=== PATIENT | female | born 1985 | race Caucasian/White ===

== ENCOUNTER 2022-05-15 17:05 | Emergency (ER) | payer OTHER ==
--- OUTSIDE RECORDS SUMMARY | 2022-05-15 17:08 | XMS REPORT | Continuity of Care Document ---
:1985 Author Organization [facility] t Address [address] [place] [address] Care Team Providers Name Role Phone ASHA MCKEE Attending Clinician Unavailable PHYSICIAN, ER Attending Clinician Unavailable Problems Condition Condition Condition Status Onset Resolution Last Treating Co mments Source Name Details Category Date Date Treatment Clinician Date Problem Condition [facility] Allergies, Adverse Reactions, Alerts This patient has no known allergies or adverse reactions. Social History Social Habit Start Date Stop Date Quantity Comments Source Sex Assigned At [birth year] Female [facility] 00:00:00 00:00:00 Smoking Status Start Date Stop Date Source Unknown if ever smoked [employer] Never smoked tobacco (finding) C [employer] Medications Ordered Filled Start Stop Current Ordering Indication Dosage Frequency Signature Comments Components Source Medication Medication Date Date Medication? Clinician (SIG) Name Name Methocarbam 2020-0 No 500mg Three [facility] LEVON ol 7-07 Times A S (Robaxin) 09:18: [facility] 500 Mg TAB 00 Acetaminoph 2020-0 No 1 Every 4 [facility] ISTU en/Butalbit 7-07 Hours S al/Caffeine 08:39: Health (Fioricet) 00 1 Tab TAB Promethazin 2020-0 No 12.5mg Every 4 - [facility] e Hcl 7-07 6 Hours S (Phenergan) 08:39: Health 12.5 Mg 00 TABLET Vital Signs Vital Name Observation Time Observation Value Comments Source Body Temperature 2020-01-07 10:16:00 97.7 [degF] [employer] Heart Rate 2020-01-07 10:16:00 79 /min [employer] Respiratory rate 2020-01-07 10:16:00 18 /min [employer] [facility] BP Systolic 2020-01-07 10:16:00 134 mm[Hg] [employer] BP Diastolic 2020-01-07 10:16:00 90 mm[Hg] [employer] Heart Rate 2020-01-07 07:42:00 79 /min [facility] BP Systolic 2020-01-07 07:42:00 134 mm[Hg] [facility] BP Diastolic 2020-01-07 07:42:00 90 mm[Hg] [facility] Respiratory rate 2020-01-07 03:43:00 18 /min [facility] Weight 2020-01-07 03:43:00 230 [lb_av] [facility] BMI (Body Mass Index) 2020-01-07 03:43:00 34.0 kg/m2 [facility] Body Temperature 2019-09-09 00:22:00 98.4 [degF] [facility] Heart Rate 2019-09-09 00:22:00 96 /min [facility] Respiratory rate 2019-09-09 00:22:00 18 /min [facility] BP Systolic 2019-09-09 00:22:00 146 mm[Hg] [facility] BP Diastolic 2019-09-09 00:22:00 93 mm[Hg] [facility] Heart Rate 2019-09-08 21:00:00 96 /min [facility] Respiratory rate 2019-09-08 21:00:00 18 /min [facility] BP Systolic 2019-09-08 21:00:00 146 mm[Hg] [facility] BP Diastolic 2019-09-08 21:00:00 93 mm[Hg] [facility] Weight 2019-09-08 21:00:00 235 [lb_av] [facility] BMI (Body Mass Index) 2019-09-08 21:00:00 34.7 kg/m2 [facility] Procedures Procedure Date / Time Performed Performing Clinician [facility] ECG (electrocardiogram) 2020-01-07 00:00:00 [facility] X-ray of chest, single 2020-01-07 00:00:00 [employer] view Computed tomography of 2020-01-07 00:00:00 [employer] head or brain without contrast Computed tomography of 2020-01-07 00:00:00 [employer] [facility] cervical spine without contrast ECG (electrocardiogram) 2019-09-08 00:00:00 [facility] [employer] [facility] X-ray of chest, two views 2019-09-08 00:00:00 [facility] Encounters Start End Encounter Admission Attending Care Care Encounter Source Date/Time Date/Time Type Type Clinicians Facility Department ID 2020-01-09 2020-01-09 Outpatient MARIANO MCKEE, GLORIA CASTRO [id number] [facility] 13:44:00 13:44:00 ASHA 03 S Health 2020-01-07 2020-01-07 Departed ER PHYSICIAN, GLORIA CASTRO [id number] [facility] 03:35:00 03:35:00 Emergency ER [facility] [address] [facility] 2019-09-08 2019-09-09 Departed GLORIA CASTRO [id number] [facility] 20:50:00 00:23:00 Emergency [facility] [address] [facility] Results Test Description Test Time Test Comments Results Result Comments Source Serum or plasma natriuretic peptide B measurement (mas s/volume) 2020-01-07 08:11:00 Test Item Value Reference Range Interpretation Comme nts B-Type Natriuretic Peptide (test code = 88566-4) 4 pg/mL 0-101 [facility] or plasma free thyroxine (FT4) measurement (mass/volume) 2020-01-07 07:47:00 Test Item Value Reference Range Interpretation Comments Free Thyroxine (test code = 1.48 ng/dL 1.09-1.53 3024-7) [facility] plasma thyrotropin measurement with detection limit of 0.005 mIU/L or less (units/volume)2020-01-07 07:47:00 Test Item Value Reference Range Interpretation Comments Thyroid Stimulating Hormone 1.435 u[iU]/mL 0.550-4.780 (TSH) (test code = 45252-9) [facility] or plasma free triiodothyronine (T3) measurement (mass/volume)2020-01-07 07:47:00 Test Item Value Reference Range Interpretation Comments Free Triiodothyronine (test code = 2.89 pg/mL 2.30-4.20 3051-0) [facility] or plasma amylase measurement (enzymatic activity/volume) 2020-01-07 07:27:00 Test Item Value Reference Range Interpretation Comments Amylase Level (test code = 1798-8) 31 U/L 23-130 [facility] or plasma lipase measurement (enzymatic activity/volume) 2020-01-07 07:27:00 Test Item Value Reference Range Interpretation Comments Lipase (test code = 3040-3) 29 U/L 31-96 [facility]/igjp0391-58-10 07:27:00 Test Item Value Reference Range Interpretation Comments Total Creatine Kinase (test code = 61 U/L 30-160 2157-6) [facility] or plasma creatine kinase MB measurement (mass/volume) 2020-01-07 07:27:00 Test Item Value Reference Range Interpretation Comments Creatine Kinase MB (test code = < 0.18 ng/mL 0-5 57949-9) [facility] or plasma cardiac troponin I measurement (mass/volume) 2020-01-07 07:27:00 Test Item Value Reference Range Interpretation Comments Troponin I (test code = < 0.006 ng/mL 0.000-0.040 40050-2) [facility] or plasma myoglobin measurement (mass/volume)2020-01-07 07:27:00 Test Item Value Reference Range Interpretation Comments Myoglobin (test code = 2639-3) 20.4 ng/mL <110.0 [facility] HealthUrinalysis specimen collection [id number] 04:03:00 Test Item Value Reference Range Interpretation Comments Urine Source (test code = Urine Clean Catch 51908-1) [facility] HealthUrine color [id number] 04:03:00 Test Item Value Reference Range Interpretation Comments Urine Color (test code = 5778-6) Colorless Yel-Lora [facility] HealthUrine appearance wwrjuucmhejob3230-92-53 04:03:00 Test Item Value Reference Range Interpretation Comments Urine Appearance (test code = 5767-9) Clear Clear [facility] pH measurement by test [id number] 04:03:00 Test Item Value Reference Range Interpretation Comments Urine pH (test code = 5803-2) 5.0 5.0-7.5 [facility] gravity ur aclvzazg4567-62-54 04:03:00 Test Item Value Reference Range Interpretation Comments Urine Specific [place] (test code = 1.003 1.003-1.029 5811-5) [facility] protein measurement by automated test strip (mass/volume) 2020-01-07 04:03:00 Test Item Value Reference Range Interpretation Comments Urine Protein (test code = Negative mg/dL Neg - Trace 95737-7) [facility] glucose measurement by automated test strip (mass/volume) 2020-01-07 04:03:00 Test Item Value Reference Range Interpretation Comments Urine Glucose (UA) (test code = Negative Negative 16162-2) [facility]Urine ketones detection by automated test [id number] 04:03:00 Test Item Value Reference Range Interpretation Comments Urine Ketones (test code = 13653-2) Negative Negative [facility] erythrocytes count by automated test strip (number/volume) 2020-01-07 04:03:00 Test Item Value Reference Range Interpretation Comments Urine Occult Blood (test code = Negative Negative 51727-9) [facility]rine nitrite detection by automated test [id number] 04:03:00 Test Item Value Reference Range Interpretation Comments Urine Nitrite (test code = 60075-8) Negative Negative [facility] total bilirubin detection by automated test [id number] 04:03:00 Test Item Value Reference Range Interpretation Comments Urine Bilirubin (test code = Negative Negative 07039-7) [facility] urobilinogen measurement by automated test strip (mass/volume)2020-01-07 04:03:00 Test Item Value Reference Range Interpretation Comments Urine Urobilinogen (test code = Normal mg/dL Norm-1.0 25782-1) [facility] HealthUrine leukocyte esterase detection by automated test strip 2020-01-07 04:03:00 Test Item Value Reference Range Interpretation Comments Urine Leukocyte Esterase (test code = Trace Negative 11239-8) [facility] sediment erythrocyte count by microscopy (number/high power field)2020-01-07 04:03:00 Test Item Value Reference Range Interpretation Comments Urine RBC (test 0-2 /[HPF] See_Comment [Automated message] The code = 87592-3) system which generated this result tra nsmitted reference range : 0 to 5. The reference r kandice was not used to int erpret this result as normal/abnormal . [facility] HealthUrine sediment leukocyte count by microscopy (number/high power field)2020-01-07 04:03:00 Test Item Value Reference Range Interpretation Comments Urine WBC (test 5 to 10 /[HPF] See_Comment [Automate d message] code = 5821-4) The system ich generated this result transmitted ref erence range: 0 to 5. The reference range was not used to int erpret this result as normal/abnormal . [facility] HealthUrine sediment epithelial cell count by microscopy (number/low power field)2020-01-07 04:03:00 Test Item Value Reference Range Interpretation Comments Urine Epithelial Cells (test code Many /[LPF] None/Occ = 72949-6) [facility] sediment bacteria count by microscopy (number/high power field)2020-01-07 04:03:00 Test Item Value Reference Range Interpretation Comments Urine Bacteria (test code = Occasional /[HPF] None 5769-5) [facility]Urine sediment hyaline cast count by microscopy (number/low power field)2020-01-07 04:03:00 Test Item Value Reference Range Interpretation Comments Urine Hyaline Casts (test code = 2-5 /[LPF] 5796-8) [facility] HealthYeast detection in urine sediment by light cgntrovqcs1553-11-02 04:03:00 Test Item Value Reference Range Interpretation Comments Urine Yeast (test code = None Seen /[HPF] 11874-2) [facility] comment 04:03:00 Test Item Value Reference Range Interpretation Comments Urine Culture Indicated (test code = No 8264-4) [facility] HealthAutomated blood leukocyte count (number/volume)2020-01-07 04:00:00 Test Item Value Reference Range Interpretation Comments White Blood Count (test code = 4.5 10*3/uL 4.8-10.8 6690-2) [facility] HealthBlood erythrocytes automated count (number/volume)2020-01-07 04:00:00 Test Item Value Reference Range Interpretation Comments Red Blood Count (test code = 4.30 10*6/uL 4.00-5.20 789-8) [facility] HealthBlood hemoglobin measurement (mass/volume)2020-01-07 04:00:00 Test Item Value Reference Range Interpretation Comments Hemoglobin (test code = 718-7) 11.8 g/dL 11.9-15.3 [facility] HealthAutomated blood hematocrit (volume fraction)2020-01-07 04:00:00 Test Item Value Reference Range Interpretation Comments Hematocrit (test code = 4544-3) 36.2 % 35.0-45.2 [facility] HealthAutomated erythrocyte mean corpuscular volume (MCV) measurement 2020-01-07 04:00:00 Test Item Value Reference Range Interpretation Comments Mean Corpuscular Volume (test code = 84.2 fL 81.0-97.0 787-2) [facility] HealthAutomated erythrocyte mean corpuscular hemoglobin (mass per erythrocyte)2020-01-07 04:00:00 Test Item Value Reference Range Interpretation Comments Mean Corpuscular Hemoglobin (test 27.4 pg 27.0-33.0 code = 785-6) [facility]Automated erythrocyte mean corpuscular hemoglobin concentration measurement (mass/bij0502-58-66 04:00:00 Test Item Value Reference Range Interpretation Comments Mean Corpuscular Hemoglobin Concent 32.6 g/dL 32.5-35.0 (test code = 786-4) [facility] HealthAutomated erythrocyte distribution width [id number] 04:00:00 Test Item Value Reference Range Interpretation Comments Red Cell Distribution Width (test code 13.5 % 11.5-14.5 = 788-0) [facility] HealthAutomated blood platelet count (count/volume)2020-01-07 04:00:00 Test Item Value Reference Range Interpretation Comments Platelet Count (test code = 191 10*3/uL 160-400 777-3) [facility] HealthAutomated blood platelet mean volume hqzsxgfkorb1962-16-74 04:00:00 Test Item Value Reference Range Interpretation Comments Mean Platelet Volume (test code = 12.0 fL 7.5-11.2 86358-6) [facility] HealthAutomated blood neutrophil count as percentage of total ftqxpewkkd2197-38-16 04:00:00 Test Item Value Reference Range Interpretation Comments Neutrophils (%) (Auto) (test code = 64 % 45-75 770-8) [facility] HealthAutomated blood immature granulocyte count as percentage of total rxkdhbllws1967-45-36 04:00:00 Test Item Value Reference Range Interpretation Comments Immature Granulocyte % (Auto) (test 0.2 % 0.0-1.5 code = 84677-6) [facility] HealthAutomated blood lymphocyte count as percentage of total oevvuzskhm3460-06-57 04:00:00 Test Item Value Reference Range Interpretation Comments Lymphocytes (%) (Auto) (test code = 26 % 20-48 736-9) [facility] HealthAutomated blood monocyte count as percentage of total leukocytes 2020-01-07 04:00:00 Test Item Value Reference Range Interpretation Comments Monocytes (%) (Auto) (test code = 6 % 1-9 5905-5) [facility] HealthAutomated blood eosinophil count as percentage of total xclxitudgo4929-73-63 04:00:00 Test Item Value Reference Range Interpretation Comments Eosinophils (%) (Auto) (test code = 3 % 0-4 713-8) [facility]Automated blood basophil count as percentage of total leukocytes 2020-01-07 04:00:00 Test Item Value Reference Range Interpretation Comments Basophils (%) (Auto) (test code = 1 % 0-2 706-2) [facility]Automated blood nucleated erythrocyte count as percentage of total htygpugtjk8275-54-30 04:00:00 Test Item Value Reference Range Interpretation Comments Nucleated Red Blood Cells % (test code 0 % 0-1 = 94100-7) [facility]Automated blood neutrophil count (number/volume)2020-01-07 04:00:00 Test Item Value Reference Range Interpretation Comments Neutrophils # (Auto) (test code 2.87 10*3/uL = 751-8) [facility] HealthProthrombin time (PT) in platelet poor nrowka3359-34-40 04:00:00 Test Item Value Reference Range Interpretation Comments Prothrombin Time (test code = 5902-2) 11.8 s 9.4-12.5 [facility] HealthINR in Platelet poor plasma by Coagulation tylmp9565-74-00 04:00:00 Test Item Value Reference Range Interpretation Comments Prothromb Time International 1.1 {ratio} Ratio (test code = 6301-6) [facility] HealthPartial thromboplastin time (PTT) in platelet poor plasma 2020-01-07 04:00:00 Test Item Value Reference Range Interpretation Comments Activated Partial Thromboplast Time 30 s 25-37 (test code = 14108-9) [facility] HealthFibrin D-dimer FEU [id number] 04:00:00 Test Item Value Reference Range Interpretation Comments D-Dimer (test code = 96025-3) 423 ng/mL{FEU} 215-500 [facility] HealthSerum or plasma sodium measurement (moles/volume)2020-01-07 04:00:00 Test Item Value Reference Range Interpretation Comments Sodium Level (test code = 2951-2) 136 mmol/L 135-142 [facility] HealthSerum or plasma potassium measurement (moles/volume)2020-01-07 04:00:00 Test Item Value Reference Range Interpretation Comments Potassium Level (test code = 4.0 mmol/L 3.6-5.1 2823-3) [facility] HealthSerum or plasma chloride measurement (moles/volume)2020-01-07 04:00:00 Test Item Value Reference Range Interpretation Comments Chloride Level (test code = 107 mmol/L 97-108 2075-0) [facility] HealthSerum or plasma total carbon dioxide measurement (moles/volume) 2020-01-07 04:00:00 Test Item Value Reference Range Interpretation Comments Carbon Dioxide Level (test code = 20 mmol/L 26-34 8-9) [facility] HealthSerum or plasma anion gap determination (moles/volume)2020-01-07 04:00:00 Test Item Value Reference Range Interpretation Comments Anion Gap (test code = 50479-5) 9.0 mmol/L 3.0-11.0 [facility] HealthSerum or plasma urea nitrogen measurement (mass/volume)2020-01-07 04:00:00 Test Item Value Reference Range Interpretation Comments Blood Urea Nitrogen (test code = 16.0 mg/dL 12-22 3094-0) [facility] HealthSerum or plasma creatinine measurement (mass/volume)2020-01-07 04:00:00 Test Item Value Reference Range Interpretation Comments Creatinine (test code = 2160-0) 0.90 mg/dL 0.60-1.02 [facility] clearance calculated from serum or plasma creatinine by [id number] 04:00:00 Test Item Value Reference Range Interpretation Comments Estimated Creatinine Clearance (test 93.8 code = 78303-2) [facility]omerular filtration rate (GFR) estimation using MDRD equation 2020-01-07 04:00:00 Test Item Value Reference Range Interpretation Comments Estimat Glomerular Filtration Rate 77.12 >60 (test code = 801487617) [facility] HealthSerum or plasma urea nitrogen/creatinine mass mfsaw7295-84-33 04:00:00 Test Item Value Reference Range Interpretation Comments BUN/Creatinine Ratio (test code = 18 3097-3) [facility] HealthSerum or plasma glucose measurement (mass/volume)2020-01-07 04:00:00 Test Item Value Reference Range Interpretation Comments Glucose Level (test code = 2345-7) 88 mg/dL 74-112 [facility] HealthSerum or plasma calcium measurement (mass/volume)2020-01-07 04:00:00 Test Item Value Reference Range Interpretation Comments Calcium Level (test code = 42111-9) 9.8 mg/dL 9.0-10.2 [facility] HealthSerum or plasma total bilirubin measurement (mass/volume) 2020-01-07 04:00:00 Test Item Value Reference Range Interpretation Comments Total Bilirubin (test code = 0.3 mg/dL 0.3-2.0 1975-2) [facility] HealthSerum or plasma aspartate aminotransferase measurement (enzymatic activity/volume)2020-01-07 04:00:00 Test Item Value Reference Range Interpretation Comments Aspartate Amino Transf (AST/SGOT) 22 U/L 15-37 (test code = 1920-8) [facility] HealthSerum or plasma alanine aminotransferase measurement (enzymatic activity/volume)2020-01-07 04:00:00 Test Item Value Reference Range Interpretation Comments Alanine Aminotransferase (ALT/SGPT) 18 U/L 10-49 (test code = 1742-6) [facility] HealthSerum or plasma protein measurement (mass/volume)2020-01-07 04:00:00 Test Item Value Reference Range Interpretation Comments Total Protein (test code = 2885-2) 7.9 g/dL 6.2-8.0 [facility] HealthSerum or plasma albumin measurement (mass/volume)2020-01-07 04:00:00 Test Item Value Reference Range Interpretation Comments Albumin (test code = 1751-7) 4.9 g/dL 4.2-5.4 [facility] HealthSerum globulin measurement by calculation (mass/volume)2020-01-07 04:00:00 Test Item Value Reference Range Interpretation Comments Globulin (test code = 45626-4) 3.0 g/dL [facility] HealthSerum or plasma albumin/globulin mass [id number] 04:00:00 Test Item Value Reference Range Interpretation Comments Albumin/Globulin Ratio (test code 1.6 {ratio} = 1759-0) [facility] HealthSerum or plasma alkaline phosphatase measurement (enzymatic activity/volume)2020-01-07 04:00:00 Test Item Value Reference Range Interpretation Comments Alkaline Phosphatase (test code = 78 U/L 45-100 6768-6) [facility] specimen collection [id number] 22:40:00 Test Item Value Reference Range Interpretation Comments Urine Source (test code = Urine Clean Catch 76823-9) [facility] HealthUrine color zyizzzfddtagu9554-45-51 22:40:00 Test Item Value Reference Range Interpretation Comments Urine Color (test code = 5778-6) Yellow Yel-Lora [facility] HealthUrine appearance nsnrcvxptboaq7652-39-59 22:40:00 Test Item Value Reference Range Interpretation Comments Urine Appearance (test code = 5767-9) Clear Clear [facility] pH measurement by test [id number] 22:40:00 Test Item Value Reference Range Interpretation Comments Urine pH (test code = 5803-2) 6.0 5.0-7.5 [facility] HealthSpecific gravity ur [id number] 22:40:00 Test Item Value Reference Range Interpretation Comments Urine Specific [place] (test code = 1.024 1.003-1.029 5811-5) [facility]Urine protein measurement by automated test strip (mass/volume) 2019-09-08 22:40:00 Test Item Value Reference Range Interpretation Comments Urine Protein (test code = Trace mg/dL Neg - Trace 31566-7) [facility]rine glucose measurement by automated test strip (mass/volume) 2019-09-08 22:40:00 Test Item Value Reference Range Interpretation Comments Urine Glucose (UA) (test code = Negative Negative 81435-6) [facility] HealthUrine ketones detection by automated test [id number] 22:40:00 Test Item Value Reference Range Interpretation Comments Urine Ketones (test code = 50348-2) Trace Negative [facility] erythrocytes count by automated test strip (number/volume) 2019-09-08 22:40:00 Test Item Value Reference Range Interpretation Comments Urine Occult Blood (test code = Negative Negative 31820-3) [facility]Urine nitrite detection by automated test [id number] 22:40:00 Test Item Value Reference Range Interpretation Comments Urine Nitrite (test code = 91511-1) Negative Negative [facility] total bilirubin detection by automated test [id number] 22:40:00 Test Item Value Reference Range Interpretation Comments Urine Bilirubin (test code = Negative Negative 91757-2) [facility]Urine urobilinogen measurement by automated test strip (mass/volume)2019-09-08 22:40:00 Test Item Value Reference Range Interpretation Comments Urine Urobilinogen (test code = Normal mg/dL Norm-1.0 90378-3) [facility] leukocyte esterase detection by automated test strip 2019-09-08 22:40:00 Test Item Value Reference Range Interpretation Comments Urine Leukocyte Esterase (test code = Trace Negative 25473-3) [facility]rine sediment erythrocyte count by microscopy (number/high power field)2019-09-08 22:40:00 Test Item Value Reference Range Interpretation Comments Urine RBC (test 0-2 /[HPF] See_Comment [Automated message] The code = 21725-1) system which generated this result tra nsmitted reference range : 0 to 5. The reference r kandice was not used to int erpret this result as normal/abnormal . [facility]rine sediment leukocyte count by microscopy (number/high power field)2019-09-08 22:40:00 Test Item Value Reference Range Interpretation Comments Urine WBC (test 10 to 20 /[HPF] See_Comment [Automat ed message] code = 5821-4) The system wh ich generated this result transmitted ref erence range: 0 to 5. The reference range was not used to int erpret this result as normal/abnormal . [facility]rine sediment epithelial cell count by microscopy (number/low power field)2019-09-08 22:40:00 Test Item Value Reference Range Interpretation Comments Urine Epithelial Cells (test None seen /[LPF] None/Occ code = 82092-5) [facility]Urine sediment bacteria count by microscopy (number/high power field)2019-09-08 22:40:00 Test Item Value Reference Range Interpretation Comments Urine Bacteria (test code = Occasional /[HPF] None 5769-5) [facility] HealthUrine sediment hyaline cast count by microscopy (number/low power field)2019-09-08 22:40:00 Test Item Value Reference Range Interpretation Comments Urine Hyaline Casts (test code = 2-5 /[LPF] 5796-8) [facility] HealthYeast detection in urine sediment by light lxxdskqjtx7531-62-28 22:40:00 Test Item Value Reference Range Interpretation Comments Urine Yeast (test code = None Seen /[HPF] 93772-2) [facility] comment [id number] 22:40:00 Test Item Value Reference Range Interpretation Comments Urine Culture Indicated (test code = Yes 8264-4) [facility] HealthAutomated blood nucleated erythrocyte count as percentage of total cgzqkrnzrg7652-86-02 22:15:00 Test Item Value Reference Range Interpretation Comments Nucleated Red Blood Cells % (test code 0 % 0-1 = 44361-5) [facility] neutrophil count (number/volume)2019-09-08 22:15:00 Test Item Value Reference Range Interpretation Comments Neutrophils # (Auto) (test code 5.70 10*3/uL = 751-8) [facility] HealthSerum or plasma sodium measurement (moles/volume)2019-09-08 22:15:00 Test Item Value Reference Range Interpretation Comments Sodium Level (test code = 2951-2) 135 mmol/L 136-145 [facility] or plasma potassium measurement (moles/volume)2019-09-08 22:15:00 Test Item Value Reference Range Interpretation Comments Potassium Level (test code = 4.0 mmol/L 3.5-5.1 2823-3) [facility] or plasma chloride measurement (moles/volume)2019-09-08 22:15:00 Test Item Value Reference Range Interpretation Comments Chloride Level (test code = 2075-0) 99 mmol/L 98-107 [facility]um or plasma total carbon dioxide measurement (moles/volume) 2019-09-08 22:15:00 Test Item Value Reference Range Interpretation Comments Carbon Dioxide Level (test code = 21 mmol/L 23-29 2027-9) [facility] or plasma anion gap determination (moles/volume)2019-09-08 22:15:00 Test Item Value Reference Range Interpretation Comments Anion Gap (test code = 19967-4) 15.0 mmol/L 3.0-11.0 [facility] or plasma urea nitrogen measurement (mass/volume)2019-09-08 22:15:00 Test Item Value Reference Range Interpretation Comments Blood Urea Nitrogen (test code = 13.7 mg/dL 6.0-19.0 3094-0) [facility] or plasma creatinine measurement (mass/volume)2019-09-08 22:15:00 Test Item Value Reference Range Interpretation Comments Creatinine (test code = 2160-0) 0.63 mg/dL 0.7-1.6 [facility] HealthEstimated renal creatinine clearance calculated from serum or plasma creatinine by [id number] 22:15:00 Test Item Value Reference Range Interpretation Comments Estimated Creatinine Clearance (test 134.0 code = 50973-4) [facility] HealthGlomerular filtration rate (GFR) estimation using MDRD equation 2019-09-08 22:15:00 Test Item Value Reference Range Interpretation Comments Estimat Glomerular Filtration Rate 116.39 >60 (test code = 69270-2) [facility]um or plasma urea nitrogen/creatinine mass [id number] 22:15:00 Test Item Value Reference Range Interpretation Comments BUN/Creatinine Ratio (test code = 22 3097-3) [facility]um or plasma glucose measurement (mass/volume)2019-09-08 22:15:00 Test Item Value Reference Range Interpretation Comments Glucose Level (test code = 2345-7) 82 mg/dL 70-110 [facility] or plasma calcium measurement (mass/volume)2019-09-08 22:15:00 Test Item Value Reference Range Interpretation Comments Calcium Level (test code = 17258-4) 8.9 mg/dL 8.4-10.2 [facility] or plasma total bilirubin measurement (mass/volume) 2019-09-08 22:15:00 Test Item Value Reference Range Interpretation Comments Total Bilirubin (test code = 0.4 mg/dL 0-1.0 1975-2) [facility] or plasma aspartate aminotransferase measurement (enzymatic activity/volume)2019-09-08 22:15:00 Test Item Value Reference Range Interpretation Comments Aspartate Amino Transf (AST/SGOT) 24 U/L 0-31 (test code = 1920-8) [facility] or plasma alanine aminotransferase measurement (enzymatic activity/volume)2019-09-08 22:15:00 Test Item Value Reference Range Interpretation Comments Alanine Aminotransferase (ALT/SGPT) 24 U/L 0-31 (test code = 1742-6) [facility] or plasma protein measurement (mass/volume)2019-09-08 22:15:00 Test Item Value Reference Range Interpretation Comments Total Protein (test code = 2885-2) 8.0 g/dL 6.5-8.0 [facility] or plasma albumin measurement (mass/volume)2019-09-08 22:15:00 Test Item Value Reference Range Interpretation Comments Albumin (test code = 1751-7) 4.8 g/dL 3.4-4.8 [facility]um globulin measurement by calculation (mass/volume)2019-09-08 22:15:00 Test Item Value Reference Range Interpretation Comments Globulin (test code = 29998-3) 3.2 g/dL [facility] or plasma albumin/globulin mass [id number] 22:15:00 Test Item Value Reference Range Interpretation Comments Albumin/Globulin Ratio (test code 1.5 {ratio} = 1759-0) [facility] or plasma alkaline phosphatase measurement (enzymatic activity/volume)2019-09-08 22:15:00 Test Item Value Reference Range Interpretation Comments Alkaline Phosphatase (test code = 80 U/L 35-104 6768-6) [facility] or plasma amylase measurement (enzymatic activity/volume) 2019-09-08 22:15:00 Test Item Value Reference Range Interpretation Comments Amylase Level (test code = 1798-8) 32 U/L 28-100 [facility] or plasma lipase measurement (enzymatic activity/volume) 2019-09-08 22:15:00 Test Item Value Reference Range Interpretation Comments Lipase (test code = 3040-3) 18 U/L 16-63 [facility]/[id number] 22:15:00 Test Item Value Reference Range Interpretation Comments Total Creatine Kinase (test code = 84 U/L 24-170 2157-6) [facility] or plasma creatine kinase MB measurement (mass/volume) 2019-09-08 22:15:00 Test Item Value Reference Range Interpretation Comments Creatine Kinase MB (test code = 1.3 ng/mL 0-5 87638-8) [facility] or plasma cardiac troponin T measurement (mass/volume) 2019-09-08 22:15:00 Test Item Value Reference Range Interpretation Comments Troponin T (test code = 6598-7) < 0.01 ng/mL 0-0.03 [facility] or plasma myoglobin measurement (mass/volume)2019-09-08 22:15:00 Test Item Value Reference Range Interpretation Comments Myoglobin (test code = 2639-3) < 21 ng/mL 25-58 [facility] HealthAutomated blood leukocyte count (number/volume)2019-09-08 22:15:00 Test Item Value Reference Range Interpretation Comments White Blood Count (test code = 8.1 10*3/uL 4.8-10.8 6690-2) [facility] HealthBlood erythrocytes automated count (number/volume)2019-09-08 22:15:00 Test Item Value Reference Range Interpretation Comments Red Blood Count (test code = 4.31 10*6/uL 4.00-5.20 789-8) [facility] HealthBlood hemoglobin measurement (mass/volume)2019-09-08 22:15:00 Test Item Value Reference Range Interpretation Comments Hemoglobin (test code = 718-7) 12.3 g/dL 11.9-15.3 [facility] HealthAutomated blood hematocrit (volume fraction)2019-09-08 22:15:00 Test Item Value Reference Range Interpretation Comments Hematocrit (test code = 4544-3) 36.7 % 35.0-45.2 [facility] HealthAutomated erythrocyte mean corpuscular volume (MCV) measurement 2019-09-08 22:15:00 Test Item Value Reference Range Interpretation Comments Mean Corpuscular Volume (test code = 85.2 fL 81.0-97.0 787-2) [facility]Automated erythrocyte mean corpuscular hemoglobin (mass per erythrocyte)2019-09-08 22:15:00 Test Item Value Reference Range Interpretation Comments Mean Corpuscular Hemoglobin (test 28.5 pg 27.0-33.0 code = 785-6) [facility]Automated erythrocyte mean corpuscular hemoglobin concentration measurement (mass/[id number] 22:15:00 Test Item Value Reference Range Interpretation Comments Mean Corpuscular Hemoglobin Concent 33.5 g/dL 32.5-35.0 (test code = 786-4) [facility]Automated erythrocyte distribution width [id number] 22:15:00 Test Item Value Reference Range Interpretation Comments Red Cell Distribution Width (test code 14.0 % 11.5-14.5 = 788-0) [facility] HealthAutomated blood platelet count (count/volume)2019-09-08 22:15:00 Test Item Value Reference Range Interpretation Comments Platelet Count (test code = 238 10*3/uL 160-400 777-3) [facility] HealthAutomated blood platelet mean volume [id number] 22:15:00 Test Item Value Reference Range Interpretation Comments Mean Platelet Volume (test code = 11.0 fL 7.5-11.2 42670-4) [facility] count as percentage of total [id number] 22:15:00 Test Item Value Reference Range Interpretation Comments Neutrophils (%) (Auto) (test code = 70 % 45-75 770-8) [facility] immature granulocyte count as percentage of total [id number] 22:15:00 Test Item Value Reference Range Interpretation Comments Immature Granulocyte % (Auto) (test 0.2 % 0.0-1.5 code = 09926-7) [facility] lymphocyte count as percentage of total fwjytcvhbk6994-39-19 22:15:00 Test Item Value Reference Range Interpretation Comments Lymphocytes (%) (Auto) (test code = 21 % 20-48 736-9) [facility] monocyte count as percentage of total leukocytes 2019-09-08 22:15:00 Test Item Value Reference Range Interpretation Comments Monocytes (%) (Auto) (test code = 7 % 1-9 5905-5) [facility] eosinophil count as percentage of total [id number] 22:15:00 Test Item Value Reference Range Interpretation Comments Eosinophils (%) (Auto) (test code = 1 % 0-4 713-8) [facility] basophil count as percentage of total leukocytes 2019-09-08 22:15:00 Test Item Value Reference Range Interpretation Comments Basophils (%) (Auto) (test code = 1 % 0-2 706-2) [facility]
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
[2022-05-15] MEDS ORDERED: metroNIDAZOLE 500 MG TABLET ONE (22:04)
[2022-05-15] MEDS ORDERED: CEFAZOLIN SODIUM 1 GM/VIAL ONE (22:04)
[2022-05-15] MEDS ORDERED: AZITHROMYCIN 250 MG TAB ONE (22:05)
[2022-05-15] MEDS ORDERED: WATER FOR INJ,STERILE 10 ML ONE (22:05)
[2022-05-15] MEDS ORDERED: ONDANSETRON 4 MG (ODT) TAB ONE (22:05)
[2022-05-15 22:28] VITALS: BP 154/80; TEMP 98.9; O2SAT 100
== END 2022-05-15 22:21 | disposition home or self-care (01) ==
LOC: ER 17:05
DX: T76.21XA Adult sexual abuse, suspected, initial encounter (principal); I10 Essential (primary) hypertension; F41.9 Anxiety disorder, unspecified; F17.210 Nicotine dependence, cigarettes, uncomplicated
CPT/HCPCS: 96372; 99283; Q0162; J0690

== ENCOUNTER 2022-05-29 16:12 | Emergency (ER) | payer OTHER ==
--- OUTSIDE RECORDS SUMMARY | 2022-05-29 16:22 | XMS REPORT | Continuity of Care Document ---
:1985 Author Organization [facility] t Address [address] [place] [address] [address]. [address] [place] [address] Care Team Providers Name Role Phone ASHA MCKEE Attending Clinician Unavailable PHYSICIAN, ER Attending Clinician Unavailable Problems Condition Condition Condition Status Onset Resolution Last Treating Co mments Source Name Details Category Date Date Treatment Clinician Date Problem Condition [facility] Allergies, Adverse Reactions, Alerts This patient has no known allergies or adverse reactions. Social History Social Habit Start Date Stop Date Quantity Comments Source Sex Assigned At [birth year] Female [facility] 00:00:00 00:00:00 Smoking Status Start Date Stop Date Source Unknown if ever smoked [place] Never smoked tobacco (finding) C Exepron Medications Ordered Filled Start Stop Current Ordering [...] Source Body Temperature 2020-01-07 10:16:00 97.7 [degF] [place] Heart Rate 2020-01-07 10:16:00 79 /min [facility] Respiratory rate 2020-01-07 10:16:00 18 /min [place] BP Systolic 2020-01-07 10:16:00 134 mm[Hg] [place] BP Diastolic 2020-01-07 10:16:00 90 mm[Hg] [facility] Heart Rate 2020-01-07 07:42:00 79 /min [facility] BP Systolic 2020-01-07 07:42:00 134 mm[Hg] [facility] BP Diastolic 2020-01-07 07:42:00 90 mm[Hg] [facility] Respiratory rate 2020-01-07 03:43:00 18 /min [facility] Weight 2020-01-07 03:43:00 230 [lb_av] [facility] BMI (Body Mass Index) 2020-01-07 03:43:00 34.0 kg/m2 [email or web address] Body Temperature 2019-09-09 00:22:00 98.4 [degF] [facility] Heart Rate 2019-09-09 00:22:00 96 /min [facility] Respiratory rate 2019-09-09 00:22:00 18 /min [facility] BP Systolic 2019-09-09 00:22:00 146 mm[Hg] [facility] BP Diastolic 2019-09-09 00:22:00 93 mm[Hg] [facility] Heart Rate 2019-09-08 21:00:00 96 /min [facility] Respiratory rate 2019-09-08 21:00:00 18 /min [facility] BP Systolic 2019-09-08 21:00:00 146 mm[Hg] [facility] BP Diastolic 2019-09-08 21:00:00 93 mm[Hg] [facility] Weight 2019-09-08 21:00:00 235 [lb_av] [facility] BMI (Body Mass Index) 2019-09-08 21:00:00 34.7 kg/m2 [facility] Procedure Date / Time Performed Performing Clinician [facility] e ECG (electrocardiogram) 2020-01-07 [facility] 2020-01-07 00:00:00 [facility] view Computed tomography of 2020-01-07 00:00:00 [facility] head or brain without contrast Computed tomography of 2020-01-07 00:00:00 [email or web address] cervical spine without contrast ECG (electrocardiogram) 2019-09-08 00:00:00 [facility] Pristones X-ray of chest, two views 2019-09-08 00:00:00 [facility] Encounters Start End Encounter Admission Attending Care Care Encounter Source Date/Time Date/Time Type Type Clinicians Facility Department ID 2020-01-09 2020-01-09 Outpatient GLORIA ZAMORA [id number] [facility] 13:44:00 13:44:00 A[facility] 2020-01-07 2020-01-07 Departed ER PHYSICIAN, GOLRIA CASTRO [id number] [facility] 03:35:00 03:35:00 Emergency ER [address] [facility] 2019-09-08 2019-09-09 Departed GLORIA CASTRO [id number] [facility] 20:50:00 00:23:00 Emergency [address] [facility] Results Test Description Test Time Test Comments Results Result Comments Source Serum or plasma natriuretic peptide B measurement (mas s/volume) 2020-01-07 08:11:00 Test Item Value Reference Range Interpretation Comme nts B-Type Natriuretic Peptide (test code = 08912-0) 4 pg/mL 0-101 [facility] plasma free thyroxine (FT4) measurement (mass/volume) 2020-01-07 07:47:00 Test Item Value Reference Range Interpretation Comments Free Thyroxine (test code = 1.48 ng/dL 1.09-1.53 3024-7) [facility] or plasma thyrotropin measurement with detection limit of 0.005 mIU/L or less (units/volume)2020-01-07 07:47:00 Test Item Value Reference Range Interpretation Comments Thyroid Stimulating Hormone 1.435 u[iU]/mL 0.550-4.780 (TSH) (test code = 09114-4) [facility] plasma free triiodothyronine (T3) measurement (mass/volume)2020-01-07 07:47:00 Test Item Value Reference Range Interpretation Comments Free Triiodothyronine (test code = 2.89 pg/mL 2.30-4.20 3051-0) [facility] or plasma amylase measurement (enzymatic activity/volume) 2020-01-07 07:27:00 Test Item Value Reference Range Interpretation Comments Amylase Level (test code = 1798-8) 31 U/L 23-130 [facility] plasma lipase measurement (enzymatic activity/volume) 2020-01-07 07:27:00 Test Item Value Reference Range Interpretation Comments Lipase (test code = 3040-3) 29 U/L 31-96 [facility]Creatine kinase ser/hozy0309-79-99 07:27:00 Test Item Value Reference Range Interpretation Comments Total Creatine Kinase (test code = 61 U/L 30-160 2157-6) [facility] or plasma creatine kinase MB measurement (mass/volume) 2020-01-07 07:27:00 Test Item Value Reference Range Interpretation Comments Creatine Kinase MB (test code = < 0.18 ng/mL 0-5 99215-3) [facility] or plasma cardiac troponin I measurement (mass/volume) 2020-01-07 07:27:00 Test Item Value Reference Range Interpretation Comments Troponin I (test code = < 0.006 ng/mL 0.000-0.040 26937-6) [facility] or plasma myoglobin measurement (mass/volume)2020-01-07 07:27:00 Test Item Value Reference Range Interpretation Comments Myoglobin (test code = 2639-3) 20.4 ng/mL <110.0 [facility] HealthUrinalysis specimen collection [id number] 04:03:00 Test Item Value Reference Range Interpretation Comments Urine Source (test code = Urine Clean Catch 92771-3) [facility]rine color vquvnjczrozhn7030-07-50 04:03:00 Test Item Value Reference Range Interpretation Comments Urine Color (test code = 5778-6) Colorless Yel-Lora [facility] HealthUrine appearance fpxnprwuugnok0802-78-01 04:03:00 Test Item Value Reference Range Interpretation Comments Urine Appearance (test code = 5767-9) Clear Clear [facility] pH measurement by test hmipq4886-52-33 04:03:00 Test Item Value Reference Range Interpretation Comments Urine pH (test code = 5803-2) 5.0 5.0-7.5 [facility] HealthSpecific gravity ur fiekdwri3148-73-04 04:03:00 Test Item Value Reference Range Interpretation Comments Urine Specific [place] (test code = 1.003 1.003-1.029 5811-5) [facility] protein measurement by automated test strip (mass/volume) 2020-01-07 04:03:00 Test Item Value Reference Range Interpretation Comments Urine Protein (test code = Negative mg/dL Neg - Trace 07452-3) [facility] glucose measurement by automated test strip (mass/volume) 2020-01-07 04:03:00 Test Item Value Reference Range Interpretation Comments Urine Glucose (UA) (test code = Negative Negative 52569-4) [facility]rine ketones detection by automated test yeeep1049-65-47 04:03:00 Test Item Value Reference Range Interpretation Comments Urine Ketones (test code = 57538-4) Negative Negative [facility] erythrocytes count by automated test strip (number/volume) 2020-01-07 04:03:00 Test Item Value Reference Range Interpretation Comments Urine Occult Blood (test code = Negative Negative 40227-3) [facility] nitrite detection by automated test klgxr8494-43-95 04:03:00 Test Item Value Reference Range Interpretation Comments Urine Nitrite (test code = 88057-4) Negative Negative [facility] total bilirubin detection by automated test ratwn2194-67-28 04:03:00 Test Item Value Reference Range Interpretation Comments Urine Bilirubin (test code = Negative Negative 67508-4) [facility]rine urobilinogen measurement by automated test strip (mass/volume)2020-01-07 04:03:00 Test Item Value Reference Range Interpretation Comments Urine Urobilinogen (test code = Normal mg/dL Norm-1.0 98732-9) [facility] leukocyte esterase detection by automated test strip 2020-01-07 04:03:00 Test Item Value Reference Range Interpretation Comments Urine Leukocyte Esterase (test code = Trace Negative 37953-2) [facility] sediment erythrocyte count by microscopy (number/high power field)2020-01-07 04:03:00 Test Item Value Reference Range Interpretation Comments Urine RBC (test 0-2 /[HPF] See_Comment [Automated message] The code = 67452-4) system which generated this result tra nsmitted reference range : 0 to 5. The reference r kandice was not used to int erpret this result as normal/abnormal . [facility]rine sediment leukocyte count by microscopy (number/high power field)2020-01-07 04:03:00 Test Item Value Reference Range Interpretation Comments Urine WBC (test 5 to 10 /[HPF] See_Comment [Automate d message] code = 5821-4) The system wh ich generated this result transmitted ref erence range: 0 to 5. The reference range was not used to int erpret this result as normal/abnormal . [facility]Urine sediment epithelial cell count by microscopy (number/low power field)2020-01-07 04:03:00 Test Item Value Reference Range Interpretation Comments Urine Epithelial Cells (test code Many /[LPF] None/Occ = 84436-7) [facility] sediment bacteria count by microscopy (number/high power field)2020-01-07 04:03:00 Test Item Value Reference Range Interpretation Comments Urine Bacteria (test code = Occasional /[HPF] None 5769-5) [facility] sediment hyaline cast count by microscopy (number/low power field)2020-01-07 04:03:00 Test Item Value Reference Range Interpretation Comments Urine Hyaline Casts (test code = 2-5 /[LPF] 5796-8) [facility] HealthYeast detection in urine sediment by light wuajagufyt0770-33-17 04:03:00 Test Item Value Reference Range Interpretation Comments Urine Yeast (test code = None Seen /[HPF] 93447-2) [facility] comment 04:03:00 Test Item Value [...] HealthAutomated erythrocyte mean corpuscular hemoglobin concentration measurement (mass/dmo1892-73-14 04:00:00 Test Item Value Reference Range Interpretation Comments Mean Corpuscular Hemoglobin Concent 32.6 g/dL 32.5-35.0 (test code = 786-4) [facility] HealthAutomated erythrocyte distribution width lpwxp1552-21-71 04:00:00 Test Item Value Reference Range Interpretation Comments Red Cell Distribution Width (test code 13.5 % 11.5-14.5 = 788-0) [facility]Automated blood platelet count (count/volume)2020-01-07 04:00:00 Test Item Value Reference Range Interpretation Comments Platelet Count (test code = 191 10*3/uL 160-400 777-3) [facility] HealthAutomated blood platelet mean volume lpfcnmbinlv6044-92-10 04:00:00 Test Item Value Reference Range Interpretation Comments Mean Platelet Volume (test code = 12.0 fL 7.5-11.2 26824-8) [facility] HealthAutomated blood neutrophil count as percentage of total apxxepctad3396-61-67 04:00:00 Test Item Value Reference Range Interpretation Comments Neutrophils (%) (Auto) (test code = 64 % 45-75 770-8) [facility] HealthAutomated blood immature granulocyte count as percentage of total tesvvggblr6298-49-19 04:00:00 Test Item Value Reference Range Interpretation Comments Immature Granulocyte % (Auto) (test 0.2 % 0.0-1.5 code = 84551-1) [facility]Automated blood lymphocyte count as percentage of total kdufkzhqlk6588-31-57 04:00:00 Test Item Value Reference Range Interpretation Comments Lymphocytes (%) (Auto) (test code = 26 % 20-48 736-9) [facility]Automated blood monocyte count as percentage of total leukocytes 2020-01-07 04:00:00 Test Item Value Reference Range Interpretation Comments Monocytes (%) (Auto) (test code = 6 % 1-9 5905-5) [facility]Automated blood eosinophil count as percentage of total yzgqjxknxd9044-35-59 04:00:00 Test Item Value Reference Range Interpretation Comments Eosinophils (%) (Auto) (test code = 3 % 0-4 713-8) [facility]Automated blood basophil count as percentage of total leukocytes 2020-01-07 04:00:00 Test Item Value Reference Range Interpretation Comments Basophils (%) (Auto) (test code = 1 % 0-2 706-2) [facility] HealthAutomated blood nucleated erythrocyte count as percentage of total atfkoxwyzt3266-25-46 04:00:00 Test Item Value Reference Range Interpretation Comments Nucleated Red Blood Cells % (test code 0 % 0-1 = 21647-1) [facility]Automated blood neutrophil count (number/volume)2020-01-07 04:00:00 Test Item Value Reference Range Interpretation Comments Neutrophils # (Auto) (test code 2.87 10*3/uL = 751-8) [facility] HealthProthrombin time (PT) in platelet poor kcbplv3803-00-01 04:00:00 Test Item Value Reference Range Interpretation Comments Prothrombin Time (test code = 5902-2) 11.8 s 9.4-12.5 [facility] HealthINR in Platelet poor plasma by Coagulation uvafu8205-85-16 04:00:00 Test Item Value Reference Range Interpretation Comments Prothromb Time International 1.1 {ratio} Ratio (test code = 6301-6) [facility] HealthPartial thromboplastin time (PTT) in platelet poor plasma 2020-01-07 04:00:00 Test Item Value Reference Range Interpretation Comments Activated Partial Thromboplast Time 30 s 25-37 (test code = 87628-5) [facility] HealthFibrin D-dimer FEU ehqd3738-04-85 04:00:00 Test Item Value Reference Range Interpretation Comments D-Dimer (test code = 54099-3) 423 ng/mL{FEU} 215-500 [facility] HealthSerum or plasma [...] Interpretation Comments Anion Gap (test code = 29678-3) 9.0 mmol/L 3.0-11.0 [facility] HealthSerum or plasma urea nitrogen measurement (mass/volume)2020-01-07 04:00:00 Test Item Value Reference Range Interpretation Comments Blood Urea Nitrogen (test code = 16.0 mg/dL 12-22 3094-0) [facility] HealthSerum or plasma creatinine measurement (mass/volume)2020-01-07 04:00:00 Test Item Value Reference Range Interpretation Comments Creatinine (test code = 2160-0) 0.90 mg/dL 0.60-1.02 [facility] CenterEstimated [facility] creatinine clearance calculated from serum or plasma creatinine by Ot3670-15-42 04:00:00 Test Item Value Reference Range Interpretation Comments Estimated Creatinine Clearance (test 93.8 code = 08737-8) [facility] CenterGlomerular filtration rate (GFR) estimation using MDRD equation 2020-01-07 04:00:00 Test Item Value Reference Range Interpretation Comments Estimat Glomerular Filtration Rate 77.12 >60 (test code = 807931758) [facility] HealthSerum or plasma urea nitrogen/creatinine mass obfsb0927-34-18 04:00:00 Test Item Value Reference Range Interpretation Comments BUN/Creatinine Ratio (test code = 18 3097-3) [facility] HealthSerum or plasma glucose measurement (mass/volume)2020-01-07 04:00:00 Test Item Value Reference Range Interpretation Comments Glucose Level (test code = 2345-7) 88 mg/dL 74-112 [facility]Serum or plasma calcium measurement (mass/volume)2020-01-07 04:00:00 Test Item Value Reference Range Interpretation Comments Calcium Level (test code = 45151-5) 9.8 mg/dL 9.0-10.2 [facility]Serum or plasma [...] (test code = 1751-7) 4.9 g/dL 4.2-5.4 [facility] CenterSerum globulin measurement by calculation (mass/volume)2020-01-07 04:00:00 Test Item Value Reference Range Interpretation Comments Globulin (test code = 67848-3) 3.0 g/dL [facility] HealthSerum or plasma albumin/globulin mass lhaxc6454-80-62 04:00:00 Test Item Value Reference Range Interpretation Comments Albumin/Globulin Ratio (test code 1.6 {ratio} = 1759-0) [facility] HealthSerum or plasma alkaline phosphatase measurement (enzymatic activity/volume)2020-01-07 04:00:00 Test Item Value Reference Range Interpretation Comments Alkaline Phosphatase (test code = 78 U/L 45-100 6768-6) [facility] CenterUrinalysis specimen collection bqwucr4134-88-18 22:40:00 Test Item Value Reference Range Interpretation Comments Urine Source (test code = Urine Clean Catch 40454-8) [facility] HealthUrine color yqhfftvobccmi2649-71-53 22:40:00 Test Item Value Reference Range Interpretation Comments Urine Color (test code = 5778-6) Yellow Yel-Lora [facility] HealthUrine appearance nailvcwwbdnbk5900-35-52 22:40:00 Test Item Value Reference Range Interpretation Comments Urine Appearance (test code = 5767-9) Clear Clear [facility]Urine pH measurement by test nyjdh0476-33-76 22:40:00 Test Item Value Reference Range Interpretation Comments Urine pH (test code = 5803-2) 6.0 5.0-7.5 [facility] HealthSpecific gravity ur qpigoptl7077-52-73 22:40:00 Test Item Value Reference Range Interpretation Comments Urine Specific [place] (test code = 1.024 1.003-1.029 5811-5) [facility]Urine protein measurement by automated test strip (mass/volume) 2019-09-08 22:40:00 Test Item Value Reference Range Interpretation Comments Urine Protein (test code = Trace mg/dL Neg - Trace 11099-7) [facility]Urine glucose measurement by automated test strip (mass/volume) 2019-09-08 22:40:00 Test Item Value Reference Range Interpretation Comments Urine Glucose (UA) (test code = Negative Negative 77713-6) [facility] HealthUrine ketones detection by automated test hquws6547-22-41 22:40:00 Test Item Value Reference Range Interpretation Comments Urine Ketones (test code = 49300-6) Trace Negative [facility]Urine erythrocytes count by automated test strip (number/volume) 2019-09-08 22:40:00 Test Item Value Reference Range Interpretation Comments Urine Occult Blood (test code = Negative Negative 29909-9) [facility] HealthUrine nitrite detection by automated test jlexz3226-80-18 22:40:00 Test Item Value Reference Range Interpretation Comments Urine Nitrite (test code = 36277-2) Negative Negative [facility]Urine total bilirubin detection by automated test jmnai4762-09-17 22:40:00 Test Item Value Reference Range Interpretation Comments Urine Bilirubin (test code = Negative Negative 24315-6) [facility] HealthUrine urobilinogen measurement by automated test strip (mass/volume)2019-09-08 22:40:00 Test Item Value Reference Range Interpretation Comments Urine Urobilinogen (test code = Normal mg/dL Norm-1.0 87490-5) [facility]Urine leukocyte esterase detection by automated test strip 2019-09-08 22:40:00 Test Item Value Reference Range Interpretation Comments Urine Leukocyte Esterase (test code = Trace Negative 24364-3) [facility] HealthUrine sediment erythrocyte count by microscopy (number/high power field)2019-09-08 22:40:00 Test Item Value Reference Range Interpretation Comments Urine RBC (test 0-2 /[HPF] See_Comment [Automated message] The code = 62091-5) system which generated this result tra nsmitted [...] result as normal/abnormal . [facility] HealthUrine sediment epithelial cell count by microscopy (number/low power field)2019-09-08 22:40:00 Test Item Value Reference Range Interpretation Comments Urine Epithelial Cells (test None seen /[LPF] None/Occ code = 62747-8) [facility]Urine sediment bacteria count by microscopy (number/high power field)2019-09-08 22:40:00 Test Item Value Reference Range Interpretation Comments Urine Bacteria (test code = Occasional /[HPF] None 5769-5) [facility] HealthUrine sediment hyaline cast count by microscopy (number/low power field)2019-09-08 22:40:00 Test Item Value Reference Range Interpretation Comments Urine Hyaline Casts (test code = 2-5 /[LPF] 5796-8) [facility] HealthYeast detection in urine sediment by light hwlyhptvtk3996-48-02 22:40:00 Test Item Value Reference Range Interpretation Comments Urine Yeast (test code = None Seen /[HPF] 77454-9) [facility] comment [id number] 22:40:00 Test Item Value Reference Range Interpretation Comments Urine Culture Indicated (test code = Yes 8264-4) [facility] HealthAutomated blood nucleated erythrocyte count as percentage of total ahbozydbay1041-26-52 22:15:00 Test Item Value Reference Range Interpretation Comments Nucleated Red Blood Cells % (test code 0 % 0-1 = 00165-3) [facility] HealthAutomated blood neutrophil count (number/volume)2019-09-08 22:15:00 Test Item [...] Interpretation Comments Anion Gap (test code = 59621-2) 15.0 mmol/L 3.0-11.0 [facility] HealthSerum or plasma urea nitrogen measurement (mass/volume)2019-09-08 22:15:00 Test Item Value Reference Range Interpretation Comments Blood Urea Nitrogen (test code = 13.7 mg/dL 6.0-19.0 3094-0) [facility] HealthSerum or plasma creatinine measurement (mass/volume)2019-09-08 22:15:00 Test Item Value Reference Range Interpretation Comments Creatinine (test code = 2160-0) 0.63 mg/dL 0.7-1.6 [facility] HealthEstimated renal creatinine clearance calculated from serum or plasma creatinine by [id number] 22:15:00 Test Item Value Reference Range Interpretation Comments Estimated Creatinine Clearance (test 134.0 code = 97683-1) [facility] HealthGlomerular filtration rate (GFR) estimation using MDRD equation 2019-09-08 22:15:00 Test Item Value Reference Range Interpretation Comments Estimat Glomerular Filtration Rate 116.39 >60 (test code = 38596-6) [facility] HealthSerum or plasma urea nitrogen/creatinine mass rzixb2427-82-73 22:15:00 Test Item Value Reference Range Interpretation Comments BUN/Creatinine Ratio (test code = 22 3097-3) [facility] HealthSerum or plasma glucose measurement (mass/volume)2019-09-08 22:15:00 Test Item Value Reference Range Interpretation Comments Glucose Level (test code = 2345-7) 82 mg/dL 70-110 [facility]Serum or plasma calcium measurement (mass/volume)2019-09-08 22:15:00 Test Item Value Reference Range Interpretation Comments Calcium Level (test code = 52370-7) 8.9 mg/dL 8.4-10.2 [facility]Serum or plasma [...] Range Interpretation Comments Globulin (test code = 44993-9) 3.2 g/dL [facility] HealthSerum or plasma albumin/globulin mass jjvns6823-99-33 22:15:00 Test Item Value Reference Range Interpretation [...] (test code = 3040-3) 18 U/L 16-63 [facility] HealthCreatine kinase ser/mtgp6229-88-23 22:15:00 Test Item Value Reference Range Interpretation Comments Total Creatine Kinase (test code = 84 U/L 24-170 2157-6) [facility] HealthSerum or plasma creatine kinase MB measurement (mass/volume) 2019-09-08 22:15:00 Test Item Value Reference Range Interpretation Comments Creatine Kinase MB (test code = 1.3 ng/mL 0-5 28111-9) [facility] HealthSerum or plasma cardiac troponin T measurement (mass/volume) 2019-09-08 22:15:00 Test Item Value Reference Range Interpretation Comments Troponin T (test code = 6598-7) < 0.01 ng/mL 0-0.03 [facility] HealthSerum or plasma myoglobin measurement (mass/volume)2019-09-08 22:15:00 Test Item Value Reference Range Interpretation Comments Myoglobin (test code = 2639-3) < 21 ng/mL 25-58 [facility] HealthAutomated blood leukocyte count (number/volume)2019-09-08 22:15:00 Test [...] HealthAutomated erythrocyte mean corpuscular hemoglobin concentration measurement (mass/udo7061-32-70 22:15:00 Test Item Value Reference Range Interpretation Comments Mean Corpuscular Hemoglobin Concent 33.5 g/dL 32.5-35.0 (test code = 786-4) [facility] HealthAutomated erythrocyte distribution width tgquu5650-89-54 22:15:00 Test Item Value Reference Range Interpretation Comments Red Cell Distribution Width (test code 14.0 % 11.5-14.5 = 788-0) [facility]Automated blood platelet count (count/volume)2019-09-08 22:15:00 Test Item Value Reference Range Interpretation Comments Platelet Count (test code = 238 10*3/uL 160-400 777-3) [facility] HealthAutomated blood platelet mean volume olwaevdezex1686-85-05 22:15:00 Test Item Value Reference Range Interpretation Comments Mean Platelet Volume (test code = 11.0 fL 7.5-11.2 39272-9) [facility] CenterAutomated blood neutrophil count as percentage of total lnnkgektwa0391-07-09 22:15:00 Test Item Value Reference Range Interpretation Comments Neutrophils (%) (Auto) (test code = 70 % 45-75 770-8) [facility] CenterAutomated blood immature granulocyte count as percentage of total bfubqainhf3086-04-05 22:15:00 Test Item Value Reference Range Interpretation Comments Immature Granulocyte % (Auto) (test 0.2 % 0.0-1.5 code = 98363-3) [facility] CenterAutomated blood lymphocyte count as percentage of total lmiezrablq5737-14-54 22:15:00 Test Item Value Reference Range Interpretation Comments Lymphocytes (%) (Auto) (test code = 21 % 20-48 736-9) [facility] CenterAutomated blood monocyte count as percentage of total leukocytes 2019-09-08 22:15:00 Test Item Value Reference Range Interpretation Comments Monocytes (%) (Auto) (test code = 7 % 1-9 5905-5) [facility] count as percentage of total [id number] 22:15:00 Test Item Value Reference Range Interpretation Comments Eosinophils (%) (Auto) (test code = 1 % 0-4 713-8) [facility] basophil count as percentage of total leukocytes 2019-09-08 22:15:00 Test Item Value Reference Range Interpretation Comments Basophils (%) (Auto) (test code = 1 % 0-2 706-2) [facility]
[2022-05-29] MEDS ORDERED: NA CHLORIDE 0.9% 1,000 ML ONE (17:19)
[2022-05-29 17:36] LABS: Absolute Lymphocytes (CBC) 1.6 K/uL (0.7-4.9); Lymphocytes % 29.1 % (15.3-44.8); MCV 70.3 fL (80-100); MPV 8.1 fL (7.6-11.3)
[2022-05-29 17:58] LABS: Troponin High Sensitivity 4.4 pg/mL (<58.9)
[2022-05-29] MEDS ORDERED: METOCLOPRAMIDE 10 MG/2mL INJ ONE (19:00)
[2022-05-29] MEDS ORDERED: DIPHENHYDRAMINE 50 MG/ML VIAL ONE (19:01)
[2022-05-29] MEDS ORDERED: NA CHLORIDE 0.9% 100 ML IV ONE (19:01)
--- NOTE | 2022-05-29 19:24 | EDPHYS ---
Physician Documentation [facility] Name: Salud Almanzar Age: 36 yrs Sex: Female : 1985 Arrival Date: 05/29/2022 Time: 16:20 Bed 15 Private MD: ED Physician Edson Lopez HPI: 05/29 16:55 This 36 yrs old Female presents to ER via Ambulatory with complaints of Headache, jmm Dehydration, High Blood Pressure. 16:55 The patient complains of pain to the left side of forehead, left temporal area, left jmm occipital area, left religion and left base of the skull. Onset: The symptoms/episode began/occurred gradually, today. Is a 36-year-old female with history of anemia, hypertension, migraines presents emerged part with a headache which was gradual onset today. Patient is concerned she may be dehydrated. Patient states that she drank alcohol last night.. 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 - Social history:: Smoking status: Patient denies any tobacco usage or history of. ROS: 16:55 Constitutional: Positive for body aches, fatigue. jmm 16:55 Neuro: Positive for headache. 16:55 All other systems are negative. Exam: 16:55 Constitutional: This is a well developed, well nourished patient who is awake, alert, jmm and in no acute distress. Head/Face: atraumatic. Eyes: EOMI, no conjunctival erythema appreciated ENT: Moist Mucus Membranes Neck: Trachea midline, Supple Chest/axilla: Normal chest wall appearance and motion. Cardiovascular: Regular rate and rhythm. No edema appreciated Respiratory: Normal respirations, no respiratory distress appreciated Abdomen/GI: Non distended Back: Normal ROM Skin: General appearance color normal MS/ Extremity: Moves all extremities, no obvious deformities appreciated, no edema noted to the lower extremities Neuro: Awake and alert Psych: Behavior is normal, Mood is normal, Patient is cooperative and pleasant Vital Signs: 16:58 BP 118 / 83; Pulse 92; Resp 20; Temp 98.5; Pulse Ox 99% ; Weight 99.79 kg; Height 5 ft. kb3 10 in. (177.80 cm); Pain 8/10; 19:12 BP 128 / 74; Pulse 74; Resp 16; Pulse Ox 100% on R/A; tp1 16:58 Body Mass Index 31.57 (99.79 kg, 177.80 cm) kb3 MDM: 16:55 Patient medically screened. [facility] 19:23 Data reviewed: vital signs, nurses notes. Counseling: I had a detailed discussion with matthew the patient and/or guardian regarding: the historical points, exam findings, and any diagnostic results supporting the discharge/admit diagnosis, the need for outpatient follow up, to return to the emergency department if symptoms worsen or persist or if there are any questions or concerns that arise at home. 19:23 ED course: Headache is relieved in the ED. Labs did reveal some anemia. Patient states jm she has not been taking her ferrous sulfate. Patient given a prescription for this. Otherwise given strict return precautions. Patient understood and agrees plan of care.. 05/29 16:56 Order name: CBC with Diff; Complete Time: 17:45 [facility] 05/29 16:56 Order name: BMP; Complete Time: 18:21 [facility] 05/29 16:56 Order name: Troponin High Sensitivity; Complete Time: 18:21 [facility] 05/29 16:56 Order name: Saline Lock; Complete Time: 17:27 [facility] 05/29 16:56 Order name: EKG - Nurse/Tech; Complete Time: 17:40 [facility] Administered Medications: 17:27 Drug: NS 0.9% 1000 ml Route: IV; Rate: 1 bolus; Site: right antecubital; tp1 19:30 Follow up: IV Status: Completed infusion; IV Intake: 1000ml tp1 19:03 Drug: diphenhydrAMINE 12.5 mg Route: IVP; Site: right antecubital; tp1 19:30 Follow up: Response: Pain is decreased tp1 19:07 Drug: Reglan (metoCLOPramide) 20 mg Route: IVP; Site: right antecubital; tp1 19:30 Follow up: Response: Pain is decreased tp1 Disposition: 05/30 19:10 Co-signature as Attending Physician, Edson Lopez DO I was immediately available on-site ms3 in the Emergency Department for consultation in the care of the patient.. Disposition Summary: 05/29/22 19:23 Discharge Ordered Location: Home jm Condition: Stable jmm Diagnosis - Anemia, unspecified jmm - Headache jmm Followup: jmm - With: Private Physician - When: 2 - 3 days - Reason: Recheck today's complaints, Continuance of care, Re-evaluation by your physician Discharge Instructions: - Discharge Summary Sheet jmm - Anemia jmm - General Headache Without Cause jm Forms: - Medication Reconciliation Form jm - Thank You Letter jmm - Antibiotic Education jmm - Prescription Opioid Use jm Prescriptions: - Ferrous Sulfate 325 mg (65 mg Iron) Oral Tablet - take 1 tablet by ORAL route every 8 hours; 90 tablet; Refills: 0, Product jm Selection Permitted Signatures: Dispatcher [employer] EDMS Lenny De Leon PA PA jmm Sims, Marcus, DO DO ms3 Teresita Pozo, RN RN tp1 Delmi Kathleen RN RN kb3
--- NOTE | 2022-05-29 19:24 | ER ---
Nurse's Notes [facility] Name: Salud Almanzar Age: 36 yrs Sex: Female : 1985 Arrival Date: 05/29/2022 Time: 16:20 Bed 15 Private MD: Diagnosis: Anemia, unspecified;Headache Presentation: 05/29 16:58 Chief complaint: Patient states: left-sided AQUINO x2 days with associated nausea. 3 Coronavirus screen: Vaccine status: Patient reports receiving the 2nd dose of the covid vaccine. Client denies travel out of the [place] in the last 14 days. Ebola Screen: Patient negative for fever greater than or equal to 101.5 degrees Fahrenheit, and additional compatible Ebola Virus Disease symptoms Patient denies exposure to infectious person. Patient denies travel to an Ebola-affected area in the 21 days before illness onset. Initial Sepsis Screen: Does the patient meet any 2 criteria? No. Patient's initial sepsis screen is negative. Does the patient have a suspected source of infection? No. Patient's initial sepsis screen is negative. Risk Assessment: Do you want to hurt yourself or someone else? Patient reports no desire to harm self or others. Onset of symptoms was May 27, 2022. 16:58 Method Of Arrival: Ambulatory [facility] 16:58 Acuity: JOSE 3 kb3 Triage Assessment: 17:00 Headache History: The patient has had previous headaches and this one is similar to kb3 previous episodes. General: Appears in no apparent distress. Behavior is calm, cooperative. Pain: Complains of pain in left side of forehead, left temporal area and left occipital area Pain does not radiate. Pain currently is 8 out of 10 on a pain scale. Quality of pain is described as aching, Pain began 2-3 days ago. Also complains of nausea. Neuro: No deficits noted. Reports headache. 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 - Social history:: Smoking status: Patient denies any tobacco usage or history of. Screenin:52 Abuse screen: Denies threats or abuse. Denies injuries from another. Nutritional tp1 screening: No deficits noted. Tuberculosis screening: No symptoms or risk factors identified. Fall Risk None identified. Assessment: 17:10 General: Appears in no apparent distress. uncomfortable, Behavior is calm, cooperative. tp1 Pain: Complains of pain in head Pain radiates to neck Pain currently is 8 out of 10 on a pain scale. Quality of pain is described as sharp. Neuro: Level of Consciousness is awake, alert, obeys commands, Oriented to person, place, time, situation, Speech is normal, Pupils are PERRLA. Neuro: Denies blurred vision dizziness. Cardiovascular: Patient's skin is warm and dry. Respiratory: Airway is patent Respiratory effort is even, unlabored. GI: Abdomen is obese, Reports diarrhea, nausea. : No signs and/or symptoms were reported regarding the genitourinary system. EENT: No signs and/or symptoms were reported regarding the EENT system. Derm: Skin is pink, warm \T\ dry. Musculoskeletal: Circulation, motion, and sensation intact. 18:45 Reassessment: Patient appears in no apparent distress at this time. No changes from tp1 previously documented assessment. Patient and/or family updated on plan of care and expected duration. Pain level reassessed. Patient is alert, oriented x 3, equal unlabored respirations, skin warm/dry/pink. continues to CO headache. 19:22 Reassessment: pt states pain has decreased and is ready to be discharged. provider tp1 notified. Vital Signs: 16:58 BP 118 / 83; Pulse 92; Resp 20; Temp 98.5; Pulse Ox 99% ; Weight 99.79 kg; Height 5 ft. kb3 10 in. (177.80 cm); Pain 8/10; 19:12 BP 128 / 74; Pulse 74; Resp 16; Pulse Ox 100% on R/A; tp1 16:58 Body Mass Index 31.57 (99.79 kg, 177.80 cm) kb3 ED Course: 16:20 Patient arrived in ED. am2 16:31 Lenny De Leon PA is PHCP. matthew 16:31 Edson Lopez DO is Attending Physician. [facility] 17:00 Triage completed. kb3 17:00 Arm band placed on right wrist. kb3 17:10 Patient has correct armband on for positive identification. Bed in low position. Call tp1 light in reach. Pulse ox on. NIBP on. 17:16 Teresita Pozo, JIGNESH is Primary Nurse. tp1 17:28 Inserted saline lock: 20 gauge in right antecubital area, using aseptic technique. tp1 Blood collected. 17:52 EKG done. tp1 19:31 No provider procedures requiring assistance completed. IV discontinued, intact, tp1 bleeding controlled, No redness/swelling at site. Pressure dressing applied. Administered Medications: 17:27 Drug: NS 0.9% 1000 ml Route: IV; Rate: 1 bolus; Site: right antecubital; tp1 19:30 Follow up: IV Status: Completed infusion; IV Intake: 1000ml tp1 19:03 Drug: diphenhydrAMINE 12.5 mg Route: IVP; Site: right antecubital; tp1 19:30 Follow up: Response: Pain is decreased tp1 19:07 Drug: Reglan (metoCLOPramide) 20 mg Route: IVP; Site: right antecubital; tp1 19:30 Follow up: Response: Pain is decreased tp1 Medication: 17:52 VIS not applicable for this client. tp1 Intake: 19:30 IV: 1000ml; Total: 1000ml. tp1 Outcome: 19:23 Discharge ordered by . [facility] 19:30 Discharged to home ambulatory. tp1 19:30 Condition: good 19:30 Discharge instructions given to patient, Instructed on discharge instructions, follow up and referral plans. Demonstrated understanding of instructions, follow-up care. 19:31 Patient left the ED. tp1 Signatures: Lenny De Leon PA PA [facility] Patricia Ho am2 Teresita Pozo, JIGNESH RN tp1 Delmi Kathleen RN RN kb3 Corrections: (The following items were deleted from the chart) 17:52 15:10 General: Appears in no apparent distress. uncomfortable, Behavior is calm, tp1 cooperative, tp1 17:52 15:10 Pain: Complains of pain in head Pain radiates to neck Pain currently is 8 out of tp1 10 on a pain scale. Quality of pain is described as sharp, tp1 15:10 Neuro: Level of Consciousness is awake, alert, obeys commands, Oriented to tp1 person, place, time, situation, Speech is normal, Pupils are PERRLA, tp1 15:10 Cardiovascular: Patient's skin is warm and dry. tp1 tp 15:10 Respiratory: Airway is patent Respiratory effort is even, unlabored, tp1 tp1 15:10 Neuro: Denies blurred vision dizziness, tp1 tp1 15:10 GI: Abdomen is obese, Reports diarrhea, nausea, tp1 tp 15:10 : No signs and/or symptoms were reported regarding the genitourinary system. tp1tp 15:10 EENT: No signs and/or symptoms were reported regarding the EENT system. tp1 tp 15:10 Derm: Skin is pink, warm \T\ dry. tp1 tp 15:10 Musculoskeletal: Circulation, motion, and sensation intact. tp1 tp1
[2022-05-29 19:55] VITALS: TEMP 98.5
[2022-05-29 19:56] VITALS: BP 128/74; O2SAT 100
--- NOTE | 2022-05-30 12:49 | EKG ---
Test Date: 2022-05-29 Test Time: 17:38:16 Hydrographer: TP MEASUREMENT RESULTS: Intervals: Rate: 80 AR: 130 QRSD: 84 QT: 384 QTc: 442 [place]: P: 53 AR: 130 QRS: 69 T: 51 INTERPRETIVE STATEMENTS: Normal sinus rhythm Normal ECG No previous ECG available for comparison Electronically Signed On 05-30-22 12:48:51 INSURANCE CODER by Maurice Huitron
== END 2022-05-29 19:31 | disposition home or self-care (01) ==
LOC: ER 16:12
DX: R51.9 Headache, unspecified (principal); D64.9 Anemia, unspecified; I10 Essential (primary) hypertension; F41.9 Anxiety disorder, unspecified
CPT/HCPCS: 96361; 93005; 85025; 80048; 36415; 84484; 96375; 96374; 99284; J2765; J1200; J7030

== ENCOUNTER 2022-07-23 16:50 | Emergency (ER) | payer OTHER ==
--- OUTSIDE RECORDS SUMMARY | 2022-07-23 16:55 | XMS REPORT | Continuity of Care Document ---
:1985 Author Organization [facility] t Address [address] [place] [address] [address] [place] [address] Care Team Providers Name Role Phone ASHA MCKEE Attending Clinician Unavailable PHYSICIAN, ER Attending Clinician Unavailable Problems Condition Condition Condition Status Onset Resolution Last Treating Co mments Source Name Details Category Date Date Treatment Clinician Date Problem Condition [facility] Allergies, Adverse Reactions, Alerts This patient has no known allergies or adverse reactions. Social History Social Habit Start Date Stop Date Quantity Comments Source Sex Assigned At [birth year] Female [facility] 00:00:00 00:00:00 Smoking Status Start Date Stop Date Source Unknown if ever smoked [facility] Never smoked tobacco (finding) [facility] Medications Ordered Filled Start Stop Current Ordering [...] Source Body Temperature 2020-01-07 10:16:00 97.7 [degF] [facility] Heart Rate 2020-01-07 10:16:00 79 /min [facility] Respiratory rate 2020-01-07 10:16:00 18 /min [facility] BP Systolic 2020-01-07 10:16:00 134 mm[Hg] [facility] BP Diastolic 2020-01-07 10:16:00 90 mm[Hg] [facility] Heart Rate 2020-01-07 07:42:00 79 /min [facility] BP Systolic 2020-01-07 07:42:00 134 mm[Hg] [facility] BP Diastolic 2020-01-07 07:42:00 90 mm[Hg] [facility] Respiratory rate 2020-01-07 03:43:00 18 /min [facility] Weight 2020-01-07 03:43:00 230 [lb_av] [facility] BMI (Body Mass Index) 2020-01-07 03:43:00 34.0 kg/m2 [facility] Body Temperature 2019-09-09 00:22:00 98.4 [degF] [facility] Heart Rate 2019-09-09 00:22:00 96 /min [facility] Respiratory rate 2019-09-09 00:22:00 18 /min [facility] BP Systolic 2019-09-09 00:22:00 146 mm[Hg] [facility] BP Diastolic 2019-09-09 00:22:00 93 mm[Hg] [facility] Heart Rate 2019-09-08 21:00:00 96 /min [facility] Respiratory rate 2019-09-08 21:00:00 18 /min [facility] BP Systolic 2019-09-08 21:00:00 146 mm[Hg] [facility] BP Diastolic 2019-09-08 21:00:00 93 mm[Hg] [facility] Weight 2019-09-08 21:00:00 235 [lb_av] [facility] BMI (Body Mass Index) 2019-09-08 21:00:00 34.7 kg/m2 [facility] Procedures Procedure Date / Time Performed Performing Clinician [facility] e ECG (electrocardiogram) 2020-01-07 00:00:00 [facility] X-ray of chest, single 2020-01-07 00:00:00 [facility] [employer] [facility] view Computed tomography of 2020-01-07 00:00:00 [facility] head or brain without contrast Computed tomography of 2020-01-07 00:00:00 [facility] cervical spine without contrast ECG (electrocardiogram) 2019-09-08 00:00:00 [facility] [employer] [facility] X-ray of chest, two views 2019-09-08 00:00:00 [facility] Encounters Start End Encounter Admission Attending Care Care Encounter Source Date/Time Date/Time Type Type Clinicians Facility Department ID 2020-01-09 2020-01-09 Outpatient GLORIA ZAMORA [id number] [facility] 13:44:00 13:44:00 A[facility] 2020-01-07 2020-01-07 Departed ER PHYSICIAN, GLORIA CASTRO [id number] [facility] 03:35:00 03:35:00 Emergency ER [facility] [address] [facility] 2019-09-08 2019-09-09 Departed GLORIA CASTRO [id number] [facility] 20:50:00 00:23:00 Emergency [facility] [address] [facility] Results Test Description Test Time Test Comments Results Result Comments Source Serum or plasma natriuretic peptide B measurement (mas s/volume) 2020-01-07 08:11:00 Test Item Value Reference Range Interpretation Comme nts B-Type Natriuretic Peptide (test code = 73367-6) 4 pg/mL 0-101 [facility] or plasma free thyroxine (FT4) measurement (mass/volume) 2020-01-07 07:47:00 Test Item Value Reference Range Interpretation Comments Free Thyroxine (test code = 1.48 ng/dL 1.09-1.53 3024-7) [facility]um or plasma thyrotropin measurement with detection limit of 0.005 mIU/L or less (units/volume)2020-01-07 07:47:00 Test Item Value Reference Range Interpretation Comments Thyroid Stimulating Hormone 1.435 u[iU]/mL 0.550-4.780 (TSH) (test code = 41090-2) [facility] or plasma free triiodothyronine (T3) measurement (mass/volume)2020-01-07 07:47:00 Test Item Value Reference Range Interpretation Comments Free Triiodothyronine (test code = 2.89 pg/mL 2.30-4.20 3051-0) [facility] or plasma amylase measurement (enzymatic activity/volume) 2020-01-07 07:27:00 Test Item Value Reference Range Interpretation Comments Amylase Level (test code = 1798-8) 31 U/L 23-130 [facility] or plasma lipase measurement (enzymatic activity/volume) 2020-01-07 07:27:00 Test Item Value Reference Range Interpretation Comments Lipase (test code = 3040-3) 29 U/L 31-96 [facility]Creatine kinase ser/[id number] 07:27:00 Test Item Value Reference Range Interpretation Comments Total Creatine Kinase (test code = 61 U/L 30-160 2157-6) [facility]um or plasma creatine kinase MB measurement (mass/volume) 2020-01-07 07:27:00 Test Item Value Reference Range Interpretation Comments Creatine Kinase MB (test code = < 0.18 ng/mL 0-5 68686-7) [facility] or plasma cardiac troponin I measurement (mass/volume) 2020-01-07 07:27:00 Test Item Value Reference Range Interpretation Comments Troponin I (test code = < 0.006 ng/mL 0.000-0.040 07201-1) [facility]um or plasma myoglobin measurement (mass/volume)2020-01-07 07:27:00 Test Item Value Reference Range Interpretation Comments Myoglobin (test code = 2639-3) 20.4 ng/mL <110.0 [facility] HealthUrinalysis specimen collection [id number] 04:03:00 Test Item Value Reference Range Interpretation Comments Urine Source (test code = Urine Clean Catch 93610-9) [facility] HealthUrine color agdrztoxdkdvt5317-89-28 04:03:00 Test Item Value Reference Range Interpretation Comments Urine Color (test code = 5778-6) Colorless Yel-Lora [facility] HealthUrine appearance asflhvcthqzsa4732-26-03 04:03:00 Test Item Value Reference Range Interpretation Comments Urine Appearance (test code = 5767-9) Clear Clear [facility]rine pH measurement by test [id number] 04:03:00 Test Item Value Reference Range Interpretation Comments Urine pH (test code = 5803-2) 5.0 5.0-7.5 [facility]Specific gravity ur xxpejqmf8186-51-92 04:03:00 Test Item Value Reference Range Interpretation Comments Urine Specific Bradford (test code = 1.003 1.003-1.029 5811-5) [facility]rine protein measurement by automated test strip (mass/volume) 2020-01-07 04:03:00 Test Item Value Reference Range Interpretation Comments Urine Protein (test code = Negative mg/dL Neg - Trace 83147-7) [facility] glucose measurement by automated test strip (mass/volume) 2020-01-07 04:03:00 Test Item Value Reference Range Interpretation Comments Urine Glucose (UA) (test code = Negative Negative 30535-8) [facility]rine ketones detection by automated test uugjb1001-14-01 04:03:00 Test Item Value Reference Range Interpretation Comments Urine Ketones (test code = 86704-6) Negative Negative [facility] erythrocytes count by automated test strip (number/volume) 2020-01-07 04:03:00 Test Item Value Reference Range Interpretation Comments Urine Occult Blood (test code = Negative Negative 57262-7) [facility]rine nitrite detection by automated test jegjh8347-15-02 04:03:00 Test Item Value Reference Range Interpretation Comments Urine Nitrite (test code = 86565-4) Negative Negative [facility] total bilirubin detection by automated test hphvb6374-90-12 04:03:00 Test Item Value Reference Range Interpretation Comments Urine Bilirubin (test code = Negative Negative 17106-4) [facility]rine urobilinogen measurement by automated test strip (mass/volume)2020-01-07 04:03:00 Test Item Value Reference Range Interpretation Comments Urine Urobilinogen (test code = Normal mg/dL Norm-1.0 37219-2) [facility] leukocyte esterase detection by automated test strip 2020-01-07 04:03:00 Test Item Value Reference Range Interpretation Comments Urine Leukocyte Esterase (test code = Trace Negative 58547-6) [facility]Urine sediment erythrocyte count by microscopy (number/high power field)2020-01-07 04:03:00 Test Item Value Reference Range Interpretation Comments Urine RBC (test 0-2 /[HPF] See_Comment [Automated message] The code = 79717-7) system which generated this result tra nsmitted [...] Cells (test code Many /[LPF] None/Occ = 58256-9) [facility]rine sediment bacteria count by microscopy (number/high power field)2020-01-07 04:03:00 Test Item Value Reference Range Interpretation Comments Urine Bacteria (test code = Occasional /[HPF] None 5769-5) [facility]rine sediment hyaline cast count by microscopy (number/low power field)2020-01-07 04:03:00 Test Item Value Reference Range Interpretation Comments Urine Hyaline Casts (test code = 2-5 /[LPF] 5796-8) [facility] HealthYeast detection in urine sediment by light jtagrwifvt1137-03-39 04:03:00 Test Item Value Reference Range Interpretation Comments Urine Yeast (test code = None Seen /[HPF] 87070-2) [facility] comment 04:03:00 Test Item Value [...] HealthAutomated erythrocyte mean corpuscular hemoglobin concentration measurement (mass/gne5978-91-51 04:00:00 Test Item Value Reference Range Interpretation Comments Mean Corpuscular Hemoglobin Concent 32.6 g/dL 32.5-35.0 (test code = 786-4) [facility]Automated erythrocyte distribution width wevbg8016-03-60 04:00:00 Test Item Value Reference Range Interpretation Comments Red Cell Distribution Width (test code 13.5 % 11.5-14.5 = 788-0) [facility]Automated blood platelet count (count/volume)2020-01-07 04:00:00 Test Item Value Reference Range Interpretation Comments Platelet Count (test code = 191 10*3/uL 160-400 777-3) [facility]Automated blood platelet mean volume phtqyfqioiq7460-18-21 04:00:00 Test Item Value Reference Range Interpretation Comments Mean Platelet Volume (test code = 12.0 fL 7.5-11.2 82744-9) [facility]Automated blood neutrophil count as percentage of total uiuccxfazj3030-86-97 04:00:00 Test Item Value Reference Range Interpretation Comments Neutrophils (%) (Auto) (test code = 64 % 45-75 770-8) [facility]Automated blood immature granulocyte count as percentage of total xlzmjovglp1831-32-76 04:00:00 Test Item Value Reference Range Interpretation Comments Immature Granulocyte % (Auto) (test 0.2 % 0.0-1.5 code = 13625-5) [facility]Automated blood lymphocyte count as percentage of total ezcqvbgzuk8227-19-49 04:00:00 Test Item Value Reference Range Interpretation Comments Lymphocytes (%) (Auto) (test code = 26 % 20-48 736-9) [facility]Automated blood monocyte count as percentage of total leukocytes 2020-01-07 04:00:00 Test Item Value Reference Range Interpretation Comments Monocytes (%) (Auto) (test code = 6 % 1-9 5905-5) [facility]Automated blood eosinophil count as percentage of total kuqbnfjykj6911-04-91 04:00:00 Test Item Value Reference Range Interpretation Comments Eosinophils (%) (Auto) (test code = 3 % 0-4 713-8) [facility]Automated blood basophil count as percentage of total leukocytes 2020-01-07 04:00:00 Test Item Value Reference Range Interpretation Comments Basophils (%) (Auto) (test code = 1 % 0-2 706-2) [facility]Automated blood nucleated erythrocyte count as percentage of total faanbkxamf9702-95-68 04:00:00 Test Item Value Reference Range Interpretation Comments Nucleated Red Blood Cells % (test code 0 % 0-1 = 74928-7) [facility]Automated blood neutrophil count (number/volume)2020-01-07 04:00:00 Test Item Value Reference Range Interpretation Comments Neutrophils # (Auto) (test code 2.87 10*3/uL = 751-8) [facility] HealthProthrombin time (PT) in platelet poor dqccix0491-64-75 04:00:00 Test Item Value Reference Range Interpretation Comments Prothrombin Time (test code = 5902-2) 11.8 s 9.4-12.5 [facility] HealthINR in Platelet poor plasma by Coagulation nelpw8800-45-00 04:00:00 Test Item Value Reference Range Interpretation Comments Prothromb Time International 1.1 {ratio} Ratio (test code = 6301-6) [facility] HealthPartial thromboplastin time (PTT) in platelet poor plasma 2020-01-07 04:00:00 Test Item Value Reference Range Interpretation Comments Activated Partial Thromboplast Time 30 s 25-37 (test code = 13368-7) [facility] HealthFibrin D-dimer FEU [id number] 04:00:00 Test Item Value Reference Range Interpretation Comments D-Dimer (test code = 94421-3) 423 ng/mL{FEU} 215-500 [facility] HealthSerum or plasma [...] Interpretation Comments Anion Gap (test code = 59411-3) 9.0 mmol/L 3.0-11.0 [facility] HealthSerum or plasma [...] calculated from serum or plasma creatinine by Di7851-92-45 04:00:00 Test Item Value Reference Range Interpretation Comments Estimated Creatinine Clearance (test 93.8 code = 82156-7) [facility] rate (GFR) estimation using MDRD equation 2020-01-07 04:00:00 Test Item Value Reference Range Interpretation Comments Estimat Glomerular Filtration Rate 77.12 >60 (test code = 499412911) [facility] HealthSerum or plasma urea nitrogen/creatinine mass wizzs9812-24-78 04:00:00 Test Item Value Reference Range Interpretation Comments BUN/Creatinine Ratio (test code = 18 3097-3) [facility] HealthSerum or plasma glucose measurement (mass/volume)2020-01-07 04:00:00 Test Item Value Reference Range Interpretation Comments Glucose Level (test code = 2345-7) 88 mg/dL 74-112 [facility] HealthSerum or plasma calcium measurement (mass/volume)2020-01-07 04:00:00 Test Item Value Reference Range Interpretation Comments Calcium Level (test code = 67502-1) 9.8 mg/dL 9.0-10.2 [facility] HealthSerum or plasma [...] (test code = 1751-7) 4.9 g/dL 4.2-5.4 [facility] globulin measurement by calculation (mass/volume)2020-01-07 04:00:00 Test Item Value Reference Range Interpretation Comments Globulin (test code = 77277-6) 3.0 g/dL [facility] HealthSerum or plasma albumin/globulin mass lpshz4936-95-65 04:00:00 Test Item Value Reference Range Interpretation Comments Albumin/Globulin Ratio (test code 1.6 {ratio} = 1759-0) [facility] HealthSerum or plasma alkaline phosphatase measurement (enzymatic activity/volume)2020-01-07 04:00:00 Test Item Value Reference Range Interpretation Comments Alkaline Phosphatase (test code = 78 U/L 45-100 6768-6) [facility] CenterUrinalysis specimen collection [id number] 22:40:00 Test Item Value Reference Range Interpretation Comments Urine Source (test code = Urine Clean Catch 01659-9) [facility] HealthUrine color wjppmektidwac8337-41-69 22:40:00 Test Item Value Reference Range Interpretation Comments Urine Color (test code = 5778-6) Yellow Yel-Lora [facility]Urine appearance zgjcbgjlfuxum8510-71-10 22:40:00 Test Item Value Reference Range Interpretation Comments Urine Appearance (test code = 5767-9) Clear Clear [facility] pH measurement by test cxfyp1766-96-02 22:40:00 Test Item Value Reference Range Interpretation Comments Urine pH (test code = 5803-2) 6.0 5.0-7.5 [facility]Specific gravity ur wvhvqail2726-03-51 22:40:00 Test Item Value Reference Range Interpretation Comments Urine Specific Bradford (test code = 1.024 1.003-1.029 5811-5) [facility]Urine protein measurement by automated test strip (mass/volume) 2019-09-08 22:40:00 Test Item Value Reference Range Interpretation Comments Urine Protein (test code = Trace mg/dL Neg - Trace 72081-2) [facility]Urine glucose measurement by automated test strip (mass/volume) 2019-09-08 22:40:00 Test Item Value Reference Range Interpretation Comments Urine Glucose (UA) (test code = Negative Negative 83783-0) [facility] HealthUrine ketones detection by automated test jtswo3633-41-19 22:40:00 Test Item Value Reference Range Interpretation Comments Urine Ketones (test code = 88040-6) Trace Negative [facility]Urine erythrocytes count by automated test strip (number/volume) 2019-09-08 22:40:00 Test Item Value Reference Range Interpretation Comments Urine Occult Blood (test code = Negative Negative 09621-8) [facility] HealthUrine nitrite detection by automated test kxpos3203-75-82 22:40:00 Test Item Value Reference Range Interpretation Comments Urine Nitrite (test code = 54416-7) Negative Negative [facility]Urine total bilirubin detection by automated test rslit0225-03-18 22:40:00 Test Item Value Reference Range Interpretation Comments Urine Bilirubin (test code = Negative Negative 41590-1) [facility]Urine urobilinogen measurement by automated test strip (mass/volume)2019-09-08 22:40:00 Test Item Value Reference Range Interpretation Comments Urine Urobilinogen (test code = Normal mg/dL Norm-1.0 31679-3) [facility]Urine leukocyte esterase detection by automated test strip 2019-09-08 22:40:00 Test Item Value Reference Range Interpretation Comments Urine Leukocyte Esterase (test code = Trace Negative 14316-7) [facility]Urine sediment erythrocyte count by microscopy (number/high power field)2019-09-08 22:40:00 Test Item Value Reference Range Interpretation Comments Urine RBC (test 0-2 /[HPF] See_Comment [Automated message] The code = 89276-2) system which generated this result tra nsmitted [...] (test None seen /[LPF] None/Occ code = 24753-4) [facility]Urine sediment bacteria count by microscopy (number/high power field)2019-09-08 22:40:00 Test Item Value Reference Range Interpretation Comments Urine Bacteria (test code = Occasional /[HPF] None 5769-5) [facility] HealthUrine sediment hyaline cast count by microscopy (number/low power field)2019-09-08 22:40:00 Test Item Value Reference Range Interpretation Comments Urine Hyaline Casts (test code = 2-5 /[LPF] 5796-8) [facility] HealthYeast detection in urine sediment by light lakzgjqgql2519-05-49 22:40:00 Test Item Value Reference Range Interpretation Comments Urine Yeast (test code = None Seen /[HPF] 91418-5) [facility] comment [id number] 22:40:00 Test Item Value Reference Range Interpretation Comments Urine Culture Indicated (test code = Yes 8264-4) [facility] HealthAutomated blood nucleated erythrocyte count as percentage of total mdaxktkuer1702-12-56 22:15:00 Test Item Value Reference Range Interpretation Comments Nucleated Red Blood Cells % (test code 0 % 0-1 = 28006-6) [facility] HealthAutomated blood neutrophil count (number/volume)2019-09-08 22:15:00 [...] Level (test code = 21 mmol/L 23-29 8-9) [facility] HealthSerum or plasma anion gap determination (moles/volume)2019-09-08 22:15:00 Test Item Value Reference Range Interpretation Comments Anion Gap (test code = 71433-4) 15.0 mmol/L 3.0-11.0 [facility] HealthSerum or plasma [...] calculated from serum or plasma creatinine by Ng4998-05-60 22:15:00 Test Item Value Reference Range Interpretation Comments Estimated Creatinine Clearance (test 134.0 code = 02567-2) [facility] Center[facility] rate (GFR) estimation using MDRD equation 2019-09-08 22:15:00 Test Item Value Reference Range Interpretation Comments Estimat Glomerular Filtration Rate 116.39 >60 (test code = 91252-8) [facility] HealthSerum or plasma urea nitrogen/creatinine mass ggcps0819-70-37 22:15:00 Test Item Value Reference Range Interpretation Comments BUN/Creatinine Ratio (test code = 22 3097-3) [facility] HealthSerum or plasma glucose measurement (mass/volume)2019-09-08 22:15:00 Test Item Value Reference Range Interpretation Comments Glucose Level (test code = 2345-7) 82 mg/dL 70-110 [facility] HealthSerum or plasma calcium measurement (mass/volume)2019-09-08 22:15:00 Test Item Value Reference Range Interpretation Comments Calcium Level (test code = 59097-5) 8.9 mg/dL 8.4-10.2 [facility]Serum or plasma [...] Range Interpretation Comments Globulin (test code = 41408-4) 3.2 g/dL [facility] HealthSerum or plasma albumin/globulin mass lijvy0030-85-50 22:15:00 Test Item Value Reference Range Interpretation [...] (test code = 3040-3) 18 U/L 16-63 [facility] HealthCreatine kinase ser/brmk6461-54-72 22:15:00 Test Item Value Reference Range Interpretation Comments Total Creatine Kinase (test code = 84 U/L 24-170 2157-6) [facility] HealthSerum or plasma creatine kinase MB measurement (mass/volume) 2019-09-08 22:15:00 Test Item Value Reference Range Interpretation Comments Creatine Kinase MB (test code = 1.3 ng/mL 0-5 66529-8) [facility] HealthSerum or plasma cardiac troponin T measurement (mass/volume) 2019-09-08 22:15:00 Test Item Value Reference Range Interpretation Comments Troponin T (test code = 6598-7) < 0.01 ng/mL 0-0.03 [facility] HealthSerum or plasma myoglobin measurement (mass/volume)2019-09-08 22:15:00 Test Item Value Reference Range Interpretation Comments Myoglobin (test code = 2639-3) < 21 ng/mL 25-58 [facility] CenterAutom[facility] blood leukocyte count (number/volume)2019-09-08 22:15:00 Test Item [...] HealthAutomated erythrocyte mean corpuscular hemoglobin concentration measurement (mass/cpq1901-11-60 22:15:00 Test Item Value Reference Range Interpretation Comments Mean Corpuscular Hemoglobin Concent 33.5 g/dL 32.5-35.0 (test code = 786-4) [facility]Automated erythrocyte distribution width geiuy3992-90-92 22:15:00 Test Item Value Reference Range Interpretation Comments Red Cell Distribution Width (test code 14.0 % 11.5-14.5 = 788-0) [facility]Automated blood platelet count (count/volume)2019-09-08 22:15:00 Test Item Value Reference Range Interpretation Comments Platelet Count (test code = 238 10*3/uL 160-400 777-3) [facility] HealthAutomated blood platelet mean volume qwtdimipvsa3209-28-10 22:15:00 Test Item Value Reference Range Interpretation Comments Mean Platelet Volume (test code = 11.0 fL 7.5-11.2 58786-3) [facility] CenterAutomated blood neutrophil count as percentage of total bfalhivije4722-20-59 22:15:00 Test Item Value Reference Range Interpretation Comments Neutrophils (%) (Auto) (test code = 70 % 45-75 770-8) [facility] CenterAutomated blood immature granulocyte count as percentage of total gvlgjzpbkk1081-00-68 22:15:00 Test Item Value Reference Range Interpretation Comments Immature Granulocyte % (Auto) (test 0.2 % 0.0-1.5 code = 82864-6) [facility] CenterAutomated blood lymphocyte count as percentage of total bgcyyitxrw6900-60-94 22:15:00 Test Item Value Reference Range Interpretation Comments Lymphocytes (%) (Auto) (test code = 21 % 20-48 736-9) [facility] CenterAutomated blood monocyte count as percentage of total leukocytes 2019-09-08 22:15:00 Test Item Value Reference Range Interpretation Comments Monocytes (%) (Auto) (test code = 7 % 1-9 5905-5) [facility] CenterAutomated blood eosinophil count as percentage of total zuywhlkjwz3938-11-15 22:15:00 Test Item Value Reference Range Interpretation Comments Eosinophils (%) (Auto) (test code = 1 % 0-4 713-8) [facility] CenterAutomated blood basophil count as percentage of total leukocytes 2019-09-08 22:15:00 Test Item Value Reference Range Interpretation Comments Basophils (%) (Auto) (test code = 1 % 0-2 706-2) [facility]
[2022-07-23] MEDS ORDERED: LORazepam 2 MG/ML VIAL ONE (17:19)
[2022-07-23 17:32] LABS: Absolute Lymphocytes (CBC) 1.3 K/uL (0.7-4.9); Hematocrit 36.1 % (36.0-45.0); Lymphocytes % 21.1 % (15.3-44.8); RBC Red Blood Cell Count 4.35 M/uL (3.86-4.86)
[2022-07-23 17:52] LABS: Protime INR 1.03
[2022-07-23 17:53] LABS: Albumin 3.6 g/dL (3.4-5.0); Bilirubin Direct 0.1 mg/dL (0-0.2); Bilirubin Total 0.3 mg/dL (0.2-1.0); Potassium 3.3 mmol/L (3.5-5.1); Protein, Total 7.3 g/dL (6.4-8.2); Troponin High Sensitivity 3.8 pg/mL (<58.9)
--- NOTE | 2022-07-23 18:28 | RAD REPORT ---
EXAM DESCRIPTION: RAD - Chest Single View - 07/23/2022 6:20 pm CLINICAL HISTORY: CHEST PAIN COMPARISON: <Comparisons> FINDINGS: Lines: None. Lungs: No evidence of edema or pneumonia. Pleural: No significant pleural effusions or pneumothorax. Cardiac: The heart size is within normal limits. Mediastinum: Within normal limits. Bones: No acute fractures. Other: None IMPRESSION: No acute cardiopulmonary disease.
[2022-07-23] MEDS ORDERED: KETOROLAC 30 MG/ML INJ ONE (18:45)
[2022-07-23] MEDS ORDERED: POTASSIUM 25 MEQ EFFERV TAB ONE (18:45)
--- NOTE | 2022-07-23 18:56 | EDPHYS ---
Physician Documentation [facility] Name: Salud Almanzar Age: 37 yrs Sex: Female : 1985 Arrival Date: 07/23/2022 Time: 16:54 Bed 8 Private MD: ED Physician Rafal Nicholas HPI: 07/23 17:00 This 37 yrs old Female presents to ER via EMS with complaints of Chest Pain. cp 17:00 The patient or guardian reports chest pain that is located primarily in the anterior cp chest wall, left. The pain does not radiate. The chest pain is described as a pressure. Duration: The patient or guardian reports a single episode, that is still ongoing, and worsening. Patient reports waking up this morning at about 0500 and left side chest pain started shortly after. Pain has worsened throughout day. 17:00 Associated signs and symptoms: Pertinent negatives: abdominal pain, cough, diaphoresis, cp lower extremity pain, lower extremity swelling, palpitations, recent travel, shortness of breath. Severity of pain: in the emergency department the pain is unchanged despite EMS interventions. Historical: - Allergies: 16:57 No Known Allergies; bp - Home Meds: 16:57 Xanax Oral [Active]; Bystolic oral [Active]; Protonix Oral [Active]; bp - PMHx: 16:57 Anxiety; Hypertensive disorder; Migraine; Gastroesophageal reflux disease; bp - Immunization history:: Adult Immunizations up to date. - Social history:: Smoking status: unknown. ROS: 17:05 Constitutional: Negative for body aches, chills, fever, poor PO intake. cp 17:05 Cardiovascular: Positive for chest pain, Negative for edema, palpitations. cp 17:05 Eyes: Negative for injury, pain, redness, and discharge. cp 17:05 ENT: Negative for drainage from ear(s), ear pain, sore throat, difficulty swallowing, difficulty handling secretions. 17:05 Respiratory: Negative for cough, shortness of breath, wheezing. 17:05 Abdomen/GI: Negative for abdominal pain, vomiting, diarrhea, constipation. 17:05 Back: Negative for pain at rest, pain with movement. 17:05 Neuro: Negative for altered mental status, dizziness, headache, numbness, syncope, weakness. 17:05 All other systems are negative. Exam: 17:10 Constitutional: The patient appears in no acute distress, alert, awake, cp non-diaphoretic, non-toxic, well developed, well nourished, uncomfortable, overweight 17:10 Head/Face: Normocephalic, atraumatic. cp 17:10 Eyes: Periorbital structures: appear normal, Conjunctiva: normal, no exudate, no injection, Sclera: no appreciated abnormality, Lids and lashes: appear normal, bilaterally. 17:10 ENT: External ear(s): are unremarkable, Nose: is normal, Mouth: Lips: moist, Oral mucosa: pink and intact, moist, Posterior pharynx: Airway: no evidence of obstruction, patent. 17:10 Chest/axilla: Inspection: normal, Palpation: crepitus, is not appreciated, tenderness, is not appreciated. 17:10 Cardiovascular: Rate: normal, Rhythm: regular, Edema: is not appreciated, JVD: is not appreciated. 17:10 Respiratory: the patient does not display signs of respiratory distress, Respirations: normal, no use of accessory muscles, no retractions, labored breathing, is not present, Breath sounds: are clear throughout, no decreased breath sounds, no stridor, no wheezing. 17:10 Abdomen/GI: Inspection: abdomen appears normal, Palpation: abdomen is soft and non-tender, in all quadrants. 17:10 Back: CVA tenderness, is absent. 17:10 Neuro: Orientation: to person, place \T\ time. Mentation: is normal, Cerebellar function: is grossly normal, Motor: moves all fours, strength is normal, Sensation: is normal. 17:40 ECG was reviewed by the Attending Physician. cp Vital Signs: 16:55 BP 139 / 90; Pulse 89; Resp 16; Temp 98; Pulse Ox 99% ; Weight 97.52 kg; Height 5 ft. bp 10 in. (177.80 cm); 17:30 BP 135 / 89; Pulse 78; Resp 16; Pulse Ox 100% ; bp 18:30 BP 149 / 95; Pulse 82; Resp 16; Pulse Ox 100% ; bp 16:55 Body Mass Index 30.85 (97.52 kg, 177.80 cm) bp MDM: 16:56 Patient medically screened. cp 17:00 Differential diagnosis: abnormal EKG, acute myocardial infarction, chest wall pain, cp pericarditis, pleurisy, pneumonia, pneumothorax, pulmonary embolus. 18:55 Data reviewed: vital signs, nurses notes, lab test result(s), EKG, radiologic studies, cp plain films. 18:55 Consideration of Admission/Observation Escalation of care including cp admission/observation considered. I considered the following discharge prescriptions or medication management in the emergency department Medications were administered in the Emergency Department. See MAR. Test considered but Not performed: Other Details CT chest for PE. Care significantly affected by the following chronic conditions: Hypertension. Counseling: I had a detailed discussion with the patient and/or guardian regarding: the historical points, exam findings, and any diagnostic results supporting the discharge/admit diagnosis, lab results, radiology results, the need for outpatient follow up, a family practitioner, to return to the emergency department if symptoms worsen or persist or if there are any questions or concerns that arise at home. Response to treatment: the patient's symptoms have markedly improved after treatment, and as a result, I will discharge patient. Special discussion: Based on the patient's history, exam, and Dx evaluation, there is no indication for emergent intervention or inpatient Tx. It is understood by the patient/guardian that if the Sx's persist or worsen they need to return immediately for re-evaluation. 07/23 16:55 Order name: Basic Metabolic Panel; Complete Time: 17:55 cp 07/23 17:55 Interpretation: Normal except: K 3.3. cp 07/23 16:55 Order name: CBC with Diff; Complete Time: 17:55 cp 07/23 17:55 Interpretation: Normal except: HGB 11.9; RDW 25.3. cp 07/23 16:55 Order name: D-Dimer; Complete Time: 17:55 cp 07/23 16:55 Order name: LFT's; Complete Time: 17:55 cp 07/23 16:55 Order name: Magnesium; Complete Time: 17:55 cp 07/23 16:55 Order name: PT-INR; Complete Time: 17:55 cp 07/23 16:55 Order name: Troponin HS; Complete Time: 17:55 cp 07/23 16:55 Order name: XRAY Chest (1 view); Complete Time: 18:52 cp 07/23 18:52 Interpretation: Report review. cp 07/23 16:55 Order name: EKG; Complete Time: 16:56 cp 07/23 16:55 Order name: Cardiac monitoring; Complete Time: 17:25 cp 07/23 16:55 Order name: EKG - Nurse/Tech; Complete Time: 18:33 cp 07/23 16:55 Order name: IV Saline Lock; Complete Time: 17:25 cp 07/23 16:55 Order name: Labs collected and sent; Complete Time: 17:25 cp 07/23 16:55 Order name: O2 Per Protocol; Complete Time: 17:00 cp 07/23 16:55 Order name: O2 Sat Monitoring; Complete Time: 17:00 EC:40 Rate is 75 beats/min. Rhythm is regular. TX interval is normal. QRS interval is normal. cp QT interval is normal. T waves are Inverted in lead aVR. Interpreted by me. Reviewed by me. Administered Medications: 17:10 Drug: Ativan (LORazepam) 0.5 mg Route: IVP; Site: right hand; bp 18:45 Drug: Potassium Effervescent Tablet 50 mEq Route: PO; bp 18:45 Drug: Ketorolac 30 mg Route: IVP; Site: right hand; bp Disposition: 07/24 13:33 Co-signature as Attending Physician, Rafal Nicholas MD I reviewed the patient's care rn provided by the Advanced Practice Provider and agree with the diagnosis and treatment plan. Disposition Summary: 07/23/22 18:55 Discharge Ordered Location: Home cp Problem: new cp Symptoms: have improved cp Condition: Stable cp Diagnosis - Chest pain, unspecified cp Followup: cp - With: Private Physician - When: 2 - 3 days - Reason: Recheck today's complaints Discharge Instructions: - Discharge Summary Sheet cp - Nonspecific Chest Pain, Adult cp - Managing Stress, Adult cp Forms: - Medication Reconciliation Form cp - Thank You Letter cp - Antibiotic Education cp - Prescription Opioid Use cp Signatures: Dispatcher [employer] Rafal Browne MD MD rn Page, Corey, PA PA cp Peltier, Brian RN RN bp Corrections: (The following items were deleted from the chart) 07/23 16:58 16:57 PSHx: [place] teeth extraction; bp bp 16:58 16:57 PSHx: Cholecystectomy; bp bp 16:58 16:57 PSHx: Myringotomy and insertion of tympanic ventilation tube; bp bp 16:58 16:57 PSHx: section; bp bp 16:58 16:57 PSHx: BTL; bp bp 1658 16:57 PSHx: right hand sx; bp bp
--- NOTE | 2022-07-23 18:56 | ER ---
Nurse's Notes [facility] Name: Salud Almnazar Age: 37 yrs Sex: Female : 1985 Arrival Date: 07/23/2022 Time: 16:54 Bed 8 Private MD: Diagnosis: Chest pain, unspecified Presentation: 07/23 16:55 Chief complaint: EMS states: CP/SOB RADIATING TO LUE SINCE 529. Coronavirus screen: At bp this time, the client does not indicate any symptoms associated with coronavirus-19. Ebola Screen: No symptoms or risks identified at this time. Initial Sepsis Screen: Does the patient meet any 2 criteria? No. Patient's initial sepsis screen is negative. Does the patient have a suspected source of infection? No. Patient's initial sepsis screen is negative. Risk Assessment: Do you want to hurt yourself or someone else? Patient reports no desire to harm self or others. Onset of symptoms was July 23, 2022 at 05:30. Care prior to arrival: Medication(s) given: ASA, 81 mg, x 4, Nitroglycerin, 0.4 mg SL x 1, IV initiated. 20 GA, in the right hand. 16:55 Method Of Arrival: EMS: [facility] bp 16:55 Acuity: JOSE 3 bp Triage Assessment: 16:57 General: Appears distressed, uncomfortable, Behavior is cooperative, appropriate for bp age, anxious. Pain: Complains of pain in chest. EENT: No deficits noted. Neuro: No deficits noted. Cardiovascular: Rhythm is sinus rhythm. Respiratory: Reports shortness of breath. GI: No signs and/or symptoms were reported involving the gastrointestinal system. : No signs and/or symptoms were reported regarding the genitourinary system. Derm: No deficits noted. Musculoskeletal: No deficits noted. Historical: - Allergies: 16:57 No Known Allergies; bp - Home Meds: 16:57 Xanax Oral [Active]; Bystolic oral [Active]; Protonix Oral [Active]; bp - PMHx: 16:57 Anxiety; Hypertensive disorder; Migraine; Gastroesophageal reflux disease; bp - Immunization history:: Adult Immunizations up to date. - Social history:: Smoking status: unknown. Screenin:59 [facility] ED Fall Risk Assessment (Adult) History of falling in the last 3 months, bp including since admission No falls in past 3 months (0 pts). Abuse screen: Denies threats or abuse. Denies injuries from another. Nutritional screening: No deficits noted. Tuberculosis screening: No symptoms or risk factors identified. Assessment: 16:59 General: SEE TRIAGE NOTE. bp 18:34 Reassessment: No changes from previously documented assessment. Patient and/or family bp updated on plan of care and expected duration. Pain level reassessed. 19:03 Reassessment: PT DC HOME AMBULATORY. bp Vital Signs: 16:55 BP 139 / 90; Pulse 89; Resp 16; Temp 98; Pulse Ox 99% ; Weight 97.52 kg; Height 5 ft. bp 10 in. (177.80 cm); 17:30 BP 135 / 89; Pulse 78; Resp 16; Pulse Ox 100% ; bp 18:30 BP 149 / 95; Pulse 82; Resp 16; Pulse Ox 100% ; bp 16:55 Body Mass Index 30.85 (97.52 kg, 177.80 cm) bp ED Course: 16:54 Patient arrived in ED. am2 16:54 Contreras Levy PA is PHCP. cp 16:54 Rafal Nicholas MD is Attending Physician. cp 16:55 Leland Valladares, JIGNESH is Primary Nurse. bp 16:56 Triage completed. bp 16:57 Arm band placed on. bp 16:59 Patient has correct armband on for positive identification. Bed in low position. Call bp light in reach. Side rails up X2. Client placed on continuous cardiac and pulse oximetry monitoring. NIBP monitoring applied. 16:59 Maintain EMS IV. Dressing intact. Good blood return noted. Site clean \T\ dry. Gauge \T\ bp site: 20 G R HAND. Patient maintains SpO2 saturation greater than 95% on room air. 18:22 XRAY Chest (1 view) In Process Unspecified. EDMS 19:03 No provider procedures requiring assistance completed. IV discontinued, intact, bp bleeding controlled, No redness/swelling at site. Pressure dressing applied. Administered Medications: 17:10 Drug: Ativan (LORazepam) 0.5 mg Route: IVP; Site: right hand; bp 18:45 Drug: Potassium Effervescent Tablet 50 mEq Route: PO; bp 18:45 Drug: Ketorolac 30 mg Route: IVP; Site: right hand; bp Medication: 16:59 VIS not applicable for this client. bp Outcome: 18:55 Discharge ordered by . cp 19:03 Discharged to home ambulatory. bp 19:03 Condition: stable 19:03 Discharge instructions given to patient, Instructed on discharge instructions, follow up and referral plans. Demonstrated understanding of instructions, follow-up care. 19:05 Patient left the ED. bp Signatures: Dispatcher [employer] EDMS Contreras Levy PA PA cp Moreno, Amanda am2 Leland Valladares RN RN bp Corrections: (The following items were deleted from the chart) 16:58 16:57 PSHx: [place] teeth extraction; bp bp 16:58 16:57 PSHx: Cholecystectomy; bp bp 16:58 16:57 PSHx: Myringotomy and insertion of tympanic ventilation tube; bp bp 16:58 16:57 PSHx: section; bp bp 16:58 16:57 PSHx: BTL; bp bp 16:58 16:57 PSHx: right hand sx; bp bp 18:48 18:34 BP 135 / 89; Pulse 78bpm; Resp 16bpm; Pulse Ox 100%; bp bp
[2022-07-23 22:17] VITALS: TEMP 98
[2022-07-23 22:32] VITALS: BP 149/95; O2SAT 100
--- NOTE | 2022-07-25 16:54 | EKG ---
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
== END 2022-07-23 19:05 | disposition home or self-care (01) ==
LOC: ER 16:50
DX: R07.89 Other chest pain (principal); I10 Essential (primary) hypertension; F41.9 Anxiety disorder, unspecified; K21.9 Gastro-esophageal reflux disease without esophagitis
CPT/HCPCS: 36415; 71045; 80048; 80076; 83735; 84484; 85025; 85379; 85610; 93005; 96374; 96375; 99284

== ENCOUNTER 2022-07-25 11:51 | Emergency (ER) | payer OTHER ==
--- OUTSIDE RECORDS SUMMARY | 2022-07-25 11:56 | XMS REPORT | Continuity of Care Document ---
:1985 Author Organization [facility] t Address [address] [place] [address] [address]. [address] [place] [address] Care Team Providers Name Role Phone ASHA MCKEE Attending Clinician Unavailable PHYSICIAN, ER Attending Clinician Unavailable Problems Condition Condition Condition Status Onset Resolution Last Treating Co mments Source Name Details Category Date Date Treatment Clinician Date Problem Condition [facility] Allergies, Adverse Reactions, Alerts This patient has no known allergies or adverse reactions. Social History Social Habit Start Date Stop Date Quantity Comments Source Sex Assigned At [birth year] Female [facility] 00:00:00 00:00:00 Smoking Status Start Date Stop Date Source Unknown if ever smoked [employer] Never smoked tobacco (finding) [facility] [employer] Medications Ordered Filled Start Stop Current Ordering [...] Source Body Temperature 2020-01-07 10:16:00 97.7 [degF] [facility] Heart Rate 2020-01-07 10:16:00 79 /min [employer] Respiratory rate 2020-01-07 10:16:00 18 /min [facility] BP Systolic 2020-01-07 10:16:00 134 mm[Hg] [employer] BP Diastolic 2020-01-07 10:16:00 90 mm[Hg] [facility] Heart Rate 2020-01-07 07:42:00 79 /min [facility] BP Systolic 2020-01-07 07:42:00 134 mm[Hg] [facility] BP Diastolic 2020-01-07 07:42:00 90 mm[Hg] [facility] Respiratory rate 2020-01-07 03:43:00 18 /min [facility] Weight 2020-01-07 03:43:00 230 [lb_av] [facility] BMI (Body Mass Index) 2020-01-07 03:43:00 34.0 kg/m2 [facility] Body Temperature 2019-09-09 00:22:00 98.4 [degF] [facility] Heart Rate 2019-09-09 00:22:00 96 /min [facility] Respiratory rate 2019-09-09 00:22:00 18 /min [facility] BP Systolic 2019-09-09 00:22:00 146 mm[Hg] [facility] BP Diastolic 2019-09-09 00:22:00 93 mm[Hg] [facility] Heart Rate 2019-09-08 21:00:00 96 /min [facility] Respiratory rate 2019-09-08 21:00:00 18 /min [facility] BP Systolic 2019-09-08 21:00:00 146 mm[Hg] [facility] BP Diastolic 2019-09-08 21:00:00 93 mm[Hg] [facility] Weight 2019-09-08 21:00:00 235 [lb_av] [facility] BMI (Body Mass Index) 2019-09-08 21:00:00 34.7 kg/m2 [facility] Procedures Procedure Date / Time Performed Performing Clinician [facility] e ECG (electrocardiogram) 2020-01-07 00:00:00 [facility] [employer] [facility] X-ray of chest, single 2020-01-07 00:00:00 [employer] [facility] view Computed tomography of 2020-01-07 00:00:00 [facility] head or brain without contrast Computed tomography of 2020-01-07 00:00:00 [facility] cervical spine without contrast ECG (electrocardiogram) 2019-09-08 00:00:00 [facility] [employer] [facility] X-ray of chest, two views 2019-09-08 00:00:00 [facility] Encounters Start End Encounter Admission Attending Care Care Encounter Source Date/Time Date/Time Type Type Clinicians Facility Department ID 2020-01-09 2020-01-09 Outpatient GLORIA ZAMORA [id number] [facility] 13:44:00 13:44:00 A[facility] 2020-01-07 2020-01-07 Departed ER PHYSICIAN, GLORIA CASTRO [id number] [facility] 03:35:00 03:35:00 Emergency ER [facility] [address] [facility] 2019-09-08 2019-09-09 Departed GLORIA CASTRO [id number] [facility] 20:50:00 00:23:00 Emergency [facility] [address] [facility] Results Test Description Test Time Test Comments Results Result Comments Source Serum or plasma natriuretic peptide B measurement (mas s/volume) 2020-01-07 08:11:00 Test Item Value Reference Range Interpretation Comme nts B-Type Natriuretic Peptide (test code = 19667-8) 4 pg/mL 0-101 [facility] or plasma free thyroxine (FT4) measurement (mass/volume) 2020-01-07 07:47:00 Test Item Value Reference Range Interpretation Comments Free Thyroxine (test code = 1.48 ng/dL 1.09-1.53 3024-7) [facility] or plasma thyrotropin measurement with detection limit of 0.005 mIU/L or less (units/volume)2020-01-07 07:47:00 Test Item Value Reference Range Interpretation Comments Thyroid Stimulating Hormone 1.435 u[iU]/mL 0.550-4.780 (TSH) (test code = 51872-7) [facility] or plasma free triiodothyronine (T3) measurement (mass/volume)2020-01-07 07:47:00 Test Item Value Reference Range Interpretation Comments Free Triiodothyronine (test code = 2.89 pg/mL 2.30-4.20 3051-0) [facility] Health[facility]um or plasma amylase measurement (enzymatic activity/volume) 2020-01-07 07:27:00 Test Item Value Reference Range Interpretation Comments Amylase Level (test code = 1798-8) 31 U/L 23-130 [facility] or plasma lipase measurement (enzymatic activity/volume) 2020-01-07 07:27:00 Test Item Value Reference Range Interpretation Comments Lipase (test code = 3040-3) 29 U/L 31-96 [facility] HealthCreatine kinase ser/[id number] 07:27:00 Test Item Value Reference Range Interpretation Comments Total Creatine Kinase (test code = 61 U/L 30-160 2157-6) [facility] Health[facility]um or plasma creatine kinase MB measurement (mass/volume) 2020-01-07 07:27:00 Test Item Value Reference Range Interpretation Comments Creatine Kinase MB (test code = < 0.18 ng/mL 0-5 37693-8) [facility]um or plasma cardiac troponin I measurement (mass/volume) 2020-01-07 07:27:00 Test Item Value Reference Range Interpretation Comments Troponin I (test code = < 0.006 ng/mL 0.000-0.040 87423-9) [facility]um or plasma myoglobin measurement (mass/volume)2020-01-07 07:27:00 Test Item Value Reference Range Interpretation Comments Myoglobin (test code = 2639-3) 20.4 ng/mL <110.0 [facility] HealthUrinalysis specimen collection [id number] 04:03:00 Test Item Value Reference Range Interpretation Comments Urine Source (test code = Urine Clean Catch 22016-3) [facility] HealthUrine color ofjusbqlhkmgn9885-55-90 04:03:00 Test Item Value Reference Range Interpretation Comments Urine Color (test code = 5778-6) Colorless Yel-Lora [facility] HealthUrine appearance gyvekliaavvrk5884-54-67 04:03:00 Test Item Value Reference Range Interpretation Comments Urine Appearance (test code = 5767-9) Clear Clear [facility]Urine pH measurement by test [id number] 04:03:00 Test Item Value Reference Range Interpretation Comments Urine pH (test code = 5803-2) 5.0 5.0-7.5 [facility] HealthSpecific gravity ur cpqwibrv0068-41-22 04:03:00 Test Item Value Reference Range Interpretation Comments Urine Specific [place] (test code = 1.003 1.003-1.029 5811-5) [facility] protein measurement by automated test strip (mass/volume) 2020-01-07 04:03:00 Test Item Value Reference Range Interpretation Comments Urine Protein (test code = Negative mg/dL Neg - Trace 79873-5) [facility] glucose measurement by automated test strip (mass/volume) 2020-01-07 04:03:00 Test Item Value Reference Range Interpretation Comments Urine Glucose (UA) (test code = Negative Negative 13160-8) [facility]Urine ketones detection by automated test [id number] 04:03:00 Test Item Value Reference Range Interpretation Comments Urine Ketones (test code = 71256-2) Negative Negative [facility] erythrocytes count by automated test strip (number/volume) 2020-01-07 04:03:00 Test Item Value Reference Range Interpretation Comments Urine Occult Blood (test code = Negative Negative 28881-8) [facility]rine nitrite detection by automated test [id number] 04:03:00 Test Item Value Reference Range Interpretation Comments Urine Nitrite (test code = 95067-0) Negative Negative [facility]rine total bilirubin detection by automated test gohvb6357-25-86 04:03:00 Test Item Value Reference Range Interpretation Comments Urine Bilirubin (test code = Negative Negative 89442-5) [facility]rine urobilinogen measurement by automated test strip (mass/volume)2020-01-07 04:03:00 Test Item Value Reference Range Interpretation Comments Urine Urobilinogen (test code = Normal mg/dL Norm-1.0 93671-4) [facility] leukocyte esterase detection by automated test strip 2020-01-07 04:03:00 Test Item Value Reference Range Interpretation Comments Urine Leukocyte Esterase (test code = Trace Negative 22402-2) [facility]Urine sediment erythrocyte count by microscopy (number/high power field)2020-01-07 04:03:00 Test Item Value Reference Range Interpretation Comments Urine RBC (test 0-2 /[HPF] See_Comment [Automated message] The code = 01179-9) system which generated this result tra nsmitted [...] Cells (test code Many /[LPF] None/Occ = 89724-2) [facility]rine sediment bacteria count by microscopy (number/high power field)2020-01-07 04:03:00 Test Item Value Reference Range Interpretation Comments Urine Bacteria (test code = Occasional /[HPF] None 5769-5) [facility] HealthUrine sediment hyaline cast count by microscopy (number/low power field)2020-01-07 04:03:00 Test Item Value Reference Range Interpretation Comments Urine Hyaline Casts (test code = 2-5 /[LPF] 5796-8) [facility] HealthYeast detection in urine sediment by light aosxscwwfb9191-56-88 04:03:00 Test Item Value Reference Range Interpretation Comments Urine Yeast (test code = None Seen /[HPF] 67278-3) [facility] comment 04:03:00 Test Item Value [...] HealthAutomated erythrocyte mean corpuscular hemoglobin concentration measurement (mass/nen8989-48-60 04:00:00 Test Item Value Reference Range Interpretation Comments Mean Corpuscular Hemoglobin Concent 32.6 g/dL 32.5-35.0 (test code = 786-4) [facility] HealthAutomated erythrocyte distribution width xwzud7069-33-34 04:00:00 Test Item Value Reference Range Interpretation Comments Red Cell Distribution Width (test code 13.5 % 11.5-14.5 = 788-0) [facility]Automated blood platelet count (count/volume)2020-01-07 04:00:00 Test Item Value Reference Range Interpretation Comments Platelet Count (test code = 191 10*3/uL 160-400 777-3) [facility] HealthAutomated blood platelet mean volume gixzgrwtkpx8328-76-75 04:00:00 Test Item Value Reference Range Interpretation Comments Mean Platelet Volume (test code = 12.0 fL 7.5-11.2 57324-6) [facility] HealthAutomated blood neutrophil count as percentage of total elhheuvnfu2003-16-56 04:00:00 Test Item Value Reference Range Interpretation Comments Neutrophils (%) (Auto) (test code = 64 % 45-75 770-8) [facility] HealthAutomated blood immature granulocyte count as percentage of total iiodvrkbic6139-48-56 04:00:00 Test Item Value Reference Range Interpretation Comments Immature Granulocyte % (Auto) (test 0.2 % 0.0-1.5 code = 23031-5) [facility]Automated blood lymphocyte count as percentage of total empgioomrp9125-37-35 04:00:00 Test Item Value Reference Range Interpretation Comments Lymphocytes (%) (Auto) (test code = 26 % 20-48 736-9) [facility]Automated blood monocyte count as percentage of total leukocytes 2020-01-07 04:00:00 Test Item Value Reference Range Interpretation Comments Monocytes (%) (Auto) (test code = 6 % 1-9 5905-5) [facility]Automated blood eosinophil count as percentage of total egfcyqirjo4712-20-11 04:00:00 Test Item Value Reference Range Interpretation Comments Eosinophils (%) (Auto) (test code = 3 % 0-4 713-8) [facility]Automated blood basophil count as percentage of total leukocytes 2020-01-07 04:00:00 Test Item Value Reference Range Interpretation Comments Basophils (%) (Auto) (test code = 1 % 0-2 706-2) [facility]Automated blood nucleated erythrocyte count as percentage of total ohfiefuapj4747-40-81 04:00:00 Test Item Value Reference Range Interpretation Comments Nucleated Red Blood Cells % (test code 0 % 0-1 = 77505-6) [facility] HealthAutomated blood neutrophil count (number/volume)2020-01-07 04:00:00 Test Item Value Reference Range Interpretation Comments Neutrophils # (Auto) (test code 2.87 10*3/uL = 751-8) [facility] HealthProthrombin time (PT) in platelet poor hrclgu6322-68-85 04:00:00 Test Item Value Reference Range Interpretation Comments Prothrombin Time (test code = 5902-2) 11.8 s 9.4-12.5 [facility] HealthINR in Platelet poor plasma by Coagulation lcxau5151-48-26 04:00:00 Test Item Value Reference Range Interpretation Comments Prothromb Time International 1.1 {ratio} Ratio (test code = 6301-6) [facility] HealthPartial thromboplastin time (PTT) in platelet poor plasma 2020-01-07 04:00:00 Test Item Value Reference Range Interpretation Comments Activated Partial Thromboplast Time 30 s 25-37 (test code = 10053-9) [facility] HealthFibrin D-dimer FEU bipg2599-50-32 04:00:00 Test Item Value Reference Range Interpretation Comments D-Dimer (test code = 59732-3) 423 ng/mL{FEU} 215-500 [facility] HealthSerum or plasma [...] Interpretation Comments Anion Gap (test code = 26308-7) 9.0 mmol/L 3.0-11.0 [facility] HealthSerum or plasma urea nitrogen measurement (mass/volume)2020-01-07 04:00:00 Test Item Value Reference Range Interpretation Comments Blood Urea Nitrogen (test code = 16.0 mg/dL 12-22 3094-0) [facility] HealthSerum or plasma creatinine measurement (mass/volume)2020-01-07 04:00:00 Test Item Value Reference Range Interpretation Comments Creatinine (test code = 2160-0) 0.90 mg/dL 0.60-1.02 [facility] creatinine clearance calculated from serum or plasma creatinine by [id number] 04:00:00 Test Item Value Reference Range Interpretation Comments Estimated Creatinine Clearance (test 93.8 code = 07035-6) [facility] HospitalGlomerular filtration rate (GFR) estimation using MDRD equation 2020-01-07 04:00:00 Test Item Value Reference Range Interpretation Comments Estimat Glomerular Filtration Rate 77.12 >60 (test code = 540648825) [facility] HealthSerum or plasma urea nitrogen/creatinine mass qphqa3779-53-09 04:00:00 Test Item Value Reference Range Interpretation Comments BUN/Creatinine Ratio (test code = 18 3097-3) [facility] HealthSerum or plasma glucose measurement (mass/volume)2020-01-07 04:00:00 Test Item Value Reference Range Interpretation Comments Glucose Level (test code = 2345-7) 88 mg/dL 74-112 [facility] HealthSerum or plasma calcium measurement (mass/volume)2020-01-07 04:00:00 Test Item Value Reference Range Interpretation Comments Calcium Level (test code = 34551-0) 9.8 mg/dL 9.0-10.2 [facility] HealthSerum or plasma [...] (test code = 1751-7) 4.9 g/dL 4.2-5.4 [facility] globulin measurement by calculation (mass/volume)2020-01-07 04:00:00 Test Item Value Reference Range Interpretation Comments Globulin (test code = 55578-0) 3.0 g/dL [facility] HealthSerum or plasma albumin/globulin mass [id number] 04:00:00 Test Item Value Reference Range Interpretation Comments Albumin/Globulin Ratio (test code 1.6 {ratio} = 1759-0) [facility] HealthSerum or plasma alkaline phosphatase measurement (enzymatic activity/volume)2020-01-07 04:00:00 Test Item Value Reference Range Interpretation Comments Alkaline Phosphatase (test code = 78 U/L 45-100 6768-6) [facility] HospitalUrinalysis specimen collection uyvmtv7609-08-03 22:40:00 Test Item Value Reference Range Interpretation Comments Urine Source (test code = Urine Clean Catch 76176-9) [facility] HealthUrine color jldirnxettobg4325-18-04 22:40:00 Test Item Value Reference Range Interpretation Comments Urine Color (test code = 5778-6) Yellow Yel-Lora [facility] HealthUrine appearance mhydvaftpbbjz1018-27-80 22:40:00 Test Item Value Reference Range Interpretation Comments Urine Appearance (test code = 5767-9) Clear Clear [facility]Urine pH measurement by test ujlhb7142-58-12 22:40:00 Test Item Value Reference Range Interpretation Comments Urine pH (test code = 5803-2) 6.0 5.0-7.5 [facility] HealthSpecific gravity ur myzqhnuc8730-51-98 22:40:00 Test Item Value Reference Range Interpretation Comments Urine Specific [place] (test code = 1.024 1.003-1.029 5811-5) [facility]Urine protein measurement by automated test strip (mass/volume) 2019-09-08 22:40:00 Test Item Value Reference Range Interpretation Comments Urine Protein (test code = Trace mg/dL Neg - Trace 42187-9) [facility]Urine glucose measurement by automated test strip (mass/volume) 2019-09-08 22:40:00 Test Item Value Reference Range Interpretation Comments Urine Glucose (UA) (test code = Negative Negative 43296-3) [facility] HealthUrine ketones detection by automated test [id number] 22:40:00 Test Item Value Reference Range Interpretation Comments Urine Ketones (test code = 96881-1) Trace Negative [facility] HealthUrine erythrocytes count by automated test strip (number/volume) 2019-09-08 22:40:00 Test Item Value Reference Range Interpretation Comments Urine Occult Blood (test code = Negative Negative 52233-6) [facility] HealthUrine nitrite detection by automated test uzgtq3729-86-37 22:40:00 Test Item Value Reference Range Interpretation Comments Urine Nitrite (test code = 53916-4) Negative Negative [facility] HealthUrine total bilirubin detection by automated test ftnvp9957-61-92 22:40:00 Test Item Value Reference Range Interpretation Comments Urine Bilirubin (test code = Negative Negative 14958-6) [facility] HealthUrine urobilinogen measurement by automated test strip (mass/volume)2019-09-08 22:40:00 Test Item Value Reference Range Interpretation Comments Urine Urobilinogen (test code = Normal mg/dL Norm-1.0 69240-0) [facility]Urine leukocyte esterase detection by automated test strip 2019-09-08 22:40:00 Test Item Value Reference Range Interpretation Comments Urine Leukocyte Esterase (test code = Trace Negative 79512-9) [facility] HealthUrine sediment erythrocyte count by microscopy (number/high power field)2019-09-08 22:40:00 Test Item Value Reference Range Interpretation Comments Urine RBC (test 0-2 /[HPF] See_Comment [Automated message] The code = 24752-6) system which generated this result tra nsmitted [...] (test None seen /[LPF] None/Occ code = 58036-7) [facility] HealthUrine sediment bacteria count by microscopy (number/high power field)2019-09-08 22:40:00 Test Item Value Reference Range Interpretation Comments Urine Bacteria (test code = Occasional /[HPF] None 5769-5) [facility] HealthUrine sediment hyaline cast count by microscopy (number/low power field)2019-09-08 22:40:00 Test Item Value Reference Range Interpretation Comments Urine Hyaline Casts (test code = 2-5 /[LPF] 5796-8) [facility] HealthYeast detection in urine sediment by light stddpwxfhr2502-67-46 22:40:00 Test Item Value Reference Range Interpretation Comments Urine Yeast (test code = None Seen /[HPF] 74695-1) [facility] comment [id number] 22:40:00 Test Item Value Reference Range Interpretation Comments Urine Culture Indicated (test code = Yes 8264-4) [facility] HealthAutomated blood nucleated erythrocyte count as percentage of total wwgmjvmwlh5743-16-04 22:15:00 Test Item Value Reference Range Interpretation Comments Nucleated Red Blood Cells % (test code 0 % 0-1 = 76362-1) [facility] HealthAutomated blood neutrophil count (number/volume)2019-09-08 22:15:00 [...] Interpretation Comments Anion Gap (test code = 82172-3) 15.0 mmol/L 3.0-11.0 [facility] HealthSerum or plasma [...] calculated from serum or plasma creatinine by [id number] 22:15:00 Test Item Value Reference Range Interpretation Comments Estimated Creatinine Clearance (test 134.0 code = 09307-1) [facility] HospitalGlomerular filtration rate (GFR) estimation using MDRD equation 2019-09-08 22:15:00 Test Item Value Reference Range Interpretation Comments Estimat Glomerular Filtration Rate 116.39 >60 (test code = 25063-7) [facility] HealthSerum or plasma urea nitrogen/creatinine mass [id number] 22:15:00 Test Item Value Reference Range Interpretation Comments BUN/Creatinine Ratio (test code = 22 3097-3) [facility] HealthSerum or plasma glucose measurement (mass/volume)2019-09-08 22:15:00 Test Item Value Reference Range Interpretation Comments Glucose Level (test code = 2345-7) 82 mg/dL 70-110 [facility] HealthSerum or plasma calcium measurement (mass/volume)2019-09-08 22:15:00 Test Item Value Reference Range Interpretation Comments Calcium Level (test code = 58694-2) 8.9 mg/dL 8.4-10.2 [facility] HealthSerum or plasma [...] Range Interpretation Comments Globulin (test code = 64990-7) 3.2 g/dL [facility] HealthSerum or plasma albumin/globulin mass pvgxo2203-30-47 22:15:00 Test Item Value Reference Range Interpretation [...] (test code = 3040-3) 18 U/L 16-63 [facility] HealthCreatine kinase ser/eczj7724-48-74 22:15:00 Test Item Value Reference Range Interpretation Comments Total Creatine Kinase (test code = 84 U/L 24-170 2157-6) [facility] HealthSerum or plasma creatine kinase MB measurement (mass/volume) 2019-09-08 22:15:00 Test Item Value Reference Range Interpretation Comments Creatine Kinase MB (test code = 1.3 ng/mL 0-5 55695-1) [facility] HealthSerum or plasma cardiac troponin T measurement (mass/volume) 2019-09-08 22:15:00 Test Item Value Reference Range Interpretation Comments Troponin T (test code = 6598-7) < 0.01 ng/mL 0-0.03 [facility] HealthSerum or plasma myoglobin measurement (mass/volume)2019-09-08 22:15:00 Test Item Value Reference Range Interpretation Comments Myoglobin (test code = 2639-3) < 21 ng/mL 25-58 [facility] HospitalAutomated blood leukocyte count (number/volume)2019-09-08 22:15:00 Test Item [...] HealthAutomated erythrocyte mean corpuscular hemoglobin concentration measurement (mass/gdk8766-80-12 22:15:00 Test Item Value Reference Range Interpretation Comments Mean Corpuscular Hemoglobin Concent 33.5 g/dL 32.5-35.0 (test code = 786-4) [facility] HealthAutomated erythrocyte distribution width bewii2598-92-27 22:15:00 Test Item Value Reference Range Interpretation Comments Red Cell Distribution Width (test code 14.0 % 11.5-14.5 = 788-0) [facility]Automated blood platelet count (count/volume)2019-09-08 22:15:00 Test Item Value Reference Range Interpretation Comments Platelet Count (test code = 238 10*3/uL 160-400 777-3) [facility] HealthAutomated blood platelet mean volume gopaqtxpcqx2211-63-36 22:15:00 Test Item Value Reference Range Interpretation Comments Mean Platelet Volume (test code = 11.0 fL 7.5-11.2 70223-5) [facility] HospitalAutomated blood neutrophil count as percentage of total nthrkpujmu3306-86-76 22:15:00 Test Item Value Reference Range Interpretation Comments Neutrophils (%) (Auto) (test code = 70 % 45-75 770-8) [facility] HospitalAutomated blood immature granulocyte count as percentage of total nuozoqnxam9653-16-44 22:15:00 Test Item Value Reference Range Interpretation Comments Immature Granulocyte % (Auto) (test 0.2 % 0.0-1.5 code = 24841-5) [facility] HospitalAutomated blood lymphocyte count as percentage of total yggpvycmrg3621-48-60 22:15:00 Test Item Value Reference Range Interpretation Comments Lymphocytes (%) (Auto) (test code = 21 % 20-48 736-9) [facility] HospitalAutomated blood monocyte count as percentage of total leukocytes 2019-09-08 22:15:00 Test Item Value Reference Range Interpretation Comments Monocytes (%) (Auto) (test code = 7 % 1-9 5905-5) [facility] HospitalAutomated blood eosinophil count as percentage of total zhimjjxmki8716-12-51 22:15:00 Test Item Value Reference Range Interpretation Comments Eosinophils (%) (Auto) (test code = 1 % 0-4 713-8) [facility] HospitalAutomated blood basophil count as percentage of total leukocytes 2019-09-08 22:15:00 Test Item Value Reference Range Interpretation Comments Basophils (%) (Auto) (test code = 1 % 0-2 706-2) [facility]
[2022-07-25] MEDS ORDERED: predniSONE 20 MG TAB ONE (12:35)
[2022-07-25] MEDS ORDERED: KETOROLAC 30 MG/ML INJ ONE (12:35)
[2022-07-25] MEDS ORDERED: DIAZEPAM 5 MG TABLET ONE (12:35)
[2022-07-25] MEDS ORDERED: FAMOTIDINE 20 MG TAB ONE (12:36)
--- NOTE | 2022-07-25 12:59 | ER ---
Nurse's Notes [facility] Name: Salud Almanzar Age: 37 yrs Sex: Female : 1985 Arrival Date: 07/25/2022 Time: 11:54 Bed 11 Private MD: Diagnosis: Strain of muscle(s) and tendon(s) of the rotator cuff of left shoulder;allergic rhinitis Presentation: 07/25 12:12 Chief complaint: Patient states: sinus congestion after the weather changed and L ss shoulder pain that began 1 week ago. No known injury. Coronavirus screen: Client denies travel out of the [place] in the last 14 days. Ebola Screen: Patient denies exposure to infectious person. Patient denies travel to an Ebola-affected area in the 21 days before illness onset. Initial Sepsis Screen: Does the patient meet any 2 criteria? No. Patient's initial sepsis screen is negative. Does the patient have a suspected source of infection? No. Patient's initial sepsis screen is negative. Risk Assessment: Do you want to hurt yourself or someone else? Patient reports no desire to harm self or others. Onset of symptoms is unknown. 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 - Social history:: Smoking status: Patient/guardian denies using tobacco, the patient reports quitting approximately 5 years ago. Vital Signs: 12:12 BP 148 / 104; Pulse 84; Resp 15; Temp 98.6(TE); Pulse Ox 100% ; Weight 97.52 kg (R); ss Height 5 ft. 10 in. (177.80 cm); Pain 8/10; 12:12 Body Mass Index 30.85 (97.52 kg, 177.80 cm) ED Course: 11:54 Patient arrived in ED. mr 12:14 Triage completed. ss 12:14 Arm band placed on right wrist. ss 12:16 Briana Brooks FNP-C is PHCP. snw 12:16 Edson Lopez DO is Attending Physician. snw 12:27 Jyoti Benites, RN is Primary Nurse. iw Administered Medications: 12:40 Drug: Valium (diazepam) 5 mg Route: PO; iw 12:40 Drug: predniSONE 40 mg Route: PO; iw 12:40 Drug: Pepcid (famotidine) 20 mg Route: PO; iw 12:40 Drug: Ketorolac 30 mg Route: IM; Site: left deltoid; iw Outcome: 12:59 Discharge ordered by MD. snw 13:13 Patient left the ED. iw Signatures: Briana Brooks, MANAGER ENGLISH-C MANAGER ENGLISH-Csnw Rowena Neil mr Jyoti Benites, RN RN iw Shari Heredia RN RN ss
--- NOTE | 2022-07-25 12:59 | EDPHYS ---
Physician Documentation [facility] Name: Salud Almanzar Age: 37 yrs Sex: Female : 1985 Arrival Date: 07/25/2022 Time: 11:54 Bed 11 Private MD: ED Physician Edson Lopez HPI: 07/25 12:56 This 37 yrs old Female presents to ER via Ambulatory with complaints of Shoulder Pain, snw Sinus Congestion. 12:56 The patient or guardian complains of decreased range of motion, pain, that is acute. snw left shoulder and left trapezius. Context: The problem was sustained at home, resulted from chronic injury . Onset: The symptoms/episode began/occurred acutely, and became persistent. Associated signs and symptoms: Pertinent positives: severe pain, decreased ROM. Treatment prior to arrival includes: Flexeril. The patient has experienced a previous episode. 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 - Social history:: Smoking status: Patient/guardian denies using tobacco, the patient reports quitting approximately 5 years ago. ROS: 12:50 Constitutional: Negative for fever, chills, and weight loss. snw 12:50 ENT: Positive for sinus congestion. 12:50 MS/extremity: Positive for decreased range of motion, pain, tenderness, of the anterior aspect of left shoulder. Exam: 12:48 Constitutional: This is a well developed, well nourished patient who is awake, alert, snw and in no acute distress. Head/Face: Normocephalic, atraumatic. Eyes: Pupils equal round and reactive to light, extra-ocular motions intact. Lids and lashes normal. Conjunctiva and sclera are non-icteric and not injected. Cornea within normal limits. Periorbital areas with no swelling, redness, or edema. 12:48 Neck: Trachea midline, no thyromegaly or masses palpated, and no cervical lymphadenopathy. Supple, full range of motion without nuchal rigidity, or vertebral point tenderness. No Meningismus. Chest/axilla: Normal chest wall appearance and motion. Nontender with no deformity. No lesions are appreciated. Cardiovascular: Regular rate and rhythm with a normal S1 and S2. No gallops, murmurs, or rubs. Normal PMI, no JVD. No pulse deficits. Respiratory: Lungs have equal breath sounds bilaterally, clear to auscultation and percussion. No rales, rhonchi or wheezes noted. No increased work of breathing, no retractions or nasal flaring. Abdomen/GI: Soft, non-tender, with normal bowel sounds. No distension or tympany. No guarding or rebound. No evidence of tenderness throughout. Back: No spinal tenderness. No costovertebral tenderness. Full range of motion. Skin: Warm, dry with normal turgor. Normal color with no rashes, no lesions, and no evidence of cellulitis. Neuro: Awake and alert, GCS 15, oriented to person, place, time, and situation. Cranial nerves II-XII grossly intact. Motor strength 5/5 in all extremities. Sensory grossly intact. Cerebellar exam normal. Normal gait. 12:48 ENT: TM's: erythema, that is mild, bilaterally, Nose: Nasal mucosa: edematous, Mouth: is normal. 12:48 Musculoskeletal/extremity: Extremities: grossly normal except: noted in the anterior aspect of left shoulder: decreased ROM, swelling, ROM: limited active range of motion due to pain, limited passive range of motion due to pain, in the anterior aspect of left shoulder, Circulation is intact in all extremities. Severe pain noted. Vital Signs: 12:12 BP 148 / 104; Pulse 84; Resp 15; Temp 98.6(TE); Pulse Ox 100% ; Weight 97.52 kg (R); ss Height 5 ft. 10 in. (177.80 cm); Pain 8/10; 12:12 Body Mass Index 30.85 (97.52 kg, 177.80 cm) ss MDM: 12:16 Patient medically screened. snw 12:50 Differential diagnosis: DJD, tendonitis. Data reviewed: vital signs, nurses notes. Test snw considered but Not performed: X-ray: previous shoulder injury with 2mo period of physical therapy, no new trauma, + weather change. Counseling: I had a detailed discussion with the patient and/or guardian regarding: the historical points, exam findings, and any diagnostic results supporting the discharge/admit diagnosis, the presence of at least one elevated blood pressure reading (>120/80) during this emergency department visit, the need for outpatient follow up, for definitive care, to return to the emergency department if symptoms worsen or persist or if there are any questions or concerns that arise at home. Special discussion: I have referred the patient to see his PCP for further evaluation of high blood pressure. Based on the history and exam findings, there is no indication for further emergent testing or inpatient evaluation. I discussed with the patient/guardian the need to see the orthopedic surgeon for further evaluation of the symptoms. I discussed with the patient/guardian the need to see the primary care provider for further evaluation of the symptoms. Administered Medications: 12:40 Drug: Valium (diazepam) 5 mg Route: PO; iw 12:40 Drug: predniSONE 40 mg Route: PO; iw 12:40 Drug: Pepcid (famotidine) 20 mg Route: PO; iw 12:40 Drug: Ketorolac 30 mg Route: IM; Site: left deltoid; iw Disposition: 19:17 Co-signature as Attending Physician, Edson Lopez DO I reviewed the patient's care ms3 provided by the Advanced Practice Provider and agree with the diagnosis and treatment plan. Disposition Summary: 07/25/22 12:59 Discharge Ordered Location: Home snw Condition: Stable snw Diagnosis - Strain of muscle(s) and tendon(s) of the rotator cuff of left shoulder snw - allergic rhinitis snw Followup: snw - With: Emergency Department - When: As needed - Reason: Worsening of condition Followup: snw - With: Private Physician - When: 2 - 3 days - Reason: Recheck today's complaints, Continuance of care, Re-evaluation by your physician Discharge Instructions: - Musculoskeletal Pain snw - Rotator Cuff Tendinitis snw - Discharge Summary Sheet iw Forms: - Medication Reconciliation Form snw - Thank You Letter snw - Antibiotic Education snw - Prescription Opioid Use snw - Work release form iw Prescriptions: - Prednisone 20 mg Oral Tablet - take 2 tablets by ORAL route once daily for 5 days; 10 tablet; Refills: 0, snw Product Selection Permitted - orphenadrine citrate 100 mg Oral Tablet Sustained Release - take 1 tablet by ORAL route 2 times per day As needed; 20 tablet; Refills: 0, snw Product Selection Permitted - Pepcid 20 mg Oral Tablet - take 1 tablet by ORAL route once daily; 20 tablet; Refills: 0, Product snw Selection Permitted Signatures: Briana Brooks, DENTAL OFFICE COORDINATOR-C DENTAL OFFICE COORDINATOR-Csnw Jyoti Benites, RN RN iw Shari Heredia RN RN ss Edson Lopez, DO BELTRAN ms3
[2022-07-25 13:47] VITALS: BP 148/104; TEMP 98.6; O2SAT 100
== END 2022-07-25 13:13 | disposition home or self-care (01) ==
LOC: ER 11:51
DX: S46.012A Strain of muscle(s) and tendon(s) of the rotator cuff of left shoulder, initial encounter (principal); J30.9 Allergic rhinitis, unspecified
CPT/HCPCS: 96372; 99282; J7512

== ENCOUNTER 2022-09-04 08:42 | Emergency (ER) | payer OTHER ==
--- OUTSIDE RECORDS SUMMARY | 2022-09-04 08:47 | XMS REPORT | Continuity of Care Document ---
:1985 Author Organization [facility] t Address [address] [place] [id number] Care Team Providers Name Role Phone ASHA MCKEE Attending Clinician Unavailable PHYSICIAN, ER Attending Clinician Unavailable Problems Condition Condition Condition Status Onset Resolution Last Treating Co mments Source Name Details Category Date Date Treatment Clinician Date Problem Condition [facility] Allergies, Adverse Reactions, Alerts This patient has no known allergies or adverse reactions. Social History Social Habit Start Date Stop Date Quantity Comments Source Sex Assigned At [birth year] Female [facility] 00:00:00 00:00:00 Smoking Status Start Date Stop Date Source Unknown if ever smoked Qzzr [place] Never smoked tobacco (finding) [facility] [employer] Medications Ordered Filled Start Stop Current Ordering [...] Source Body Temperature 2020-01-07 10:16:00 97.7 [degF] [employer] Heart Rate 2020-01-07 10:16:00 79 /min [employer] Respiratory rate 2020-01-07 10:16:00 18 /min [employer] BP Systolic 2020-01-07 10:16:00 134 mm[Hg] [facility] Diastolic 2020-01-07 10:16:00 90 mm[Hg] [facility] Heart Rate 2020-01-07 07:42:00 79 /min [facility] BP Systolic 2020-01-07 07:42:00 134 mm[Hg] [facility] BP Diastolic 2020-01-07 07:42:00 90 mm[Hg] [facility] Respiratory rate 2020-01-07 03:43:00 18 /min [facility] Weight 2020-01-07 03:43:00 230 [lb_av] [facility] BMI (Body Mass Index) 2020-01-07 03:43:00 34.0 kg/m2 [facility] Body Temperature 2019-09-09 00:22:00 98.4 [degF] [facility] Heart Rate 2019-09-09 00:22:00 96 /min [facility] Respiratory rate 2019-09-09 00:22:00 18 /min [facility] BP Systolic 2019-09-09 00:22:00 146 mm[Hg] [facility] BP Diastolic 2019-09-09 00:22:00 93 mm[Hg] [facility] Heart Rate 2019-09-08 21:00:00 96 /min [facility] Respiratory rate 2019-09-08 21:00:00 18 /min [facility] BP Systolic 2019-09-08 21:00:00 146 mm[Hg] [facility] BP Diastolic 2019-09-08 21:00:00 93 mm[Hg] [facility] Weight 2019-09-08 21:00:00 235 [lb_av] [facility] BMI (Body Mass Index) 2019-09-08 21:00:00 34.7 kg/m2 [facility] Procedures Procedure Date / Time Performed Performing Clinician [facility] e ECG (electrocardiogram) 2020-01-07 00:00:00 [facility] Fix8 [facility] X-ray of chest, single 2020-01-07 00:00:00 [employer] [facility] view Computed tomography of 2020-01-07 00:00:00 [facility] head or brain without contrast Computed tomography of 2020-01-07 00:00:00 [facility] [place] cervical spine without contrast ECG (electrocardiogram) 2019-09-08 00:00:00 [facility] Fix8 [place] X-ray of chest, two views 2019-09-08 00:00:00 [facility] Encounters Start End Encounter Admission Attending Care Care Encounter Source Date/Time Date/Time Type Type Clinicians Facility Department ID 2020-01-09 2020-01-09 Outpatient GLORIA ZAMORA [id number] [facility] 13:44:00 13:44:00 [facility] 2020-01-07 2020-01-07 Departed ER PHYSICIAN, GLORIA CASTRO [id number] [facility] 03:35:00 03:35:00 Emergency ER [facility] [address] [facility] 2019-09-08 2019-09-09 Departed GLORIA CASTRO [id number] [facility] 20:50:00 00:23:00 Emergency [facility] Results Test Description Test Time Test Comments Results Result Comments Source Serum or plasma natriuretic peptide B measurement (mas s/volume) 2020-01-07 08:11:00 Test Item Value Reference Range Interpretation Comme nts B-Type Natriuretic Peptide (test code = 55270-3) 4 pg/mL 0-101 [facility] or plasma free thyroxine (FT4) measurement (mass/volume) 2020-01-07 07:47:00 Test Item Value Reference Range Interpretation Comments Free Thyroxine (test code = 1.48 ng/dL 1.09-1.53 3024-7) [facility] or plasma thyrotropin measurement with detection limit of 0.005 mIU/L or less (units/volume)2020-01-07 07:47:00 Test Item Value Reference Range Interpretation Comments Thyroid Stimulating Hormone 1.435 u[iU]/mL 0.550-4.780 (TSH) (test code = 02234-4) [facility] or plasma free triiodothyronine (T3) [...] 3040-3) 29 U/L 31-96 [facility] HealthCreatine kinase ser/[id number] 07:27:00 Test Item Value Reference Range Interpretation Comments Total Creatine Kinase (test code = 61 U/L 30-160 2157-6) [facility]um or plasma creatine kinase MB measurement (mass/volume) 2020-01-07 07:27:00 Test Item Value Reference Range Interpretation Comments Creatine Kinase MB (test code = < 0.18 ng/mL 0-5 69252-4) [facility] or plasma cardiac troponin I measurement (mass/volume) 2020-01-07 07:27:00 Test Item Value Reference Range Interpretation Comments Troponin I (test code = < 0.006 ng/mL 0.000-0.040 16501-0) [facility] or plasma myoglobin measurement (mass/volume)2020-01-07 07:27:00 Test Item Value Reference Range Interpretation Comments Myoglobin (test code = 2639-3) 20.4 ng/mL <110.0 [facility] HealthUrinalysis specimen collection [id number] 04:03:00 Test Item Value Reference Range Interpretation Comments Urine Source (test code = Urine Clean Catch 71702-3) [facility] Health[facility]rine color tebhdzduliyoe2173-30-31 04:03:00 Test Item Value Reference Range Interpretation Comments Urine Color (test code = 5778-6) Colorless Yel-Lora [facility] HealthUrine appearance bkcbjdaozoenu9285-98-80 04:03:00 Test Item Value Reference Range Interpretation Comments Urine Appearance (test code = 5767-9) Clear Clear [facility] pH measurement by test fiudp4834-89-54 04:03:00 Test Item Value Reference Range Interpretation Comments Urine pH (test code = 5803-2) 5.0 5.0-7.5 [facility] HealthSpecific gravity ur gmcawtvs2954-29-61 04:03:00 Test Item Value Reference Range Interpretation Comments Urine Specific [place] (test code = 1.003 1.003-1.029 5811-5) [facility] protein measurement by automated test strip (mass/volume) 2020-01-07 04:03:00 Test Item Value Reference Range Interpretation Comments Urine Protein (test code = Negative mg/dL Neg - Trace 78369-3) [facility] glucose measurement by automated test strip (mass/volume) 2020-01-07 04:03:00 Test Item Value Reference Range Interpretation Comments Urine Glucose (UA) (test code = Negative Negative 29988-2) [facility]Urine ketones detection by automated test gezoh1518-56-39 04:03:00 Test Item Value Reference Range Interpretation Comments Urine Ketones (test code = 63215-0) Negative Negative [facility] erythrocytes count by automated test strip (number/volume) 2020-01-07 04:03:00 Test Item Value Reference Range Interpretation Comments Urine Occult Blood (test code = Negative Negative 22805-9) [facility] nitrite detection by automated test gubna0538-57-58 04:03:00 Test Item Value Reference Range Interpretation Comments Urine Nitrite (test code = 77347-3) Negative Negative [facility] total bilirubin detection by automated test czfoa5732-86-66 04:03:00 Test Item Value Reference Range Interpretation Comments Urine Bilirubin (test code = Negative Negative 14682-4) [facility] urobilinogen measurement by automated test strip (mass/volume)2020-01-07 04:03:00 Test Item Value Reference Range Interpretation Comments Urine Urobilinogen (test code = Normal mg/dL Norm-1.0 83174-4) [facility] leukocyte esterase detection by automated test strip 2020-01-07 04:03:00 Test Item Value Reference Range Interpretation Comments Urine Leukocyte Esterase (test code = Trace Negative 50484-8) [facility] sediment erythrocyte count by microscopy (number/high power field)2020-01-07 04:03:00 Test Item Value Reference Range Interpretation Comments Urine RBC (test 0-2 /[HPF] See_Comment [Automated message] The code = 11358-5) system which generated this result tra nsmitted [...] Cells (test code Many /[LPF] None/Occ = 08644-5) [facility] sediment bacteria count by microscopy (number/high power field)2020-01-07 04:03:00 Test Item Value Reference Range Interpretation Comments Urine Bacteria (test code = Occasional /[HPF] None 5769-5) [facility] HealthUrine sediment hyaline cast count by microscopy (number/low power field)2020-01-07 04:03:00 Test Item Value Reference Range Interpretation Comments Urine Hyaline Casts (test code = 2-5 /[LPF] 5796-8) [facility] HealthYeast detection in urine sediment by light vnpfbnzesk4834-66-66 04:03:00 Test Item Value Reference Range Interpretation Comments Urine Yeast (test code = None Seen /[HPF] 49806-7) [facility] comment 04:03:00 Test Item Value [...] HealthAutomated erythrocyte mean corpuscular hemoglobin concentration measurement (mass/vqa3311-60-07 04:00:00 Test Item Value Reference Range Interpretation Comments Mean Corpuscular Hemoglobin Concent 32.6 g/dL 32.5-35.0 (test code = 786-4) [facility]Automated erythrocyte distribution width gynqk6546-08-58 04:00:00 Test Item Value Reference Range Interpretation Comments Red Cell Distribution Width (test code 13.5 % 11.5-14.5 = 788-0) [facility]Automated blood platelet count (count/volume)2020-01-07 04:00:00 Test Item Value Reference Range Interpretation Comments Platelet Count (test code = 191 10*3/uL 160-400 777-3) [facility] HealthAutomated blood platelet mean volume eflwulkzqjx7146-37-68 04:00:00 Test Item Value Reference Range Interpretation Comments Mean Platelet Volume (test code = 12.0 fL 7.5-11.2 60258-6) [facility] HealthAutomated blood neutrophil count as percentage of total caqiwnymrn9219-17-62 04:00:00 Test Item Value Reference Range Interpretation Comments Neutrophils (%) (Auto) (test code = 64 % 45-75 770-8) [facility]Automated blood immature granulocyte count as percentage of total chetizntve6613-98-66 04:00:00 Test Item Value Reference Range Interpretation Comments Immature Granulocyte % (Auto) (test 0.2 % 0.0-1.5 code = 65840-9) [facility] HealthAutomated blood lymphocyte count as percentage of total aveprztxon3981-01-72 04:00:00 Test Item Value Reference Range Interpretation Comments Lymphocytes (%) (Auto) (test code = 26 % 20-48 736-9) [facility]Automated blood monocyte count as percentage of total leukocytes 2020-01-07 04:00:00 Test Item Value Reference Range Interpretation Comments Monocytes (%) (Auto) (test code = 6 % 1-9 5905-5) [facility]Automated blood eosinophil count as percentage of total ljfzkerxrz8991-39-69 04:00:00 Test Item Value Reference Range Interpretation Comments Eosinophils (%) (Auto) (test code = 3 % 0-4 713-8) [facility]Automated blood basophil count as percentage of total leukocytes 2020-01-07 04:00:00 Test Item Value Reference Range Interpretation Comments Basophils (%) (Auto) (test code = 1 % 0-2 706-2) [facility]Automated blood nucleated erythrocyte count as percentage of total hddternsld5285-55-00 04:00:00 Test Item Value Reference Range Interpretation Comments Nucleated Red Blood Cells % (test code 0 % 0-1 = 70653-8) [facility]Automated blood neutrophil count (number/volume)2020-01-07 04:00:00 Test Item Value Reference Range Interpretation Comments Neutrophils # (Auto) (test code 2.87 10*3/uL = 751-8) [facility] HealthProthrombin time (PT) in platelet poor vzfsci8501-80-55 04:00:00 Test Item Value Reference Range Interpretation Comments Prothrombin Time (test code = 5902-2) 11.8 s 9.4-12.5 [facility] HealthINR in Platelet poor plasma by Coagulation avnvu5932-70-11 04:00:00 Test Item Value Reference Range Interpretation Comments Prothromb Time International 1.1 {ratio} Ratio (test code = 6301-6) [facility] HealthPartial thromboplastin time (PTT) in platelet poor plasma 2020-01-07 04:00:00 Test Item Value Reference Range Interpretation Comments Activated Partial Thromboplast Time 30 s 25-37 (test code = 03572-6) [facility] HealthFibrin D-dimer FEU lyks7555-24-81 04:00:00 Test Item Value Reference Range Interpretation Comments D-Dimer (test code = 90631-3) 423 ng/mL{FEU} 215-500 [facility] HealthSerum or plasma [...] Interpretation Comments Anion Gap (test code = 48819-3) 9.0 mmol/L 3.0-11.0 [facility] HealthSerum or plasma urea nitrogen measurement (mass/volume)2020-01-07 04:00:00 Test Item Value Reference Range Interpretation Comments Blood Urea Nitrogen (test code = 16.0 mg/dL 12-22 3094-0) [facility] HealthSerum or plasma creatinine measurement (mass/volume)2020-01-07 04:00:00 Test Item Value Reference Range Interpretation Comments Creatinine (test code = 2160-0) 0.90 mg/dL 0.60-1.02 [facility] creatinine clearance calculated from serum or plasma creatinine by [id number] 04:00:00 Test Item Value Reference Range Interpretation Comments Estimated Creatinine Clearance (test 93.8 code = 00461-8) [facility]Glomerular filtration rate (GFR) estimation using MDRD equation 2020-01-07 04:00:00 Test Item Value Reference Range Interpretation Comments Estimat Glomerular Filtration Rate 77.12 >60 (test code = 523309346) [facility] HealthSerum or plasma urea nitrogen/creatinine mass eqsao7796-61-74 04:00:00 Test Item Value Reference Range Interpretation Comments BUN/Creatinine Ratio (test code = 18 3097-3) [facility] or plasma glucose measurement (mass/volume)2020-01-07 04:00:00 Test Item Value Reference Range Interpretation Comments Glucose Level (test code = 2345-7) 88 mg/dL 74-112 [facility]Serum or plasma calcium measurement (mass/volume)2020-01-07 04:00:00 Test Item Value Reference Range Interpretation Comments Calcium Level (test code = 47668-5) 9.8 mg/dL 9.0-10.2 [facility]Serum or plasma [...] (test code = 1751-7) 4.9 g/dL 4.2-5.4 [facility] by calculation (mass/volume)2020-01-07 04:00:00 Test Item Value Reference Range Interpretation Comments Globulin (test code = 96054-9) 3.0 g/dL [facility] HealthSerum or plasma albumin/globulin mass rbjik8904-30-63 04:00:00 Test Item Value Reference Range Interpretation Comments Albumin/Globulin Ratio (test code 1.6 {ratio} = 1759-0) [facility] HealthSerum or plasma alkaline phosphatase measurement (enzymatic activity/volume)2020-01-07 04:00:00 Test Item Value Reference Range Interpretation Comments Alkaline Phosphatase (test code = 78 U/L 45-100 6768-6) [facility] specimen [facility] zshuke3263-60-21 22:40:00 Test Item Value Reference Range Interpretation Comments Urine Source (test code = Urine Clean Catch 03782-2) [facility] HealthUrine color rppcrrxdxpuok4773-68-15 22:40:00 Test Item Value Reference Range Interpretation Comments Urine Color (test code = 5778-6) Yellow Yel-Lora [facility] HealthUrine appearance stcejosxxnucr9965-17-32 22:40:00 Test Item Value Reference Range Interpretation Comments Urine Appearance (test code = 5767-9) Clear Clear [facility] pH measurement by test wormh4967-49-41 22:40:00 Test Item Value Reference Range Interpretation Comments Urine pH (test code = 5803-2) 6.0 5.0-7.5 [facility]Specific gravity ur lzrzfaik4863-03-68 22:40:00 Test Item Value Reference Range Interpretation Comments Urine Specific [place] (test code = 1.024 1.003-1.029 5811-5) [facility]rine protein measurement by automated test strip (mass/volume) 2019-09-08 22:40:00 Test Item Value Reference Range Interpretation Comments Urine Protein (test code = Trace mg/dL Neg - Trace 02749-4) [facility]Urine glucose measurement by automated test strip (mass/volume) 2019-09-08 22:40:00 Test Item Value Reference Range Interpretation Comments Urine Glucose (UA) (test code = Negative Negative 62918-3) [facility] HealthUrine ketones detection by automated test [id number] 22:40:00 Test Item Value Reference Range Interpretation Comments Urine Ketones (test code = 27991-8) Trace Negative [facility] HealthUrine erythrocytes count by automated test strip (number/volume) 2019-09-08 22:40:00 Test Item Value Reference Range Interpretation Comments Urine Occult Blood (test code = Negative Negative 35620-6) [facility] HealthUrine nitrite detection by automated test iofno7747-11-91 22:40:00 Test Item Value Reference Range Interpretation Comments Urine Nitrite (test code = 84793-0) Negative Negative [facility] HealthUrine total bilirubin detection by automated test myeaa5055-76-98 22:40:00 Test Item Value Reference Range Interpretation Comments Urine Bilirubin (test code = Negative Negative 25662-0) [facility] HealthUrine urobilinogen measurement by automated test strip (mass/volume)2019-09-08 22:40:00 Test Item Value Reference Range Interpretation Comments Urine Urobilinogen (test code = Normal mg/dL Norm-1.0 08035-0) [facility]Urine leukocyte esterase detection by automated test strip 2019-09-08 22:40:00 Test Item Value Reference Range Interpretation Comments Urine Leukocyte Esterase (test code = Trace Negative 15848-9) [facility]Urine sediment erythrocyte count by microscopy (number/high power field)2019-09-08 22:40:00 Test Item Value Reference Range Interpretation Comments Urine RBC (test 0-2 /[HPF] See_Comment [Automated message] The code = 51436-6) system which generated this result tra nsmitted [...] (test None seen /[LPF] None/Occ code = 02152-6) [facility] HealthUrine sediment bacteria count by microscopy (number/high power field)2019-09-08 22:40:00 Test Item Value Reference Range Interpretation Comments Urine Bacteria (test code = Occasional /[HPF] None 5769-5) [facility] HealthUrine sediment hyaline cast count by microscopy (number/low power field)2019-09-08 22:40:00 Test Item Value Reference Range Interpretation Comments Urine Hyaline Casts (test code = 2-5 /[LPF] 5796-8) [facility] HealthYeast detection in urine sediment by light wobdwrdssb1169-37-03 22:40:00 Test Item Value Reference Range Interpretation Comments Urine Yeast (test code = None Seen /[HPF] 23639-6) [facility] comment [id number] 22:40:00 Test Item Value Reference Range Interpretation Comments Urine Culture Indicated (test code = Yes 8264-4) [facility] HealthAutomated blood nucleated erythrocyte count as percentage of total spfkujckir4214-63-02 22:15:00 Test Item Value Reference Range Interpretation Comments Nucleated Red Blood Cells % (test code 0 % 0-1 = 50283-7) [facility] HealthAutomated blood neutrophil count (number/volume)2019-09-08 22:15:00 [...] Interpretation Comments Anion Gap (test code = 90547-3) 15.0 mmol/L 3.0-11.0 [facility] HealthSerum or plasma [...] calculated from serum or plasma creatinine by [id number] 22:15:00 Test Item Value Reference Range Interpretation Comments Estimated Creatinine Clearance (test 134.0 code = 19247-5) [facility]Glomerular filtration rate (GFR) estimation using MDRD equation 2019-09-08 22:15:00 Test Item Value Reference Range Interpretation Comments Estimat Glomerular Filtration Rate 116.39 >60 (test code = 36110-6) [facility] HealthSerum or plasma urea nitrogen/creatinine mass twmwb9368-00-98 22:15:00 Test Item Value Reference Range Interpretation Comments BUN/Creatinine Ratio (test code = 22 3097-3) [facility]um or plasma glucose measurement (mass/volume)2019-09-08 22:15:00 Test Item Value Reference Range Interpretation Comments Glucose Level (test code = 2345-7) 82 mg/dL 70-110 [facility]um or plasma calcium measurement (mass/volume)2019-09-08 22:15:00 Test Item Value Reference Range Interpretation Comments Calcium Level (test code = 57104-0) 8.9 mg/dL 8.4-10.2 [facility]um or plasma [...] Range Interpretation Comments Globulin (test code = 45703-3) 3.2 g/dL [facility] Health[facility]um or plasma albumin/globulin mass euisx1069-78-74 22:15:00 Test Item Value Reference Range Interpretation [...] 3040-3) 18 U/L 16-63 [facility] HealthCreatine kinase ser/beel5725-84-95 22:15:00 Test Item Value Reference Range Interpretation Comments Total Creatine Kinase (test code = 84 U/L 24-170 2157-6) [facility] HealthSerum or plasma creatine kinase MB measurement (mass/volume) 2019-09-08 22:15:00 Test Item Value Reference Range Interpretation Comments Creatine Kinase MB (test code = 1.3 ng/mL 0-5 02816-4) [facility] HealthSerum or plasma cardiac troponin T [...] HealthAutomated erythrocyte mean corpuscular hemoglobin concentration measurement (mass/ova8666-09-91 22:15:00 Test Item Value Reference Range Interpretation Comments Mean Corpuscular Hemoglobin Concent 33.5 g/dL 32.5-35.0 (test code = 786-4) [facility] HealthAutomated erythrocyte distribution width grmns1904-33-41 22:15:00 Test Item Value Reference Range Interpretation Comments Red Cell Distribution Width (test code 14.0 % 11.5-14.5 = 788-0) [facility] HealthAutomated blood platelet count (count/volume)2019-09-08 22:15:00 Test Item Value Reference Range Interpretation Comments Platelet Count (test code = 238 10*3/uL 160-400 777-3) [facility] HealthAutomated blood platelet mean volume eusgadozypb6858-75-93 22:15:00 Test Item Value Reference Range Interpretation Comments Mean Platelet Volume (test code = 11.0 fL 7.5-11.2 82670-9) [facility] blood neutrophil count as percentage of total qqgwimcojb2097-65-99 22:15:00 Test Item Value Reference Range Interpretation Comments Neutrophils (%) (Auto) (test code = 70 % 45-75 770-8) [facility] blood immature granulocyte count as percentage of total ozippdzyvx8388-99-49 22:15:00 Test Item Value Reference Range Interpretation Comments Immature Granulocyte % (Auto) (test 0.2 % 0.0-1.5 code = 30737-1) [facility] blood lymphocyte count as percentage of total drulogbpue1898-89-74 22:15:00 Test Item Value Reference Range Interpretation Comments Lymphocytes (%) (Auto) (test code = 21 % 20-48 736-9) [facility] blood monocyte count as percentage of total leukocytes 2019-09-08 22:15:00 Test Item Value Reference Range Interpretation Comments Monocytes (%) (Auto) (test code = 7 % 1-9 5905-5) [facility] blood eosinophil count as percentage of total mqtgrmrzbg0279-10-21 22:15:00 Test Item Value Reference Range Interpretation Comments Eosinophils (%) (Auto) (test code = 1 % 0-4 713-8) [facility] blood basophil count as percentage of total leukocytes 2019-09-08 22:15:00 Test Item Value Reference Range Interpretation Comments Basophils (%) (Auto) (test code = 1 % 0-2 706-2) [facility]
[2022-09-04] MEDS ORDERED: DIPHENHYDRAMINE 50 MG/ML VIAL ONE (09:14)
[2022-09-04] MEDS ORDERED: ONDANSETRON 4 MG/2 ML VIAL ONE (09:15)
[2022-09-04] MEDS ORDERED: dexAMETHasone 10 MG/ML VIAL ONE (09:15)
[2022-09-04] MEDS ORDERED: NA CHLORIDE 0.9% 500 ML ONE (09:15)
[2022-09-04] MEDS ORDERED: KETOROLAC 30 MG/ML INJ ONE (09:15)
[2022-09-04] MEDS ORDERED: DIPHENHYDRAMINE 25 MG TAB/CAP ONE (09:17)
[2022-09-04 09:42] LABS: Absolute Lymphocytes (CBC) 1.3 K/uL (0.7-4.9); Hematocrit 37.1 % (36.0-45.0); MCV 87.2 fL (80-100); MPV 8.6 fL (7.6-11.3); RBC Red Blood Cell Count 4.25 M/uL (3.86-4.86)
[2022-09-04 09:57] LABS: Potassium 3.9 mmol/L (3.5-5.1); Troponin High Sensitivity 3.6 pg/mL (<58.9)
[2022-09-04 10:01] LABS: SARS-COV-2 RT PCR NEGATIVE (NEGATIVE)
[2022-09-04 10:18] LABS: Protime INR 0.98
--- NOTE | 2022-09-04 10:33 | EDPHYS ---
Physician Documentation [facility] Name: Salud Almanzar Age: 37 yrs Sex: Female : 1985 Arrival Date: 09/04/2022 Time: 08:43 Bed 12 Private MD: ED Physician Fabiano Ramirez HPI: 09/04 09:07 This 37 yrs old Female presents to ER via Ambulatory with complaints of Nasal en Congestion, Headache, bodyaches. 09:07 37-year-old female with history of of hypertension presents to ED with pleuritic chest en pain, chest tightness with generalized malaise, body aches and congestion. She also reports 10 out of 10 bitemporal headache with nausea. She denies neck pain, sore throat, vision changes but she does have significant photophobia.. 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 - Social history:: Smoking status: Patient reports the use of cigarette tobacco products, denies chronic smoking, but will smoke occasionally. ROS: 09:09 Constitutional: Positive for body aches, chills, malaise. en 09:09 Eyes: Positive for photophobia. 09:09 ENT: Positive for sinus congestion. 09:09 Neck: Negative for pain with movement. 09:09 Cardiovascular: Positive for chest pain, with cough, Negative for edema, orthopnea, palpitations, paroxysmal nocturnal dyspnea. 09:09 Respiratory: Positive for cough, mild, Negative for dyspnea on exertion, hemoptysis, shortness of breath, wheezing. 09:09 Abdomen/GI: Positive for nausea, Negative for vomiting, diarrhea. 09:09 Skin: Negative for rash. 09:09 Neuro: Positive for headache, Negative for numbness, weakness. 09:09 All other systems are negative. Exam: 09:09 Constitutional: This is a well developed, well nourished patient who is awake, alert, en and in no acute distress. Eyes: Pupils equal round and reactive to light, extra-ocular motions intact. Lids and lashes normal. Conjunctiva and sclera are non-icteric and not injected. Cornea within normal limits. Periorbital areas with no swelling, redness, or edema. Mild photophobia ENT: Nares patent. No nasal discharge, no septal abnormalities noted. Tympanic membranes are normal and external auditory canals are clear. Oropharynx with no redness, swelling, or masses, exudates, or evidence of obstruction, uvula midline. Mucous membranes moist. Neck: Trachea midline, no thyromegaly or masses palpated, and no cervical lymphadenopathy. Supple, full range of motion without nuchal rigidity, or vertebral point tenderness. No Meningismus. Cardiovascular: Regular rate and rhythm with a normal S1 and S2. No gallops, murmurs, or rubs. Normal PMI, no JVD. No pulse deficits. Respiratory: Lungs have equal breath sounds bilaterally, clear to auscultation and percussion. No rales, rhonchi or wheezes noted. No increased work of breathing, no retractions or nasal flaring. Abdomen/GI: Soft, non-tender, with normal bowel sounds. No distension or tympany. No guarding or rebound. No evidence of tenderness throughout. Neuro: Awake and alert, GCS 15, oriented to person, place, time, and situation. Cranial nerves II-XII grossly intact. Motor strength 5/5 in all extremities. Sensory grossly intact. Cerebellar exam normal. Normal gait. Vital Signs: 08:46 Pulse 88; Resp 16; Temp 98.2(O); Pulse Ox 100% on R/A; Weight 99.79 kg; Height 5 ft. 8 vg1 in. (172.72 cm); Pain 10/10; 08:49 BP 156 / 110; vg1 09:51 BP 151 / 84; Pulse 86; Resp 15; Pulse Ox 100% ; jl7 10:34 BP 137 / 89; Pulse 71; Resp 15; Pulse Ox 100% ; Pain 8/10; jl7 08:46 Body Mass Index 33.45 (99.79 kg, 172.72 cm) vg1 MDM: 08:56 Patient medically screened. en 09:09 Differential Diagnosis: Bronchitis Influenza Upper Respiratory Infection Sinusitis en Allergic Rhinitis Viral Syndrome Other will check D-dimer and trop for CP but more likely URI related pleuritic CP that cardiopulmonary sourse. Data reviewed: vital signs, nurses notes, lab test result(s), cardiac enzymes, CBC, electrolytes, hepatic panel, d-dimer, trop. Data reviewed: EKG, EKG with NSR \T\79 bpm. normal intervals, RAD, isolated inverted t-waves in III . 10:29 ED course: Headache improving but not resolved. He still has nausea but not as bad. en Reviewed imaging and labs with patient. No evidence of pneumonia, no meningismus on exam. Heart and lung sounds normal. Spoke with patient regarding URI and migraine. Will DC home with Fioricet and promethazine for nausea and have patient follow-up with primary care doctor. Supportive care for URI symptoms. 10:34 ED course: Patient also with history of hypertension and elevated blood pressure in the en ED. He does not warrant emergent intervention at this time. Encouraged compliance with home prescription and PCP follow-up. 09/04 09:05 Order name: Flu en 09/04 09:05 Order name: Droplet/Contact Precautions; Complete Time: 09:07 en 09/04 09:05 Order name: Labs collected and sent; Complete Time: 09:36 en 09/04 09:05 Order name: O2 Per Protocol; Complete Time: 09:07 en 09/04 09:05 Order name: IV Start; Complete Time: 09:36 en 09/04 09:06 Order name: Basic Metabolic Panel en 09/04 09:06 Order name: CBC with Diff en 09/04 09:06 Order name: D-Dimer en 09/04 09:06 Order name: PT-INR en 09/04 09:06 Order name: Troponin HS en 09/04 09:06 Order name: XRAY Chest (1 view) en 09/04 09:06 Order name: EKG; Complete Time: 09:07 en 09/04 09:06 Order name: Cardiac monitoring; Complete Time: 09:17 en 09/04 09:06 Order name: EKG - Nurse/Tech; Complete Time: 09:17 en 09/04 09:06 Order name: O2 Sat Monitoring; Complete Time: 09:17 en 09/04 09:08 Order name: COVID-19/FLU A+B en 09/04 09:48 Order name: CBC with Automated Diff EDMS 09/04 09:58 Order name: Basic Metabolic Panel; Complete Time: 10:24 EDMS 09/04 09:58 Order name: Troponin High Sensitivity; Complete Time: 10:24 EDMS 09/04 10:02 Order name: COVID-19/FLU A+B; Complete Time: 10:24 EDMS 09/04 10:18 Order name: Protime (+INR); Complete Time: 10:24 EDMS 09/04 10:19 Order name: D-Dimer; Complete Time: 10:24 EDMS Administered Medications: 09:23 Drug: Zofran (Ondansetron) 4 mg Route: IVP; Site: right hand; jl7 10:26 Follow up: Response: No adverse reaction; Nausea unchanged jl7 09:25 Drug: Sodium Chloride 0.9% 500 ml Route: IVPB; Site: right hand; jl7 10:00 Follow up: Response: No adverse reaction; IV Status: Completed infusion; IV Intake: jl7 500ml 09:30 Drug: Ketorolac 30 mg Route: IVP; Site: right hand; jl7 10:26 Follow up: Response: No adverse reaction; No change in condition; Pain is unchanged, jl7 physician notified 09:36 Not Given (wrong order): Zofran (ondansetron) 4 mg IM once jl7 09:36 Drug: Benadryl (diphenhydrAMINE) 25 mg Route: PO; jl7 10:27 Follow up: Response: No adverse reaction jl7 09:36 Drug: Decadron - Dexamethasone 10 mg Route: IVP; Site: right hand; jl7 10:27 Follow up: Response: No adverse reaction jl7 10:34 Drug: Fioricet - Esgic 325 mg-40 mg-50 mg 1 tab-caps Route: PO; jl7 10:35 Follow up: Response: Medication administered at discharge. jl7 10:34 Drug: Promethazine 12.5 mg Route: IM; Site: right deltoid; jl7 10:35 Follow up: Response: Medication administered at discharge. jl7 Disposition: 13:58 Co-signature as Attending Physician, Fabiano Ramirez MD I agree with the assessment and kdr plan of care. Disposition Summary: 09/04/22 10:32 Discharge Ordered Location: Home en Problem: an acute exacerbation en Symptoms: have improved en Condition: Stable en Diagnosis - Migraine with aura en - Acute upper respiratory infection, unspecified en - atypical chest pain en Followup: en - With: Chris Vanegas, DO - When: As needed - Reason: Discharge Instructions: - Discharge Summary Sheet en - Upper Respiratory Infection, Adult, [id number] en - Migraine Headache, [id number] en Forms: - Medication Reconciliation Form en - Thank You Letter en - Antibiotic Education en - Prescription Opioid Use en Prescriptions: - Fioricet 50-300-40 mg Oral capsule - take 1 capsule by ORAL route every 4 hours as needed; 12 capsule; Refills: 0, en Product Selection Permitted - promethazine 25 mg Oral Tablet - take 1 tablet by ORAL route every 6 hours As needed; 12 tablet; Refills: 0, en Product Selection Permitted 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 She also reports 10 out of 10 bitemporal. en
--- NOTE | 2022-09-04 10:33 | ER ---
Nurse's Notes [facility] Name: Salud Almanzar Age: 37 yrs Sex: Female : 1985 Arrival Date: 09/04/2022 Time: 08:43 Bed 12 Private MD: Diagnosis: Migraine with aura;Acute upper respiratory infection, unspecified;atypical chest pain Presentation: 09/04 08:46 Chief complaint: Patient states: woke up this morning around 0500 with nausea, CP and vg1 diaphoretic. Stated feels like BP is high "I can just feel it in my chest". Also stated h/a. Coronavirus screen: Vaccine status: Patient reports receiving the 2nd dose of the covid vaccine. Client denies travel out of the [place] in the last 14 days. Ebola Screen: Patient negative for fever greater than or equal to 101.5 degrees Fahrenheit, and additional compatible Ebola Virus Disease symptoms Patient denies exposure to infectious person. Initial Sepsis Screen: Does the patient meet any 2 criteria? No. Patient's initial sepsis screen is negative. Does the patient have a suspected source of infection? No. Patient's initial sepsis screen is negative. Risk Assessment: Do you want to hurt yourself or someone else? Patient reports no desire to harm self or others. Onset of symptoms was September 04, 2022. 08:46 Method Of Arrival: Ambulatory vg1 08:46 Acuity: JOSE 2 vg1 Triage Assessment: 08:49 Headache History: The patient has had previous headaches and this one is less severe vg1 than previous episodes. General: Appears in no apparent distress. uncomfortable, Behavior is calm, cooperative. Pain: Complains of pain in head and chest Pain radiates to left shoulder Pain currently is 10 out of 10 on a pain scale. Pain began 4 hours ago. Also complains of nausea. Neuro: Level of Consciousness is awake, alert, Oriented to person, place, time, situation, Reports headache. Cardiovascular: Patient's skin is warm and dry. Respiratory: Airway is patent Respiratory effort is even, unlabored. GI: Reports nausea. Derm: Skin is clammy. 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 - Social history:: Smoking status: Patient reports the use of cigarette tobacco products, denies chronic smoking, but will smoke occasionally. Screenin:42 [facility] ED Fall Risk Assessment (Adult) History of falling in the last 3 months, jl7 including since admission No falls in past 3 months (0 pts). Abuse screen: Denies threats or abuse. Denies injuries from another. Nutritional screening: No deficits noted. Tuberculosis screening: No symptoms or risk factors identified. Assessment: 09:38 General: Appears in no apparent distress. uncomfortable, Behavior is cooperative, jl7 agitated, restless. Pain: Complains of pain in headache Pain currently is 10 out of 10 on a pain scale. Neuro: Level of Consciousness is awake, alert, obeys commands, Oriented to person, place, time, situation. Cardiovascular: Patient's skin is warm and dry. Rhythm is regular. Respiratory: Airway is patent Respiratory effort is even, unlabored, Respiratory pattern is regular, symmetrical. GI: Reports nausea. Derm: Skin is pink, warm \\T\\ dry. 10:24 Reassessment: Patient appears in no apparent distress at this time. No changes from jl7 previously documented assessment. Patient and/or family updated on plan of care and expected duration. Pain level reassessed. Patient is alert, oriented x 3, equal unlabored respirations, skin warm/dry/pink. ERP notified of continued pain, see MAR for orders. Vital Signs: 08:46 Pulse 88; Resp 16; Temp 98.2(O); Pulse Ox 100% on R/A; Weight 99.79 kg; Height 5 ft. 8 vg1 in. (172.72 cm); Pain 10/10; 08:49 BP 156 / 110; vg1 09:51 BP 151 / 84; Pulse 86; Resp 15; Pulse Ox 100% ; jl7 10:34 BP 137 / 89; Pulse 71; Resp 15; Pulse Ox 100% ; Pain 8/10; jl7 08:46 Body Mass Index 33.45 (99.79 kg, 172.72 cm) vg1 ED Course: 08:43 Patient arrived in ED. am2 08:49 Triage completed. vg1 08:49 Arm band placed on. vg1 08:56 Padmaja Camp PA is PHCP. en 08:56 Fabiano Ramirez MD is Attending Physician. en 09:00 Patient has correct armband on for positive identification. jl7 09:00 Client placed on continuous cardiac and pulse oximetry monitoring. NIBP monitoring jl7 applied. Warm blanket given. 09:06 Evelyn Ayoub, JIGNESH is Primary Nurse. jl7 09:20 Initial lab(s) drawn, by me, sent to lab. Inserted saline lock: 20 gauge in right jl7 antecubital area, using aseptic technique. Blood collected. once blood was drawn pt requested IV to be removed due to pain, IV removed, no redness or swelling noted. 09:25 Inserted saline lock: 22 gauge in right hand, using aseptic technique. jl7 09:35 COVID-19/FLU A+B Sent. jl7 09:35 Basic Metabolic Panel Sent. jl7 09:35 CBC with Diff Sent. jl7 09:35 D-Dimer Sent. jl7 09:35 PT-INR Sent. jl7 09:35 Troponin HS Sent. jl7 10:31 Chris Vanegas DO is Referral Physician. en 10:42 No provider procedures requiring assistance completed. IV discontinued, intact, jl7 bleeding controlled, No redness/swelling at site. Pressure dressing applied. Administered Medications: 09:23 Drug: Zofran (Ondansetron) 4 mg Route: IVP; Site: right hand; jl7 10:26 Follow up: Response: No adverse reaction; Nausea unchanged jl7 09:25 Drug: Sodium Chloride 0.9% 500 ml Route: IVPB; Site: right hand; jl7 10:00 Follow up: Response: No adverse reaction; IV Status: Completed infusion; IV Intake: jl7 500ml 09:30 Drug: Ketorolac 30 mg Route: IVP; Site: right hand; jl7 10:26 Follow up: Response: No adverse reaction; No change in condition; Pain is unchanged, jl7 physician notified 09:36 Not Given (wrong order): Zofran (ondansetron) 4 mg IM once jl7 09:36 Drug: Benadryl (diphenhydrAMINE) 25 mg Route: PO; jl7 10:27 Follow up: Response: No adverse reaction jl7 09:36 Drug: Decadron - Dexamethasone 10 mg Route: IVP; Site: right hand; jl7 10:27 Follow up: Response: No adverse reaction jl7 10:34 Drug: Fioricet - Esgic 325 mg-40 mg-50 mg 1 tab-caps Route: PO; jl7 10:35 Follow up: Response: Medication administered at discharge. jl7 10:34 Drug: Promethazine 12.5 mg Route: IM; Site: right deltoid; jl7 10:35 Follow up: Response: Medication administered at discharge. jl7 Medication: 09:38 VIS not applicable for this client. jl7 Intake: 10:00 IV: 500ml; Total: 500ml. jl7 Outcome: 10:32 Discharge ordered by . en 10:42 Discharged to home ambulatory. jl7 10:42 Condition: stable 10:42 Discharge instructions given to patient, Instructed on discharge instructions, follow up and referral plans. medication usage, Demonstrated understanding of instructions, follow-up care, medications, Prescriptions given X 2. 10:42 Patient left the ED. jl7 Signatures: Evelyn Ayoub RN RN jl7 Patricia Ho Victoria RN RN vg1 Padmaja Camp PA PA en Corrections: (The following items were deleted from the chart) 08:51 08:46 Chief complaint: Patient states: woke up this morning around 0500 with nausea, CP vg1 and diaphoretic. Stated feels like BP is high "I can just feel it in my chest". Also stated h/a vg1 08:52 08:49 Pain: Complains of pain in head Pain currently is 10 out of 10 on a pain scale. vg1 Pain began 4 hours ago. Also complains of nausea, vg1
[2022-09-04] MEDS ORDERED: PROMETHAZINE INJ 25 MG/ML AMP ONE (10:34)
[2022-09-04] MEDS ORDERED: ACETAMIN/CAFFEINE/BUTALB TAB PO ONE (10:35)
[2022-09-04 11:03] LABS: Anisocytosis 1+; Blood Morphology Comment NOTED (NOT SEEN); Hypochromasia 1+; Platelet Estimate ADEQ; Stomatocytes 1+; White Blood Cell Scan OK (OK)
[2022-09-04 11:12] VITALS: TEMP 98.2; O2SAT 100
[2022-09-04 11:15] VITALS: BP 137/89
--- NOTE | 2022-09-04 11:56 | RAD REPORT ---
EXAM DESCRIPTION: Finn Single View09/04/2022 10:03 am CLINICAL HISTORY: Chest pain COMPARISON: July 2022 FINDINGS: The lungs appear clear of acute infiltrate. The heart is normal size IMPRESSION: No acute abnormalities displayed
--- NOTE | 2022-09-05 16:41 | EKG ---
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
== END 2022-09-04 10:42 | disposition home or self-care (01) ==
LOC: ER 08:42
DX: G43.109 Migraine with aura, not intractable, without status migrainosus (principal); J06.9 Acute upper respiratory infection, unspecified; R07.89 Other chest pain; I10 Essential (primary) hypertension; F41.9 Anxiety disorder, unspecified; F17.210 Nicotine dependence, cigarettes, uncomplicated; Z20.822 Contact with and (suspected) exposure to COVID-19
CPT/HCPCS: 96365; 93005; 85025; 80048; 36415; 85610; 85379; 84484; 0240U; 71045; 96375; 96372; 99284; J2550; J1100; J7040; J2405; J1200

== ENCOUNTER 2022-09-23 13:00 | Emergency (ER) | payer OTHER ==
--- OUTSIDE RECORDS SUMMARY | 2022-09-23 13:06 | XMS REPORT | Continuity of Care Document ---
:1985 Author Organization [facility] t Address [address] [place] [id number] Care Team Providers Name Role Phone ASHA MCKEE Attending Clinician Unavailable PHYSICIAN, ER Attending Clinician Unavailable Problems Condition Condition Condition Status Onset Resolution Last Treating Co mments Source Name Details Category Date Date Treatment Clinician Date Problem Condition [facility] Allergies, Adverse Reactions, Alerts This patient has no known allergies or adverse reactions. Social History Social Habit Start Date Stop Date Quantity Comments Source Sex Assigned At [birth year] Female [facility] 00:00:00 00:00:00 Smoking Status Start Date Stop Date Source Unknown if ever smoked [facility] [employer] Never smoked tobacco (finding) C [facility] Medications Ordered Filled Start Stop Current Ordering [...] Source Body Temperature 2020-01-07 10:16:00 97.7 [degF] [facility] Heart Rate 2020-01-07 10:16:00 79 /min [facility] Respiratory rate 2020-01-07 10:16:00 18 /min [facility] BP Systolic 2020-01-07 10:16:00 134 mm[Hg] [facility] 2020-01-07 10:16:00 90 mm[Hg] [facility] Respiratory rate 2019-09-08 21:00:00 18 /min [facility] BP Systolic 2019-09-08 21:00:00 146 mm[Hg] [facility] BP Diastolic 2019-09-08 21:00:00 93 mm[Hg] [facility] Weight 2019-09-08 21:00:00 235 [lb_av] [facility] BMI (Body Mass Index) 2019-09-08 21:00:00 34.7 kg/m2 [facility] [employer] Procedures Procedure Date / Time Performed Performing Clinician [facility] e ECG (electrocardiogram) 2020-01-07 00:00:00 [facility] [employer] X-ray of chest, single 2020-01-07 00:00:00 [facility] [employer] view Computed tomography of 2020-01-07 00:00:00 [facility] [employer] head or brain without contrast Computed tomography of 2020-01-07 00:00:00 [facility] [employer] cervical spine without contrast ECG (electrocardiogram) 2019-09-08 00:00:00 [facility] [employer] X-ray of chest, two views 2019-09-08 00:00:00 [facility] Encounters Start End Encounter Admission Attending Care Care Encounter Source Date/Time Date/Time Type Type Clinicians Facility Department ID 2020-01-09 2020-01-09 Outpatient GLORIA ZAMORA [id number] [facility] 13:44:00 13:44:00 A[facility] 2020-01-07 2020-01-07 Departed ER PHYSICIAN, GLORIA CASTRO [id number] [facility] 03:35:00 03:35:00 Emergency ER [facility] [address] [facility] 2019-09-08 2019-09-09 Departed GLORIA CASTRO [id number] [facility] 20:50:00 00:23:00 Emergency [facility] [address] [facility] Results Test Description Test Time Test Comments Results Result Comments Source Serum or plasma natriuretic peptide B measurement (mas s/volume) 2020-01-07 08:11:00 Test Item Value Reference Range Interpretation Comme nts B-Type Natriuretic Peptide (test code = 11119-2) 4 pg/mL 0-101 [facility] or plasma free thyroxine (FT4) measurement (mass/volume) 2020-01-07 07:47:00 Test Item Value Reference Range Interpretation Comments Free Thyroxine (test code = 1.48 ng/dL 1.09-1.53 3024-7) [facility] plasma thyrotropin measurement with detection limit of 0.005 mIU/L or less (units/volume)2020-01-07 07:47:00 Test Item Value Reference Range Interpretation Comments Thyroid Stimulating Hormone 1.435 u[iU]/mL 0.550-4.780 (TSH) (test code = 76109-4) [facility] or plasma free triiodothyronine (T3) [...] 3040-3) 29 U/L 31-96 [facility] HealthCreatine kinase ser/gxmy4738-44-51 07:27:00 Test Item Value Reference Range Interpretation Comments Total Creatine Kinase (test code = 61 U/L 30-160 2157-6) [facility]um or plasma creatine kinase MB measurement (mass/volume) 2020-01-07 07:27:00 Test Item Value Reference Range Interpretation Comments Creatine Kinase MB (test code = < 0.18 ng/mL 0-5 68713-6) [facility] or plasma cardiac troponin I measurement (mass/volume) 2020-01-07 07:27:00 Test Item Value Reference Range Interpretation Comments Troponin I (test code = < 0.006 ng/mL 0.000-0.040 61028-6) [facility] or plasma myoglobin measurement (mass/volume)2020-01-07 07:27:00 Test Item Value Reference Range Interpretation Comments Myoglobin (test code = 2639-3) 20.4 ng/mL <110.0 [facility] HealthUrinalysis specimen collection [id number] 04:03:00 Test Item Value Reference Range Interpretation Comments Urine Source (test code = Urine Clean Catch 94721-1) [facility] HealthUrine color lbyegzxwgfblt0081-36-23 04:03:00 Test Item Value Reference Range Interpretation Comments Urine Color (test code = 5778-6) Colorless Yel-Lora [facility] HealthUrine appearance ryoebyveiwrmi6603-24-27 04:03:00 Test Item Value Reference Range Interpretation Comments Urine Appearance (test code = 5767-9) Clear Clear [facility] pH measurement by test [id number] 04:03:00 Test Item Value Reference Range Interpretation Comments Urine pH (test code = 5803-2) 5.0 5.0-7.5 [facility]Specific gravity ur rpkljfqb8997-24-23 04:03:00 Test Item Value Reference Range Interpretation Comments Urine Specific [address] (test code = 1.003 1.003-1.029 5811-5) [facility]rine protein measurement by automated test strip (mass/volume) 2020-01-07 04:03:00 Test Item Value Reference Range Interpretation Comments Urine Protein (test code = Negative mg/dL Neg - Trace 26482-0) [facility] glucose measurement by automated test strip (mass/volume) 2020-01-07 04:03:00 Test Item Value Reference Range Interpretation Comments Urine Glucose (UA) (test code = Negative Negative 72178-7) [facility] HealthUrine ketones detection by automated test [id number] 04:03:00 Test Item Value Reference Range Interpretation Comments Urine Ketones (test code = 94289-0) Negative Negative [facility]rine erythrocytes count by automated test strip (number/volume) 2020-01-07 04:03:00 Test Item Value Reference Range Interpretation Comments Urine Occult Blood (test code = Negative Negative 21772-3) [facility] HealthUrine nitrite detection by automated test [id number] 04:03:00 Test Item Value Reference Range Interpretation Comments Urine Nitrite (test code = 09315-3) Negative Negative [facility]rine total bilirubin detection by automated test pgusa1227-80-08 04:03:00 Test Item Value Reference Range Interpretation Comments Urine Bilirubin (test code = Negative Negative 62870-6) [facility]rine urobilinogen measurement by automated test strip (mass/volume)2020-01-07 04:03:00 Test Item Value Reference Range Interpretation Comments Urine Urobilinogen (test code = Normal mg/dL Norm-1.0 68410-8) [facility] leukocyte esterase detection by automated test strip 2020-01-07 04:03:00 Test Item Value Reference Range Interpretation Comments Urine Leukocyte Esterase (test code = Trace Negative 28868-1) [facility]rine sediment erythrocyte count by microscopy (number/high power field)2020-01-07 04:03:00 Test Item Value Reference Range Interpretation Comments Urine RBC (test 0-2 /[HPF] See_Comment [Automated message] The code = 09223-2) system which generated this result tra nsmitted [...] Cells (test code Many /[LPF] None/Occ = 17971-0) [facility]rine sediment bacteria count by microscopy (number/high power field)2020-01-07 04:03:00 Test Item Value Reference Range Interpretation Comments Urine Bacteria (test code = Occasional /[HPF] None 5769-5) [facility] Health[facility]rine sediment hyaline cast count by microscopy (number/low power field)2020-01-07 04:03:00 Test Item Value Reference Range Interpretation Comments Urine Hyaline Casts (test code = 2-5 /[LPF] 5796-8) [facility] HealthYeast detection in urine sediment by light sqnypbezhu4850-02-52 04:03:00 Test Item Value Reference Range Interpretation Comments Urine Yeast (test code = None Seen /[HPF] 84759-5) [facility] comment 04:03:00 Test Item Value [...] HealthAutomated erythrocyte mean corpuscular hemoglobin concentration measurement (mass/fkm0722-66-77 04:00:00 Test Item Value Reference Range Interpretation Comments Mean Corpuscular Hemoglobin Concent 32.6 g/dL 32.5-35.0 (test code = 786-4) [facility] HealthAutomated erythrocyte distribution width yeepu4913-74-53 04:00:00 Test Item Value Reference Range Interpretation Comments Red Cell Distribution Width (test code 13.5 % 11.5-14.5 = 788-0) [facility] HealthAutomated blood platelet count (count/volume)2020-01-07 04:00:00 Test Item Value Reference Range Interpretation Comments Platelet Count (test code = 191 10*3/uL 160-400 777-3) [facility] HealthAutomated blood platelet mean volume jsevdklwffp7842-97-73 04:00:00 Test Item Value Reference Range Interpretation Comments Mean Platelet Volume (test code = 12.0 fL 7.5-11.2 93179-6) [facility] HealthAutomated blood neutrophil count as percentage of total jrvlompvcd4367-16-68 04:00:00 Test Item Value Reference Range Interpretation Comments Neutrophils (%) (Auto) (test code = 64 % 45-75 770-8) [facility]Automated blood immature granulocyte count as percentage of total zpxdajyynj6619-84-91 04:00:00 Test Item Value Reference Range Interpretation Comments Immature Granulocyte % (Auto) (test 0.2 % 0.0-1.5 code = 88157-7) [facility] HealthAutomated blood lymphocyte count as percentage of total xnkpstrqsr1861-93-31 04:00:00 Test Item Value Reference Range Interpretation Comments Lymphocytes (%) (Auto) (test code = 26 % 20-48 736-9) [facility]Automated blood monocyte count as percentage of total leukocytes 2020-01-07 04:00:00 Test Item Value Reference Range Interpretation Comments Monocytes (%) (Auto) (test code = 6 % 1-9 5905-5) [facility]Automated blood eosinophil count as percentage of total bekojxhvnz5655-12-92 04:00:00 Test Item Value Reference Range Interpretation Comments Eosinophils (%) (Auto) (test code = 3 % 0-4 713-8) [facility]Automated blood basophil count as percentage of total leukocytes 2020-01-07 04:00:00 Test Item Value Reference Range Interpretation Comments Basophils (%) (Auto) (test code = 1 % 0-2 706-2) [facility] HealthAutomated blood nucleated erythrocyte count as percentage of total paewjgzenl9649-66-07 04:00:00 Test Item Value Reference Range Interpretation Comments Nucleated Red Blood Cells % (test code 0 % 0-1 = 78479-8) [facility]Automated blood neutrophil count (number/volume)2020-01-07 04:00:00 Test Item Value Reference Range Interpretation Comments Neutrophils # (Auto) (test code 2.87 10*3/uL = 751-8) [facility] HealthProthrombin time (PT) in platelet poor mcpyxk2416-65-84 04:00:00 Test Item Value Reference Range Interpretation Comments Prothrombin Time (test code = 5902-2) 11.8 s 9.4-12.5 [facility] HealthINR in Platelet poor plasma by Coagulation btrsu2378-02-79 04:00:00 Test Item Value Reference Range Interpretation Comments Prothromb Time International 1.1 {ratio} Ratio (test code = 6301-6) [facility] HealthPartial thromboplastin time (PTT) in platelet poor plasma 2020-01-07 04:00:00 Test Item Value Reference Range Interpretation Comments Activated Partial Thromboplast Time 30 s 25-37 (test code = 85390-2) [facility] HealthFibrin D-dimer FEU raik6788-49-06 04:00:00 Test Item Value Reference Range Interpretation Comments D-Dimer (test code = 46825-0) 423 ng/mL{FEU} 215-500 [facility] HealthSerum or plasma [...] Interpretation Comments Anion Gap (test code = 29042-4) 9.0 mmol/L 3.0-11.0 [facility] HealthSerum or plasma urea nitrogen measurement (mass/volume)2020-01-07 04:00:00 Test Item Value Reference Range Interpretation Comments Blood Urea Nitrogen (test code = 16.0 mg/dL 12-22 3094-0) [facility] HealthSerum or plasma creatinine measurement (mass/volume)2020-01-07 04:00:00 Test Item Value Reference Range Interpretation Comments Creatinine (test code = 2160-0) 0.90 mg/dL 0.60-1.02 [facility] calculated from serum or plasma creatinine by [id number] 04:00:00 Test Item Value Reference Range Interpretation Comments Estimated Creatinine Clearance (test 93.8 code = 52850-5) [facility] HospitalGlomerular filtration rate (GFR) estimation using MDRD equation 2020-01-07 04:00:00 Test Item Value Reference Range Interpretation Comments Estimat Glomerular Filtration Rate 77.12 >60 (test code = 967501852) [facility] HealthSerum or plasma urea nitrogen/creatinine mass vhkoq9582-52-34 04:00:00 Test Item Value Reference Range Interpretation Comments BUN/Creatinine Ratio (test code = 18 3097-3) [facility] HealthSerum or plasma glucose measurement (mass/volume)2020-01-07 04:00:00 Test Item Value Reference Range Interpretation Comments Glucose Level (test code = 2345-7) 88 mg/dL 74-112 [facility] HealthSerum or plasma calcium measurement (mass/volume)2020-01-07 04:00:00 Test Item Value Reference Range Interpretation Comments Calcium Level (test code = 03328-1) 9.8 mg/dL 9.0-10.2 [facility] HealthSerum or plasma [...] (test code = 1751-7) 4.9 g/dL 4.2-5.[address] [facility] globulin measurement by calculation (mass/volume)2020-01-07 04:00:00 Test Item Value Reference Range Interpretation Comments Globulin (test code = 63285-7) 3.0 g/dL [facility] HealthSerum or plasma albumin/globulin mass [id number] 04:00:00 Test Item Value Reference Range Interpretation Comments Albumin/Globulin Ratio (test code 1.6 {ratio} = 1759-0) [facility]um or plasma alkaline phosphatase measurement (enzymatic activity/volume)2020-01-07 04:00:00 Test Item Value Reference Range Interpretation Comments Alkaline Phosphatase (test code = 78 U/L 45-100 6768-6) [facility] Hospital[facility]inalysis specimen collection swynkq4395-11-06 22:40:00 Test Item Value Reference Range Interpretation Comments Urine Source (test code = Urine Clean Catch 05126-9) [facility] HealthUrine color olhsaufbvciqd9429-88-25 22:40:00 Test Item Value Reference Range Interpretation Comments Urine Color (test code = 5778-6) Yellow Yel-Lora [facility] HealthUrine appearance qcgsulfbltfmv1771-84-32 22:40:00 Test Item Value Reference Range Interpretation Comments Urine Appearance (test code = 5767-9) Clear Clear [facility] HealthUrine pH measurement by test uhwef5389-64-95 22:40:00 Test Item Value Reference Range Interpretation Comments Urine pH (test code = 5803-2) 6.0 5.0-7.5 [facility] HealthSpecific gravity ur oirzhazu6086-22-77 22:40:00 Test Item Value Reference Range Interpretation Comments Urine Specific [address] (test code = 1.024 1.003-1.029 5811-5) [facility] HealthUrine protein measurement by automated test strip (mass/volume) 2019-09-08 22:40:00 Test Item Value Reference Range Interpretation Comments Urine Protein (test code = Trace mg/dL Neg - Trace 87325-4) [facility] HealthUrine glucose measurement by automated test strip (mass/volume) 2019-09-08 22:40:00 Test Item Value Reference Range Interpretation Comments Urine Glucose (UA) (test code = Negative Negative 68704-0) [facility] HealthUrine ketones detection by automated test etdon5076-04-10 22:40:00 Test Item Value Reference Range Interpretation Comments Urine Ketones (test code = 31842-2) Trace Negative [facility] HealthUrine erythrocytes count by automated test strip (number/volume) 2019-09-08 22:40:00 Test Item Value Reference Range Interpretation Comments Urine Occult Blood (test code = Negative Negative 07416-5) [facility] HealthUrine nitrite detection by automated test qfvca5157-68-64 22:40:00 Test Item Value Reference Range Interpretation Comments Urine Nitrite (test code = 07661-5) Negative Negative [facility] HealthUrine total bilirubin detection by automated test qmvim9813-65-02 22:40:00 Test Item Value Reference Range Interpretation Comments Urine Bilirubin (test code = Negative Negative 23174-1) [facility] HealthUrine urobilinogen measurement by automated test strip (mass/volume)2019-09-08 22:40:00 Test Item Value Reference Range Interpretation Comments Urine Urobilinogen (test code = Normal mg/dL Norm-1.0 28776-1) [facility] HealthUrine leukocyte esterase detection by automated test strip 2019-09-08 22:40:00 Test Item Value Reference Range Interpretation Comments Urine Leukocyte Esterase (test code = Trace Negative 95222-3) [facility] HealthUrine sediment erythrocyte count by microscopy (number/high power field)2019-09-08 22:40:00 Test Item Value Reference Range Interpretation Comments Urine RBC (test 0-2 /[HPF] See_Comment [Automated message] The code = 44925-9) system which generated this result tra nsmitted [...] (test None seen /[LPF] None/Occ code = 17235-8) [facility] HealthUrine sediment bacteria count by microscopy (number/high power field)2019-09-08 22:40:00 Test Item Value Reference Range Interpretation Comments Urine Bacteria (test code = Occasional /[HPF] None 5769-5) [facility] HealthUrine sediment hyaline cast count by microscopy (number/low power field)2019-09-08 22:40:00 Test Item Value Reference Range Interpretation Comments Urine Hyaline Casts (test code = 2-5 /[LPF] 5796-8) [facility] HealthYeast detection in urine sediment by light jamywjjhhk6668-02-23 22:40:00 Test Item Value Reference Range Interpretation Comments Urine Yeast (test code = None Seen /[HPF] 43036-9) [facility] comment [id number] 22:40:00 Test Item Value Reference Range Interpretation Comments Urine Culture Indicated (test code = Yes 8264-4) [facility] HealthAutomated blood nucleated erythrocyte count as percentage of total dhfpensvbp5803-70-67 22:15:00 Test Item Value Reference Range Interpretation Comments Nucleated Red Blood Cells % (test code 0 % 0-1 = 68239-4) [facility] HealthAutomated blood neutrophil count (number/volume)2019-09-08 22:15:00 [...] Interpretation Comments Anion Gap (test code = 97455-4) 15.0 mmol/L 3.0-11.0 [facility] HealthSerum or plasma [...] calculated from serum or plasma creatinine by [id number] 22:15:00 Test Item Value Reference Range Interpretation Comments Estimated Creatinine Clearance (test 134.0 code = 23064-2) [facility]Gl[facility]ular filtration rate (GFR) estimation using MDRD equation 2019-09-08 22:15:00 Test Item Value Reference Range Interpretation Comments Estimat Glomerular Filtration Rate 116.39 >60 (test code = 11077-4) [facility] HealthSerum or plasma urea nitrogen/creatinine mass idwgf2862-96-65 22:15:00 Test Item Value Reference Range Interpretation Comments BUN/Creatinine Ratio (test code = 22 3097-3) [facility] HealthSerum or plasma glucose measurement (mass/volume)2019-09-08 22:15:00 Test Item Value Reference Range Interpretation Comments Glucose Level (test code = 2345-7) 82 mg/dL 70-110 [facility] HealthSerum or plasma calcium measurement (mass/volume)2019-09-08 22:15:00 Test Item Value Reference Range Interpretation Comments Calcium Level (test code = 70193-1) 8.9 mg/dL 8.4-10.2 [facility] HealthSerum or plasma [...] Range Interpretation Comments Globulin (test code = 55360-8) 3.2 g/dL [facility] HealthSerum or plasma albumin/globulin mass yukpc5669-07-86 22:15:00 Test Item Value Reference Range Interpretation [...] 3040-3) 18 U/L 16-63 [facility] HealthCreatine kinase ser/qsnp3095-26-61 22:15:00 Test Item Value Reference Range Interpretation Comments Total Creatine Kinase (test code = 84 U/L 24-170 2157-6) [facility] HealthSerum or plasma creatine kinase MB measurement (mass/volume) 2019-09-08 22:15:00 Test Item Value Reference Range Interpretation Comments Creatine Kinase MB (test code = 1.3 ng/mL 0-5 81444-8) [facility] HealthSerum or plasma cardiac troponin T [...] HealthAutomated erythrocyte mean corpuscular hemoglobin concentration measurement (mass/erd4733-88-81 22:15:00 Test Item Value Reference Range Interpretation Comments Mean Corpuscular Hemoglobin Concent 33.5 g/dL 32.5-35.0 (test code = 786-4) [facility] HealthAutomated erythrocyte distribution width auqlt2765-87-11 22:15:00 Test Item Value Reference Range Interpretation Comments Red Cell Distribution Width (test code 14.0 % 11.5-14.5 = 788-0) [facility] HealthAutomated blood platelet count (count/volume)2019-09-08 22:15:00 Test Item Value Reference Range Interpretation Comments Platelet Count (test code = 238 10*3/uL 160-400 777-3) [facility] HealthAutomated blood platelet mean volume tpwzaqhwlvr3455-68-48 22:15:00 Test Item Value Reference Range Interpretation Comments Mean Platelet Volume (test code = 11.0 fL 7.5-11.2 36906-5) [facility] neutrophil count as percentage of total dlcbvbkqtq2079-66-24 22:15:00 Test Item Value Reference Range Interpretation Comments Neutrophils (%) (Auto) (test code = 70 % 45-75 770-8) [facility]Automated blood immature granulocyte count as percentage of total mdvwydgmns2068-91-74 22:15:00 Test Item Value Reference Range Interpretation Comments Immature Granulocyte % (Auto) (test 0.2 % 0.0-1.5 code = 62154-2) [facility]ated blood lymphocyte count as percentage of total exbrkqprwb7665-64-49 22:15:00 Test Item Value Reference Range Interpretation Comments Lymphocytes (%) (Auto) (test code = 21 % 20-48 736-9) [facility] blood monocyte count as percentage of total leukocytes 2019-09-08 22:15:00 Test Item Value Reference Range Interpretation Comments Monocytes (%) (Auto) (test code = 7 % 1-9 5905-5) [facility]Automated blood eosinophil count as percentage of total wjxnghavcx4283-68-19 22:15:00 Test Item Value Reference Range Interpretation Comments Eosinophils (%) (Auto) (test code = 1 % 0-4 713-8) [facility] HospitalAutomated blood basophil count as percentage of total leukocytes 2019-09-08 22:15:00 Test Item Value Reference Range Interpretation Comments Basophils (%) (Auto) (test code = 1 % 0-2 706-2) [facility]
--- NOTE | 2022-09-23 13:47 | RAD REPORT ---
EXAM DESCRIPTION: Finn Single View09/23/2022 1:37 pm CLINICAL HISTORY: Palpitations COMPARISON: September 04, 2022 FINDINGS: The lungs appear clear of acute infiltrate. The heart is normal size IMPRESSION: No acute abnormalities displayed
[2022-09-23 14:29] LABS: Absolute Lymphocytes (CBC) 1.2 K/uL (0.7-4.9); Hematocrit 37.7 % (36.0-45.0); Lymphocytes % 18.2 % (15.3-44.8); MPV 8.6 fL (7.6-11.3); RBC Red Blood Cell Count 4.23 M/uL (3.86-4.86)
[2022-09-23 14:53] LABS: BUN Blood Urea Nitrogen 14 mg/dL (7-18); Bicarbonate 26 mEq/L (21-32); Glomerular Filtration Rate 117 ml/min (=/>90); Glucose Level 97 mg/dL (74-106); NT PRO-BNP 40 pg/mL (<125); Potassium 4.1 mEq/L (3.5-5.1); Sodium Level 142 mEq/L (136-145)
[2022-09-23 14:54] LABS: Troponin High Sensitivity < 3.0 pg/mL (<58.9)
[2022-09-23] MEDS ORDERED: ACETAMINOPHEN 500 MG TAB ONE (16:24)
[2022-09-23] MEDS ORDERED: NA CHLORIDE 0.9% 1,000 ML ONE (16:24)
[2022-09-23 17:47] VITALS: TEMP 98.8
[2022-09-23 17:53] VITALS: BP 132/91; O2SAT 100
--- NOTE | 2022-09-23 19:00 | EDPHYS ---
Physician Documentation [facility] Name: Salud Almanzar Age: 37 yrs Sex: Female : 1985 Arrival Date: 09/23/2022 Time: 13:03 Bed 10 Private MD: ED Physician Gigi Gray HPI: 09/23 13:11 This 37 yrs old Female presents to ER via Unassigned with complaints of High Blood kb Pressure. 13:11 The patient has elevated blood pressure and discovered this "feels high". Onset: The kb symptoms/episode began/occurred this morning. Associated signs and symptoms: Pertinent positives: headache, palpitations, Pertinent negatives: chest pain, dizziness, dyspnea, lightheadedness, nausea, visual changes, vomiting, weakness. The patient has experienced similar episodes in the past, a few times. The patient has not recently seen a physician. Pt reports she drank alcohol and smoked last night which she does not normally do. This morning, woke up with palpitations, headache and feels like her BP is high. . 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 - Social history:: Smoking status: Patient reports the use of cigarette tobacco products, denies chronic smoking, but will smoke occasionally. ROS: 13:10 Constitutional: Negative for fever, chills, and weight loss. kb 13:10 Cardiovascular: Positive for palpitations. 13:10 Neuro: Positive for headache. 13:10 All other systems are negative. Exam: 13:10 Constitutional: This is a well developed, well nourished patient who is awake, alert, kb and in no acute distress. Head/Face: Normocephalic, atraumatic. ENT: Moist Mucous membranes Chest/axilla: Normal chest wall appearance and motion. Cardiovascular: Regular rate and rhythm with a normal S1 and S2. No gallops, murmurs, or rubs. No pulse deficits. Respiratory: Respirations even and unlabored. No increased work of breathing. Talking in full sentences Skin: Warm, dry with normal turgor. Normal color. MS/ Extremity: Pulses equal, no cyanosis. Neurovascular intact. Full, normal range of motion. Neuro: Awake and alert, GCS 15, oriented to person, place, time, and situation. Moves all extremities. Normal gait. 16:38 ECG was reviewed by the Attending Physician. kb Vital Signs: 13:12 BP 148 / 99; Pulse 106; Resp 20; Temp 98.8(TE); Pulse Ox 99% on R/A; Weight 102.06 kg; hb Height 5 ft. 10 in. ; Pain 0/10; 16:35 BP 132 / 91; Pulse 78; Resp 17; Pulse Ox 100% ; Pain 3/10; jl7 13:12 Body Mass Index 32.28 (102.06 kg, 177.8 cm) hb 13:12 Pain Scale: Adult hb 16:35 Pain Scale: Adult jl7 MDM: 13:05 Patient medically screened. kb 13:11 Differential diagnosis: hypertensive crisis, headache, palpitations, arrhythmia. Data kb reviewed: vital signs, nurses notes. 16:54 Independent interpretation of the following test(s) in the Emergency Department EKG: kb See my EKG interpretation above. Care significantly affected by the following chronic conditions: Hypertension. Counseling: I had a detailed discussion with the patient and/or guardian regarding: the historical points, exam findings, and any diagnostic results supporting the discharge/admit diagnosis, lab results, radiology results, the need for outpatient follow up, a family practitioner, to return to the emergency department if symptoms worsen or persist or if there are any questions or concerns that arise at home. 09/23 13:10 Order name: Basic Metabolic Panel; Complete Time: 14:59 kb 09/23 13:10 Order name: CBC with Diff; Complete Time: 14:45 kb 09/23 13:10 Order name: Magnesium; Complete Time: 14:59 kb 09/23 13:10 Order name: NT PRO-BNP; Complete Time: 14:59 kb 09/23 13:10 Order name: Troponin HS; Complete Time: 14:59 kb 09/23 13:10 Order name: XRAY Chest (1 view); Complete Time: 13:50 kb 09/23 13:10 Order name: EKG; Complete Time: 13:11 kb 09/23 13:10 Order name: Cardiac monitoring; Complete Time: 16:31 kb 09/23 13:10 Order name: EKG - Nurse/Tech; Complete Time: 16:31 kb 09/23 13:10 Order name: IV Saline Lock; Complete Time: 14:22 kb 09/23 13:10 Order name: Labs collected and sent; Complete Time: 16:14 kb 09/23 13:10 Order name: O2 Per Protocol; Complete Time: 16:14 kb 09/23 13:10 Order name: O2 Sat Monitoring; Complete Time: 16:14 kb 09/23 15:33 Order name: Vital Signs; Complete Time: 16:31 kb EC:38 Rate is 74 beats/min. Rhythm is regular. QRS Raymond is Normal. ID interval is normal at kb 138 msec. QRS interval is normal at 84 msec. QT interval is normal at 437 msec. Administered Medications: 16:31 Drug: Acetaminophen PO 1000 mg Route: PO; jl7 17:22 Follow up: Response: No adverse reaction jl 16:31 Drug: NS 0.9% IV 1000 ml Route: IV; Rate: 1000 ml; Site: left antecubital; jl7 17:22 Follow up: Response: No adverse reaction; IV Status: Completed infusion; IV Intake: jl7 800ml Disposition: 18:05 Co-signature as Attending Physician, Gigi Gray MD I reviewed the patient's care rt provided by the Advanced Practice Provider and agree with the diagnosis and treatment plan. Disposition Summary: 09/23/22 16:56 Discharge Ordered Location: Home kb Condition: Stable kb Diagnosis - Essential (primary) hypertension kb Followup: kb - With: Emergency Department - When: As needed - Reason: Worsening of condition Followup: kb - With: Private Physician - When: 2 - 3 days - Reason: Recheck today's complaints, Continuance of care, Re-evaluation by your physician Discharge Instructions: - Discharge Summary Sheet kb - Hypertension, Adult, [id number] kb - Managing Your Hypertension kb Forms: - Medication Reconciliation Form kb - Thank You Letter kb - Antibiotic Education kb - Prescription Opioid Use kb Signatures: Dispatcher [employer] Emmanuelle Esquivel FNP-C FNP-Hailee Wiley RN JIGNESH Evelyn Ayoub RN RN jl7 [place], Ryan, MD MD rt
--- NOTE | 2022-09-23 19:00 | ER ---
Nurse's Notes [facility] Name: Salud Almanzar Age: 37 yrs Sex: Female : 1985 Arrival Date: 09/23/2022 Time: 13:03 Bed 10 Private MD: Diagnosis: Essential (primary) hypertension Presentation: 09/23 13:12 Chief complaint: High BP and palpitations that started this morning. Coronavirus hb screen: At this time, the client does not indicate any symptoms associated with coronavirus-19. Ebola Screen: No symptoms or risks identified at this time. Initial Sepsis Screen: Does the patient meet any 2 criteria? No. Patient's initial sepsis screen is negative. Does the patient have a suspected source of infection? No. Patient's initial sepsis screen is negative. Risk Assessment: Do you want to hurt yourself or someone else? Patient reports no desire to harm self or others. Onset of symptoms was September 23, 2022. 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 - Social history:: Smoking status: Patient reports the use of cigarette tobacco products, denies chronic smoking, but will smoke occasionally. Screenin:35 [facility] ED Fall Risk Assessment (Adult) History of falling in the last 3 months, jl7 including since admission No falls in past 3 months (0 pts) Score/Fall Risk Level 0 - 2 = Low Risk Oriented to surroundings, Maintained a safe environment. Abuse screen: Denies threats or abuse. Denies injuries from another. Nutritional screening: No deficits noted. Tuberculosis screening: No symptoms or risk factors identified. Assessment: 16:00 General: Appears in no apparent distress. uncomfortable, Behavior is calm, cooperative, jl7 appropriate for age. Pain: Complains of pain in chest Pain currently is 3 out of 10 on a pain scale. Neuro: Level of Consciousness is awake, alert, obeys commands, Oriented to person, place, time, situation. Cardiovascular: Patient's skin is warm and dry. Respiratory: Airway is patent Respiratory effort is even, unlabored, Respiratory pattern is regular, symmetrical. Derm: Skin is pink, warm \T\ dry. Vital Signs: 13:12 BP 148 / 99; Pulse 106; Resp 20; Temp 98.8(TE); Pulse Ox 99% on R/A; Weight 102.06 kg; hb Height 5 ft. 10 in. ; Pain 0/10; 16:35 BP 132 / 91; Pulse 78; Resp 17; Pulse Ox 100% ; Pain 3/10; jl7 13:12 Body Mass Index 32.28 (102.06 kg, 177.8 cm) hb 13:12 Pain Scale: Adult hb 16:35 Pain Scale: Adult jl7 ED Course: 13:03 Patient arrived in ED. rg4 13:05 Emmanuelle Marsh [facility]C [facility] kb 13:05 Gigi Gray MD is Attending Physician. kb 13:13 Triage completed. hb 13:15 Arm band placed on. hb 13:39 XRAY Chest (1 view) In Process Unspecified. EDMS 14:22 Basic Metabolic Panel Sent. bc6 14:22 CBC with Diff Sent. bc6 14:22 Magnesium Sent. bc6 14:22 NT PRO-BNP Sent. bc6 14:22 Troponin HS Sent. bc6 14:22 Inserted saline lock: 20 gauge in left antecubital area, using aseptic technique. bc6 16:09 Evelyn Ayoub, RN is Primary Nurse. jl7 16:35 Patient has correct armband on for positive identification. Bed in low position. Call jl7 light in reach. Side rails up X2. 16:35 EKG done, by ED staff, reviewed by Gigi Gray MD. jl7 17:22 No provider procedures requiring assistance completed. IV discontinued, intact, jl7 bleeding controlled, No redness/swelling at site. Pressure dressing applied. Administered Medications: 16:31 Drug: Acetaminophen PO 1000 mg Route: PO; jl7 17:22 Follow up: Response: No adverse reaction jl7 16:31 Drug: NS 0.9% IV 1000 ml Route: IV; Rate: 1000 ml; Site: left antecubital; jl7 17:22 Follow up: Response: No adverse reaction; IV Status: Completed infusion; IV Intake: jl7 800ml Medication: 16:35 VIS not applicable for this client. jl7 Intake: 17:22 IV: 800ml; Total: 800ml. jl7 Outcome: 16:56 Discharge ordered by MD. montemayor 17:22 Discharged to home ambulatory. jl7 17:22 Condition: stable 17:22 Discharge instructions given to patient, Instructed on discharge instructions, follow up and referral plans. Demonstrated understanding of instructions, follow-up care. 17:23 Patient left the ED. jl7 Signatures: Dispatcher [employer] EDMS Emmanuelle Marsh, ANIMATION DIRECTOR-C ANIMATION DIRECTOR-Ckb Hailee Bustos, RN RN Sneha Burger4 Evelyn Ayoub RN RN jl7 Leatha Haile bc6
--- NOTE | 2022-09-26 12:34 | EKG ---
Test Date: 2022-09-23 Test Time: 16:23:24 [employer] [place] [employer] [place]: TIM MEASUREMENT RESULTS: Intervals: Rate: 74 OK: 138 QRSD: 84 QT: 394 QTc: 437 [place]: P: 46 OK: 138 QRS: 61 T: 47 INTERPRETIVE STATEMENTS: Normal sinus rhythm Normal ECG Compared to ECG 09/04/2022 09:03:02 Myocardial infarct finding no longer present Electronically Signed On 09-26-22 12:27:56 CDT by Maurice Huitron
== END 2022-09-23 17:23 | disposition home or self-care (01) ==
LOC: ER 13:00
DX: I10 Essential (primary) hypertension (principal); F41.9 Anxiety disorder, unspecified; F17.210 Nicotine dependence, cigarettes, uncomplicated
CPT/HCPCS: 85025; 80048; 36415; 83735; 84484; 83880; 71045; 96360; 99284; J7030; 93005

== ENCOUNTER 2022-10-28 13:24 | Emergency (ER) | payer OTHER ==
--- OUTSIDE RECORDS SUMMARY | 2022-10-28 13:28 | XMS REPORT | Continuity of Care Document ---
:1985 Author Organization [facility] t Address [address] [place] [address] Care Team Providers Name Role Phone ASHA MCKEE Attending Clinician Unavailable PHYSICIAN, ER Attending Clinician Unavailable Problems Condition Condition Condition Status Onset Resolution Last Treating Co mments Source Name Details Category Date Date Treatment Clinician Date Problem Condition [facility] Allergies, Adverse Reactions, Alerts This patient has no known allergies or adverse reactions. Social History Social Habit Start Date Stop Date Quantity Comments Source Sex Assigned At [address] [facility] 00:00:00 00:00:00 Smoking Status Start Date Stop Date Source Unknown if ever smoked [employer] Never smoked tobacco (finding) [facility] [employer] Medications Ordered Filled Start Stop Current Ordering [...] Source Body Temperature 2020-01-07 10:16:00 97.7 [degF] [employer] Heart Rate 2020-01-07 10:16:00 79 /min [employer] Respiratory rate 2020-01-07 10:16:00 18 /min [employer] BP Systolic 2020-01-07 10:16:00 134 mm[Hg[facility] Diastolic 2020-01-07 10:16:00 90 mm[Hg] [facility] Respiratory rate 2019-09-08 21:00:00 18 /min [employer] [facility] BP Systolic 2019-09-08 21:00:00 146 mm[Hg] [facility] BP Diastolic 2019-09-08 21:00:00 93 mm[Hg] [facility] Weight 2019-09-08 21:00:00 235 [lb_av] [facility] BMI (Body Mass Index) 2019-09-08 21:00:00 34.7 kg/m2 [facility] [employer] Procedures Procedure Date / Time Performed Performing Clinician [facility] e ECG (electrocardiogram) 2020-01-07 00:00:00 [facility] [employer] X-ray of chest, single 2020-01-07 00:00:00 [employer] view Computed tomography of 2020-01-07 00:00:00 [facility] [employer] head or brain without contrast Computed tomography of 2020-01-07 00:00:00 [facility] [employer] cervical spine without contrast ECG (electrocardiogram) 2019-09-08 00:00:00 [facility] [employer] X-ray of chest, two views 2019-09-08 00:00:00 [facility] Encounters Start End Encounter Admission Attending Care Care Encounter Source Date/Time Date/Time Type Type Clinicians Facility Department ID 2020-01-09 2020-01-09 Outpatient GLORIA ZAMORA [id number] [facility] 13:44:00 13:44:00 [facility] 2020-01-07 2020-01-07 Departed ER PHYSICIAN, GLORIA CASTRO [id number] [facility] 03:35:00 03:35:00 Emergency ER [facility] [address] [facility] 2019-09-08 2019-09-09 Departed GLORIA CASTRO [id number] [facility] 20:50:00 00:23:00 Emergency [facility] Results Test Description Test Time Test Comments Results Result Comments Source Serum or plasma natriuretic peptide B measurement (mas s/volume) 2020-01-07 08:11:00 Test Item Value Reference Range Interpretation Comme nts B-Type Natriuretic Peptide (test code = 29121-8) 4 pg/mL 0-101 [facility] or plasma free thyroxine (FT4) measurement (mass/volume) 2020-01-07 07:47:00 Test Item Value Reference Range Interpretation Comments Free Thyroxine (test code = 1.48 ng/dL 1.09-1.53 3024-7) [facility] or plasma thyrotropin measurement with detection limit of 0.005 mIU/L or less (units/volume)2020-01-07 07:47:00 Test Item Value Reference Range Interpretation Comments Thyroid Stimulating Hormone 1.435 u[iU]/mL 0.550-4.780 (TSH) (test code = 82856-5) [facility] or plasma free triiodothyronine (T3) [...] 3040-3) 29 U/L 31-96 [facility] HealthCreatine kinase ser/bzks1223-37-62 07:27:00 Test Item Value Reference Range Interpretation Comments Total Creatine Kinase (test code = 61 U/L 30-160 2157-6) [facility] HealthSerum or plasma creatine kinase MB measurement (mass/volume) 2020-01-07 07:27:00 Test Item Value Reference Range Interpretation Comments Creatine Kinase MB (test code = < 0.18 ng/mL 0-5 23515-1) [facility]um or plasma cardiac troponin I measurement (mass/volume) 2020-01-07 07:27:00 Test Item Value Reference Range Interpretation Comments Troponin I (test code = < 0.006 ng/mL 0.000-0.040 35724-0) [facility]um or plasma myoglobin measurement (mass/volume)2020-01-07 07:27:00 Test Item Value Reference Range Interpretation Comments Myoglobin (test code = 2639-3) 20.4 ng/mL <110.0 [facility] HealthUrinalysis specimen collection [id number] 04:03:00 Test Item Value Reference Range Interpretation Comments Urine Source (test code = Urine Clean Catch 26792-4) [facility] HealthUrine color meyxvaepzmkny5070-16-69 04:03:00 Test Item Value Reference Range Interpretation Comments Urine Color (test code = 5778-6) Colorless Yel-Lora [facility] HealthUrine appearance bbsjavynsulwx9053-50-37 04:03:00 Test Item Value Reference Range Interpretation Comments Urine Appearance (test code = 5767-9) Clear Clear [facility]Urine pH measurement by test rmojl2201-94-00 04:03:00 Test Item Value Reference Range Interpretation Comments Urine pH (test code = 5803-2) 5.0 5.0-7.5 [facility] HealthSpecific gravity ur oliwxclc9760-08-68 04:03:00 Test Item Value Reference Range Interpretation Comments Urine Specific Effie (test code = 1.003 1.003-1.029 5811-5) [facility] HealthUrine protein measurement by automated test strip (mass/volume) 2020-01-07 04:03:00 Test Item Value Reference Range Interpretation Comments Urine Protein (test code = Negative mg/dL Neg - Trace 51813-1) [facility]Urine glucose measurement by automated test strip (mass/volume) 2020-01-07 04:03:00 Test Item Value Reference Range Interpretation Comments Urine Glucose (UA) (test code = Negative Negative 95027-6) [facility] HealthUrine ketones detection by automated test qgkwv5324-90-92 04:03:00 Test Item Value Reference Range Interpretation Comments Urine Ketones (test code = 67151-5) Negative Negative [facility]Urine erythrocytes count by automated test strip (number/volume) 2020-01-07 04:03:00 Test Item Value Reference Range Interpretation Comments Urine Occult Blood (test code = Negative Negative 71506-0) [facility] HealthUrine nitrite detection by automated test kfwyu3676-37-51 04:03:00 Test Item Value Reference Range Interpretation Comments Urine Nitrite (test code = 72616-6) Negative Negative [facility]Urine total bilirubin detection by automated test cwdxz8295-61-62 04:03:00 Test Item Value Reference Range Interpretation Comments Urine Bilirubin (test code = Negative Negative 25408-4) [facility] HealthUrine urobilinogen measurement by automated test strip (mass/volume)2020-01-07 04:03:00 Test Item Value Reference Range Interpretation Comments Urine Urobilinogen (test code = Normal mg/dL Norm-1.0 53662-0) [facility]Urine leukocyte esterase detection by automated test strip 2020-01-07 04:03:00 Test Item Value Reference Range Interpretation Comments Urine Leukocyte Esterase (test code = Trace Negative 92418-4) [facility]Urine sediment erythrocyte count by microscopy (number/high power field)2020-01-07 04:03:00 Test Item Value Reference Range Interpretation Comments Urine RBC (test 0-2 /[HPF] See_Comment [Automated message] The code = 87849-3) system which generated this result tra nsmitted [...] Cells (test code Many /[LPF] None/Occ = 72515-9) [facility] HealthUrine sediment bacteria count by microscopy (number/high power field)2020-01-07 04:03:00 Test Item Value Reference Range Interpretation Comments Urine Bacteria (test code = Occasional /[HPF] None 5769-5) [facility] HealthUrine sediment hyaline cast count by microscopy (number/low power field)2020-01-07 04:03:00 Test Item Value Reference Range Interpretation Comments Urine Hyaline Casts (test code = 2-5 /[LPF] 5796-8) [facility] HealthYeast detection in urine sediment by light hoxkztatoj7087-32-36 04:03:00 Test Item Value Reference Range Interpretation Comments Urine Yeast (test code = None Seen /[HPF] 88722-0) [facility]Service comment 04:03:00 Test Item Value [...] HealthAutomated erythrocyte mean corpuscular hemoglobin concentration measurement (mass/fzd6696-24-09 04:00:00 Test Item Value Reference Range Interpretation Comments Mean Corpuscular Hemoglobin Concent 32.6 g/dL 32.5-35.0 (test code = 786-4) [facility] HealthAutomated erythrocyte distribution width nypmd5849-75-34 04:00:00 Test Item Value Reference Range Interpretation Comments Red Cell Distribution Width (test code 13.5 % 11.5-14.5 = 788-0) [facility] HealthAutomated blood platelet count (count/volume)2020-01-07 04:00:00 Test Item Value Reference Range Interpretation Comments Platelet Count (test code = 191 10*3/uL 160-400 777-3) [facility] HealthAutomated blood platelet mean volume mlcrhvmlcbk2096-08-72 04:00:00 Test Item Value Reference Range Interpretation Comments Mean Platelet Volume (test code = 12.0 fL 7.5-11.2 76040-8) [facility] HealthAutomated blood neutrophil count as percentage of total yhotnlerlm4749-31-22 04:00:00 Test Item Value Reference Range Interpretation Comments Neutrophils (%) (Auto) (test code = 64 % 45-75 770-8) [facility] HealthAutomated blood immature granulocyte count as percentage of total urpkmnwuso6525-57-39 04:00:00 Test Item Value Reference Range Interpretation Comments Immature Granulocyte % (Auto) (test 0.2 % 0.0-1.5 code = 51225-9) [facility] HealthAutomated blood lymphocyte count as percentage of total kbntbklouj7218-68-61 04:00:00 Test Item Value Reference Range Interpretation Comments Lymphocytes (%) (Auto) (test code = 26 % 20-48 736-9) [facility]Automated blood monocyte count as percentage of total leukocytes 2020-01-07 04:00:00 Test Item Value Reference Range Interpretation Comments Monocytes (%) (Auto) (test code = 6 % 1-9 5905-5) [facility]Automated blood eosinophil count as percentage of total cwoqfuhhkj9425-20-67 04:00:00 Test Item Value Reference Range Interpretation Comments Eosinophils (%) (Auto) (test code = 3 % 0-4 713-8) [facility]Automated blood basophil count as percentage of total leukocytes 2020-01-07 04:00:00 Test Item Value Reference Range Interpretation Comments Basophils (%) (Auto) (test code = 1 % 0-2 706-2) [facility] HealthAutomated blood nucleated erythrocyte count as percentage of total iibcqyvzqf4479-08-83 04:00:00 Test Item Value Reference Range Interpretation Comments Nucleated Red Blood Cells % (test code 0 % 0-1 = 77905-7) [facility] HealthAutomated blood neutrophil count (number/volume)2020-01-07 04:00:00 Test Item Value Reference Range Interpretation Comments Neutrophils # (Auto) (test code 2.87 10*3/uL = 751-8) [facility] HealthProthrombin time (PT) in platelet poor icnbrm4969-51-39 04:00:00 Test Item Value Reference Range Interpretation Comments Prothrombin Time (test code = 5902-2) 11.8 s 9.4-12.5 [facility] HealthINR in Platelet poor plasma by Coagulation xpzad3673-32-18 04:00:00 Test Item Value Reference Range Interpretation Comments Prothromb Time International 1.1 {ratio} Ratio (test code = 6301-6) [facility] HealthPartial thromboplastin time (PTT) in platelet poor plasma 2020-01-07 04:00:00 Test Item Value Reference Range Interpretation Comments Activated Partial Thromboplast Time 30 s 25-37 (test code = 44381-6) [facility] HealthFibrin D-dimer FEU affh3835-95-22 04:00:00 Test Item Value Reference Range Interpretation Comments D-Dimer (test code = 85485-1) 423 ng/mL{FEU} 215-500 [facility] HealthSerum or plasma [...] Interpretation Comments Anion Gap (test code = 67329-9) 9.0 mmol/L 3.0-11.0 [facility] HealthSerum or plasma urea nitrogen measurement (mass/volume)2020-01-07 04:00:00 Test Item Value Reference Range Interpretation Comments Blood Urea Nitrogen (test code = 16.0 mg/dL 12-22 3094-0) [facility] HealthSerum or plasma creatinine measurement (mass/volume)2020-01-07 04:00:00 Test Item Value Reference Range Interpretation Comments Creatinine (test code = 2160-0) 0.90 mg/dL 0.60-1.02 [facility] calculated from serum or plasma creatinine by Ha2075-57-23 04:00:00 Test Item Value Reference Range Interpretation Comments Estimated Creatinine Clearance (test 93.8 code = 05694-4) [facility] Hospital[facility]omerular filtration rate (GFR) estimation using MDRD equation 2020-01-07 04:00:00 Test Item Value Reference Range Interpretation Comments Estimat Glomerular Filtration Rate 77.12 >60 (test code = 797314118) [facility] HealthSerum or plasma urea nitrogen/creatinine mass smgjz3607-93-64 04:00:00 Test Item Value Reference Range Interpretation Comments BUN/Creatinine Ratio (test code = 18 3097-3) [facility] HealthSerum or plasma glucose measurement (mass/volume)2020-01-07 04:00:00 Test Item Value Reference Range Interpretation Comments Glucose Level (test code = 2345-7) 88 mg/dL 74-112 [facility] HealthSerum or plasma calcium measurement (mass/volume)2020-01-07 04:00:00 Test Item Value Reference Range Interpretation Comments Calcium Level (test code = 88380-7) 9.8 mg/dL 9.0-10.2 [facility] HealthSerum or plasma [...] (test code = 1751-7) 4.9 g/dL 4.2-5.4 [facility] globulin measurement by calculation (mass/volume)2020-01-07 04:00:00 Test Item Value Reference Range Interpretation Comments Globulin (test code = 74730-6) 3.0 g/dL [facility] HealthSerum or plasma albumin/globulin mass wukvo3136-30-39 04:00:00 Test Item Value Reference Range Interpretation Comments Albumin/Globulin Ratio (test code 1.6 {ratio} = 1759-0) [facility] HealthSerum or plasma alkaline phosphatase measurement (enzymatic activity/volume)2020-01-07 04:00:00 Test Item Value Reference Range Interpretation Comments Alkaline Phosphatase (test code = 78 U/L 45-100 6768-6) [facility] specimen collection xppajr8869-81-34 22:40:00 Test Item Value Reference Range Interpretation Comments Urine Source (test code = Urine Clean Catch 79098-8) [facility] HealthUrine color itbbonelkbcel5480-56-74 22:40:00 Test Item Value Reference Range Interpretation Comments Urine Color (test code = 5778-6) Yellow Yel-Lora [facility] HealthUrine appearance ojahoutwigavk7597-38-70 22:40:00 Test Item Value Reference Range Interpretation Comments Urine Appearance (test code = 5767-9) Clear Clear [facility] HealthUrine pH measurement by test tunkj6080-18-65 22:40:00 Test Item Value Reference Range Interpretation Comments Urine pH (test code = 5803-2) 6.0 5.0-7.5 [facility] HealthSpecific gravity ur dgcfhilc3122-69-54 22:40:00 Test Item Value Reference Range Interpretation Comments Urine Specific Effie (test code = 1.024 1.003-1.029 5811-5) [facility] HealthUrine protein measurement by automated test strip (mass/volume) 2019-09-08 22:40:00 Test Item Value Reference Range Interpretation Comments Urine Protein (test code = Trace mg/dL Neg - Trace 34578-2) [facility] HealthUrine glucose measurement by automated test strip (mass/volume) 2019-09-08 22:40:00 Test Item Value Reference Range Interpretation Comments Urine Glucose (UA) (test code = Negative Negative 39560-4) [facility] HealthUrine ketones detection by automated test [id number] 22:40:00 Test Item Value Reference Range Interpretation Comments Urine Ketones (test code = 14490-9) Trace Negative [facility] HealthUrine erythrocytes count by automated test strip (number/volume) 2019-09-08 22:40:00 Test Item Value Reference Range Interpretation Comments Urine Occult Blood (test code = Negative Negative 74134-3) [facility] HealthUrine nitrite detection by automated test gkdum9499-55-96 22:40:00 Test Item Value Reference Range Interpretation Comments Urine Nitrite (test code = 59207-3) Negative Negative [facility]Urine total bilirubin detection by automated test lxxmu1785-92-01 22:40:00 Test Item Value Reference Range Interpretation Comments Urine Bilirubin (test code = Negative Negative 78156-0) [facility] HealthUrine urobilinogen measurement by automated test strip (mass/volume)2019-09-08 22:40:00 Test Item Value Reference Range Interpretation Comments Urine Urobilinogen (test code = Normal mg/dL Norm-1.0 43004-0) [facility]Urine leukocyte esterase detection by automated test strip 2019-09-08 22:40:00 Test Item Value Reference Range Interpretation Comments Urine Leukocyte Esterase (test code = Trace Negative 86128-9) [facility] HealthUrine sediment erythrocyte count by microscopy (number/high power field)2019-09-08 22:40:00 Test Item Value Reference Range Interpretation Comments Urine RBC (test 0-2 /[HPF] See_Comment [Automated message] The code = 82653-4) system which generated this result tra nsmitted [...] (test None seen /[LPF] None/Occ code = 34594-2) [facility] HealthUrine sediment bacteria count by microscopy (number/high power field)2019-09-08 22:40:00 Test Item Value Reference Range Interpretation Comments Urine Bacteria (test code = Occasional /[HPF] None 5769-5) [facility] HealthUrine sediment hyaline cast count by microscopy (number/low power field)2019-09-08 22:40:00 Test Item Value Reference Range Interpretation Comments Urine Hyaline Casts (test code = 2-5 /[LPF] 5796-8) [facility] HealthYeast detection in urine sediment by light iktmycattw5366-36-37 22:40:00 Test Item Value Reference Range Interpretation Comments Urine Yeast (test code = None Seen /[HPF] 85587-1) [facility] comment [id number] 22:40:00 Test Item Value Reference Range Interpretation Comments Urine Culture Indicated (test code = Yes 8264-4) [facility] HealthAutomated blood nucleated erythrocyte count as percentage of total xelwiefmzc9542-41-65 22:15:00 Test Item Value Reference Range Interpretation Comments Nucleated Red Blood Cells % (test code 0 % 0-1 = 64373-9) [facility] HealthAutomated blood neutrophil count (number/volume)2019-09-08 22:15:00 [...] Interpretation Comments Anion Gap (test code = 36871-0) 15.0 mmol/L 3.0-11.0 [facility] HealthSerum or plasma [...] calculated from serum or plasma creatinine by Bx9189-37-00 22:15:00 Test Item Value Reference Range Interpretation Comments Estimated Creatinine Clearance (test 134.0 code = 60188-6) [facility] rate (GFR) estimation using MDRD equation 2019-09-08 22:15:00 Test Item Value Reference Range Interpretation Comments Estimat Glomerular Filtration Rate 116.39 >60 (test code = 17661-2) [facility] HealthSerum or plasma urea nitrogen/creatinine mass fllfa5484-68-90 22:15:00 Test Item Value Reference Range Interpretation Comments BUN/Creatinine Ratio (test code = 22 3097-3) [facility] HealthSerum or plasma glucose measurement (mass/volume)2019-09-08 22:15:00 Test Item Value Reference Range Interpretation Comments Glucose Level (test code = 2345-7) 82 mg/dL 70-110 [facility] HealthSerum or plasma calcium measurement (mass/volume)2019-09-08 22:15:00 Test Item Value Reference Range Interpretation Comments Calcium Level (test code = 75534-3) 8.9 mg/dL 8.4-10.2 [facility] HealthSerum or plasma [...] Range Interpretation Comments Globulin (test code = 71432-2) 3.2 g/dL [facility] HealthSerum or plasma albumin/globulin mass zkgdw7070-57-99 22:15:00 Test Item Value Reference Range Interpretation [...] 3040-3) 18 U/L 16-63 [facility] HealthCreatine kinase ser/vhqe6999-83-44 22:15:00 Test Item Value Reference Range Interpretation Comments Total Creatine Kinase (test code = 84 U/L 24-170 2157-6) [facility] HealthSerum or plasma creatine kinase MB measurement (mass/volume) 2019-09-08 22:15:00 Test Item Value Reference Range Interpretation Comments Creatine Kinase MB (test code = 1.3 ng/mL 0-5 03714-1) [facility] HealthSerum or plasma cardiac troponin T [...] HealthAutomated erythrocyte mean corpuscular hemoglobin concentration measurement (mass/xcl0881-48-36 22:15:00 Test Item Value Reference Range Interpretation Comments Mean Corpuscular Hemoglobin Concent 33.5 g/dL 32.5-35.0 (test code = 786-4) [facility] HealthAutomated erythrocyte distribution width kfacq8018-56-77 22:15:00 Test Item Value Reference Range Interpretation Comments Red Cell Distribution Width (test code 14.0 % 11.5-14.5 = 788-0) [facility] HealthAutomated blood platelet count (count/volume)2019-09-08 22:15:00 Test Item Value Reference Range Interpretation Comments Platelet Count (test code = 238 10*3/uL 160-400 777-3) [facility] HealthAutomated blood platelet mean volume jtrhuvltgll9701-15-79 22:15:00 Test Item Value Reference Range Interpretation Comments Mean Platelet Volume (test code = 11.0 fL 7.5-11.2 32845-1) [facility] neutrophil count as percentage of total qxisfubdqt9568-61-38 22:15:00 Test Item Value Reference Range Interpretation Comments Neutrophils (%) (Auto) (test code = 70 % 45-75 770-8) [facility]Autom[facility] blood immature granulocyte count as percentage of total vkvqjkfrfw2397-80-48 22:15:00 Test Item Value Reference Range Interpretation Comments Immature Granulocyte % (Auto) (test 0.2 % 0.0-1.5 code = 05915-8) [facility] lymphocyte count as percentage of total jquukmuicx3209-50-53 22:15:00 Test Item Value Reference Range Interpretation Comments Lymphocytes (%) (Auto) (test code = 21 % 20-48 736-9) [facility] monocyte count as percentage of total leukocytes 2019-09-08 22:15:00 Test Item Value Reference Range Interpretation Comments Monocytes (%) (Auto) (test code = 7 % 1-9 5905-5) [facility]Autom[facility] eosinophil count as percentage of total gmtzuaupnt4684-77-40 22:15:00 Test Item Value Reference Range Interpretation Comments Eosinophils (%) (Auto) (test code = 1 % 0-4 713-8) [facility] basophil count as percentage of total leukocytes 2019-09-08 22:15:00 Test Item Value Reference Range Interpretation Comments Basophils (%) (Auto) (test code = 1 % 0-2 706-2) [facility]
[2022-10-28 14:09] LABS: Absolute Lymphocytes (CBC) 1.2 K/uL (0.7-4.9); Hematocrit 38.1 % (36.0-45.0); Lymphocytes % 15.9 % (15.3-44.8); MCV 89.8 fL (80-100); MPV 8.9 fL (7.6-11.3); RBC Red Blood Cell Count 4.25 M/uL (3.86-4.86)
--- NOTE | 2022-10-28 14:13 | RAD REPORT ---
EXAM DESCRIPTION: Finn Single View10/28/2022 1:55 pm CLINICAL HISTORY: Chest pain COMPARISON: October 2022 FINDINGS: The lungs appear clear of acute infiltrate. The heart is normal size IMPRESSION: No acute abnormalities displayed
[2022-10-28 14:23] LABS: Potassium 4.5 mEq/L (3.5-5.1); Troponin High Sensitivity 3.2 pg/mL (<58.9)
--- NOTE | 2022-10-28 15:16 | EDPHYS ---
Physician Documentation [facility] Name: Salud Almanzar Age: 37 yrs Sex: Female : 1985 Arrival Date: 10/28/2022 Time: 13:24 Bed Treatment Private MD: ED Physician Edson Lopez HPI: 10/28 15:16 This 37 yrs old Female presents to ER via Ambulatory with complaints of Chest Pain, ms3 Shortness Of Breath, Shoulder Pain. 15:16 37-year-old female with past medical history anxiety, GERD, hypertension presents for ms3 bilateral breast pain that has been ongoing for 1 week. Patient states pain is 7/10 and is intermittent with sharp and stabbing. Patient denies nausea, vomiting, sweats. Patient states the pain radiates into her chest.. 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 - Social history:: Smoking status: Patient reports the use of cigarette tobacco products, denies chronic smoking, but will smoke occasionally, Patient uses alcohol, occasionally. ROS: 15:25 Constitutional: Negative for fever, and chills. Neck: Negative for injury, pain, and ms3 swelling. 15:25 Abdomen/GI: Negative for abdominal pain, nausea, vomiting, diarrhea, and constipation, MS/Extremity: Negative for injury and deformity, Skin: Negative for injury, rash, and discoloration, Neuro: Negative for headache, weakness, numbness, tingling. 15:25 Cardiovascular: Positive for chest pain. 15:25 Respiratory: Positive for shortness of breath. 15:25 All other systems are negative. Exam: 15:25 Constitutional: This is a well developed, well nourished patient who is awake, alert, ms3 and in no acute distress. Head/Face: Normocephalic, atraumatic. Neck: Trachea midline, no cervical lymphadenopathy. Supple, full range of motion without nuchal rigidity, or vertebral point tenderness. No Meningismus. Cardiovascular: Regular rate and rhythm with a normal S1 and S2. No gallops, murmurs, or rubs. Normal PMI, no JVD. No pulse deficits. Respiratory: Lungs have equal breath sounds bilaterally, clear to auscultation and percussion. No rales, rhonchi or wheezes noted. No increased work of breathing, no retractions or nasal flaring. Abdomen/GI: Soft, non-tender, with normal bowel sounds. No distension or tympany. No guarding or rebound. No evidence of tenderness throughout. 15:25 Chest/axilla: Inspection: normal, Palpation: is normal, Axilla: Breasts: abscess, not appreciated, cellulitis, is not appreciated, mass(es), fibrocystic changes palpated, nipple discharge, is not appreciated, rash, is not appreciated, swelling, is not appreciated, tenderness, is not appreciated. 19:58 ECG was reviewed by the Attending Physician. ms3 Vital Signs: 13:33 BP 152 / 98; Pulse 75; Resp 18; Temp 98.7(O); Pulse Ox 98% on R/A; Weight 104.33 kg; ld1 Height 5 ft. 10 in. ; Pain 7/10; 15:32 BP 138 / 76; Pulse 84; Resp 18; Pulse Ox 99% ; mb9 13:33 Body Mass Index 33.00 (104.33 kg, 177.8 cm) ld1 13:33 Pain Scale: Adult ld1 MDM: 13:46 Patient medically screened. ms3 15:25 Differential diagnosis: abnormal EKG, acute myocardial infarction, BR CA. Data ms3 reviewed: vital signs, nurses notes, lab test result(s), EKG, radiologic studies, and as a result, I will discharge patient. Independent interpretation of the following test(s) in the Emergency Department EKG: See my EKG interpretation above X-Ray: My interpretation is CXR image reviewed by me does not show PNA. Counseling: I had a detailed discussion with the patient and/or guardian regarding: the historical points, exam findings, and any diagnostic results supporting the discharge/admit diagnosis, lab results, radiology results, the need for outpatient follow up, to return to the emergency department if symptoms worsen or persist or if there are any questions or concerns that arise at home. ED course: Discussed labs and x-ray findings with patient. Discussed with patient need to follow-up with gynecology for further work-up of breast pain. Patient to follow-up with Dr. Vanegas and establish primary care. Patient states she has been suffering from anxiety and patient referred to psychiatry. Patient understands and agrees with plan. All questions were answered. Return precautions discussed include worsening symptoms, or any other concerns. On reevaluation patient is alert and oriented x4, no apparent distress, nontoxic-appearing, ambulatory in emergency department, speaking full sentences. 10/28 13:37 Order name: Basic Metabolic Panel; Complete Time: 14:49 ld10/28 13:37 Order name: CBC with Diff; Complete Time: 14:49 10/28 13:37 Order name: Troponin HS; Complete Time: 14:49 ld10/28 13:37 Order name: XRAY Chest (1 view); Complete Time: 14:49 10/28 13:37 Order name: EKG; Complete Time: 13:38 10/28 13:36 Order name: EKG - Nurse/Tech; Complete Time: 13:36 10/28 13:37 Order name: Cardiac monitoring; Complete Time: 14:45 ld10/28 13:37 Order name: IV Saline Lock; Complete Time: 14:45 10/28 13:37 Order name: Labs collected and sent; Complete Time: 14:45 10/28 13:37 Order name: O2 Per Protocol; Complete Time: 14:06 10/28 13:37 Order name: O2 Sat Monitoring; Complete Time: 14:06 ld EC:58 Rate is 70 beats/min. Rhythm is regular. QRS [place] is Normal. [place] interval is normal. QRS ms3 interval is normal. Clinical impression: Normal ECG. Interpreted by me. Reviewed by me. Administered Medications: No medications were administered Disposition Summary: 10/28/22 15:16 Discharge Ordered Location: Home ms3 Condition: Stable ms3 Diagnosis - Breast pain ms3 - Chest pain, unspecified ms3 Followup: ms3 - With: Chris Vanegas DO - When: 2 - 3 days - Reason: Recheck today's complaints Followup: ms3 - With: Erica Fuentes MD - When: 2 - 3 days - Reason: Recheck today's complaints Followup: ms3 - With: Kyle Perdue MD - When: 2 - 3 days - Reason: Re-evaluation by your physician Discharge Instructions: - Discharge Summary Sheet ms3 - Nonspecific Chest Pain, Adult ms3 Forms: - Medication Reconciliation Form ms3 - Thank You Letter ms3 - Antibiotic Education ms3 - Prescription Opioid Use ms3 Signatures: Dispatcher [employer] EDMS Edson Lopez, DO ms3 Shell Lopez RN RN ld1 Corrections: (The following items were deleted from the chart) 13:35 13:35 PSHx: None; ld1 ld1 15:26 15:16 37-year-old female with past medical history anxiety, GERD, hypertension. ms3 ms3
--- NOTE | 2022-10-28 15:16 | ER ---
Nurse's Notes [facility] Name: Salud Almanzar Age: 37 yrs Sex: Female : 1985 Arrival Date: 10/28/2022 Time: 13:24 Bed Treatment Private MD: Diagnosis: Breast pain;Chest pain, unspecified Presentation: 10/28 13:33 Chief complaint: Patient states: DERRICK breast pain - sharp shooting pains X 1 week. Chest ld1 pain, SOB. Coronavirus screen: At this time, the client does not indicate any symptoms associated with coronavirus-19. Ebola Screen: No symptoms or risks identified at this time. Initial Sepsis Screen: Does the patient meet any 2 criteria? No. Patient's initial sepsis screen is negative. Does the patient have a suspected source of infection? No. Patient's initial sepsis screen is negative. Risk Assessment: Do you want to hurt yourself or someone else? Patient reports no desire to harm self or others. Onset of symptoms was October 28, 2022. 13:33 Method Of Arrival: Ambulatory ld1 13:33 Acuity: JOSE 3 ld1 Triage Assessment: 13:35 General: Appears in no apparent distress. comfortable, Behavior is cooperative, ld1 anxious. Pain: Complains of pain in chest Pain does not radiate. Pain currently is 7 out of 10 on a pain scale. Quality of pain is described as sharp, shooting, Pain began 1 week Is intermittent. EENT: No signs and/or symptoms were reported regarding the EENT system. Neuro: Level of Consciousness is awake, alert, obeys commands, Oriented to person, place, time, situation. Cardiovascular: Capillary refill < 3 seconds Patient's skin is warm and dry. Respiratory: Airway is patent Respiratory effort is even, unlabored. GI: Abdomen is round non-distended. : No signs and/or symptoms were reported regarding the genitourinary system. Derm: No signs and/or symptoms reported regarding the dermatologic system. Musculoskeletal: No signs and/or symptoms reported regarding the musculoskeletal system. 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 - Social history:: Smoking status: Patient reports the use of cigarette tobacco products, denies chronic smoking, but will smoke occasionally, Patient uses alcohol, occasionally. Screenin:07 [facility] ED Fall Risk Assessment (Adult) History of falling in the last 3 months, mb9 including since admission No falls in past 3 months (0 pts) Confusion or Disorientation No (0 pts) Intoxicated or Sedated No (0 pts) Impaired Gait No (0 pts) Mobility Assist Device Used No (0 pt) Altered Elimination No (0 pt) Score/Fall Risk Level 0 - 2 = Low Risk Oriented to surroundings, Maintained a safe environment, Educated pt \T\ family on fall prevention, incl call for assistance when getting out of bed. Abuse screen: Denies threats or abuse. Nutritional screening: No deficits noted. Tuberculosis screening: No symptoms or risk factors identified. Assessment: 15:07 Reassessment: No changes from previously documented assessment. Patient and/or family mb9 updated on plan of care and expected duration. Pain level reassessed. Patient is alert, oriented x 3, equal unlabored respirations, skin warm/dry/pink. Patient states symptoms have improved. 15:32 Reassessment: No changes from previously documented assessment. Patient and/or family mb9 updated on plan of care and expected duration. Pain level reassessed. Patient is alert, oriented x 3, equal unlabored respirations, skin warm/dry/pink. Vital Signs: 13:33 BP 152 / 98; Pulse 75; Resp 18; Temp 98.7(O); Pulse Ox 98% on R/A; Weight 104.33 kg; ld1 Height 5 ft. 10 in. ; Pain 7/10; 15:32 BP 138 / 76; Pulse 84; Resp 18; Pulse Ox 99% ; mb9 13:33 Body Mass Index 33.00 (104.33 kg, 177.8 cm) ld1 13:33 Pain Scale: Adult ld1 ED Course: 13:26 Patient arrived in ED. mr 13:29 Edson Lopez DO is Attending Physician. ms3 13:35 Triage completed. ld1 13:35 Arm band placed on right wrist. EKG completed in triage. Results shown to MD. ld1 13:54 Initial lab(s) drawn, by me, sent to lab. Inserted saline lock: 22 gauge in left tm3 antecubital area, using aseptic technique. 13:57 XRAY Chest (1 view) In Process Unspecified. EDMS 14:56 Rowena Clark, RN is Primary Nurse. mb9 15:07 Placed in gown. Bed in low position. Call light in reach. Side rails up X 1. Client mb9 placed on continuous cardiac and pulse oximetry monitoring. NIBP monitoring applied. property assessment monitor on. 15:08 No provider procedures requiring assistance completed. mb9 15:11 Chris Vanegas DO is Referral Physician. ms3 15:11 Erica Fuentes MD is Referral Physician. ms3 15:12 Kyle Perdue MD is Referral Physician. ms3 15:32 IV discontinued, intact, bleeding controlled, No redness/swelling at site. Pressure mb9 dressing applied. Administered Medications: No medications were administered Medication: 15:08 VIS not applicable for this client. mb9 Outcome: 15:16 Discharge ordered by MD. ms3 15:32 Discharged to home ambulatory. mb9 15:32 Condition: stable 15:32 Discharge instructions given to patient, Instructed on discharge instructions, follow up and referral plans. Demonstrated understanding of instructions, follow-up care. 15:32 Patient left the ED. mb9 Signatures: Dispatcher [employer] EDMN Bam Owens tmRowena Rich mr Edson Lopez DO DO ms3 Shell Lopez RN RN ld1 Rowena Clark, RN RN mb9 Corrections: (The following items were deleted from the chart) 13:35 13:35 PSHx: None; ld1 ld1
[2022-10-28 15:48] VITALS: TEMP 98.7
[2022-10-28 15:54] VITALS: BP 138/76; O2SAT 99
--- NOTE | 2022-10-29 15:21 | EKG ---
Test Date: 2022-10-28 Test Time: 13:40:04 Ophthalmology Technician: LARISA MEASUREMENT RESULTS: Intervals: Rate: 70 MS: 132 QRSD: 78 QT: 382 QTc: 412 [place]: P: 45 MS: 132 QRS: 43 T: 55 INTERPRETIVE STATEMENTS: Normal sinus rhythm Normal ECG Compared to ECG 10/04/2022 23:56:50 No significant changes Electronically Signed On 10-29-22 15:20:25 CDT by Maurice Huitron
== END 2022-10-28 15:32 | disposition home or self-care (01) ==
LOC: ER 13:24
DX: R07.89 Other chest pain (principal); N64.4 Mastodynia; I10 Essential (primary) hypertension; F17.210 Nicotine dependence, cigarettes, uncomplicated; Z88.8 Allergy status to other drugs, medicaments and biological substances
CPT/HCPCS: 36415; 71045; 80048; 84484; 85025; 93005; 99284

== ENCOUNTER 2022-11-01 22:10 | Observation (INO) | payer OTHER ==
--- OUTSIDE RECORDS SUMMARY | 2022-11-01 22:14 | XMS REPORT | Continuity of Care Document ---
:1985 Author Organization [facility] t Address [address] [place] [id number] Care Team Providers Name Role Phone ASHA MCKEE Attending Clinician Unavailable PHYSICIAN, ER Attending Clinician Unavailable Problems Condition Condition Condition Status Onset Resolution Last Treating Co mments Source Name Details Category Date Date Treatment Clinician Date Problem Condition [facility] Allergies, Adverse Reactions, Alerts This patient has no known allergies or adverse reactions. Social History Social Habit Start Date Stop Date Quantity Comments Source Sex Assigned At [birth year] Female [facility] 00:00:00 00:00:00 Smoking Status Start Date Stop Date Source Unknown if ever smoked [facility] Never smoked tobacco (finding) C [facility] Medications Ordered Filled Start Stop Current Ordering [...] Source Body Temperature 2020-01-07 10:16:00 97.7 [degF] [employer] Heart Rate 2020-01-07 10:16:00 79 /min [employer] Respiratory rate 2020-01-07 10:16:00 18 /min [employer] BP Systolic 2020-01-07 10:16:00 134 mm[Hg] [facility] Diastolic 2020-01-07 10:16:00 90 mm[Hg] [facility] Respiratory rate 2019-09-08 21:00:00 18 /min [facility] BP Systolic 2019-09-08 21:00:00 146 mm[Hg] [facility] BP Diastolic 2019-09-08 21:00:00 93 mm[Hg] [facility] Weight 2019-09-08 21:00:00 235 [lb_av] [facility] BMI (Body Mass Index) 2019-09-08 21:00:00 34.7 kg/m2 [facility] Procedures Procedure Date / Time Performed Performing Clinician [facility] e ECG (electrocardiogram) 2020-01-07 00:00:00 [facility] X-ray of chest, single 2020-01-07 00:00:00 [facility] view Computed tomography of 2020-01-07 00:00:00 [facility] head or brain without contrast Computed tomography of 2020-01-07 00:00:00 [facility] cervical spine without contrast ECG (electrocardiogram) 2019-09-08 00:00:00 [facility] X-ray of chest, two views 2019-09-08 00:00:00 [facility] Encounters Start End Encounter Admission Attending Care Care Encounter Source Date/Time Date/Time Type Type Clinicians Facility Department ID 2020-01-09 2020-01-09 Outpatient GLORIA ZAMORA [id number] [facility] 13:44:00 13:44:00 [facility] 2020-01-07 2020-01-07 Departed ER PHYSICIAN, GLORIA CASTRO [id number] [facility] 03:35:00 03:35:00 Emergency ER [facility] [address] [facility] 2019-09-08 2019-09-09 Departed GLORIA CASTRO [id number] [facility] 20:50:00 00:23:00 Emergency [facility] [address] [facility] Results Test Description Test Time Test Comments Results Result Comments Source Serum or plasma natriuretic peptide B measurement (mas s/volume) 2020-01-07 08:11:00 Test Item Value Reference Range Interpretation Comme nts B-Type Natriuretic Peptide (test code = 96390-1) 4 pg/mL 0-101 [facility]um or plasma [...] 1.435 u[iU]/mL 0.550-4.780 (TSH) (test code = 14956-6) [facility] or plasma free triiodothyronine (T3) [...] 3040-3) 29 U/L 31-96 [facility] HealthCreatine kinase ser/yiuu6919-25-30 07:27:00 Test Item Value Reference Range Interpretation Comments Total Creatine Kinase (test code = 61 U/L 30-160 2157-6) [facility] HealthSerum or plasma creatine kinase MB measurement (mass/volume) 2020-01-07 07:27:00 Test Item Value Reference Range Interpretation Comments Creatine Kinase MB (test code = < 0.18 ng/mL 0-5 40151-7) [facility]um or plasma cardiac troponin I measurement (mass/volume) 2020-01-07 07:27:00 Test Item Value Reference Range Interpretation Comments Troponin I (test code = < 0.006 ng/mL 0.000-0.040 88204-4) [facility] HealthSerum or plasma myoglobin measurement (mass/volume)2020-01-07 07:27:00 Test Item Value Reference Range Interpretation Comments Myoglobin (test code = 2639-3) 20.4 ng/mL <110.0 [facility] HealthUrinalysis specimen collection [id number] 04:03:00 Test Item Value Reference Range Interpretation Comments Urine Source (test code = Urine Clean Catch 38704-0) [facility] HealthUrine color mywtgihdepkgn9855-11-39 04:03:00 Test Item Value Reference Range Interpretation Comments Urine Color (test code = 5778-6) Colorless Yel-Lora [facility] HealthUrine appearance eizjgdijajlfc3647-35-65 04:03:00 Test Item Value Reference Range Interpretation Comments Urine Appearance (test code = 5767-9) Clear Clear [facility] HealthUrine pH measurement by test ctcff3988-68-58 04:03:00 Test Item Value Reference Range Interpretation Comments Urine pH (test code = 5803-2) 5.0 5.0-7.5 [facility] HealthSpecific gravity ur tnaqvldb7789-87-74 04:03:00 Test Item Value Reference Range Interpretation Comments Urine Specific [place] (test code = 1.003 1.003-1.029 5811-5) [facility] HealthUrine protein measurement by automated test strip (mass/volume) 2020-01-07 04:03:00 Test Item Value Reference Range Interpretation Comments Urine Protein (test code = Negative mg/dL Neg - Trace 46894-5) [facility]Urine glucose measurement by automated test strip (mass/volume) 2020-01-07 04:03:00 Test Item Value Reference Range Interpretation Comments Urine Glucose (UA) (test code = Negative Negative 54261-2) [facility] HealthUrine ketones detection by automated test adzzi6796-96-93 04:03:00 Test Item Value Reference Range Interpretation Comments Urine Ketones (test code = 42322-7) Negative Negative [facility] HealthUrine erythrocytes count by automated test strip (number/volume) 2020-01-07 04:03:00 Test Item Value Reference Range Interpretation Comments Urine Occult Blood (test code = Negative Negative 40006-1) [facility] HealthUrine nitrite detection by automated test ffhbw3251-48-86 04:03:00 Test Item Value Reference Range Interpretation Comments Urine Nitrite (test code = 84908-4) Negative Negative [facility]Urine total bilirubin detection by automated test [id number] 04:03:00 Test Item Value Reference Range Interpretation Comments Urine Bilirubin (test code = Negative Negative 39371-5) [facility] HealthUrine urobilinogen measurement by automated test strip (mass/volume)2020-01-07 04:03:00 Test Item Value Reference Range Interpretation Comments Urine Urobilinogen (test code = Normal mg/dL Norm-1.0 74656-0) [facility]Urine leukocyte esterase detection by automated test strip 2020-01-07 04:03:00 Test Item Value Reference Range Interpretation Comments Urine Leukocyte Esterase (test code = Trace Negative 99562-8) [facility] HealthUrine sediment erythrocyte count by microscopy (number/high power field)2020-01-07 04:03:00 Test Item Value Reference Range Interpretation Comments Urine RBC (test 0-2 /[HPF] See_Comment [Automated message] The code = 41272-4) system which generated this result tra nsmitted [...] Cells (test code Many /[LPF] None/Occ = 11715-9) [facility] HealthUrine sediment bacteria count by microscopy (number/high power field)2020-01-07 04:03:00 Test Item Value Reference Range Interpretation Comments Urine Bacteria (test code = Occasional /[HPF] None 5769-5) [facility] HealthUrine sediment hyaline cast count by microscopy (number/low power field)2020-01-07 04:03:00 Test Item Value Reference Range Interpretation Comments Urine Hyaline Casts (test code = 2-5 /[LPF] 5796-8) [facility] HealthYeast detection in urine sediment by light egwfkzkziq7072-78-46 04:03:00 Test Item Value Reference Range Interpretation Comments Urine Yeast (test code = None Seen /[HPF] 18766-9) [facility]Service comment 04:03:00 Test Item Value [...] HealthAutomated erythrocyte mean corpuscular hemoglobin concentration measurement (mass/wcl4854-92-20 04:00:00 Test Item Value Reference Range Interpretation Comments Mean Corpuscular Hemoglobin Concent 32.6 g/dL 32.5-35.0 (test code = 786-4) [facility] HealthAutomated erythrocyte distribution width ddohj2605-36-30 04:00:00 Test Item Value Reference Range Interpretation Comments Red Cell Distribution Width (test code 13.5 % 11.5-14.5 = 788-0) [facility] HealthAutomated blood platelet count (count/volume)2020-01-07 04:00:00 Test Item Value Reference Range Interpretation Comments Platelet Count (test code = 191 10*3/uL 160-400 777-3) [facility] HealthAutomated blood platelet mean volume tznkxpjvbqx5905-02-02 04:00:00 Test Item Value Reference Range Interpretation Comments Mean Platelet Volume (test code = 12.0 fL 7.5-11.2 33968-2) [facility] HealthAutomated blood neutrophil count as percentage of total nzzqjhsyvf8873-60-25 04:00:00 Test Item Value Reference Range Interpretation Comments Neutrophils (%) (Auto) (test code = 64 % 45-75 770-8) [facility] HealthAutomated blood immature granulocyte count as percentage of total aajevmckcf2197-76-76 04:00:00 Test Item Value Reference Range Interpretation Comments Immature Granulocyte % (Auto) (test 0.2 % 0.0-1.5 code = 91603-3) [facility] HealthAutomated blood lymphocyte count as percentage of total ejvbpkledw4787-81-79 04:00:00 Test Item Value Reference Range Interpretation Comments Lymphocytes (%) (Auto) (test code = 26 % 20-48 736-9) [facility] HealthAutomated blood monocyte count as percentage of total leukocytes 2020-01-07 04:00:00 Test Item Value Reference Range Interpretation Comments Monocytes (%) (Auto) (test code = 6 % 1-9 5905-5) [facility] HealthAutomated blood eosinophil count as percentage of total bkpyljqeek9704-17-13 04:00:00 Test Item Value Reference Range Interpretation Comments Eosinophils (%) (Auto) (test code = 3 % 0-4 713-8) [facility] HealthAutomated blood basophil count as percentage of total leukocytes 2020-01-07 04:00:00 Test Item Value Reference Range Interpretation Comments Basophils (%) (Auto) (test code = 1 % 0-2 706-2) [facility] HealthAutomated blood nucleated erythrocyte count as percentage of total hzktvcmdye5539-68-32 04:00:00 Test Item Value Reference Range Interpretation Comments Nucleated Red Blood Cells % (test code 0 % 0-1 = 57957-8) [facility] HealthAutomated blood neutrophil count (number/volume)2020-01-07 04:00:00 Test Item Value Reference Range Interpretation Comments Neutrophils # (Auto) (test code 2.87 10*3/uL = 751-8) [facility] HealthProthrombin time (PT) in platelet poor gdityc8717-24-05 04:00:00 Test Item Value Reference Range Interpretation Comments Prothrombin Time (test code = 5902-2) 11.8 s 9.4-12.5 [facility] HealthINR in Platelet poor plasma by Coagulation rhhdf0613-88-21 04:00:00 Test Item Value Reference Range Interpretation Comments Prothromb Time International 1.1 {ratio} Ratio (test code = 6301-6) [facility] HealthPartial thromboplastin time (PTT) in platelet poor plasma 2020-01-07 04:00:00 Test Item Value Reference Range Interpretation Comments Activated Partial Thromboplast Time 30 s 25-37 (test code = 49232-9) [facility] HealthFibrin D-dimer FEU dmcx6671-80-03 04:00:00 Test Item Value Reference Range Interpretation Comments D-Dimer (test code = 02939-3) 423 ng/mL{FEU} 215-500 [facility] HealthSerum or plasma [...] Interpretation Comments Anion Gap (test code = 96034-4) 9.0 mmol/L 3.0-11.0 [facility] HealthSerum or plasma urea nitrogen measurement (mass/volume)2020-01-07 04:00:00 Test Item Value Reference Range Interpretation Comments Blood Urea Nitrogen (test code = 16.0 mg/dL 12-22 3094-0) [facility] HealthSerum or plasma creatinine measurement (mass/volume)2020-01-07 04:00:00 Test Item Value Reference Range Interpretation Comments Creatinine (test code = 2160-0) 0.90 mg/dL 0.60-1.02 [facility]Estimated [facility] creatinine clearance calculated from serum or plasma creatinine by Ox5708-93-11 04:00:00 Test Item Value Reference Range Interpretation Comments Estimated Creatinine Clearance (test 93.8 code = 44998-4) [facility] HospitalGlomerular filtration rate (GFR) estimation using MDRD equation 2020-01-07 04:00:00 Test Item Value Reference Range Interpretation Comments Estimat Glomerular Filtration Rate 77.12 >60 (test code = 280620830) [facility] HealthSerum or plasma urea nitrogen/creatinine mass osfxw6777-27-59 04:00:00 Test Item Value Reference Range Interpretation Comments BUN/Creatinine Ratio (test code = 18 3097-3) [facility] HealthSerum or plasma glucose measurement (mass/volume)2020-01-07 04:00:00 Test Item Value Reference Range Interpretation Comments Glucose Level (test code = 2345-7) 88 mg/dL 74-112 [facility] HealthSerum or plasma calcium measurement (mass/volume)2020-01-07 04:00:00 Test Item Value Reference Range Interpretation Comments Calcium Level (test code = 98391-7) 9.8 mg/dL 9.0-10.2 [facility] HealthSerum or plasma [...] (test code = 1751-7) 4.9 g/dL 4.2-5.4 [facility] globulin measurement by calculation (mass/volume)2020-01-07 04:00:00 Test Item Value Reference Range Interpretation Comments Globulin (test code = 82226-1) 3.0 g/dL [facility] HealthSerum or plasma albumin/globulin mass kswxp6466-85-91 04:00:00 Test Item Value Reference Range Interpretation Comments Albumin/Globulin Ratio (test code 1.6 {ratio} = 1759-0) [facility] HealthSerum or plasma alkaline phosphatase measurement (enzymatic activity/volume)2020-01-07 04:00:00 Test Item Value Reference Range Interpretation Comments Alkaline Phosphatase (test code = 78 U/L 45-100 6768-6) [facility] HospitalUrinalysis specimen collection svhluu6977-79-95 22:40:00 Test Item Value Reference Range Interpretation Comments Urine Source (test code = Urine Clean Catch 32486-7) [facility] HealthUrine color njmksrvihkmif2905-52-50 22:40:00 Test Item Value Reference Range Interpretation Comments Urine Color (test code = 5778-6) Yellow Yel-Lora [facility] HealthUrine appearance auhitejxxkmyi7525-99-05 22:40:00 Test Item Value Reference Range Interpretation Comments Urine Appearance (test code = 5767-9) Clear Clear [facility] HealthUrine pH measurement by test [id number] 22:40:00 Test Item Value Reference Range Interpretation Comments Urine pH (test code = 5803-2) 6.0 5.0-7.5 [facility] HealthSpecific gravity ur zudndbwv7049-85-41 22:40:00 Test Item Value Reference Range Interpretation Comments Urine Specific [place] (test code = 1.024 1.003-1.029 5811-5) [facility] HealthUrine protein measurement by automated test strip (mass/volume) 2019-09-08 22:40:00 Test Item Value Reference Range Interpretation Comments Urine Protein (test code = Trace mg/dL Neg - Trace 73042-3) [facility] HealthUrine glucose measurement by automated test strip (mass/volume) 2019-09-08 22:40:00 Test Item Value Reference Range Interpretation Comments Urine Glucose (UA) (test code = Negative Negative 61628-4) [facility] HealthUrine ketones detection by automated test [id number] 22:40:00 Test Item Value Reference Range Interpretation Comments Urine Ketones (test code = 94757-9) Trace Negative [facility] HealthUrine erythrocytes count by automated test strip (number/volume) 2019-09-08 22:40:00 Test Item Value Reference Range Interpretation Comments Urine Occult Blood (test code = Negative Negative 71214-0) [facility] HealthUrine nitrite detection by automated test veqyh2807-99-78 22:40:00 Test Item Value Reference Range Interpretation Comments Urine Nitrite (test code = 43043-3) Negative Negative [facility]Urine total bilirubin detection by automated test ljgas8702-13-09 22:40:00 Test Item Value Reference Range Interpretation Comments Urine Bilirubin (test code = Negative Negative 19321-4) [facility] HealthUrine urobilinogen measurement by automated test strip (mass/volume)2019-09-08 22:40:00 Test Item Value Reference Range Interpretation Comments Urine Urobilinogen (test code = Normal mg/dL Norm-1.0 69302-9) [facility]Urine leukocyte esterase detection by automated test strip 2019-09-08 22:40:00 Test Item Value Reference Range Interpretation Comments Urine Leukocyte Esterase (test code = Trace Negative 04227-6) [facility] HealthUrine sediment erythrocyte count by microscopy (number/high power field)2019-09-08 22:40:00 Test Item Value Reference Range Interpretation Comments Urine RBC (test 0-2 /[HPF] See_Comment [Automated message] The code = 62138-4) system which generated this result tra nsmitted [...] (test None seen /[LPF] None/Occ code = 23596-6) [facility] HealthUrine sediment bacteria count by microscopy (number/high power field)2019-09-08 22:40:00 Test Item Value Reference Range Interpretation Comments Urine Bacteria (test code = Occasional /[HPF] None 5769-5) [facility] HealthUrine sediment hyaline cast count by microscopy (number/low power field)2019-09-08 22:40:00 Test Item Value Reference Range Interpretation Comments Urine Hyaline Casts (test code = 2-5 /[LPF] 5796-8) [facility] HealthYeast detection in urine sediment by light aghcbrbhmh3600-49-22 22:40:00 Test Item Value Reference Range Interpretation Comments Urine Yeast (test code = None Seen /[HPF] 53353-3) [facility] comment [id number] 22:40:00 Test Item Value Reference Range Interpretation Comments Urine Culture Indicated (test code = Yes 8264-4) [facility] HealthAutomated blood nucleated erythrocyte count as percentage of total oxtjsjaueo8766-89-85 22:15:00 Test Item Value Reference Range Interpretation Comments Nucleated Red Blood Cells % (test code 0 % 0-1 = 62123-2) [facility] HealthAutomated blood neutrophil count (number/volume)2019-09-08 22:15:00 [...] Interpretation Comments Anion Gap (test code = 76642-2) 15.0 mmol/L 3.0-11.0 [facility] HealthSerum or plasma [...] calculated from serum or plasma creatinine by [id number] 22:15:00 Test Item Value Reference Range Interpretation Comments Estimated Creatinine Clearance (test 134.0 code = 94063-8) [facility] HospitalGlomerular filtration rate (GFR) estimation using MDRD equation 2019-09-08 22:15:00 Test Item Value Reference Range Interpretation Comments Estimat Glomerular Filtration Rate 116.39 >60 (test code = 85444-3) [facility] HealthSerum or plasma urea nitrogen/creatinine mass yuelb3824-86-91 22:15:00 Test Item Value Reference Range Interpretation Comments BUN/Creatinine Ratio (test code = 22 3097-3) [facility] HealthSerum or plasma glucose measurement (mass/volume)2019-09-08 22:15:00 Test Item Value Reference Range Interpretation Comments Glucose Level (test code = 2345-7) 82 mg/dL 70-110 [facility] HealthSerum or plasma calcium measurement (mass/volume)2019-09-08 22:15:00 Test Item Value Reference Range Interpretation Comments Calcium Level (test code = 96002-2) 8.9 mg/dL 8.4-10.2 [facility] HealthSerum or plasma [...] Range Interpretation Comments Globulin (test code = 49367-6) 3.2 g/dL [facility] HealthSerum or plasma albumin/globulin mass mrpsk5044-03-04 22:15:00 Test Item Value Reference Range Interpretation [...] 3040-3) 18 U/L 16-63 [facility] HealthCreatine kinase ser/udvd7634-95-13 22:15:00 Test Item Value Reference Range Interpretation Comments Total Creatine Kinase (test code = 84 U/L 24-170 2157-6) [facility] HealthSerum or plasma creatine kinase MB measurement (mass/volume) 2019-09-08 22:15:00 Test Item Value Reference Range Interpretation Comments Creatine Kinase MB (test code = 1.3 ng/mL 0-5 33004-8) [facility] HealthSerum or plasma cardiac troponin T [...] HealthAutomated erythrocyte mean corpuscular hemoglobin concentration measurement (mass/dzs0154-00-79 22:15:00 Test Item Value Reference Range Interpretation Comments Mean Corpuscular Hemoglobin Concent 33.5 g/dL 32.5-35.0 (test code = 786-4) [facility] HealthAutomated erythrocyte distribution width ifbur4899-59-15 22:15:00 Test Item Value Reference Range Interpretation Comments Red Cell Distribution Width (test code 14.0 % 11.5-14.5 = 788-0) [facility] HealthAutomated blood platelet count (count/volume)2019-09-08 22:15:00 Test Item Value Reference Range Interpretation Comments Platelet Count (test code = 238 10*3/uL 160-400 777-3) [facility] HealthAutomated blood platelet mean volume qciakfvvgcm4746-79-38 22:15:00 Test Item Value Reference Range Interpretation Comments Mean Platelet Volume (test code = 11.0 fL 7.5-11.2 73556-0) [facility] HospitalAutomated blood neutrophil count as percentage of total rjkolfpsas2063-72-92 22:15:00 Test Item Value Reference Range Interpretation Comments Neutrophils (%) (Auto) (test code = 70 % 45-75 770-8) [facility] HospitalAutomated blood immature granulocyte count as percentage of total vnjrqsvmod2486-36-68 22:15:00 Test Item Value Reference Range Interpretation Comments Immature Granulocyte % (Auto) (test 0.2 % 0.0-1.5 code = 68785-4) [facility] HospitalAutomated blood lymphocyte count as percentage of total ihvgflrlms7618-18-30 22:15:00 Test Item Value Reference Range Interpretation Comments Lymphocytes (%) (Auto) (test code = 21 % 20-48 736-9) [facility] HospitalAutomated blood monocyte count as percentage of total leukocytes 2019-09-08 22:15:00 Test Item Value Reference Range Interpretation Comments Monocytes (%) (Auto) (test code = 7 % 1-9 5905-5) [facility] HospitalAutomated blood eosinophil count as percentage of total lxxcqqykmz8559-58-33 22:15:00 Test Item Value Reference Range Interpretation Comments Eosinophils (%) (Auto) (test code = 1 % 0-4 713-8) [facility] HospitalAutomated blood basophil count as percentage of total leukocytes 2019-09-08 22:15:00 Test Item Value Reference Range Interpretation Comments Basophils (%) (Auto) (test code = 1 % 0-2 706-2) [facility]
[2022-11-01] MEDS ORDERED: IBUPROFEN 400 MG TAB ONE (23:29)
[2022-11-02 00:14] LABS: Absolute Lymphocytes (CBC) 0.6 K/uL (0.7-4.9); Hematocrit 33.7 % (36.0-45.0); Lymphocytes % 4.8 % (15.3-44.8); MCV 89.4 fL (80-100); MPV 8.6 fL (7.6-11.3); RBC Red Blood Cell Count 3.77 M/uL (3.86-4.86)
[2022-11-02 00:17] LABS: Protime INR 1.15
[2022-11-02 00:41] LABS: Albumin 3.4 g/dL (3.4-5.0); Bilirubin Total 0.7 mg/dL (0.2-1.0); Potassium 3.3 mEq/L (3.5-5.1); Protein, Total 7.5 g/dL (6.4-8.2); Troponin High Sensitivity 3.3 pg/mL (<58.9)
[2022-11-02 01:34] LABS: Blood Morphology Comment NOT SEEN (NOT SEEN); Platelet Estimate ADEQ
[2022-11-02] MEDS ORDERED: ARFORMOTEROL TARTRATE 15 MCG/2 ML VIAL.NEB ONE (01:54)
[2022-11-02 03:42] LABS: Specific Gravity > 1.035 (1.005-1.030); Urine Bacteria None Seen /HPF (<20); Urine Bilirubin NEGATIVE (Negative); Urine Blood Negative (Negative); Urine Clarity Clear (Clear); Urine Color Light-Yellow (Yellow); Urine Glucose NEGATIVE (Negative); Urine Protein TRACE (Negative); Urine RBC <5 /HPF (None Seen); Urine Urobilinogen Normal (Normal)
[2022-11-02 03:44] LABS: Specific Gravity > 1.035 (1.005-1.030)
--- NOTE | 2022-11-02 03:53 | EDPHYS ---
Physician Documentation [facility] Name: Salud Almanzar Age: 37 yrs Sex: Female : 1985 Arrival Date: 11/01/2022 Time: 22:10 Bed 15 Private MD: ED Physician Gigi Gray HPI: 11/02 04:18 This 37 yrs old Female presents to ER via EMS with complaints of Fever, chills fever, rt chills. 04:18 Patient presents to the ED with fever, chills, generalized malaise starting today. She rt reports pain with deep inspiration. She reports of fatigue, nausea. Denies other acute complaints at this time. Symptoms are moderate severity, no other aggravating alleviating factors.. 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 - Social history:: Smoking status: Patient denies any tobacco usage or history of. - Family history:: not pertinent. ROS: 11/02 04:18 Cardiovascular: Negative for chest pain, palpitations, and edema, Respiratory: Negative rt for shortness of breath, cough, wheezing, and pleuritic chest pain, Abdomen/GI: Negative for abdominal pain, nausea, vomiting, diarrhea, and constipation, MS/Extremity: Negative for injury and deformity, Skin: Negative for injury, rash, and discoloration, Neuro: Negative for headache, weakness, numbness, tingling, and seizure, Psych: Negative for depression, anxiety, suicide ideation, homicidal ideation, and hallucinations. Constitutional: Positive for body aches, chills, fever. Exam: 04:18 Constitutional: This is a well developed, well nourished patient who is awake, alert, rt and in no acute distress. Head/Face: Normocephalic, atraumatic. Chest/axilla: Normal chest wall appearance and motion. Nontender with no deformity. No lesions are appreciated. Cardiovascular: Regular rate and rhythm with a normal S1 and S2. No gallops, murmurs, or rubs. Normal PMI, no JVD. No pulse deficits. Respiratory: Lungs have equal breath sounds bilaterally, clear to auscultation and percussion. No rales, rhonchi or wheezes noted. No increased work of breathing, no retractions or nasal flaring. Abdomen/GI: Soft, non-tender, with normal bowel sounds. No distension or tympany. No guarding or rebound. No evidence of tenderness throughout. Skin: Warm, dry with normal turgor. Normal color with no rashes, no lesions, and no evidence of cellulitis. MS/ Extremity: Pulses equal, no cyanosis. Neurovascular intact. Full, normal range of motion. Neuro: Awake and alert, GCS 15, oriented to person, place, time, and situation. Cranial nerves II-XII grossly intact. Motor strength 5/5 in all extremities. Sensory grossly intact. Cerebellar exam normal. Normal gait. Psych: Awake, alert, with orientation to person, place and time. Behavior, mood, and affect are within normal limits. Vital Signs: 11/01 22:24 Temp 100.1(O); vc1 22:25 BP 136 / 70; Pulse 115; Pulse Ox 96% ; vc1 23:11 Pulse 117; Resp 18; Temp 100.5; Pulse Ox 99% ; vc1 23:13 BP 133 / 82; vc1 23:24 Weight 104.33 kg; Height 5 ft. 10 in. ; vc1 11/02 00:22 BP 131 / 78; Pulse 93; Resp 21; Pulse Ox 98% on R/A; aa9 01:15 BP 122 / 74; Pulse 84; Resp 17; Pulse Ox 98% on R/A; aa9 02:30 BP 119 / 71; Pulse 77; Resp 17 S; Pulse Ox 98% on R/A; aa9 03:10 BP 119 / 63; Pulse 78; Resp 18 S; Pulse Ox 98% ; aa9 04:17 BP 128 / 97; Pulse 72; Resp 18; Temp 98(O); Pulse Ox 98% on R/A; aa9 11/01 23:24 Body Mass Index 33.00 (104.33 kg, 177.8 cm) [facility] MDM: 11/01 22:45 Patient medically screened. [facility] 11/02 04:18 Differential Diagnosis Sepsis, UTI, Lorenzo, pneumonia, pneumothorax, pulmonary embolism. rt Data reviewed: vital signs, nurses notes, lab test result(s), radiologic studies. Consideration of Admission/Observation Patient was admitted/placed on observation. Management of patient was discussed with the following: Hospitalist: Agrees to admit. I considered the following discharge prescriptions or medication management in the emergency department Medications were administered in the Emergency Department. See MAR. Independent interpretation of the following test(s) in the Emergency Department CT Scan: My interpretation is No consolidation seen on my interpretation of the CT scan images. Care significantly affected by the following chronic conditions: Hypertension. ED course: No clear bacterial source was seen until analysis was returned, at that time, she did meet sepsis criteria, IV antibiotics were ordered at that time.. 11/01 22:33 Order name: Blood Culture Adult (2) [facility] 11/01 22:33 Order name: CBC with Diff; Complete Time: 01:45 [facility] 11/01 22:33 Order name: CMP; Complete Time: 00:44 [facility] 11/01 22:33 Order name: Lactate w/ 2H reflex if indic.; Complete Time: 00:44 [facility] 11/01 22:33 Order name: Protime (+inr); Complete Time: 00:19 [facility] 11/01 22:33 Order name: Ptt, Activated; Complete Time: 00:19 [facility] 11/01 22:34 Order name: Urinalysis w/ reflexes; Complete Time: 03:45 [facility] 11/01 22:34 Order name: Test, Urine; Complete Time: 03:45 [facility] 11/01 22:34 Order name: Influenza Screen (a \T\ B); Complete Time: 01:45 [facility] 11/01 22:34 Order name: SARS-COV-2 RT PCR; Complete Time: 01:13 [facility] 11/02 00:16 Order name: Troponin High Sensitivity; Complete Time: 00:44 [facility] 11/02 00:22 Order name: Manual Differential; Complete Time: 01:45 [facility] 11/02 02:56 Order name: Glucose, Ancillary Testing; Complete Time: 03:03 [facility] 11/02 03:45 Order name: Urine Culture [facility] 11/01 22:37 Order name: Chest Single View XRAY [facility] 11/02 01:13 Order name: CT Chest For PE Angio [facility] 11/02 01:13 Order name: CT Abd/Pelvis - IV Contrast Only [facility] 11/01 22:33 Order name: EKG; Complete Time: 22:34 [facility] 11/01 22:33 Order name: Accucheck; Complete Time: 02:43 [facility] 11/01 22:33 Order name: Cardiac monitoring; Complete Time: 00:22 [facility] 11/01 22:33 Order name: EKG - Nurse/Tech; Complete Time: 00:22 [facility] 11/01 22:33 Order name: IV Saline Lock - Large Bore; Complete Time: 00:09 [facility] 11/01 22:33 Order name: Labs collected and sent; Complete Time: 00:22 [facility] 11/01 22:33 Order name: O2 Per Protocol; Complete Time: 00:22 [facility] 11/01 22:33 Order name: O2 Sat Monitoring; Complete Time: 00:22 [facility] 11/01 22:33 Order name: Vital Signs; Complete Time: 00:22 [facility] Administered Medications: 11/01 23:24 Drug: Ibuprofen PO 800 mg Route: PO; vc1 11/02 04:29 Follow up: Response: No adverse reaction aa9 04:03 Drug: NS 0.9% IV 1000 ml Route: IV; Rate: 1 bolus; Site: right antecubital; aa9 04:29 Follow up: Response: No adverse reaction; IV Status: Infusion continued upon admission; aa9 IV Intake: 500ml 04:03 Drug: Rocephin IV 2 grams Route: IV; Rate: calculated rate; Site: right antecubital; aa9 04:29 Follow up: Response: No adverse reaction; IV Status: Completed infusion; IV Intake: [id number] 04:28 Drug: morphine IVP or IV 2 mg Route: IVP; Infused Over: 1 mins; Site: right antecubital;aa9 Disposition Summary: 11/02/22 03:53 Hospitalization Ordered Hospitalization Status: Observation rt Provider: Justo Hall rt Location: Telemetry/MedSurg (observation) rt Condition: Stable rt Problem: new rt Symptoms: have improved rt Bed/Room Type: Standard rt Room Assignment: 228(11/02/22 03:58) cg Diagnosis - Pyelonephritis acute rt - Bandemia rt Forms: - Medication Reconciliation Form rt - SBAR form rt Signatures: Dispatcher [employer] EDMS Lenny De Leon PA PA jmm Garcia, Cindy, RN RN cg Avis Wild RN RN vc1 Octavia Mi, RN RN aa9 Ellie Cottrell PA-C PA-C sb4 Gigi Gray MD MD rt Corrections: (The following items were deleted from the chart) 00:16 00:10 Troponin High Sensitivity+C.LAB.BRZ ordered. EDMS EDMS 03:58 03:53 rt cg
--- NOTE | 2022-11-02 03:53 | ER ---
Nurse's Notes [facility] Name: Salud Almanzar Age: 37 yrs Sex: Female : 1985 Arrival Date: 11/01/2022 Time: 22:10 Bed 15 Private MD: Diagnosis: Pyelonephritis acute;Bandemia Presentation: 11/01 22:24 Chief complaint: EMS states: chills and fevers that started this morning. Chest pain vc1 upon inspiration. No N/V/D. Care prior to arrival: Medication(s) given: Tylenol, 1000 mg, IV initiated. 20 GA, in the right antecubital area. 22:24 Method Of Arrival: EMS: [facility] vc1 23:10 Coronavirus screen: Vaccine status: Patient reports receiving the 1st dose of the Covid vc1 vaccine. Client denies travel out of the [place] in the last 14 days. chills, fever, Client presents with at least one sign or symptom that may indicate coronavirus-19. Ebola Screen: Patient negative for fever greater than or equal to 101.5 degrees Fahrenheit, and additional compatible Ebola Virus Disease symptoms Patient denies exposure to infectious person. Patient denies travel to an Ebola-affected area in the 21 days before illness onset. No symptoms or risks identified at this time. Initial Sepsis Screen: Does the patient meet any 2 criteria? HR > 90 bpm. No. Patient's initial sepsis screen is negative. Does the patient have a suspected source of infection? No. Patient's initial sepsis screen is negative. Risk Assessment: Do you want to hurt yourself or someone else? Patient reports no desire to harm self or others. Onset of symptoms was November 01, 2022 at 08:00. 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 - Social history:: Smoking status: Patient denies any tobacco usage or history of. - Family history:: not pertinent. Screenin:10 Abuse screen: Denies threats or abuse. Nutritional screening: No deficits noted. vc1 Tuberculosis screening: No symptoms or risk factors identified. 11/02 04:29 [facility] ED Fall Risk Assessment (Adult) History of falling in the last 3 months, aa9 including since admission No falls in past 3 months (0 pts) Confusion or Disorientation No (0 pts) Intoxicated or Sedated No (0 pts) Impaired Gait No (0 pts) Mobility Assist Device Used No (0 pt) Altered Elimination No (0 pt) Score/Fall Risk Level 0 - 2 = Low Risk Oriented to surroundings, Maintained a safe environment, Educated pt \T\ family on fall prevention, incl call for assistance when getting out of bed. Assessment: 00:23 General: Appears in no apparent distress. comfortable, obese, Behavior is calm, aa9 cooperative. Pain: Complains of pain in generalized Pain currently is 9 out of 10 on a pain scale. Noted to be resistant to movement. Neuro: Level of Consciousness is awake, alert, obeys commands, Oriented to person, place, time, situation. Cardiovascular: Reports diaphoresis, Denies chest pain, shortness of breath. Respiratory: Airway is patent Respiratory effort is even, unlabored. GI: Patient currently denies diarrhea, nausea, vomiting. : No signs and/or symptoms were reported regarding the genitourinary system. Derm: Skin is intact, is healthy with good turgor. 03:04 Reassessment: Patient appears in no apparent distress at this time. Patient and/or aa9 family updated on plan of care and expected duration. Pain level reassessed. Patient is alert, oriented x 3, equal unlabored respirations, skin warm/dry/pink. 04:25 Reassessment: Patient appears in no apparent distress at this time. Patient and/or aa9 family updated on plan of care and expected duration. Pain level reassessed. Patient is alert, oriented x 3, equal unlabored respirations, skin warm/dry/pink. Vital Signs: 11/01 22:24 Temp 100.1(O); vc1 22:25 BP 136 / 70; Pulse 115; Pulse Ox 96% ; vc1 23:11 Pulse 117; Resp 18; Temp 100.5; Pulse Ox 99% ; vc1 23:13 BP 133 / 82; vc1 23:24 Weight 104.33 kg; Height 5 ft. 10 in. ; vc1 11/02 00:22 BP 131 / 78; Pulse 93; Resp 21; Pulse Ox 98% on R/A; aa9 01:15 BP 122 / 74; Pulse 84; Resp 17; Pulse Ox 98% on R/A; aa9 02:30 BP 119 / 71; Pulse 77; Resp 17 S; Pulse Ox 98% on R/A; aa9 03:10 BP 119 / 63; Pulse 78; Resp 18 S; Pulse Ox 98% ; aa9 04:17 BP 128 / 97; Pulse 72; Resp 18; Temp 98(O); Pulse Ox 98% on R/A; aa9 11/01 23:24 Body Mass Index 33.00 (104.33 kg, 177.8 cm) vc1 ED Course: 11/01 22:24 Patient arrived in ED. vc1 22:33 Lenny De Leon PA is PHCP. [facility] 22:33 Gigi Gray MD is Attending Physician. [facility] 22:55 Chest Single View XRAY In Process Unspecified. EDMS 23:10 Arm band placed on right wrist. vc1 23:11 Triage completed. vc1 23:55 Octavia Mi, RN is Primary Nurse. aa9 11/02 00:24 Patient has correct armband on for positive identification. Bed in low position. Call aa9 light in reach. Side rails up X2. Client placed on continuous cardiac and pulse oximetry monitoring. NIBP monitoring applied. 02:11 CT Chest For PE Angio In Process Unspecified. EDMS 02:12 CT Abd/Pelvis - IV Contrast Only In Process Unspecified. EDMS 03:20 Test, Urine Sent. aa9 03:20 Urinalysis w/ reflexes Sent. aa9 03:52 Justo Hall MD is Hospitalizing Provider. rt 04:24 No provider procedures requiring assistance completed. Patient admitted, IV remains in aa9 place. Administered Medications: 11/01 23:24 Drug: Ibuprofen PO 800 mg Route: PO; vc1 11/02 04:29 Follow up: Response: No adverse reaction aa9 04:03 Drug: NS 0.9% IV 1000 ml Route: IV; Rate: 1 bolus; Site: right antecubital; aa9 04:29 Follow up: Response: No adverse reaction; IV Status: Infusion continued upon admission; aa9 IV Intake: 500ml 04:03 Drug: Rocephin IV 2 grams Route: IV; Rate: calculated rate; Site: right antecubital; aa9 04:29 Follow up: Response: No adverse reaction; IV Status: Completed infusion; IV Intake: [id number] 04:28 Drug: morphine IVP or IV 2 mg Route: IVP; Infused Over: 1 mins; Site: right antecubital;aa9 Medication: 04:25 VIS not applicable for this client. aa9 Intake: 04:29 IV: 10ml; Total: 10ml. aa9 04:29 IV: 500ml; Total: 510ml. aa9 Outcome: 03:53 Decision to Hospitalize by Provider. rt 04:24 Admitted to Med/surg accompanied by tech, room 228, with chart, Report called to edi Aragon 04:24 Condition: stable 04:41 Patient left the ED. aa9 Signatures: Dispatcher [employer] EDMS Lenny De Leon PA PA jmm Calcote, Vanessa, RN RN vc1 Octavia Mi RN RN aa9 Gigi Gray MD MD rt
--- NOTE | 2022-11-02 04:00 | P.HP ---
Certification for Inpatient Patient admitted to: Observation With expected LOS: <2 Midnights Patient will require the following post-hospital care: None Practitioner: I am a practitioner with admitting privileges, knowledge of patient current condition, hospital course, and medical plan of care. Services: Services provided to patient in accordance with Admission requirements found in Title 42 Section 412.3 of the Code of Federal Regulations Patient History Date of Service: 11/02/22 Primary Care Provider: [facility] Reason for admission: Pyelonephritis History of Present Illness: Ms. Almanzar is a 37 year old female with past medical history of hypertension and anxiety who presented to the emergency department via EMS with complaints of fever, chills, and malaise that began this morning. She was found to have pyelonephritis, CT showing "Multifocal areas of peripheral wedge-shaped low- attenuation within the right kidney with perinephric stranding and thickening of the urothelium along with mild prominence of the right ureter. Findings concerning for pyelonephritis and ureteritis. An obstructing calculus is not seen." She denies any urinary symptoms. WBC elevated at 12 with 6% bands. Lactate within normal limits. She was given IV fluids and 2 grams of rocephin in the emergency department. Tmax 100.5. ED provider wishes to admit patient for further management. Home medications list reviewed: Yes - Past Medical/Surgical History Diabetic: No -: Hypertension -: Anxiety -: GERD -: Cholecystectomy -: -: Ligation of fallopian tube Psychosocial/ Personal History: Patient lives at home with her family. - Family History Family History: Reviewed- Non-Contributory - Social History Smoking Status: Never smoker Alcohol use: Yes CD- Drugs: No Caffeine use: Yes Place of Residence: Home Review of Systems General: Fever, Chills, Sweats, Malaise Physical Examination - Vital Signs Temperature: 98.2 F Blood Pressure: 119/63 Pulse: 78 Respirations: 18 Pulse Ox (%): 98 - Physical Exam General: Alert, In no apparent distress HEENT: Atraumatic, EOMI, Sclerae nonicteric Neck: Supple, 2+ carotid pulse no bruit Respiratory: Clear to auscultation bilaterally, Normal air movement Cardiovascular: Regular rate/rhythm, Normal S1 S2 Gastrointestinal: Normal bowel sounds, No tenderness Musculoskeletal: No tenderness Integumentary: No rashes Neurological: Normal speech, Normal affect - Studies Laboratory Data (last 24 hrs) 11/01/22 23:58: PT 12.6 H, INR 1.15, APTT 26.9 11/01/22 23:58: Sodium 134 L, Potassium 3.3 L, BUN 9, Creatinine 0.63, Glucose 109 H, Total Bilirubin 0.7, AST 17, ALT 22, Alkaline Phosphatase 92 11/01/22 23:58: WBC 12.20 H, Hgb 11.6 L, Hct 33.7 L, Plt Count 145 L Microbiology Data (last 24 hrs): 11/02/22 00:13 Nasopharnyx Influenza Type A Antigen Screen - Final 11/02/22 00:13 Nasopharnyx Influenza Type B Antigen Screen - Final Assessment and Plan - Problems (Diagnosis) (1) Pyelonephritis Current Visit: Yes Status: Acute (2) Sepsis Current Visit: Yes Status: Acute Qualifiers: Sepsis type: sepsis due to unspecified organism Sepsis acute organ dysfunction status: without acute organ dysfunction Qualified Code(s): A41.9 - Sepsis, unspecified organism (3) Hypertension Current Visit: Yes Status: Chronic Qualifiers: Hypertension type: primary hypertension Qualified Code(s): I10 - Essential (primary) hypertension (4) Anxiety Current Visit: Yes Status: Chronic (5) Anemia Current Visit: Yes Status: Chronic Qualifiers: Anemia type: unspecified type Qualified Code(s): D64.9 - Anemia, unspecified - Plan Patient is admitted for further management of sepsis secondary to pyelonephritis. Continue rocephin. Urine & blood cultures obtained. Supportive measures with tylenol, IV fluids, and toradol. Monitor and replete electrolytes per protocol. Reconcile and continue home medications. Discharge Plan: Home Plan to discharge in: 24 Hours - Advance Directives Does patient have a Living Will: No Does patient have a Durable POA for Healthcare: No - Code Status/Comfort Care Code Status Assessed: Yes Code Status: Full Code Physician Review: Patient Assessed, Agree with Above Assessment and Plan Critical Care: No Time Spent Managing Pts Care (In Minutes): 50
[2022-11-02] MEDS ORDERED: NA CHLORIDE 0.9% 1,000 ML ONE (04:01)
[2022-11-02] MEDS ORDERED: CEFTRIAXONE 2000 MG/VIAL ONE (04:01)
[2022-11-02] MEDS ORDERED: ACETAMINOPHEN 500 MG TAB PO PRN (04:25)
[2022-11-02] MEDS ORDERED: ONDANSETRON 4 MG/2 ML VIAL IV PRN (04:25)
[2022-11-02] MEDS ORDERED: MORPHINE 2 MG/ML SYR ONE (04:26)
[2022-11-02] MEDS ORDERED: ONDANSETRON 4 MG/2 ML VIAL ONE (04:45)
[2022-11-02] MEDS: NA CHLORIDE 0.9% 1,000 ML IV SCH ×3 (05:05→23:20)
[2022-11-02] MEDS: KETOROLAC 30 MG/ML INJ IV PRN ×3 (06:32→20:33)
[2022-11-02] MEDS ORDERED: POTASSIUM CL SA 10 MEQ TAB PO ONE (09:00)
[2022-11-02] MEDS: CEFTRIAXONE 1,000 MG in NA CHLORIDE 0.9% 50 ML IVPB SCH (09:43)
--- NOTE | 2022-11-02 10:38 | RAD REPORT ---
EXAM DESCRIPTION: CT Angiography Chest With Intravenous Contrast CLINICAL HISTORY: The patient is 37 years old and is Female; CHEST PAIN TECHNIQUE: Axial computed tomographic angiography images of the chest with intravenous contrast. S agittal and coronal reformatted images were created and reviewed. This CT exam was performed using one or more of the following dose reduction techniques: automated exposure control, adjustment of t he mA and/or kV according to patient size, and/or use of iterative reconstruction technique. MIP reconstructed images were created and reviewed. COMPARISON: No relevant prior studies available. FINDINGS: PULMONARY ARTERIES: The timing of contrast is suboptimal to evaluate for pulmonary throm boembolism. The pulmonary vessels are normal in caliber. AORTA: No acute findings. No thoracic aortic aneurysm. LUNGS: Unremarkable. No mass. No consolidation. PLEURAL SPACE: Unremarkable. No significant effusion. No pneumothorax. HEART: Unremarkable. No cardiomegaly. No significant pericardial effusion. No evidence of R V dysfunction. BONES/JOINTS: No acute fracture. No dislocation. SOFT TISSUES: Unremarkable. LYMPH NODES: Unremarkable. No enlarged lymph nodes. LIVER: The liver is enlarged and mildly fatty. GALLBLADDER AND BILE DUCTS: Surgical clips are present in the right upper quadrant, consistent wi th previous cholecystectomy. IMPRESSION: 1. The timing of contrast is suboptimal to evaluate for pulmonary thromboembolism. 2. No acute findings. Electronically signed by: Analisa Santana MD 11/02/2022 2:55 AM CDT Due to temporary technical issues with the PACS/Fluency reporting system, reports are being signed by the in house radiologist without review as a courtesy to ensure prompt reporting. The interpreting r adiologist is fully responsible for the content of the report.
--- NOTE | 2022-11-02 10:42 | RAD REPORT ---
EXAM DESCRIPTION: XR Chest, 1 View CLINICAL HISTORY: The patient is 37 years old and is Female; FEVER TECHNIQUE: Frontal view of the chest. COMPARISON: No relevant prior studies available. FINDINGS: Lungs: Unremarkable. No consolidation. Pleural space: Unremarkable. No pneumothorax. Heart: Unremarkable. Mediastinum: Unremarkable. Bones/joints: Unremarkable. IMPRESSION: No acute findings in the chest. Electronically signed by: Inderjit Berman MD 11/01/2022 11:21 PM CDT Due to temporary technical issues with the PACS/Fluency reporting system, reports are being signed by the in house radiologist without review as a courtesy to ensure prompt reporting. The interpreting r adiologist is fully responsible for the content of the report.
--- NOTE | 2022-11-02 10:45 | RAD REPORT ---
EXAM DESCRIPTION: CT Abdomen and Pelvis With Intravenous Contrast CLINICAL HISTORY: The patient is 37 years old and is Female; fever, left flank pain TECHNIQUE: Axial computed tomography images of the abdomen and pelvis with intravenous contrast. S agittal and coronal reformatted images were created and reviewed. This CT exam was performed using one or more of the following dose reduction techniques: automated exposure control, adjustment of t he mA and/or kV according to patient size, and/or use of iterative reconstruction technique. COMPARISON: CT of the abdomen and pelvis October 05, 2022 FINDINGS: LUNG BASES: Unremarkable. No mass. No consolidation. ABDOMEN: LIVER: Liver is enlarged and diffusely fatty. GALLBLADDER AND BILE DUCTS: Surgical clips are present in the right upper quadrant, consistent wi th previous cholecystectomy. PANCREAS: Mild fatty infiltration of pancreas is present. SPLEEN: Unremarkable. ADRENALS: Unremarkable. No mass. KIDNEYS AND URETERS: The right kidney is edematous with peripheral areas of wedge-shaped low-atte nuation and perinephric stranding. Mild right proximal/mid hydroureter is noted with minimal enhancem ent of the urothelium. There is no obstructing renal or ureteral calculus. The left kidney enhances n ormally and is without hydronephrosis or hydroureter. STOMACH AND BOWEL: The stomach is distended with fluid. The small bowel is relatively normal in c aliber. Minimal stool is present throughout colon. There is no mucosal thickening or evidence of obst ruction. PELVIS: APPENDIX: The appendix is normal in caliber without surrounding inflammation. BLADDER: Unremarkable. No mass. REPRODUCTIVE: A fundal uterine fibroid is present. Minimal fluid is noted within the endometrial canal. ABDOMEN and PELVIS: INTRAPERITONEAL SPACE: Trace free fluid is present within the pelvis which is likely physiologic. No free air. BONES/JOINTS: No acute fracture. SOFT TISSUES: The soft tissues are normal. VASCULATURE: Unremarkable. No abdominal aortic aneurysm. LYMPH NODES: Unremarkable. No enlarged lymph nodes. IMPRESSION: 1. Multifocal areas of peripheral wedge-shaped low-attenuation within the right kidney with perinephric stranding and thickening of the urothelium along with mild prominence of the right ureter. Findings concerning for pyelonephritis and ureteritis. An obstructing calculus is not seen. 2. Chronic findings as detailed above. Electronically signed by: Analisa Santana MD 11/02/2022 2:58 AM CDT Due to temporary technical issues with the PACS/Fluency reporting system, reports are being signed by the in house radiologist without review as a courtesy to ensure prompt reporting. The interpreting r adiologist is fully responsible for the content of the report.
--- NOTE | 2022-11-02 14:05 | EKG ---
Test Date: 2022-11-02 Test Time: 00:17:57 Tool Designer: CARMINA MEASUREMENT RESULTS: Intervals: Rate: 92 NH: 136 QRSD: 88 QT: 364 QTc: 450 [place]: P: 47 NH: 136 QRS: 40 T: 47 INTERPRETIVE STATEMENTS: Normal sinus rhythm Normal ECG Compared to ECG 10/28/2022 13:40:04 No significant changes Electronically Signed On 11-02-22 14:05:24 CDT by Maurice Huitron
[2022-11-02] MEDS ORDERED: DIAZEPAM 5 MG TABLET PO ONE (15:16)
[2022-11-02] MEDS ORDERED: METOPROLOL TAR 25 MG TAB PO ONE (15:17)
[2022-11-02] MEDS: FAMOTIDINE 20 MG TAB PO SCH (20:33)
[2022-11-02] MEDS: PANTOPRAZOLE 40MG TABLET PO SCH (20:33)
[2022-11-02] MEDS ORDERED: NA CHLORIDE 0.9% 250 ML IV ONE (22:47)
[2022-11-02] MEDS ORDERED: MAGNESIUM SULFATE 1 gm IVPB 1 GM/100 ML BAG IV ONE (22:47)
[2022-11-02] MEDS ORDERED: DIPHENHYDRAMINE 50 MG/ML VIAL IV ONE (22:47)
[2022-11-02] MEDS ORDERED: METOCLOPRAMIDE 10 MG/2mL INJ IV SCH (23:00)
[2022-11-03 04:14] LABS: Magnesium 2.2 mg/dL (1.6-2.4); Phosphorus 1.8 mg/dL (2.5-4.9)
[2022-11-03 04:16] LABS: Potassium 3.3 mEq/L (3.5-5.1)
[2022-11-03 05:43] VITALS: BMI 33.7
[2022-11-03] MEDS: KETOROLAC 30 MG/ML INJ IV PRN (06:26)
[2022-11-03] MEDS: CEFTRIAXONE 1,000 MG in NA CHLORIDE 0.9% 50 ML IVPB SCH (08:41)
[2022-11-03] MEDS: POTASS/SODIUM PHOSPHATE 1 PKT POWD.PACK PO SCH ×3 (08:42→10:43)
[2022-11-03] MEDS: FAMOTIDINE 20 MG TAB PO SCH (08:42)
[2022-11-03] MEDS: PANTOPRAZOLE 40MG TABLET PO SCH (08:42)
[2022-11-03 08:43] VITALS: BP 147/83
[2022-11-03] MEDS ORDERED: NEBIVOLOL HCL 5 MG TAB PO SCH (09:00)
[2022-11-03] MEDS ORDERED: POTASSIUM CL SA 10 MEQ TAB PO ONE (09:00)
[2022-11-03 10:26] VITALS: O2SAT 94
[2022-11-03] MEDS: NA CHLORIDE 0.9% 1,000 ML IV SCH (10:44)
[2022-11-03 11:51] VITALS: TEMP 97.9
== END 2022-11-03 11:40 | disposition home or self-care (01) ==
LOC: ER 22:10 → ERHOLD 11-02 03:55 → 2ND 11-02 04:25
PROVIDERS: ADMIT Hospitalist; ATTEND Hospitalist
DX: N12 Tubulo-interstitial nephritis, not specified as acute or chronic (principal); A41.9 Sepsis, unspecified organism; D64.9 Anemia, unspecified; I10 Essential (primary) hypertension; F41.9 Anxiety disorder, unspecified; Z20.822 Contact with and (suspected) exposure to COVID-19
CPT/HCPCS: 96365; 93005; 87040 ×2; 87088; 85025; 81001; 87086; 80048; 36415 ×2; 83735; 81025; 84100; 85610; 82947; 83605; 85730; 87077; 87186; 84484; 80053; 87804 ×2; 71275; 74177; 71045; 96375; 99285; U0003; Q9967; J3475; J2765; J1200; J2270; J7605; J2405; J0696 ×3; J7050; J7030 ×5; G0378 ×3

== ENCOUNTER 2022-11-03 19:44 | Inpatient (IN) | payer OTHER ==
--- OUTSIDE RECORDS SUMMARY | 2022-11-03 19:47 | XMS REPORT | Continuity of Care Document ---
:1985 Author Organization [facility] t Address [address] [place] [id number] Care Team Providers Name Role Phone ASHA MCKEE Attending Clinician Unavailable PHYSICIAN, ER Attending Clinician Unavailable Problems Condition Condition Condition Status Onset Resolution Last Treating Co mments Source Name Details Category Date Date Treatment Clinician Date Problem Condition [facility] Allergies, Adverse Reactions, Alerts This patient has no known allergies or adverse reactions. Social History Social Habit Start Date Stop Date Quantity Comments Source Sex Assigned At [birth year] Female [facility] 00:00:00 00:00:00 Smoking Status Start Date Stop Date Source Unknown if ever smoked [employer] [place] Never smoked tobacco (finding) C Adynxx Medications Ordered Filled Start Stop Current Ordering [...] Source Body Temperature 2020-01-07 10:16:00 97.7 [degF] [facility] Heart Rate 2020-01-07 10:16:00 79 /min [facility] Respiratory rate 2020-01-07 10:16:00 18 /min [facility] BP Systolic 2020-01-07 10:16:00 134 mm[Hg] [facility] Diastolic 2020-01-07 10:16:00 90 mm[Hg] [facility] Respiratory rate 2019-09-08 21:00:00 18 /min [facility] BP Systolic 2019-09-08 21:00:00 146 mm[Hg] [facility] BP Diastolic 2019-09-08 21:00:00 93 mm[Hg] [facility] Weight 2019-09-08 21:00:00 235 [lb_av] [facility] BMI (Body Mass Index) 2019-09-08 21:00:00 34.7 kg/m2 [facility] [place] Procedures Procedure Date / Time Performed Performing Clinician [facility] e ECG (electrocardiogram) 2020-01-07 00:00:00 [facility] [email or web address] [place] X-ray of chest, single 2020-01-07 00:00:00 [facility] [employer] [place] view Computed tomography of 2020-01-07 00:00:[address] [facility] [place] head or brain without contrast Computed tomography of 2020-01-07 00:00:00 [facility] [place] cervical spine without contrast ECG (electrocardiogram) 2019-09-08 00:00:00 [facility] [email or web address] [place] X-ray of chest, two views 2019-09-08 00:00:00 [facility] Encounters Start End Encounter Admission Attending Care Care Encounter Source Date/Time Date/Time Type Type Clinicians Facility Department ID 2020-01-09 2020-01-09 Outpatient GLORIA ZAMORA [id number] [facility] 13:44:00 13:44:00 [facility] 2020-01-07 2020-01-07 Departed ER PHYSICIAN, GLORIA CASTRO [id number] [facility] 03:35:00 03:35:00 Emergency ER [facility] [address] [facility] 2019-09-08 2019-09-09 Departed GLORIA CASTRO [id number] [facility] 20:50:00 00:23:00 Emergency [facility] [address] [facility] Results Test Description Test Time Test Comments Results Result Comments Source Serum or plasma natriuretic peptide B measurement (mas s/volume) 2020-01-07 08:11:00 Test Item Value Reference Range Interpretation Comme nts B-Type Natriuretic Peptide (test code = 97102-5) 4 pg/mL 0-101 [facility]um or plasma free thyroxine (FT4) measurement (mass/volume) 2020-01-07 07:47:00 Test Item Value Reference Range Interpretation Comments Free Thyroxine (test code = 1.48 ng/dL 1.09-1.53 3024-7) [facility] or plasma thyrotropin measurement with detection limit of 0.005 mIU/L or less (units/volume)2020-01-07 07:47:00 Test Item Value Reference Range Interpretation Comments Thyroid Stimulating Hormone 1.435 u[iU]/mL 0.550-4.780 (TSH) (test code = 71824-2) [facility]um or plasma free triiodothyronine (T3) [...] 3040-3) 29 U/L 31-96 [facility] HealthCreatine kinase ser/[id number] 07:27:00 Test Item Value Reference Range Interpretation Comments Total Creatine Kinase (test code = 61 U/L 30-160 2157-6) [facility] HealthSerum or plasma creatine kinase MB measurement (mass/volume) 2020-01-07 07:27:00 Test Item Value Reference Range Interpretation Comments Creatine Kinase MB (test code = < 0.18 ng/mL 0-5 25609-2) [facility] HealthSerum or plasma cardiac troponin I measurement (mass/volume) 2020-01-07 07:27:00 Test Item Value Reference Range Interpretation Comments Troponin I (test code = < 0.006 ng/mL 0.000-0.040 88929-0) [facility]um or plasma myoglobin measurement (mass/volume)2020-01-07 07:27:00 Test Item Value Reference Range Interpretation Comments Myoglobin (test code = 2639-3) 20.4 ng/mL <110.0 [facility] HealthUrinalysis specimen collection [id number] 04:03:00 Test Item Value Reference Range Interpretation Comments Urine Source (test code = Urine Clean Catch 20666-4) [facility] HealthUrine color zafafcjcxlcaf6660-34-08 04:03:00 Test Item Value Reference Range Interpretation Comments Urine Color (test code = 5778-6) Colorless Yel-Lora [facility] HealthUrine appearance qrumdgpgmqckp3060-23-34 04:03:00 Test Item Value Reference Range Interpretation Comments Urine Appearance (test code = 5767-9) Clear Clear [facility] HealthUrine pH measurement by test [id number] 04:03:00 Test Item Value Reference Range Interpretation Comments Urine pH (test code = 5803-2) 5.0 5.0-7.5 [facility] HealthSpecific gravity ur ufcgpuzw9689-38-39 04:03:00 Test Item Value Reference Range Interpretation Comments Urine Specific [place] (test code = 1.003 1.003-1.029 5811-5) [facility] HealthUrine protein measurement by automated test strip (mass/volume) 2020-01-07 04:03:00 Test Item Value Reference Range Interpretation Comments Urine Protein (test code = Negative mg/dL Neg - Trace 46205-2) [facility]Urine glucose measurement by automated test strip (mass/volume) 2020-01-07 04:03:00 Test Item Value Reference Range Interpretation Comments Urine Glucose (UA) (test code = Negative Negative 51600-9) [facility] HealthUrine ketones detection by automated test [id number] 04:03:00 Test Item Value Reference Range Interpretation Comments Urine Ketones (test code = 35374-6) Negative Negative [facility] HealthUrine erythrocytes count by automated test strip (number/volume) 2020-01-07 04:03:00 Test Item Value Reference Range Interpretation Comments Urine Occult Blood (test code = Negative Negative 73559-4) [facility] HealthUrine nitrite detection by automated test qsjmy4402-80-38 04:03:00 Test Item Value Reference Range Interpretation Comments Urine Nitrite (test code = 28684-0) Negative Negative [facility] HealthUrine total bilirubin detection by automated test [id number] 04:03:00 Test Item Value Reference Range Interpretation Comments Urine Bilirubin (test code = Negative Negative 13112-4) [facility] HealthUrine urobilinogen measurement by automated test strip (mass/volume)2020-01-07 04:03:00 Test Item Value Reference Range Interpretation Comments Urine Urobilinogen (test code = Normal mg/dL Norm-1.0 53942-7) [facility]Urine leukocyte esterase detection by automated test strip 2020-01-07 04:03:00 Test Item Value Reference Range Interpretation Comments Urine Leukocyte Esterase (test code = Trace Negative 06505-7) [facility] HealthUrine sediment erythrocyte count by microscopy (number/high power field)2020-01-07 04:03:00 Test Item Value Reference Range Interpretation Comments Urine RBC (test 0-2 /[HPF] See_Comment [Automated message] The code = 86129-2) system which generated this result tra nsmitted [...] Cells (test code Many /[LPF] None/Occ = 75126-1) [facility] HealthUrine sediment bacteria count by microscopy (number/high power field)2020-01-07 04:03:00 Test Item Value Reference Range Interpretation Comments Urine Bacteria (test code = Occasional /[HPF] None 5769-5) [facility] HealthUrine sediment hyaline cast count by microscopy (number/low power field)2020-01-07 04:03:00 Test Item Value Reference Range Interpretation Comments Urine Hyaline Casts (test code = 2-5 /[LPF] 5796-8) [facility] HealthYeast detection in urine sediment by light jmxppxitmc7289-42-65 04:03:00 Test Item Value Reference Range Interpretation Comments Urine Yeast (test code = None Seen /[HPF] 37348-7) [facility]Service comment 04:03:00 Test Item Value [...] HealthAutomated erythrocyte mean corpuscular hemoglobin concentration measurement (mass/[id number] 04:00:00 Test Item Value Reference Range Interpretation Comments Mean Corpuscular Hemoglobin Concent 32.6 g/dL 32.5-35.0 (test code = 786-4) [facility] HealthAutomated erythrocyte distribution width imnrd5252-06-57 04:00:00 Test Item Value Reference Range Interpretation Comments Red Cell Distribution Width (test code 13.5 % 11.5-14.5 = 788-0) [facility] HealthAutomated blood platelet count (count/volume)2020-01-07 04:00:00 Test Item Value Reference Range Interpretation Comments Platelet Count (test code = 191 10*3/uL 160-400 777-3) [facility] HealthAutomated blood platelet mean volume nffzqqhgkyq7701-66-61 04:00:00 Test Item Value Reference Range Interpretation Comments Mean Platelet Volume (test code = 12.0 fL 7.5-11.2 34663-3) [facility] HealthAutomated blood neutrophil count as percentage of total nlxbxtfwuz2201-96-18 04:00:00 Test Item Value Reference Range Interpretation Comments Neutrophils (%) (Auto) (test code = 64 % 45-75 770-8) [facility] HealthAutomated blood immature granulocyte count as percentage of total nhhwnsodje0048-08-98 04:00:00 Test Item Value Reference Range Interpretation Comments Immature Granulocyte % (Auto) (test 0.2 % 0.0-1.5 code = 37836-2) [facility] HealthAutomated blood lymphocyte count as percentage of total fxzikwqniw4856-11-20 04:00:00 Test Item Value Reference Range Interpretation Comments Lymphocytes (%) (Auto) (test code = 26 % 20-48 736-9) [facility] HealthAutomated blood monocyte count as percentage of total leukocytes 2020-01-07 04:00:00 Test Item Value Reference Range Interpretation Comments Monocytes (%) (Auto) (test code = 6 % 1-9 5905-5) [facility] HealthAutomated blood eosinophil count as percentage of total yhkenbuifw7825-18-65 04:00:00 Test Item Value Reference Range Interpretation Comments Eosinophils (%) (Auto) (test code = 3 % 0-4 713-8) [facility] HealthAutomated blood basophil count as percentage of total leukocytes 2020-01-07 04:00:00 Test Item Value Reference Range Interpretation Comments Basophils (%) (Auto) (test code = 1 % 0-2 706-2) [facility] HealthAutomated blood nucleated erythrocyte count as percentage of total tbxyncajol6815-51-20 04:00:00 Test Item Value Reference Range Interpretation Comments Nucleated Red Blood Cells % (test code 0 % 0-1 = 35561-1) [facility] HealthAutomated blood neutrophil count (number/volume)2020-01-07 04:00:00 Test Item Value Reference Range Interpretation Comments Neutrophils # (Auto) (test code 2.87 10*3/uL = 751-8) [facility] HealthProthrombin time (PT) in platelet poor [id number] 04:00:00 Test Item Value Reference Range Interpretation Comments Prothrombin Time (test code = 5902-2) 11.8 s 9.4-12.5 [facility] HealthINR in Platelet poor plasma by Coagulation krkrl4890-46-56 04:00:00 Test Item Value Reference Range Interpretation Comments Prothromb Time International 1.1 {ratio} Ratio (test code = 6301-6) [facility] HealthPartial thromboplastin time (PTT) in platelet poor plasma 2020-01-07 04:00:00 Test Item Value Reference Range Interpretation Comments Activated Partial Thromboplast Time 30 s 25-37 (test code = 85374-5) [facility] HealthFibrin D-dimer FEU [id number] 04:00:00 Test Item Value Reference Range Interpretation Comments D-Dimer (test code = 00143-1) 423 ng/mL{FEU} 215-500 [facility] HealthSerum or plasma [...] Interpretation Comments Anion Gap (test code = 71060-6) 9.0 mmol/L 3.0-11.0 [facility] HealthSerum or plasma urea nitrogen measurement (mass/volume)2020-01-07 04:00:00 Test Item Value Reference Range Interpretation Comments Blood Urea Nitrogen (test code = 16.0 mg/dL 12-22 3094-0) [facility] HealthSerum or plasma creatinine measurement (mass/volume)2020-01-07 04:00:00 Test Item Value Reference Range Interpretation Comments Creatinine (test code = 2160-0) 0.90 mg/dL 0.60-1.02 [facility] creatinine clearance calculated from serum or plasma creatinine by [id number] 04:00:00 Test Item Value Reference Range Interpretation Comments Estimated Creatinine Clearance (test 93.8 code = 36927-0) [facility] CenterGlomerular filtration rate (GFR) estimation using MDRD equation 2020-01-07 04:00:00 Test Item Value Reference Range Interpretation Comments Estimat Glomerular Filtration Rate 77.12 >60 (test code = 926390151) [facility] HealthSerum or plasma urea nitrogen/creatinine mass [id number] 04:00:00 Test Item Value Reference Range Interpretation Comments BUN/Creatinine Ratio (test code = 18 3097-3) [facility] HealthSerum or plasma glucose measurement (mass/volume)2020-01-07 04:00:00 Test Item Value Reference Range Interpretation Comments Glucose Level (test code = 2345-7) 88 mg/dL 74-112 [facility] HealthSerum or plasma calcium measurement (mass/volume)2020-01-07 04:00:00 Test Item Value Reference Range Interpretation Comments Calcium Level (test code = 86291-4) 9.8 mg/dL 9.0-10.2 [facility] HealthSerum or plasma [...] (test code = 1751-7) 4.9 g/dL 4.2-5.4 [facility]Serum globulin measurement by calculation (mass/volume)2020-01-07 04:00:00 Test Item Value Reference Range Interpretation Comments Globulin (test code = 34156-9) 3.0 g/dL [facility] HealthSerum or plasma albumin/globulin mass [id number] 04:00:00 Test Item Value Reference Range Interpretation Comments Albumin/Globulin Ratio (test code 1.6 {ratio} = 1759-0) [facility] HealthSerum or plasma alkaline phosphatase measurement (enzymatic activity/volume)2020-01-07 04:00:00 Test Item Value Reference Range Interpretation Comments Alkaline Phosphatase (test code = 78 U/L 45-100 6768-6) [facility] CenterUrinalysis specimen collection [id number] 22:40:00 Test Item Value Reference Range Interpretation Comments Urine Source (test code = Urine Clean Catch 27166-8) [facility] HealthUrine color kregmarxuahob3317-48-40 22:40:00 Test Item Value Reference Range Interpretation Comments Urine Color (test code = 5778-6) Yellow Yel-Lora [facility] HealthUrine appearance vpmtpjscxdsxn2499-27-42 22:40:00 Test Item Value Reference Range Interpretation Comments Urine Appearance (test code = 5767-9) Clear Clear [facility] HealthUrine pH measurement by test [id number] 22:40:00 Test Item Value Reference Range Interpretation Comments Urine pH (test code = 5803-2) 6.0 5.0-7.5 [facility] HealthSpecific gravity ur azmhbuus8610-96-99 22:40:00 Test Item Value Reference Range Interpretation Comments Urine Specific [place] (test code = 1.024 1.003-1.029 5811-5) [facility] HealthUrine protein measurement by automated test strip (mass/volume) 2019-09-08 22:40:00 Test Item Value Reference Range Interpretation Comments Urine Protein (test code = Trace mg/dL Neg - Trace 56999-4) [facility] HealthUrine glucose measurement by automated test strip (mass/volume) 2019-09-08 22:40:00 Test Item Value Reference Range Interpretation Comments Urine Glucose (UA) (test code = Negative Negative 62200-3) [facility] HealthUrine ketones detection by automated test [id number] 22:40:00 Test Item Value Reference Range Interpretation Comments Urine Ketones (test code = 40456-7) Trace Negative [facility] HealthUrine erythrocytes count by automated test strip (number/volume) 2019-09-08 22:40:00 Test Item Value Reference Range Interpretation Comments Urine Occult Blood (test code = Negative Negative 20508-8) [facility] HealthUrine nitrite detection by automated test [id number] 22:40:00 Test Item Value Reference Range Interpretation Comments Urine Nitrite (test code = 89024-8) Negative Negative [facility] HealthUrine total bilirubin detection by automated test [id number] 22:40:00 Test Item Value Reference Range Interpretation Comments Urine Bilirubin (test code = Negative Negative 68228-1) [facility] HealthUrine urobilinogen measurement by automated test strip (mass/volume)2019-09-08 22:40:00 Test Item Value Reference Range Interpretation Comments Urine Urobilinogen (test code = Normal mg/dL Norm-1.0 53098-9) [facility] HealthUrine leukocyte esterase detection by automated test strip 2019-09-08 22:40:00 Test Item Value Reference Range Interpretation Comments Urine Leukocyte Esterase (test code = Trace Negative 74006-3) [facility] HealthUrine sediment erythrocyte count by microscopy (number/high power field)2019-09-08 22:40:00 Test Item Value Reference Range Interpretation Comments Urine RBC (test 0-2 /[HPF] See_Comment [Automated message] The code = 86563-0) system which generated this result tra nsmitted [...] (test None seen /[LPF] None/Occ code = 12433-2) [facility] HealthUrine sediment bacteria count by microscopy (number/high power field)2019-09-08 22:40:00 Test Item Value Reference Range Interpretation Comments Urine Bacteria (test code = Occasional /[HPF] None 5769-5) [facility] HealthUrine sediment hyaline cast count by microscopy (number/low power field)2019-09-08 22:40:00 Test Item Value Reference Range Interpretation Comments Urine Hyaline Casts (test code = 2-5 /[LPF] 5796-8) [facility] HealthYeast detection in urine sediment by light xpjwvskiqw2895-43-53 22:40:00 Test Item Value Reference Range Interpretation Comments Urine Yeast (test code = None Seen /[HPF] 16846-1) [facility] comment [id number] 22:40:00 Test Item Value Reference Range Interpretation Comments Urine Culture Indicated (test code = Yes 8264-4) [facility] HealthAutomated blood nucleated erythrocyte count as percentage of total tvqphbavbw8301-90-14 22:15:00 Test Item Value Reference Range Interpretation Comments Nucleated Red Blood Cells % (test code 0 % 0-1 = 22821-8) [facility] HealthAutomated blood neutrophil count (number/volume)2019-09-08 22:15:00 [...] Interpretation Comments Anion Gap (test code = 06194-9) 15.0 mmol/L 3.0-11.0 [facility] HealthSerum or plasma [...] calculated from serum or plasma creatinine by [id number] 22:15:00 Test Item Value Reference Range Interpretation Comments Estimated Creatinine Clearance (test 134.0 code = 46283-6) [facility] CenterGlomerular filtration rate (GFR) estimation using MDRD equation 2019-09-08 22:15:00 Test Item Value Reference Range Interpretation Comments Estimat Glomerular Filtration Rate 116.39 >60 (test code = 44551-5) [facility] HealthSerum or plasma urea nitrogen/creatinine mass [id number] 22:15:00 Test Item Value Reference Range Interpretation Comments BUN/Creatinine Ratio (test code = 22 3097-3) [facility] HealthSerum or plasma glucose measurement (mass/volume)2019-09-08 22:15:00 Test Item Value Reference Range Interpretation Comments Glucose Level (test code = 2345-7) 82 mg/dL 70-110 [facility] HealthSerum or plasma calcium measurement (mass/volume)2019-09-08 22:15:00 Test Item Value Reference Range Interpretation Comments Calcium Level (test code = 18576-3) 8.9 mg/dL 8.4-10.2 [facility] HealthSerum or plasma [...] Range Interpretation Comments Globulin (test code = 38294-5) 3.2 g/dL [facility] HealthSerum or plasma albumin/globulin mass yqirz0631-05-97 22:15:00 Test Item Value Reference Range Interpretation [...] 3040-3) 18 U/L 16-63 [facility] HealthCreatine kinase ser/yzuv9147-72-62 22:15:00 Test Item Value Reference Range Interpretation Comments Total Creatine Kinase (test code = 84 U/L 24-170 2157-6) [facility] HealthSerum or plasma creatine kinase MB measurement (mass/volume) 2019-09-08 22:15:00 Test Item Value Reference Range Interpretation Comments Creatine Kinase MB (test code = 1.3 ng/mL 0-5 79683-1) [facility] HealthSerum or plasma cardiac troponin T [...] HealthAutomated erythrocyte mean corpuscular hemoglobin concentration measurement (mass/fdk1048-99-39 22:15:00 Test Item Value Reference Range Interpretation Comments Mean Corpuscular Hemoglobin Concent 33.5 g/dL 32.5-35.0 (test code = 786-4) [facility] HealthAutomated erythrocyte distribution width [id number] 22:15:00 Test Item Value Reference Range Interpretation Comments Red Cell Distribution Width (test code 14.0 % 11.5-14.5 = 788-0) [facility] HealthAutomated blood platelet count (count/volume)2019-09-08 22:15:00 Test Item Value Reference Range Interpretation Comments Platelet Count (test code = 238 10*3/uL 160-400 777-3) [facility] HealthAutomated blood platelet mean volume fdnpvafxpjr1276-03-27 22:15:00 Test Item Value Reference Range Interpretation Comments Mean Platelet Volume (test code = 11.0 fL 7.5-11.2 66070-7) [facility] CenterAutomated blood neutrophil count as percentage of total jxilwrvokk6034-08-04 22:15:00 Test Item Value Reference Range Interpretation Comments Neutrophils (%) (Auto) (test code = 70 % 45-75 770-8) [facility] CenterAutomated blood immature granulocyte count as percentage of total flrkctbjlm5755-70-33 22:15:00 Test Item Value Reference Range Interpretation Comments Immature Granulocyte % (Auto) (test 0.2 % 0.0-1.5 code = 02128-4) [facility] CenterAutomated blood lymphocyte count as percentage of total zestozfnbn9625-26-20 22:15:00 Test Item Value Reference Range Interpretation Comments Lymphocytes (%) (Auto) (test code = 21 % 20-48 736-9) [facility] CenterAutomated blood monocyte count as percentage of total leukocytes 2019-09-08 22:15:00 Test Item Value Reference Range Interpretation Comments Monocytes (%) (Auto) (test code = 7 % 1-9 5905-5) [facility] CenterAutomated blood eosinophil count as percentage of total ctxkrcqtbq9314-01-69 22:15:00 Test Item Value Reference Range Interpretation Comments Eosinophils (%) (Auto) (test code = 1 % 0-4 713-8) [facility] CenterAutomated blood basophil count as percentage of total leukocytes 2019-09-08 22:15:00 Test Item Value Reference Range Interpretation Comments Basophils (%) (Auto) (test code = 1 % 0-2 706-2) [facility]
[2022-11-03] MEDS ORDERED: ACETAMINOPHEN 500 MG TAB ONE (21:07)
--- NOTE | 2022-11-03 21:24 | RAD REPORT ---
EXAM DESCRIPTION: RAD - Chest Single View - 11/03/2022 9:14 pm CLINICAL HISTORY: MALAISE Chest pain. COMPARISON: <Comparisons> FINDINGS: Portable technique limits examination quality. The lungs are underinflated which results in vascular crowding. The heart is normal in size. No displ aced fractures. IMPRESSION: No acute intrathoracic process suspected.
[2022-11-03 21:38] LABS: Protime INR 1.11
[2022-11-03] MEDS ORDERED: NA CHLORIDE 0.9% 50 ML ONE (21:48)
[2022-11-03] MEDS ORDERED: CEFTRIAXONE 2000 MG/VIAL ONE (21:48)
[2022-11-03] MEDS ORDERED: MIDAZOLAM HCL 2 MG/2 ML INJ ONE (21:48)
[2022-11-03] MEDS ORDERED: MORPHINE 2 MG/ML SYR ONE (21:48)
[2022-11-03 21:57] LABS: Absolute Lymphocytes (CBC) 0.7 K/uL (0.7-4.9); Hematocrit 31.7 % (36.0-45.0); Lymphocytes % 9.4 % (15.3-44.8); MCV 89.9 fL (80-100); MPV 9.2 fL (7.6-11.3); RBC Red Blood Cell Count 3.52 M/uL (3.86-4.86)
[2022-11-03] MEDS ORDERED: LIDOCAINE 1% MPF 5 ML VIAL ONE (22:15)
[2022-11-03 22:23] LABS: Albumin 3.2 g/dL (3.4-5.0); Bilirubin Total 0.4 mg/dL (0.2-1.0); Potassium 3.7 mEq/L (3.5-5.1); Protein, Total 7.9 g/dL (6.4-8.2)
[2022-11-03 22:28] LABS: Specific Gravity 1.009 (1.005-1.030); Urine Bacteria <20 /HPF (<20); Urine Bilirubin NEGATIVE (Negative); Urine Blood Negative (Negative); Urine Clarity Clear (Clear); Urine Color Light-Yellow (Yellow); Urine Crystals Unidentified Few /HPF (None Seen); Urine Glucose NEGATIVE (Negative); Urine Mucus Slight /HPF (None Seen); Urine Protein TRACE (Negative); Urine RBC <5 /HPF (None Seen); Urine Urobilinogen 1+ (Normal); Urine WBC Clump Rare /HPF (None Seen)
[2022-11-03 22:54] LABS: Appearance CLEAR (CLEAR); Body Fluid Source CSF; Color of fluid Colorless (COLORLESS); Fluid Total Volume 11 ml
[2022-11-03 22:59] LABS: CSF Glucose 64 mg/dL (40-70)
[2022-11-03 23:06] LABS: Body Fluid WBC 1 /mm^3
--- NOTE | 2022-11-03 23:22 | ER ---
Nurse's Notes [facility] Name: Salud Almanzar Age: 37 yrs Sex: Female : 1985 Arrival Date: 11/03/2022 Time: 19:44 Bed 2 Private MD: Diagnosis: Fever, unspecified;Pyelonephritis acute;Headache Presentation: 11/03 19:52 Chief complaint: Patient states: C/o H/A and neck pain, states "I think I slept wrong ll3 and I think I have a pinched nerve". Coronavirus screen: Vaccine status: Patient reports receiving the 2nd dose of the covid vaccine. At this time, the client does not indicate any symptoms associated with coronavirus-19. Ebola Screen: No symptoms or risks identified at this time. Initial Sepsis Screen: Does the patient meet any 2 criteria? Temp <36.0*C (96.8*F)) or > 38.3*C (100.9*F). HR > 90 bpm. Yes Does the patient have a suspected source of infection? No. Patient's initial sepsis screen is negative. If YES to both, name of provider notified: Contreras Salmeron MD. Risk Assessment: Do you want to hurt yourself or someone else? Patient reports no desire to harm self or others. Onset of symptoms was November 03, 2022 at 11:00. 19:52 Method Of Arrival: Ambulatory ll3 19:52 Acuity: JOSE 3 ll3 Historical: - Allergies: 19:55 Ativan; stomach pain; ll3 - PMHx: 19:55 Anxiety; Gastroesophageal reflux disease; Hypertensive disorder; Migraine; ll3 - PSHx: 19:55 section; Cholecystectomy; Ligation of fallopian tube; ll3 - Immunization history:: Client reports receiving the 2nd dose of the Covid vaccine. - Social history:: Smoking status: Patient denies any tobacco usage or history of. Screenin:30 [facility] ED Fall Risk Assessment (Adult) Score/Fall Risk Level 0 - 2 = Low Risk. Abuse as6 screen: Denies threats or abuse. Denies injuries from another. Nutritional screening: No deficits noted. Tuberculosis screening: No symptoms or risk factors identified. Assessment: 21:00 General: Appears uncomfortable, ill, Behavior is calm, cooperative. Pain: Complains of as6 pain in head and neck. Neuro: Level of Consciousness is awake, alert, obeys commands, Oriented to person, place, time, situation, Reports headache that is the "worst ever". Cardiovascular: Capillary refill < 3 seconds Patient's skin is warm and dry. Respiratory: Respiratory effort is even, unlabored, Respiratory pattern is regular, symmetrical. : Reports pain flank(s). Vital Signs: 19:52 BP 145 / 90; Pulse 101; Resp 17; Temp 102(O); Pulse Ox 98% on R/A; Weight 104.33 kg ll3 (R); Height 5 ft. 10 in. ; Pain 10/10; 22:35 BP 127 / 84; Pulse 88; Resp 22; Temp 100; Pulse Ox 98% on R/A; as6 23:56 BP 129 / 81; Pulse 79; Resp 15 S; Temp 98.9(O); Pulse Ox 100% on R/A; as6 11/04 02:45 Pulse 83; Resp 21 S; Pulse Ox 95% on R/A; as6 11/03 19:52 Body Mass Index 33.00 (104.33 kg, 177.8 cm) ll3 11/03 19:52 Pain Scale: Adult ll3 ED Course: 11/03 19:48 Patient arrived in ED. ag3 19:55 Triage completed. ll3 20:56 Fabiano Ramirez MD is Attending Physician. kdr 21:16 Chest Single View XRAY In Process Unspecified. EDMS 21:22 Inserted saline lock: 20 gauge in right antecubital area, using aseptic technique. as6 Blood collected. 21:57 Eh Rincon, JIGNESH is Primary Nurse. as6 22:00 Assist provider with lumbar puncture: Set up LP tray. Performed by Fabiano Ramirez MD CSF as6 is clear. Sample collected. Sample sent to lab. Puncture site dressed with band aid, Procedure was successful. Patient tolerated well. 22:30 Arm band placed on. as6 22:30 Placed in gown. Bed in low position. Call light in reach. Side rails up X2. Client as6 placed on continuous cardiac and pulse oximetry monitoring. NIBP monitoring applied. 23:20 Justo Hall MD is Hospitalizing Provider. kdr 23:56 Patient admitted, IV remains in place. as6 11/04 00:36 Head C Spine Cap Wo Con In Process Unspecified. EDMS Administered Medications: 11/03 21:07 Drug: Acetaminophen PO 1000 mg Route: PO; jb4 11/04 03:06 Follow up: Response: No adverse reaction; Temperature is decreased as6 11/03 21:47 Drug: Midazolam IVP or IV 2 mg Route: IVP; Site: right antecubital; as6 11/04 03:05 Follow up: Response: No adverse reaction as6 11/03 21:54 Drug: morphine IVP or IV 2 mg Route: IVP; Infused Over: 4 mins; Site: left hand; as6 11/04 03:05 Follow up: Response: No adverse reaction as6 11/03 21:57 Not Given (Other Intervention Used): morphine IM 2 mg IM once as6 21:58 Drug: Rocephin - Rocephin (cefTRIAXone) IVPB 2 grams Route: IVPB; Infused Over: 30 as6 mins; Site: left hand; 11/04 03:05 Follow up: Response: No adverse reaction; IV Status: Completed infusion; IV Intake: [id number] 02:33 Drug: Cyclobenzaprine PO 10 mg Route: PO; as6 03:05 Follow up: Response: No adverse reaction as6 02:33 Drug: Meropenem IV 1 grams Route: IV; Rate: bolus; Site: left hand; as6 03:05 Follow up: Response: No adverse reaction; IV Status: Completed infusion; IV Intake: as6 100ml 02:34 Drug: Decadron - Dexamethasone IVP 10 mg Route: IVP; Site: left hand; as6 03:05 Follow up: Response: No adverse reaction as6 Medication: 11/03 22:30 VIS not applicable for this client. as6 Intake: 11/04 03:05 IV: 100ml; Total: 100ml. as6 03:05 IV: 50ml; Total: 150ml. as6 Outcome: 11/03 23:21 Decision to Hospitalize by Provider. kdr 23:56 Condition: stable as6 23:56 Instructed on the need for admit. 11/04 03:06 Admitted to Med/surg accompanied by tech, via wheelchair. as6 03:23 Patient left the ED. as6 Signatures: Dispatcher [employer] EDMS Fabiano Ramirez MD MD kdr Bryson Leander, RN RN jb4 Chester, Stephenie ag3 Eh Rincon, RN RN as6 Venu Ryan RN RN ll3
--- NOTE | 2022-11-03 23:22 | EDPHYS ---
Physician Documentation [facility] Name: Salud Almanzar Age: 37 yrs Sex: Female : 1985 Arrival Date: 11/03/2022 Time: 19:44 Bed 2 Private MD: ED Physician Fabiano Ramirez HPI: 11/03 21:27 This 37 yrs old Female presents to ER via Ambulatory with complaints of Headache. kdr 21:27 This 37 yrs old Female presents to ER via Ambulatory with complaints of Headache and kdr fever. 21:27 Patient was discharged earlier today at about 11:00 status post admission for kdr pyelonephritis. Patient states that she has had fever persistently since her admission and was discharged with fever. Patient states she continues to have a severe headache and neck stiffness. She states she had this on discharge. Patient appears to be a mildly uncomfortable but otherwise is nonacute. Vital signs are generally stable with a heart rate of around 100 and blood pressure 145/90. Her temperature is 102. Patient is confused about her condition and has not yet started antibiotics as an outpatient. Onset: The symptoms/episode began/occurred gradually, 3 day(s) ago. Severity of symptoms: At their worst the symptoms were moderate just prior to arrival, in the emergency department the symptoms are unchanged. The patient has not experienced similar symptoms in the past. The patient has been recently been admitted at [facility], was discharged earlier today. Historical: - Allergies: 19:55 Ativan; stomach pain; ll3 - PMHx: 19:55 Anxiety; Gastroesophageal reflux disease; Hypertensive disorder; Migraine; ll3 - PSHx: 19:55 section; Cholecystectomy; Ligation of fallopian tube; ll3 - Immunization history:: Client reports receiving the 2nd dose of the Covid vaccine. - Social history:: Smoking status: Patient denies any tobacco usage or history of. ROS: 21:27 Constitutional: Negative for weight loss. kdr 21:27 Eyes: Negative for injury, pain, redness, and discharge, Neck: Negative for injury, pain, and swelling, Cardiovascular: Negative for chest pain, palpitations, and edema, Respiratory: Negative for shortness of breath, cough, wheezing, and pleuritic chest pain, Abdomen/GI: Negative for abdominal pain, nausea, vomiting, diarrhea, and constipation, Back: Negative for injury and pain, : Negative for injury, bleeding, discharge, and swelling, MS/Extremity: Negative for injury and deformity, Skin: Negative for injury, rash, and discoloration, Neuro: Negative for headache, weakness, numbness, tingling, and seizure activity. Psych: Negative for depression, anxiety, suicide ideation, homicidal ideation, and hallucinations, Allergy/Immunology: Negative for hives, rash, and allergies, Endocrine: Negative for neck swelling, polydipsia, polyuria, polyphagia, and marked weight changes, Hematologic/Lymphatic: Negative for swollen nodes, abnormal bleeding, and unusual bruising. 21:27 Constitutional: Positive for body aches, chills, fatigue, fever, malaise. 21:27 Neck: Positive for pain with movement, pain at rest, stiffness. Exam: 21:30 Constitutional: This is a well developed, well nourished patient who is awake, alert, kdr and in mild distress. Head/Face: Normocephalic, atraumatic. Eyes: Pupils equal round and reactive to light, extra-ocular motions intact. Lids and lashes normal. Conjunctiva and sclera are non-icteric and not injected. Cornea within normal limits. Periorbital areas with no swelling, redness, or edema. Neck: Trachea midline, no thyromegaly or masses palpated, and no cervical lymphadenopathy. Supple, full range of motion without nuchal rigidity, or vertebral point tenderness. No Meningismus. Chest/axilla: Normal chest wall appearance and motion. Nontender with no deformity. No lesions are appreciated. Cardiovascular: Regular rate and rhythm with a normal S1 and S2. No gallops, murmurs, or rubs. Normal PMI, no JVD. No pulse deficits. Respiratory: Lungs have equal breath sounds bilaterally, clear to auscultation and percussion. No rales, rhonchi or wheezes noted. No increased work of breathing, no retractions or nasal flaring. Abdomen/GI: Soft, non-tender, with normal bowel sounds. No distension or tympany. No guarding or rebound. No evidence of tenderness throughout. Back: No spinal tenderness. No costovertebral tenderness. Full range of motion. 21:30 Neck: External neck: is normal, C-spine: ROM/movement: pain, that is mild, with any movement, Meningeal signs: are present, nuchal rigidity, is present, that is mild. 23:57 ECG was reviewed by the Attending Physician. [facility] Vital Signs: 19:52 BP 145 / 90; Pulse 101; Resp 17; Temp 102(O); Pulse Ox 98% on R/A; Weight 104.33 kg ll3 (R); Height 5 ft. 10 in. ; Pain 10/10; 22:35 BP 127 / 84; Pulse 88; Resp 22; Temp 100; Pulse Ox 98% on R/A; as6 23:56 BP 129 / 81; Pulse 79; Resp 15 S; Temp 98.9(O); Pulse Ox 100% on R/A; as6 11/04 02:45 Pulse 83; Resp 21 S; Pulse Ox 95% on R/A; as6 11/03 19:52 Body Mass Index 33.00 (104.33 kg, 177.8 cm) 3 11/03 19:52 Pain Scale: Adult ll3 Procedures: 11/03 23:22 Lumbar Puncture: Patient placed in sitting position. Prepped with Betadine. Draped kdr using sterile technique. Collected 10 ml's of clear fluid. Sample sent to lab. Puncture site dressed with band aid, Patient tolerated well. MDM: 23:21 Patient medically screened. kdr 23:21 Data reviewed: vital signs, nurses notes, lab test result(s), radiologic studies. [facility] 11/03 20:57 Order name: Blood Culture Adult (2) [facility] 11/03 20:57 Order name: CBC with Diff; Complete Time: 22:48 [facility] 11/03 20:57 Order name: CMP; Complete Time: 22:48 [facility] 11/03 20:57 Order name: Lactate w/ 2H reflex if indic.; Complete Time: 22:48 [facility] 11/03 20:57 Order name: Protime (+inr); Complete Time: 22:48 [facility] 11/03 20:57 Order name: Ptt, Activated; Complete Time: 22:48 [facility] 11/03 20:57 Order name: Urinalysis w/ reflexes; Complete Time: 22:48 [facility] 11/03 21:25 Order name: Csf Culture [facility] 11/03 21:25 Order name: Fluid Cell Count,Body; Complete Time: 23:56 [facility] 11/03 21:25 Order name: Spinal Fluid Profile; Complete Time: 23:19 [facility] 11/03 20:57 Order name: Chest Single View XRAY; Complete Time: 22:48 kdr 11/04 00:25 Order name: Head C Spine Cap Wo Con EDMS 11/03 20:57 Order name: EKG; Complete Time: 20:58 kdr 11/03 20:57 Order name: Accucheck; Complete Time: 21:31 kdr 11/03 20:57 Order name: Cardiac monitoring; Complete Time: 21:31 kdr 11/03 20:57 Order name: EKG - Nurse/Tech; Complete Time: 21:31 kdr 11/03 20:57 Order name: IV Saline Lock - Large Bore; Complete Time: 21:22 kdr 11/03 20:57 Order name: Labs collected and sent; Complete Time: 21:22 kdr 11/03 20:57 Order name: O2 Per Protocol; Complete Time: 21:29 kdr 11/03 20:57 Order name: O2 Sat Monitoring; Complete Time: 21:29 kdr 11/03 20:57 Order name: Vital Signs; Complete Time: 21:22 kdr 11/03 21:25 Order name: Lumbar Puncture Consent; Complete Time: 21:42 kdr 11/03 21:25 Order name: Lumbar Puncture Setup; Complete Time: 21:42 kdr EC:57 Rate is 93 beats/min. Rhythm is regular, Sinus Rhythm with No ectopy. QRS [place] is kdr Normal. NH interval is normal. QRS interval is normal. Clinical impression: NSR w/ Non-specific ST/T Changes. Administered Medications: 21:07 Drug: Acetaminophen PO 1000 mg Route: PO; 4 11/04 03:06 Follow up: Response: No adverse reaction; Temperature is decreased 11/03 21:47 Drug: Midazolam IVP or IV 2 mg Route: IVP; Site: right antecubital; 11/04 03:05 Follow up: Response: No adverse reaction 11/03 21:54 Drug: morphine IVP or IV 2 mg Route: IVP; Infused Over: 4 mins; Site: left hand; 11/04 03:05 Follow up: Response: No adverse reaction 11/03 21:57 Not Given (Other Intervention Used): morphine IM 2 mg IM once as6 21:58 Drug: Rocephin - Rocephin (cefTRIAXone) IVPB 2 grams Route: IVPB; Infused Over: 30 as6 mins; Site: left hand; 11/04 03:05 Follow up: Response: No adverse reaction; IV Status: Completed infusion; IV Intake: [id number] 02:33 Drug: Cyclobenzaprine PO 10 mg Route: PO; as6 03:05 Follow up: Response: No adverse reaction as6 02:33 Drug: Meropenem IV 1 grams Route: IV; Rate: bolus; Site: left hand; as6 03:05 Follow up: Response: No adverse reaction; IV Status: Completed infusion; IV Intake: as6 100ml 02:34 Drug: Decadron - Dexamethasone IVP 10 mg Route: IVP; Site: left hand; as6 03:05 Follow up: Response: No adverse reaction as6 Disposition Summary: 11/03/22 23:21 Hospitalization Ordered Hospitalization Status: Inpatient Admission kdr Provider: Justo Hall Location: Telemetry/MedSurg (Inpatient) kdr Condition: Fair kdr Problem: an ongoing problem kdr Symptoms: have improved kdr Bed/Room Type: Standard kdr Room Assignment: 223(11/04/22 02:38) mw Diagnosis - Fever, unspecified kdr - Pyelonephritis acute kdr - Headache kdr Forms: - Medication Reconciliation Form kdr - SBAR form kdr Signatures: Dispatcher [employer] EDWY Amaya Adams RN RN mw Fabiano Ramirez MD MD kdr Leander Friedman RN JIGNESH jb4 Eh Rincon RN RN as6 Venu Ryan RN RN margi3 Ellie Cottrell PA-C PADuran sb4 Corrections: (The following items were deleted from the chart) 00:25 11/03 23:49 Head C Spine Cap W Con ordered. EDWY EDWY 11/04 02:38 11/03 23:21 kdr mw
[2022-11-03 23:23] LABS: Appearance CLEAR (CLEAR); Body Fluid Source CSF; Color of fluid Colorless (COLORLESS)
[2022-11-03 23:34] LABS: Body Fluid WBC 0 /mm^3
--- NOTE | 2022-11-04 02:23 | P.HP ---
Certification for Inpatient Patient admitted to: Inpatient With expected LOS: <2 Midnights Patient will require the following post-hospital care: None Practitioner: I am a practitioner with admitting privileges, knowledge of patient current condition, hospital course, and medical plan of care. Services: Services provided to patient in accordance with Admission requirements found in Title 42 Section 412.3 of the Code of Federal Regulations Patient History Date of Service: 11/04/22 Reason for admission: Pyelonephritis History of Present Illness: Ms. Almanzar is a 37 year old female with past medical history of hypertension and anxiety who presented to the emergency department with complaints of fever, neck pain, and headache. She was discharged from this facility today after treatment of pyelonephritis. She returns with a fever of 102F, tachycardia, and tachypnea. LP was performed in ED with negative CSF. Urine still with 75 LE and 10-20 WBC. Lactate and serum WBC within normal limits. CT head/neck negative. CT abdomen pelvis redemonstrated right sided pyelonephritis. Vitals improved after IV fluids, valium, and 2 grams of rocephin. ED provider wishes to admit patient for further management. Allergies lorazepam [From Ativan] Allergy (Verified 11/02/22 04:24) Nausea/Vomiting Home medications list reviewed: Yes Home Medications: Famotidine 20 mg PO DAILY 11/02/22 Nebivolol HCl 2.5 mg PO DAILY 11/02/22 Pantoprazole Sodium [Protonix] 40 mg PO DAILY 11/02/22 Cefdinir [Cefdinir*] 300 mg PO BID #14 cap 11/03/22 metroNIDAZOLE [Flagyl] 500 mg PO Q8H #20 11/03/22 - Past Medical/Surgical History Has patient received pneumonia vaccine in the past: Yes Diabetic: No -: Hypertension -: Anxiety -: GERD -: Cholecystectomy -: -: Ligation of fallopian tube Psychosocial/ Personal History: Patient lives at home with her family. - Social History Smoking Status: Never smoker Alcohol use: Yes CD- Drugs: No Caffeine use: No Place of Residence: Home Review of Systems General: Fever, Malaise Musculoskeletal: Neck Pain, Back Pain Neurological: Other (Headache) Physical Examination - Vital Signs Temperature: 98.9 F Blood Pressure: 129/81 Pulse: 79 Respirations: 15 Pulse Ox (%): 100 - Physical Exam General: Alert, In no apparent distress HEENT: Atraumatic, EOMI, Sclerae nonicteric Neck: Supple, 2+ carotid pulse no bruit Respiratory: Clear to auscultation bilaterally, Normal air movement Cardiovascular: Regular rate/rhythm, Normal S1 S2 Gastrointestinal: Normal bowel sounds, No tenderness Musculoskeletal: No tenderness Integumentary: No rashes Neurological: Normal speech, Normal affect - Studies Laboratory Data (last 24 hrs) 11/03/22 21:56: Sodium 134 L, Potassium 3.7, BUN 6 L, Creatinine 0.68, Glucose 115 H, Total Bilirubin 0.4, AST 20, ALT 30, Alkaline Phosphatase 108 11/03/22 21:20: PT 12.2, INR 1.11, APTT 24.3 11/03/22 21:20: WBC 7.20, Hgb 11.0 L, Hct 31.7 L, Plt Count 142 L Assessment and Plan - Problems (Diagnosis) (1) Pyelonephritis Current Visit: Yes Status: Acute (2) Anemia Current Visit: Yes Status: Chronic Qualifiers: Anemia type: unspecified type Qualified Code(s): D64.9 - Anemia, unspecified (3) Anxiety Current Visit: Yes Status: Chronic (4) Hypertension Current Visit: Yes Status: Chronic Qualifiers: Hypertension type: primary hypertension Qualified Code(s): I10 - Essential (primary) hypertension (5) Sepsis Current Visit: Yes Status: Acute Qualifiers: Sepsis type: sepsis due to unspecified organism Sepsis acute organ dysfunction status: without acute organ dysfunction Qualified Code(s): A41.9 - Sepsis, unspecified organism - Plan Patient is admitted for further management of sepsis secondary to pyelonephritis. Urine culture from 2 days ago grew gram negative rods. Sensitivity pending. Blood cultures yielded no growth. She received rocephin previously without resolution of pyelo, will escalate to meropenem. New blood and urine cultures obtained. Supportive measures with tylenol, IV fluids, and morphine. Monitor and replete electrolytes per protocol. Reconcile and continue home medications. Discharge Plan: Home Plan to discharge in: 48 Hours - Advance Directives Does patient have a Living Will: No Does patient have a Durable POA for Healthcare: No - Code Status/Comfort Care Code Status Assessed: Yes Code Status: Full Code Physician Review: Patient Assessed, Agree with Above Assessment and Plan Critical Care: No Time Spent Managing Pts Care (In Minutes): 50
[2022-11-04] MEDS ORDERED: Meropenem 1000 MG/VIAL IV ONE (02:33)
[2022-11-04] MEDS ORDERED: dexAMETHasone 10 MG/ML VIAL ONE (02:34)
[2022-11-04] MEDS ORDERED: CYCLOBENZAPRINE 10 MG TAB ONE (02:34)
[2022-11-04] MEDS ORDERED: NA CHLORIDE 0.9% 100 ML ONE (02:34)
[2022-11-04] MEDS ORDERED: ACETAMINOPHEN 500 MG TAB PO PRN (03:05)
[2022-11-04] MEDS ORDERED: ONDANSETRON 4 MG/2 ML VIAL IV PRN (03:05)
[2022-11-04 03:42] VITALS: BMI 33.5
[2022-11-04] MEDS: NA CHLORIDE 0.9% 1,000 ML IV SCH ×3 (03:50→23:05)
--- NOTE | 2022-11-04 05:49 | EKG ---
Test Date: 2022-11-03 Test Time: 21:27:38 Hand Hardener: JATINDER MEASUREMENT RESULTS: Intervals: Rate: 93 MD: 132 QRSD: 80 QT: 340 QTc: 422 [place]: P: 56 MD: 132 QRS: 77 T: 51 INTERPRETIVE STATEMENTS: Normal sinus rhythm Cannot rule out Anterior infarct, age undetermined Abnormal ECG Compared to ECG 11/02/2022 00:17:57 Myocardial infarct finding now present Electronically Signed On 11-04-22 05:48:31 CDT by Oz Faulkner
[2022-11-04 07:49] LABS: Potassium 4.1 mEq/L (3.5-5.1)
[2022-11-04] MEDS: Meropenem 1,000 MG in NA CHLORIDE 0.9% 100 ML IV SCH ×2 (08:13→16:49)
[2022-11-04] MEDS: MORPHINE 2 MG/ML SYR IV PRN (14:58)
[2022-11-04] MEDS ORDERED: CEFTRIAXONE 1,000 MG in NA CHLORIDE 0.9% 50 ML IVPB ONE (18:25)
[2022-11-04] MEDS ORDERED: TEMAZEPAM 15 MG CAP PO PRN (18:49)
[2022-11-04] MEDS: MELATONIN 5 MG TABLET PO SCH (21:00)
--- NOTE | 2022-11-04 21:14 | RAD REPORT ---
EXAM DESCRIPTION: CT - Head C Spine Cap Wo Con - 11/04/2022 6:29 am CLINICAL HISTORY: The patient is 37 years old and is Female; pyelo, fever, neck stiffness, headache TECHNIQUE: Axial computed tomography images of the head/brain and cervical spine without intravenous contrast. Sagittal and coronal reformatted images were created and reviewed. This CT exam was pe rformed using one or more of the following dose reduction techniques: automated exposure control, a djustment of the mA and/or kV according to patient size, and/or use of iterative reconstruction techn ique. COMPARISON: No relevant prior studies available. FINDINGS: Brain: Unremarkable. No hemorrhage. No significant white matter disease. No edema. Ventricles: Unremarkable. No ventriculomegaly. Skull: No acute fracture. Sinuses: Unremarkable as visualized. No acute sinusitis. Mastoid air cells: Unremarkable as visualized. No mastoid effusion. Vertebrae: Unremarkable. No acute fracture. Normal alignment. Discs/spinal canal/neural foramina: No acute findings. No spinal canal stenosis. Soft tissues: Unremarkable. * A single impression for all exams can be found at the end of this report EXAM DESCRIPTION: CT Chest, Abdomen and Pelvis Without Intravenous Contrast CLINICAL HISTORY: The patient is 37 years old and is Female; pyelo, fever, neck stiffness, headache TECHNIQUE: Axial computed tomography images of the chest, abdomen and pelvis without intravenous con trast. Sagittal and coronal reformatted images were created and reviewed. This CT exam was perfor med using one or more of the following dose reduction techniques: automated exposure control, adjus tment of the mA and/or kV according to patient size, and/or use of iterative reconstruction technique . COMPARISON: No relevant prior studies available. FINDINGS: CHEST: Lungs: Unremarkable. No mass. No consolidation. Pleural space: Unremarkable. No significant effusion. No pneumothorax. Heart: Unremarkable. No cardiomegaly. No significant pericardial effusion. No significant c oronary artery calcifications. ABDOMEN: Liver: Hepatomegaly. Diffuse hepatic steatosis. Gallbladder and bile ducts: Gallbladder is surgically absent. No ductal dilation. Pancreas: Unremarkable. No ductal dilation. Spleen: Mild splenomegaly. Adrenals: Unremarkable. No mass. Kidneys and ureters: Right perinephric stranding consistent with pyelonephritis. No obstructing stones. No hydronephrosis. Stomach and bowel: Unremarkable. No obstruction. No mucosal thickening. PELVIS: Appendix: No findings to suggest acute appendicitis. Bladder: Unremarkable. No stones. Reproductive: Unremarkable as visualized. CHEST, ABDOMEN and PELVIS: Intraperitoneal space: Small amount of free fluid in the lower pelvis. No free air. Bones/joints: Unremarkable. No acute fracture. No dislocation. Soft tissues: Unremarkable. Vasculature: Unremarkable. No aortic aneurysm. Lymph nodes: Unremarkable. No enlarged lymph nodes. * A single impression for all exams can be found at the end of this report IMPRESSION: CT Head and Cervical Spine Without Intravenous Contrast: No acute intracranial abnormality. No acute findings in the cervical spine. CT Chest, Abdomen and Pelvis Without Intravenous Contrast: 1. Right perinephric stranding consistent with pyelonephritis. 2. Gallbladder is surgically absent. 3. Hepatomegaly. 4. Diffuse hepatic steatosis. 5. Mild splenomegaly. Electronically signed by: Inderjit Berman MD 11/04/2022 1:55 AM CDT Due to temporary technical issues with the PACS/Fluency reporting system, reports are being signed by the in house radiologists without review as a courtesy to insure prompt reporting. The interpreting radiologist is fully responsible for the content of the report.
[2022-11-05 03:07] LABS: Absolute Lymphocytes (CBC) 1.1 K/uL (0.7-4.9)
[2022-11-05 03:19] LABS: Hematocrit 31.2 % (36.0-45.0); Lymphocytes % 15.9 % (15.3-44.8); MPV 8.9 fL (7.6-11.3); RBC Red Blood Cell Count 3.51 M/uL (3.86-4.86)
[2022-11-05 03:27] LABS: Albumin 2.9 g/dL (3.4-5.0); Bilirubin Total 0.2 mg/dL (0.2-1.0); Potassium 3.6 mEq/L (3.5-5.1); Protein, Total 7.5 g/dL (6.4-8.2); Thyroid Stimulating Hormone 0.665 uIU/mL (0.358-3.740)
[2022-11-05] MEDS: MORPHINE 2 MG/ML SYR IV PRN ×2 (03:56→11:43)
[2022-11-05] MEDS: NA CHLORIDE 0.9% 1,000 ML IV SCH ×2 (08:58→23:42)
[2022-11-05] MEDS: PANTOPRAZOLE 40MG TABLET PO SCH (08:59)
[2022-11-05] MEDS: FAMOTIDINE 20 MG TAB PO SCH (08:59)
[2022-11-05] MEDS ORDERED: NEBIVOLOL HCL 5 MG TAB PO SCH (09:00)
[2022-11-05] MEDS ORDERED: POTASSIUM 25 MEQ EFFERV TAB PO ONE (09:00)
[2022-11-05] MEDS: CEFTRIAXONE 1,000 MG in NA CHLORIDE 0.9% 50 ML IVPB SCH (09:03)
[2022-11-05] MEDS ORDERED: METHYLPREDNISOLONE 125 MG INJ IV ONE (11:30)
[2022-11-05] MEDS ORDERED: NEBIVOLOL HCL 5 MG TAB PO ONE (11:30)
[2022-11-05] MEDS: MELATONIN 5 MG TABLET PO SCH (23:41)
[2022-11-06] MEDS: NA CHLORIDE 0.9% 1,000 ML IV SCH ×2 (05:05→15:05)
[2022-11-06 07:37] LABS: Absolute Lymphocytes (CBC) 1.8 K/uL (0.7-4.9); Hematocrit 33.4 % (36.0-45.0); Lymphocytes % 25.4 % (15.3-44.8); MCV 90.1 fL (80-100); MPV 8.3 fL (7.6-11.3); RBC Red Blood Cell Count 3.71 M/uL (3.86-4.86)
[2022-11-06 07:43] LABS: Potassium 3.7 mEq/L (3.5-5.1)
[2022-11-06] MEDS ORDERED: POTASSIUM CL SA 10 MEQ TAB PO ONE (08:30)
[2022-11-06] MEDS: PANTOPRAZOLE 40MG TABLET PO SCH (08:47)
[2022-11-06] MEDS: FAMOTIDINE 20 MG TAB PO SCH (08:47)
[2022-11-06] MEDS: CEFTRIAXONE 1,000 MG in NA CHLORIDE 0.9% 50 ML IVPB SCH (08:48)
[2022-11-06] MEDS ORDERED: NEBIVOLOL HCL 5 MG TAB PO SCH (09:00)
[2022-11-06 10:46] VITALS: O2SAT 97
[2022-11-06] MEDS ORDERED: HYDROCODONE/APAP 10/325 TAB PO ONE (12:40)
[2022-11-06 14:22] VITALS: BP 154/100; TEMP 97.7
[2022-11-06] MEDS ORDERED: KETOROLAC 30 MG/ML INJ IV ONE (16:00)
[2022-11-06] MEDS ORDERED: IBUPROFEN 100 MG/5 ML UCUP PO ONE (16:05)
== END 2022-11-06 18:34 | disposition home or self-care (01) | DRG 872 ==
LOC: ER 19:44 → ERHOLD 11-04 02:15 → 2ND 11-04 02:44
PROVIDERS: ADMIT Hospitalist; ATTEND Hospitalist
PROC: 009U3ZX Drainage of Spinal Canal, Percutaneous Approach, Diagnostic (ICD-10-PCS; principal; 2022-11-04)
DX: A41.9 Sepsis, unspecified organism (principal); N10 Acute pyelonephritis; K21.9 Gastro-esophageal reflux disease without esophagitis; I10 Essential (primary) hypertension; D64.9 Anemia, unspecified; F41.9 Anxiety disorder, unspecified; Z88.8 Allergy status to other drugs, medicaments and biological substances; Z90.49 Acquired absence of other specified parts of digestive tract; Z98.51 Tubal ligation status; Z79.899 Other long term (current) drug therapy
CPT/HCPCS: 36415; 62270; 70450; 71045; 71250; 72125; 80048; 80053; 81001; 82533; 82945; 83605; 83735; 84100; 84145; 84157; 84439; 84443; 85025; 85610; 85730; 87040; 87070; 89050; 93005; 99285; J0696; J1100; J2001; J2185; J2250; J2270; J2405; J2930; J7030

== ENCOUNTER 2022-12-18 14:15 | Emergency (ER) | payer BC, OTHER ==
--- OUTSIDE RECORDS SUMMARY | 2022-12-18 14:19 | XMS REPORT | Continuity of Care Document ---
:[address] [facility] t Address [address] [place] [address] Care Team Providers Name Role Phone ASHA MCKEE Attending Clinician Unavailable PHYSICIAN, ER Attending Clinician Unavailable Problems Condition Condition Condition Status Onset Resolution Last Treating Co mments Source Name Details Category Date Date Treatment Clinician Date Problem Condition [facility] Allergies, Adverse Reactions, Alerts This patient has no known allergies or adverse reactions. Social History Social Habit Start Date Stop Date Quantity Comments Source Sex Assigned At [birth year] Female [facility] 00:00:00 00:00:00 Smoking Status Start Date Stop Date Source Unknown if ever smoked [employer] [place] Never smoked tobacco (finding) [facility] Medications Ordered Filled Start Stop Current Ordering [...] Source Body Temperature 2020-01-07 10:16:00 97.7 [degF] [employer] Heart Rate 2020-01-07 10:16:00 79 /min [employer] Respiratory rate 2020-01-07 10:16:00 18 /min [employer] BP Systolic 2020-01-07 10:16:00 134 mm[Hg] [facility] BP Diastolic 2020-01-07 10:16:00 90 mm[Hg] [facility] Respiratory rate 2019-09-08 21:00:00 18 /min [facility] BP Systolic 2019-09-08 21:00:00 146 mm[Hg] [facility] BP Diastolic 2019-09-08 21:00:00 93 mm[Hg] [facility] Weight 2019-09-08 21:00:00 235 [lb_av] [facility] BMI (Body Mass Index) 2019-09-08 21:00:00 34.7 kg/m2 [facility] [place] Procedures Procedure Date / Time Performed Performing Clinician [facility] e ECG (electrocardiogram) 2020-01-07 00:00:00 [facility] [employer] [place] X-ray of chest, single 2020-01-07 00:00:00 [email or web address] [place] view Computed tomography of 2020-01-07 00:00:00 [facility] [place] head or brain without contrast Computed tomography of 2020-01-07 00:00:00 [facility] [place] cervical spine without contrast ECG (electrocardiogram) 2019-09-08 00:00:00 [facility] [employer] [place] X-ray of chest, two views 2019-09-08 00:00:00 [facility] Encounters Start End Encounter Admission Attending Care Care Encounter Source Date/Time Date/Time Type Type Clinicians Facility Department ID 2020-01-09 2020-01-09 Outpatient GLORIA ZAMORA [id number] [facility] 13:44:00 13:44:00 [facility] 2020-01-07 2020-01-07 Departed ER PHYSICIAN, GLORIA CASTRO [id number] [facility] 03:35:00 03:35:00 Emergency ER [facility] [address] [facility] 2019-09-08 2019-09-09 Departed GLORIA CASTRO [id number] [facility] 20:50:00 00:23:00 Emergency [facility] [address] [facility] Results Test Description Test Time Test Comments Results Result Comments Source Serum or plasma natriuretic peptide B measurement (mas s/volume) 2020-01-07 08:11:00 Test Item Value Reference Range Interpretation Comme nts B-Type Natriuretic Peptide (test code = 92005-0) 4 pg/mL 0-101 [facility] HealthSerum or plasma free thyroxine (FT4) measurement (mass/volume) 2020-01-07 07:47:00 Test Item Value Reference Range Interpretation Comments Free Thyroxine (test code = 1.48 ng/dL 1.09-1.53 3024-7) [facility] HealthSerum or plasma thyrotropin measurement with detection limit of 0.005 mIU/L or less (units/volume)2020-01-07 07:47:00 Test Item Value Reference Range Interpretation Comments Thyroid Stimulating Hormone 1.435 u[iU]/mL 0.550-4.780 (TSH) (test code = 49975-8) [facility]um or plasma free triiodothyronine (T3) [...] 3040-3) 29 U/L 31-96 [facility] HealthCreatine kinase ser/[id number] 07:27:00 Test Item Value Reference Range Interpretation Comments Total Creatine Kinase (test code = 61 U/L 30-160 2157-6) [facility] HealthSerum or plasma creatine kinase MB measurement (mass/volume) 2020-01-07 07:27:00 Test Item Value Reference Range Interpretation Comments Creatine Kinase MB (test code = < 0.18 ng/mL 0-5 29605-8) [facility] HealthSerum or plasma cardiac troponin I measurement (mass/volume) 2020-01-07 07:27:00 Test Item Value Reference Range Interpretation Comments Troponin I (test code = < 0.006 ng/mL 0.000-0.040 19620-3) [facility] HealthSerum or plasma myoglobin measurement (mass/volume)2020-01-07 07:27:00 Test Item Value Reference Range Interpretation Comments Myoglobin (test code = 2639-3) 20.4 ng/mL <110.0 [facility] HealthUrinalysis specimen collection [id number] 04:03:00 Test Item Value Reference Range Interpretation Comments Urine Source (test code = Urine Clean Catch 75244-1) [facility] HealthUrine color eduxjpfktsxot1699-58-87 04:03:00 Test Item Value Reference Range Interpretation Comments Urine Color (test code = 5778-6) Colorless Yel-Lora [facility] HealthUrine appearance algpelffwxwje3012-02-59 04:03:00 Test Item Value Reference Range Interpretation Comments Urine Appearance (test code = 5767-9) Clear Clear [facility] HealthUrine pH measurement by test [id number] 04:03:00 Test Item Value Reference Range Interpretation Comments Urine pH (test code = 5803-2) 5.0 5.0-7.5 [facility] HealthSpecific gravity ur vsszghsk6134-53-43 04:03:00 Test Item Value Reference Range Interpretation Comments Urine Specific Bear (test code = 1.003 1.003-1.029 5811-5) [facility] HealthUrine protein measurement by automated test strip (mass/volume) 2020-01-07 04:03:00 Test Item Value Reference Range Interpretation Comments Urine Protein (test code = Negative mg/dL Neg - Trace 72640-6) [facility] HealthUrine glucose measurement by automated test strip (mass/volume) 2020-01-07 04:03:00 Test Item Value Reference Range Interpretation Comments Urine Glucose (UA) (test code = Negative Negative 14670-8) [facility] HealthUrine ketones detection by automated test [id number] 04:03:00 Test Item Value Reference Range Interpretation Comments Urine Ketones (test code = 96304-4) Negative Negative [facility] HealthUrine erythrocytes count by automated test strip (number/volume) 2020-01-07 04:03:00 Test Item Value Reference Range Interpretation Comments Urine Occult Blood (test code = Negative Negative 74342-3) [facility] HealthUrine nitrite detection by automated test [id number] 04:03:00 Test Item Value Reference Range Interpretation Comments Urine Nitrite (test code = 65490-2) Negative Negative [facility] HealthUrine total bilirubin detection by automated test [id number] 04:03:00 Test Item Value Reference Range Interpretation Comments Urine Bilirubin (test code = Negative Negative 46210-4) [facility] HealthUrine urobilinogen measurement by automated test strip (mass/volume)2020-01-07 04:03:00 Test Item Value Reference Range Interpretation Comments Urine Urobilinogen (test code = Normal mg/dL Norm-1.0 91457-3) [facility] HealthUrine leukocyte esterase detection by automated test strip 2020-01-07 04:03:00 Test Item Value Reference Range Interpretation Comments Urine Leukocyte Esterase (test code = Trace Negative 95480-9) [facility] HealthUrine sediment erythrocyte count by microscopy (number/high power field)2020-01-07 04:03:00 Test Item Value Reference Range Interpretation Comments Urine RBC (test 0-2 /[HPF] See_Comment [Automated message] The code = 79801-7) system which generated this result tra nsmitted [...] Cells (test code Many /[LPF] None/Occ = 50617-2) [facility] HealthUrine sediment bacteria count by microscopy (number/high power field)2020-01-07 04:03:00 Test Item Value Reference Range Interpretation Comments Urine Bacteria (test code = Occasional /[HPF] None 5769-5) [facility] HealthUrine sediment hyaline cast count by microscopy (number/low power field)2020-01-07 04:03:00 Test Item Value Reference Range Interpretation Comments Urine Hyaline Casts (test code = 2-5 /[LPF] 5796-8) [facility] HealthYeast detection in urine sediment by light ydwwejckir4579-21-20 04:03:00 Test Item Value Reference Range Interpretation Comments Urine Yeast (test code = None Seen /[HPF] 16572-6) [facility]Service comment 04:03:00 Test Item Value [...] HealthAutomated erythrocyte mean corpuscular hemoglobin concentration measurement (mass/wpk7621-28-55 04:00:00 Test Item Value Reference Range Interpretation Comments Mean Corpuscular Hemoglobin Concent 32.6 g/dL 32.5-35.0 (test code = 786-4) [facility] HealthAutomated erythrocyte distribution width sxwod2032-50-81 04:00:00 Test Item Value Reference Range Interpretation Comments Red Cell Distribution Width (test code 13.5 % 11.5-14.5 = 788-0) [facility] HealthAutomated blood platelet count (count/volume)2020-01-07 04:00:00 Test Item Value Reference Range Interpretation Comments Platelet Count (test code = 191 10*3/uL 160-400 777-3) [facility] HealthAutomated blood platelet mean volume xiimkiuprjh7990-03-02 04:00:00 Test Item Value Reference Range Interpretation Comments Mean Platelet Volume (test code = 12.0 fL 7.5-11.2 36117-1) [facility] HealthAutomated blood neutrophil count as percentage of total lkmqwuscto6236-60-14 04:00:00 Test Item Value Reference Range Interpretation Comments Neutrophils (%) (Auto) (test code = 64 % 45-75 770-8) [facility] HealthAutomated blood immature granulocyte count as percentage of total kfqnwijemi8793-71-26 04:00:00 Test Item Value Reference Range Interpretation Comments Immature Granulocyte % (Auto) (test 0.2 % 0.0-1.5 code = 04679-6) [facility] HealthAutomated blood lymphocyte count as percentage of total nmxlkhpsbc8807-85-51 04:00:00 Test Item Value Reference Range Interpretation Comments Lymphocytes (%) (Auto) (test code = 26 % 20-48 736-9) [facility] HealthAutomated blood monocyte count as percentage of total leukocytes 2020-01-07 04:00:00 Test Item Value Reference Range Interpretation Comments Monocytes (%) (Auto) (test code = 6 % 1-9 5905-5) [facility] HealthAutomated blood eosinophil count as percentage of total kdryylkypu9065-28-71 04:00:00 Test Item Value Reference Range Interpretation Comments Eosinophils (%) (Auto) (test code = 3 % 0-4 713-8) [facility] HealthAutomated blood basophil count as percentage of total leukocytes 2020-01-07 04:00:00 Test Item Value Reference Range Interpretation Comments Basophils (%) (Auto) (test code = 1 % 0-2 706-2) [facility] HealthAutomated blood nucleated erythrocyte count as percentage of total effxcqghzc1668-91-59 04:00:00 Test Item Value Reference Range Interpretation Comments Nucleated Red Blood Cells % (test code 0 % 0-1 = 24768-7) [facility] HealthAutomated blood neutrophil count (number/volume)2020-01-07 04:00:00 Test Item Value Reference Range Interpretation Comments Neutrophils # (Auto) (test code 2.87 10*3/uL = 751-8) [facility] HealthProthrombin time (PT) in platelet poor znlimx1059-96-31 04:00:00 Test Item Value Reference Range Interpretation Comments Prothrombin Time (test code = 5902-2) 11.8 s 9.4-12.5 [facility] HealthINR in Platelet poor plasma by Coagulation ztlbl1012-14-53 04:00:00 Test Item Value Reference Range Interpretation Comments Prothromb Time International 1.1 {ratio} Ratio (test code = 6301-6) [facility] HealthPartial thromboplastin time (PTT) in platelet poor plasma 2020-01-07 04:00:00 Test Item Value Reference Range Interpretation Comments Activated Partial Thromboplast Time 30 s 25-37 (test code = 28045-7) [facility] HealthFibrin D-dimer FEU ehmd7280-74-35 04:00:00 Test Item Value Reference Range Interpretation Comments D-Dimer (test code = 10214-1) 423 ng/mL{FEU} 215-500 [facility] HealthSerum or plasma [...] Interpretation Comments Anion Gap (test code = 28409-6) 9.0 mmol/L 3.0-11.0 [facility] HealthSerum or plasma urea nitrogen measurement (mass/volume)2020-01-07 04:00:00 Test Item Value Reference Range Interpretation Comments Blood Urea Nitrogen (test code = 16.0 mg/dL 12-22 3094-0) [facility] HealthSerum or plasma creatinine measurement (mass/volume)2020-01-07 04:00:00 Test Item Value Reference Range Interpretation Comments Creatinine (test code = 2160-0) 0.90 mg/dL 0.60-1.02 [facility] calculated from serum or plasma creatinine by [id number] 04:00:00 Test Item Value Reference Range Interpretation Comments Estimated Creatinine Clearance (test 93.8 code = 06168-0) [facility]ardGlomerular filtration rate (GFR) estimation using MDRD equation 2020-01-07 04:00:00 Test Item Value Reference Range Interpretation Comments Estimat Glomerular Filtration Rate 77.12 >60 (test code = 528123062) [facility] HealthSerum or plasma urea nitrogen/creatinine mass tyrgu0909-25-10 04:00:00 Test Item Value Reference Range Interpretation Comments BUN/Creatinine Ratio (test code = 18 3097-3) [facility] HealthSerum or plasma glucose measurement (mass/volume)2020-01-07 04:00:00 Test Item Value Reference Range Interpretation Comments Glucose Level (test code = 2345-7) 88 mg/dL 74-112 [facility] HealthSerum or plasma calcium measurement (mass/volume)2020-01-07 04:00:00 Test Item Value Reference Range Interpretation Comments Calcium Level (test code = 53098-8) 9.8 mg/dL 9.0-10.2 [facility] HealthSerum or plasma [...] (test code = 1751-7) 4.9 g/dL 4.2-5.4 [facility] IncSerum globulin measurement by calculation (mass/volume)2020-01-07 04:00:00 Test Item Value Reference Range Interpretation Comments Globulin (test code = 42712-7) 3.0 g/dL [facility] HealthSerum or plasma albumin/globulin mass lekgf9178-08-65 04:00:00 Test Item Value Reference Range Interpretation Comments Albumin/Globulin Ratio (test code 1.6 {ratio} = 1759-0) [facility] HealthSerum or plasma alkaline phosphatase measurement (enzymatic activity/volume)2020-01-07 04:00:00 Test Item Value Reference Range Interpretation Comments Alkaline Phosphatase (test code = 78 U/L 45-100 6768-6) [facility]inal[facility] specimen collection [id number] 22:40:00 Test Item Value Reference Range Interpretation Comments Urine Source (test code = Urine Clean Catch 09066-0) [facility] HealthUrine color xaqevgeqbplzn8694-27-29 22:40:00 Test Item Value Reference Range Interpretation Comments Urine Color (test code = 5778-6) Yellow Yel-Lora [facility] HealthUrine appearance spnaeojvaaazv5526-31-57 22:40:00 Test Item Value Reference Range Interpretation Comments Urine Appearance (test code = 5767-9) Clear Clear [facility] HealthUrine pH measurement by test lvoax6853-74-67 22:40:00 Test Item Value Reference Range Interpretation Comments Urine pH (test code = 5803-2) 6.0 5.0-7.5 [facility] HealthSpecific gravity ur nxzbpdhe3753-07-56 22:40:00 Test Item Value Reference Range Interpretation Comments Urine Specific Bear (test code = 1.024 1.003-1.029 5811-5) [facility] HealthUrine protein measurement by automated test strip (mass/volume) 2019-09-08 22:40:00 Test Item Value Reference Range Interpretation Comments Urine Protein (test code = Trace mg/dL Neg - Trace 30027-5) [facility] HealthUrine glucose measurement by automated test strip (mass/volume) 2019-09-08 22:40:00 Test Item Value Reference Range Interpretation Comments Urine Glucose (UA) (test code = Negative Negative 76174-3) [facility] HealthUrine ketones detection by automated test [id number] 22:40:00 Test Item Value Reference Range Interpretation Comments Urine Ketones (test code = 62152-1) Trace Negative [facility] HealthUrine erythrocytes count by automated test strip (number/volume) 2019-09-08 22:40:00 Test Item Value Reference Range Interpretation Comments Urine Occult Blood (test code = Negative Negative 06504-2) [facility] HealthUrine nitrite detection by automated test bopri0240-53-15 22:40:00 Test Item Value Reference Range Interpretation Comments Urine Nitrite (test code = 55963-3) Negative Negative [facility] HealthUrine total bilirubin detection by automated test kmiit2273-67-03 22:40:00 Test Item Value Reference Range Interpretation Comments Urine Bilirubin (test code = Negative Negative 03086-6) [facility] HealthUrine urobilinogen measurement by automated test strip (mass/volume)2019-09-08 22:40:00 Test Item Value Reference Range Interpretation Comments Urine Urobilinogen (test code = Normal mg/dL Norm-1.0 17185-6) [facility] HealthUrine leukocyte esterase detection by automated test strip 2019-09-08 22:40:00 Test Item Value Reference Range Interpretation Comments Urine Leukocyte Esterase (test code = Trace Negative 91653-9) [facility] HealthUrine sediment erythrocyte count by microscopy (number/high power field)2019-09-08 22:40:00 Test Item Value Reference Range Interpretation Comments Urine RBC (test 0-2 /[HPF] See_Comment [Automated message] The code = 55200-2) system which generated this result tra nsmitted [...] (test None seen /[LPF] None/Occ code = 55212-9) [facility] HealthUrine sediment bacteria count by microscopy (number/high power field)2019-09-08 22:40:00 Test Item Value Reference Range Interpretation Comments Urine Bacteria (test code = Occasional /[HPF] None 5769-5) [facility] HealthUrine sediment hyaline cast count by microscopy (number/low power field)2019-09-08 22:40:00 Test Item Value Reference Range Interpretation Comments Urine Hyaline Casts (test code = 2-5 /[LPF] 5796-8) [facility] HealthYeast detection in urine sediment by light jqgwksuvra3229-19-80 22:40:00 Test Item Value Reference Range Interpretation Comments Urine Yeast (test code = None Seen /[HPF] 68732-9) [facility] comment [id number] 22:40:00 Test Item Value Reference Range Interpretation Comments Urine Culture Indicated (test code = Yes 8264-4) [facility] HealthAutomated blood nucleated erythrocyte count as percentage of total ucaekdaejp8756-97-11 22:15:00 Test Item Value Reference Range Interpretation Comments Nucleated Red Blood Cells % (test code 0 % 0-1 = 61490-8) [facility] HealthAutomated blood neutrophil count (number/volume)2019-09-08 22:15:00 [...] Interpretation Comments Anion Gap (test code = 10262-1) 15.0 mmol/L 3.0-11.0 [facility] HealthSerum or plasma [...] calculated from serum or plasma creatinine by [id number] 22:15:00 Test Item Value Reference Range Interpretation Comments Estimated Creatinine Clearance (test 134.0 code = 56591-4) [facility]ardGlomerular [facility] rate (GFR) estimation using MDRD equation 2019-09-08 22:15:00 Test Item Value Reference Range Interpretation Comments Estimat Glomerular Filtration Rate 116.39 >60 (test code = 47722-0) [facility] HealthSerum or plasma urea nitrogen/creatinine mass zlypv1394-82-43 22:15:00 Test Item Value Reference Range Interpretation Comments BUN/Creatinine Ratio (test code = 22 3097-3) [facility] HealthSerum or plasma glucose measurement (mass/volume)2019-09-08 22:15:00 Test Item Value Reference Range Interpretation Comments Glucose Level (test code = 2345-7) 82 mg/dL 70-110 [facility] HealthSerum or plasma calcium measurement (mass/volume)2019-09-08 22:15:00 Test Item Value Reference Range Interpretation Comments Calcium Level (test code = 25538-1) 8.9 mg/dL 8.4-10.2 [facility] HealthSerum or plasma [...] Range Interpretation Comments Globulin (test code = 58445-5) 3.2 g/dL [facility] HealthSerum or plasma albumin/globulin mass hmwqe5380-46-02 22:15:00 Test Item Value Reference Range Interpretation [...] 3040-3) 18 U/L 16-63 [facility] HealthCreatine kinase ser/ungu1495-39-22 22:15:00 Test Item Value Reference Range Interpretation Comments Total Creatine Kinase (test code = 84 U/L 24-170 2157-6) [facility] HealthSerum or plasma creatine kinase MB measurement (mass/volume) 2019-09-08 22:15:00 Test Item Value Reference Range Interpretation Comments Creatine Kinase MB (test code = 1.3 ng/mL 0-5 04714-7) [facility] HealthSerum or plasma cardiac troponin T [...] HealthAutomated erythrocyte mean corpuscular hemoglobin concentration measurement (mass/rvp4159-55-45 22:15:00 Test Item Value Reference Range Interpretation Comments Mean Corpuscular Hemoglobin Concent 33.5 g/dL 32.5-35.0 (test code = 786-4) [facility] HealthAutomated erythrocyte distribution width jkqgq9877-35-47 22:15:00 Test Item Value Reference Range Interpretation Comments Red Cell Distribution Width (test code 14.0 % 11.5-14.5 = 788-0) [facility] HealthAutomated blood platelet count (count/volume)2019-09-08 22:15:00 Test Item Value Reference Range Interpretation Comments Platelet Count (test code = 238 10*3/uL 160-400 777-3) [facility] HealthAutomated blood platelet mean volume bboszevyuqm3726-25-88 22:15:00 Test Item Value Reference Range Interpretation Comments Mean Platelet Volume (test code = 11.0 fL 7.5-11.2 78465-9) [facility] neutrophil count as percentage of total shjsbzfyxk3244-22-32 22:15:00 Test Item Value Reference Range Interpretation Comments Neutrophils (%) (Auto) (test code = 70 % 45-75 770-8) [facility]ard[facility]ated blood immature granulocyte count as percentage of total kfuagnmbvg7796-77-45 22:15:00 Test Item Value Reference Range Interpretation Comments Immature Granulocyte % (Auto) (test 0.2 % 0.0-1.5 code = 92052-8) [facility]ard[facility]ated blood lymphocyte count as percentage of total odgzroyqbo6197-73-27 22:15:00 Test Item Value Reference Range Interpretation Comments Lymphocytes (%) (Auto) (test code = 21 % 20-48 736-9) [facility]ard[facility] blood monocyte count as percentage of total leukocytes 2019-09-08 22:15:00 Test Item Value Reference Range Interpretation Comments Monocytes (%) (Auto) (test code = 7 % 1-9 5905-5) [facility]ardAutom[facility] blood eosinophil count as percentage of total pbraylshhn9979-99-20 22:15:00 Test Item Value Reference Range Interpretation Comments Eosinophils (%) (Auto) (test code = 1 % 0-4 713-8) [facility]ard[facility] blood basophil count as percentage of total leukocytes 2019-09-08 22:15:00 Test Item Value Reference Range Interpretation Comments Basophils (%) (Auto) (test code = 1 % 0-2 706-2) [facility]
--- NOTE | 2022-12-18 15:07 | RAD REPORT ---
EXAM DESCRIPTION: RAD - Shoulder Left 2 View - 12/18/2022 2:40 pm CLINICAL HISTORY: PAIN COMPARISON: No comparisons TECHNIQUE: Internal and external rotation views of the left shoulder were obtained. FINDINGS: There is no fracture or dislocation. AC joint is normal in appearance. No acute or suspici ous findings. IMPRESSION: Negative two-view left shoulder examination.
--- NOTE | 2022-12-18 15:07 | RAD REPORT ---
EXAM DESCRIPTION: RADChest Single View12/18/2022 2:40 pm CLINICAL HISTORY: CHEST PAIN COMPARISON: Chest Single View dated 11/03/2022; Chest Single View dated 11/01/2022; Chest Single View da caren 10/28/2022; Chest Single View dated 10/04/2022 TECHNIQUE: Portable AP view of the chest. FINDINGS: The lungs are clear. No pneumothorax or effusion. The cardiomediastinal contours are unre markable. IMPRESSION: No acute cardiopulmonary process.
[2022-12-18 15:09] LABS: Absolute Lymphocytes (CBC) 1.2 K/uL (0.7-4.9); Hematocrit 33.6 % (36.0-45.0); Lymphocytes % 29.2 % (15.3-44.8); MCV 89.7 fL (80-100); MPV 8.5 fL (7.6-11.3); RBC Red Blood Cell Count 3.74 M/uL (3.86-4.86)
[2022-12-18 15:31] LABS: Magnesium 2.1 mg/dL (1.6-2.4); Potassium 3.7 mEq/L (3.5-5.1); Troponin High Sensitivity 3.4 pg/mL (<58.9)
[2022-12-18] MEDS ORDERED: NA CHLORIDE 0.9% 1,000 ML ONE (17:15)
[2022-12-18] MEDS ORDERED: KETOROLAC 30 MG/ML INJ ONE (17:15)
--- NOTE | 2022-12-18 17:32 | EDPHYS ---
Physician Documentation [facility] Name: Salud Almanzar Age: 37 yrs Sex: Female : 1985 Arrival Date: 12/18/2022 Time: 14:15 Bed 19 Private MD: ED Physician Lolis Vanegas HPI: 12/18 15:27 This 37 yrs old Female presents to ER via Ambulatory with complaints of Chest Pain, kb Shoulder Pain. 15:27 The patient or guardian complains of pain. left shoulder. Context: The problem was kb sustained outdoors, at work, resulted from from a chronic condition, lifting or carrying, The patient reports no decreased range of motion. The patient reports no obvious deformity. Onset: The symptoms/episode began/occurred 3 day(s) ago. Modifying factors: the symptoms are alleviated by nothing. The symptoms are aggravated by movement. Associated signs and symptoms: Pertinent positives: chest pain. Severity of symptoms: At their worst the symptoms were moderate, in the emergency department the symptoms are unchanged. Treatment prior to arrival includes: no previous treatment. The patient has experienced similar episodes in the past. The patient has not recently seen a physician. Pt reports she has had intermittent left shoulder pain for years, but it started up again on Monday. Also reports chest pain that began on that day. 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 - Social history:: Smoking status: Patient reports the use of cigarette tobacco products, denies chronic smoking, but will smoke occasionally. ROS: 14:51 Constitutional: Negative for fever, chills, and weight loss. kb 14:51 Cardiovascular: Positive for chest pain. 14:51 MS/extremity: Positive for pain, of the anterior aspect of left shoulder. 14:51 All other systems are negative. Exam: 14:50 ECG was reviewed by the Attending Physician. kb 15:24 Constitutional: This is a well developed, well nourished patient who is awake, alert, kb and in no acute distress. Head/Face: Normocephalic, atraumatic. ENT: Moist Mucous membranes Cardiovascular: Regular rate and rhythm with a normal S1 and S2. No gallops, murmurs, or rubs. No pulse deficits. Respiratory: Respirations even and unlabored. No increased work of breathing. Talking in full sentences Abdomen/GI: Soft, non-tender. No distention Skin: Warm, dry with normal turgor. Normal color. MS/ Extremity: Pulses equal, no cyanosis. Neurovascular intact. Full, normal range of motion. Neuro: Awake and alert, GCS 15, oriented to person, place, time, and situation. Moves all extremities. Normal gait. Vital Signs: 14:21 BP 149 / 107; Pulse 69; Resp 16; Temp 98.2(TE); Pulse Ox 100% on R/A; Weight 104.33 kg; vg1 Height 5 ft. 10 in. ; 15:45 BP 145 / 98; Pulse 68; Resp 22; Pulse Ox 100% on R/A; kr3 16:45 BP 156 / 102; Pulse 76; Resp 22; Pulse Ox 100% on R/A; kr3 17:48 BP 148 / 90; Pulse 69; Resp 20; Pulse Ox 100% on R/A; kr3 14:21 Body Mass Index 33.00 (104.33 kg, 177.8 cm) vg1 MDM: 14:17 Patient medically screened. kb 15:24 Data reviewed: vital signs, nurses notes. kb 17:25 Scoring Tools PERC Rule for PE Age >/= 50 No HR >/= 100 No O2 Sat Room Air < 95% No kb Unilateral leg swelling No Hemoptysis No Recent surgery or trauma </= 4 wks ago requiring treatment with general anesthesia No (0 pt) Prior PE or DVT No Hormone use (Oral contraceptives, hormone replacement or estrogenic hormones use in males or female patients No. 17:29 Differential diagnosis: Anterior dislocation with fracture, Anterior dislocation kb without fracture, humeral head fracture, tendonitis, radiculopathy, PE, MT. Test considered but Not performed: CT: CT PE considered, but PERC negative. Counseling: I had a detailed discussion with the patient and/or guardian regarding: the historical points, exam findings, and any diagnostic results supporting the discharge/admit diagnosis, lab results, radiology results, the need for outpatient follow up, a family practitioner, to return to the emergency department if symptoms worsen or persist or if there are any questions or concerns that arise at home. 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 12/18 14:27 Order name: Basic Metabolic Panel; Complete Time: 15:34 kb 12/18 14:27 Order name: CBC with Diff; Complete Time: 15:17 kb 12/18 14:27 Order name: D-Dimer kb 12/18 14:27 Order name: Troponin HS; Complete Time: 15:34 kb 12/18 14:27 Order name: Magnesium; Complete Time: 15:34 kb 12/18 14:27 Order name: CPK; Complete Time: 15:34 kb 12/18 14:27 Order name: XRAY Chest (1 view); Complete Time: 15:17 kb 12/18 14:27 Order name: Shoulder Left (2 View) XRAY; Complete Time: 15:17 kb 12/18 14:27 Order name: EKG; Complete Time: 14:28 kb 12/18 14:27 Order name: Cardiac monitoring; Complete Time: 14:29 kb 12/18 14:27 Order name: EKG - Nurse/Tech; Complete Time: 14:30 kb 12/18 14:27 Order name: IV Saline Lock; Complete Time: 14:50 kb 12/18 14:27 Order name: Labs collected and sent; Complete Time: 14:50 kb 12/18 14:27 Order name: O2 Per Protocol; Complete Time: 14:30 kb 12/18 14:27 Order name: O2 Sat Monitoring; Complete Time: 14:30 kb EC:50 Rate is 75 beats/min. Rhythm is regular. QRS Scott is Normal. TN interval is normal at kb 140 msec. QRS interval is normal at 82 msec. QT interval is normal at 413 msec. Administered Medications: 17:50 Discontinued: NS 0.9% IV 1000 ml IV at 1000 ml once kr3 17:13 Drug: Ketorolac IVP 15 mg Route: IVP; Site: left antecubital; kr3 17:50 Follow up: Response: No adverse reaction kr3 17:13 Drug: NS 0.9% IV 1000 ml Route: IV; Rate: 1000 ml; Site: left antecubital; kr3 17:50 Follow up: Response: No adverse reaction; IV Status: IV converted to saline lock; IV kr3 Intake: 300ml 17:40 Drug: Bystolic 2.5 mg Route: PO; kr3 17:51 Follow up: Response: No adverse reaction kr3 17:40 Drug: hydrOXYzine PO 25 mg Route: PO; kr3 17:51 Follow up: Response: No adverse reaction kr3 Disposition Summary: 12/18/22 17:31 Discharge Ordered Location: Home kb Condition: Stable kb Diagnosis - Pain in left shoulder kb - Chest pain, unspecified kb Followup: kb - With: Emergency Department - When: As needed - Reason: Worsening of condition Followup: kb - With: Private Physician - When: 2 - 3 days - Reason: Recheck today's complaints, Continuance of care, Re-evaluation by your physician Discharge Instructions: - Discharge Summary Sheet kb - Shoulder Pain, [id number] kb - Nonspecific Chest Pain, Adult, [id number] kb - Cervical Radiculopathy, [id number] kb Forms: - Medication Reconciliation Form kb - Thank You Letter kb - Antibiotic Education kb - Prescription Opioid Use kb Prescriptions: - Diclofenac Sodium 75 mg Oral tablet,delayed release (DR/EC) - take 1 tablet by ORAL route 2 times per day As needed; 30 tablet; Refills: 0, kb Product Selection Permitted - orphenadrine citrate 100 mg Oral Tablet Sustained Release - take 1 tablet by ORAL route 2 times per day As needed; 20 tablet; Refills: 0, kb Product Selection Permitted Signatures: Dispatcher [employer] Emmanuelle Esquivel, CAMILA TANP-Nelly Thakur, RN RN vg1 Samantha Jarvis, RN RN kr3
--- NOTE | 2022-12-18 17:32 | ER ---
Nurse's Notes [facility] Name: Salud Almanzar Age: 37 yrs Sex: Female : 1985 Arrival Date: 12/18/2022 Time: 14:15 Bed 19 Private MD: Diagnosis: Pain in left shoulder;Chest pain, unspecified Presentation: 12/18 14:21 Chief complaint: Patient states: Monday heavy lifting at work; c/o DERRICK shoulder pain vg1 and neck. Also stated chest 'heaviness' on left upper side. Coronavirus screen: Vaccine status: Patient reports being unvaccinated. Client denies travel out of the [place] in the last 14 days. Ebola Screen: Patient negative for fever greater than or equal to 101.5 degrees Fahrenheit, and additional compatible Ebola Virus Disease symptoms Patient denies exposure to infectious person. Patient denies travel to an Ebola-affected area in the 21 days before illness onset. Initial Sepsis Screen: Does the patient meet any 2 criteria? No. Patient's initial sepsis screen is negative. Does the patient have a suspected source of infection? No. Patient's initial sepsis screen is negative. Risk Assessment: Do you want to hurt yourself or someone else? Patient reports no desire to harm self or others. Onset of symptoms was December 16, 2022. 14:21 Method Of Arrival: Ambulatory 1 14:21 Acuity: JOSE 3 vg1 Triage Assessment: 14:26 General: Appears in no apparent distress. uncomfortable, Behavior is cooperative. Pain: vg1 Complains of pain in anterior aspect of left upper chest, Right shoulder, Left shoulder. Pain: Pain currently is 6 out of 10 on a pain scale. Cardiovascular: Patient's skin is warm and dry. Respiratory: Airway is patent Respiratory effort is even, unlabored. Derm: Skin is pink, warm \T\ dry. Musculoskeletal: Circulation, motion, and sensation intact. 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 - Social history:: Smoking status: Patient reports the use of cigarette tobacco products, denies chronic smoking, but will smoke occasionally. Screenin:48 [facility] ED Fall Risk Assessment (Adult) History of falling in the last 3 months, kr3 including since admission No falls in past 3 months (0 pts). Abuse screen: Denies threats or abuse. Nutritional screening: No deficits noted. Tuberculosis screening: No symptoms or risk factors identified. Assessment: 14:34 General: Appears in no apparent distress. comfortable. Pain: Complains of pain in kr3 chest. Neuro: Level of Consciousness is awake, alert, obeys commands, Oriented to person, place, time, situation. Cardiovascular: Patient's skin is warm and dry. Respiratory: Airway is patent Respiratory effort is even, unlabored, Respiratory pattern is regular, symmetrical. GI: No signs and/or symptoms were reported involving the gastrointestinal system. : No signs and/or symptoms were reported regarding the genitourinary system. EENT: No signs and/or symptoms were reported regarding the EENT system. Derm: No signs and/or symptoms reported regarding the dermatologic system. Musculoskeletal: No signs and/or symptoms reported regarding the musculoskeletal system. 15:40 Reassessment: Patient appears in no apparent distress at this time. Patient and/or kr3 family updated on plan of care and expected duration. Pain level reassessed. Patient is alert, oriented x 3, equal unlabored respirations, skin warm/dry/pink. 16:59 Reassessment: Patient and/or family updated on plan of care and expected duration. Pain kr3 level reassessed. Patient is alert, oriented x 3, equal unlabored respirations, skin warm/dry/pink. patient c/o chest pain . 17:47 Reassessment: Patient appears in no apparent distress at this time. Patient and/or kr3 family updated on plan of care and expected duration. Pain level reassessed. 17:49 Pain: Pain does not radiate. Pain began 2-3 days ago. kr3 Vital Signs: 14:21 BP 149 / 107; Pulse 69; Resp 16; Temp 98.2(TE); Pulse Ox 100% on R/A; Weight 104.33 kg; vg1 Height 5 ft. 10 in. ; 15:45 BP 145 / 98; Pulse 68; Resp 22; Pulse Ox 100% on R/A; kr3 16:45 BP 156 / 102; Pulse 76; Resp 22; Pulse Ox 100% on R/A; kr3 17:48 BP 148 / 90; Pulse 69; Resp 20; Pulse Ox 100% on R/A; kr3 14:21 Body Mass Index 33.00 (104.33 kg, 177.8 cm) vg1 ED Course: 14:16 Patient arrived in ED. ts1 14:16 Emmanuelle Marsh F[facility]-C [facility] kb 14:16 Lolis Vanegas MD is Attending Physician. kb 14:26 Triage completed. vg1 14:26 Arm band placed on. EKG completed in triage. Results shown to MD. vg1 14:29 Patient has correct armband on for positive identification. Placed in gown. Bed in low mm9 position. Call light in reach. Side rails up X 1. Warm blanket given. Client placed on continuous cardiac and pulse oximetry monitoring. NIBP monitoring applied. color television console monitor on. Pulse ox on. NIBP on. 14:29 EKG done, by ED staff, reviewed by Emmanuelle JENSEN. mm9 14:30 Samantha Jarvis RN is Primary Nurse. kr3 14:44 XRAY Chest (1 view) In Process Unspecified. EDMS 14:44 Shoulder Left (2 View) XRAY In Process Unspecified. EDMS 14:50 Inserted saline lock: 20 gauge in left antecubital area, using aseptic technique. Blood kr3 collected. 17:49 No provider procedures requiring assistance completed. IV discontinued, intact, kr3 bleeding controlled, No redness/swelling at site. Pressure dressing applied. 17:49 Patient maintains SpO2 saturation greater than 95% on room air. kr3 Administered Medications: 17:50 Discontinued: NS 0.9% IV 1000 ml IV at 1000 ml once kr3 17:13 Drug: Ketorolac IVP 15 mg Route: IVP; Site: left antecubital; kr3 17:50 Follow up: Response: No adverse reaction kr3 17:13 Drug: NS 0.9% IV 1000 ml Route: IV; Rate: 1000 ml; Site: left antecubital; kr3 17:50 Follow up: Response: No adverse reaction; IV Status: IV converted to saline lock; IV kr3 Intake: 300ml 17:40 Drug: Bystolic 2.5 mg Route: PO; kr3 17:51 Follow up: Response: No adverse reaction kr3 17:40 Drug: hydrOXYzine PO 25 mg Route: PO; kr3 17:51 Follow up: Response: No adverse reaction kr3 Medication: 17:50 VIS not applicable for this client. kr3 Intake: 17:50 IV: 300ml; Total: 300ml. kr3 Outcome: 17:31 Discharge ordered by MD. montemayor 17:49 Discharged to home ambulatory. kr3 17:49 Condition: stable 17:49 Discharge instructions given to patient, Instructed on discharge instructions, follow up and referral plans. medication usage, Demonstrated understanding of instructions, follow-up care, medications, Prescriptions given X 2. 17:51 Patient left the ED. kr3 Signatures: Dispatcher [employer] EDMS Emmanuelle Marsh, CAMILA ROWE-Nelly Thakur RN RN vg1 Samantha Jarvis RN RN kr3 Mague Cardoza mm9 Olivia Azar, OLIMPIA PAS ts1
[2022-12-18] MEDS ORDERED: hydrOXYzine HCL 25 MG TAB ONE (17:42)
[2022-12-18] MEDS ORDERED: NEBIVOLOL HCL 5 MG TAB ONE (17:44)
[2022-12-18 18:10] VITALS: TEMP 98.2; O2SAT 100
[2022-12-18 18:19] VITALS: BP 148/90
--- NOTE | 2022-12-19 17:51 | EKG ---
Test Date: 2022-12-18 Test Time: 14:26:23 Spotlight Operator: JESSICA MEASUREMENT RESULTS: Intervals: Rate: 75 HI: 140 QRSD: 82 QT: 370 QTc: 413 [place]: P: 47 HI: 140 QRS: 38 T: 49 INTERPRETIVE STATEMENTS: Normal sinus rhythm Possible Left atrial enlargement Cannot rule out Anterior infarct, age undetermined Abnormal ECG Compared to ECG 11/03/2022 21:27:38 No significant changes Electronically Signed On 12-19-22 17:49:11 CDT by Maurice Huitron
== END 2022-12-18 17:51 | disposition home or self-care (01) ==
LOC: ER 14:15
DX: M25.512 Pain in left shoulder (principal); R07.89 Other chest pain; I10 Essential (primary) hypertension; F17.210 Nicotine dependence, cigarettes, uncomplicated; Z88.8 Allergy status to other drugs, medicaments and biological substances
CPT/HCPCS: 96361; 93005; 85025; 80048; 36415; 83735; 82550; 85379; 84484; 71045; 73030; 96374; 99285; J7030

== ENCOUNTER 2022-12-21 14:49 | Emergency (ER) | payer OTHER ==
--- OUTSIDE RECORDS SUMMARY | 2022-12-21 14:53 | XMS REPORT | Continuity of Care Document ---
:1985 Author Organization [facility] t Address [address] [place] [id number] Care Team Providers Name Role Phone ASHA MCKEE Attending Clinician Unavailable PHYSICIAN, ER Attending Clinician Unavailable Problems Condition Condition Condition Status Onset Resolution Last Treating Co mments Source Name Details Category Date Date Treatment Clinician Date Problem Condition [facility] Allergies, Adverse Reactions, Alerts This patient has no known allergies or adverse reactions. Social History Social Habit Start Date Stop Date Quantity Comments Source Sex Assigned At [address] [facility] 00:00:00 00:00:00 Smoking Status Start Date Stop Date Source Unknown if ever smoked [facility] [employer] Never smoked tobacco (finding) [facility] [employer] Medications Ordered Filled Start Stop Current Ordering [...] Source Body Temperature 2020-01-07 10:16:00 97.7 [degF] [employer] Heart Rate 2020-01-07 10:16:00 79 /min Pay[employer] Respiratory rate 2020-01-07 10:16:00 18 /min [employer] BP Systolic 2020-01-07 10:16:00 134 mm[Hg] [facility] Diastolic 2020-01-07 10:16:00 90 mm[Hg] [facility] Respiratory rate 2019-09-08 21:00:00 18 /min [facility] BP Systolic 2019-09-08 21:00:00 146 mm[Hg] [facility] BP Diastolic 2019-09-08 21:00:00 93 mm[Hg] [facility] Weight 2019-09-08 21:00:00 235 [lb_av] [facility] BMI (Body Mass Index) 2019-09-08 21:00:00 34.7 kg/m2 [facility] [employer] Procedures Procedure Date / Time Performed Performing Clinician [facility] e ECG (electrocardiogram) 2020-01-07 00:00:00 [facility] [employer] X-ray of chest, single 2020-01-07 00:00:00 [employer] view Computed tomography of 2020-01-07 00:00:00 [facility] [employer] head or brain without contrast Computed tomography of 2020-01-07 00:00:00 [facility] [employer] cervical spine without contrast ECG (electrocardiogram) 2019-09-08 00:00:00 [facility] [employer] X-ray of chest, two views 2019-09-08 00:00:00 [facility] Encounters Start End Encounter Admission Attending Care Care Encounter Source Date/Time Date/Time Type Type Clinicians Facility Department ID 2020-01-09 2020-01-09 Outpatient GLORIA ZAMORA [id number] [facility] 13:44:00 13:44:00 A[facility] 03 S [facility] 2020-01-07 2020-01-07 Departed ER PHYSICIAN, GLORIA CASTRO [id number] [facility] 03:35:00 03:35:00 Emergency ER [facility] [address] [facility] 2019-09-08 2019-09-09 Departed GLORIA CASTRO [id number] [facility] 20:50:00 00:23:00 Emergency [facility] [address] [facility] Results Test Description Test Time Test Comments Results Result Comments Source Serum or plasma natriuretic peptide B measurement (mas s/volume) 2020-01-07 08:11:00 Test Item Value Reference Range Interpretation Comme nts B-Type Natriuretic Peptide (test code = 15708-5) 4 pg/mL 0-101 [facility] HealthSerum or plasma free thyroxine (FT4) measurement (mass/volume) 2020-01-07 07:47:00 Test Item Value Reference Range Interpretation Comments Free Thyroxine (test code = 1.48 ng/dL 1.09-1.53 3024-7) [facility] HealthSerum or plasma thyrotropin measurement with detection limit of 0.005 mIU/L or less (units/volume)2020-01-07 07:47:00 Test Item Value Reference Range Interpretation Comments Thyroid Stimulating Hormone 1.435 u[iU]/mL 0.550-4.780 (TSH) (test code = 72117-9) [facility] Health[facility]um or plasma free triiodothyronine (T3) [...] 3040-3) 29 U/L 31-96 [facility] HealthCreatine kinase ser/jgan0198-22-14 07:27:00 Test Item Value Reference Range Interpretation Comments Total Creatine Kinase (test code = 61 U/L 30-160 2157-6) [facility] HealthSerum or plasma creatine kinase MB measurement (mass/volume) 2020-01-07 07:27:00 Test Item Value Reference Range Interpretation Comments Creatine Kinase MB (test code = < 0.18 ng/mL 0-5 34959-6) [facility] HealthSerum or plasma cardiac troponin I measurement (mass/volume) 2020-01-07 07:27:00 Test Item Value Reference Range Interpretation Comments Troponin I (test code = < 0.006 ng/mL 0.000-0.040 54880-9) [facility] HealthSerum or plasma myoglobin measurement (mass/volume)2020-01-07 07:27:00 Test Item Value Reference Range Interpretation Comments Myoglobin (test code = 2639-3) 20.4 ng/mL <110.0 [facility] HealthUrinalysis specimen collection [id number] 04:03:00 Test Item Value Reference Range Interpretation Comments Urine Source (test code = Urine Clean Catch 17427-1) [facility] HealthUrine color crcpafldxiyrq0513-91-37 04:03:00 Test Item Value Reference Range Interpretation Comments Urine Color (test code = 5778-6) Colorless Yel-Lora [facility] HealthUrine appearance msasxfyhilkkc5854-86-13 04:03:00 Test Item Value Reference Range Interpretation Comments Urine Appearance (test code = 5767-9) Clear Clear [facility] HealthUrine pH measurement by test xtjxq3215-74-53 04:03:00 Test Item Value Reference Range Interpretation Comments Urine pH (test code = 5803-2) 5.0 5.0-7.5 [facility] HealthSpecific gravity ur ltwkeddb4985-35-18 04:03:00 Test Item Value Reference Range Interpretation Comments Urine Specific [place] (test code = 1.003 1.003-1.029 5811-5) [facility] HealthUrine protein measurement by automated test strip (mass/volume) 2020-01-07 04:03:00 Test Item Value Reference Range Interpretation Comments Urine Protein (test code = Negative mg/dL Neg - Trace 26851-9) [facility] HealthUrine glucose measurement by automated test strip (mass/volume) 2020-01-07 04:03:00 Test Item Value Reference Range Interpretation Comments Urine Glucose (UA) (test code = Negative Negative 20064-4) [facility] HealthUrine ketones detection by automated test [id number] 04:03:00 Test Item Value Reference Range Interpretation Comments Urine Ketones (test code = 41131-2) Negative Negative [facility] HealthUrine erythrocytes count by automated test strip (number/volume) 2020-01-07 04:03:00 Test Item Value Reference Range Interpretation Comments Urine Occult Blood (test code = Negative Negative 23192-2) [facility] HealthUrine nitrite detection by automated test mxyrv5002-56-90 04:03:00 Test Item Value Reference Range Interpretation Comments Urine Nitrite (test code = 72397-3) Negative Negative [facility] HealthUrine total bilirubin detection by automated test dvxel0543-39-06 04:03:00 Test Item Value Reference Range Interpretation Comments Urine Bilirubin (test code = Negative Negative 36176-8) [facility] HealthUrine urobilinogen measurement by automated test strip (mass/volume)2020-01-07 04:03:00 Test Item Value Reference Range Interpretation Comments Urine Urobilinogen (test code = Normal mg/dL Norm-1.0 70719-0) [facility] HealthUrine leukocyte esterase detection by automated test strip 2020-01-07 04:03:00 Test Item Value Reference Range Interpretation Comments Urine Leukocyte Esterase (test code = Trace Negative 79407-0) [facility] HealthUrine sediment erythrocyte count by microscopy (number/high power field)2020-01-07 04:03:00 Test Item Value Reference Range Interpretation Comments Urine RBC (test 0-2 /[HPF] See_Comment [Automated message] The code = 53514-9) system which generated this result tra nsmitted [...] Cells (test code Many /[LPF] None/Occ = 92281-9) [facility] HealthUrine sediment bacteria count by microscopy (number/high power field)2020-01-07 04:03:00 Test Item Value Reference Range Interpretation Comments Urine Bacteria (test code = Occasional /[HPF] None 5769-5) [facility] HealthUrine sediment hyaline cast count by microscopy (number/low power field)2020-01-07 04:03:00 Test Item Value Reference Range Interpretation Comments Urine Hyaline Casts (test code = 2-5 /[LPF] 5796-8) [facility] HealthYeast detection in urine sediment by light veprfprcmc6217-63-75 04:03:00 Test Item Value Reference Range Interpretation Comments Urine Yeast (test code = None Seen /[HPF] 93493-7) [facility] HealthService comment 04:03:00 Test Item Value [...] HealthAutomated erythrocyte mean corpuscular hemoglobin concentration measurement (mass/kbw8213-35-95 04:00:00 Test Item Value Reference Range Interpretation Comments Mean Corpuscular Hemoglobin Concent 32.6 g/dL 32.5-35.0 (test code = 786-4) [facility] HealthAutomated erythrocyte distribution width [id number] 04:00:00 Test Item Value Reference Range Interpretation Comments Red Cell Distribution Width (test code 13.5 % 11.5-14.5 = 788-0) [facility] HealthAutomated blood platelet count (count/volume)2020-01-07 04:00:00 Test Item Value Reference Range Interpretation Comments Platelet Count (test code = 191 10*3/uL 160-400 777-3) [facility] HealthAutomated blood platelet mean volume cqaxpnfjkqe2638-09-80 04:00:00 Test Item Value Reference Range Interpretation Comments Mean Platelet Volume (test code = 12.0 fL 7.5-11.2 23512-4) [facility] HealthAutomated blood neutrophil count as percentage of total aoixtjdbie1598-32-41 04:00:00 Test Item Value Reference Range Interpretation Comments Neutrophils (%) (Auto) (test code = 64 % 45-75 770-8) [facility] HealthAutomated blood immature granulocyte count as percentage of total aqffbzrwbr0947-88-99 04:00:00 Test Item Value Reference Range Interpretation Comments Immature Granulocyte % (Auto) (test 0.2 % 0.0-1.5 code = 22600-1) [facility] HealthAutomated blood lymphocyte count as percentage of total xhafjxizot3457-09-50 04:00:00 Test Item Value Reference Range Interpretation Comments Lymphocytes (%) (Auto) (test code = 26 % 20-48 736-9) [facility] HealthAutomated blood monocyte count as percentage of total leukocytes 2020-01-07 04:00:00 Test Item Value Reference Range Interpretation Comments Monocytes (%) (Auto) (test code = 6 % 1-9 5905-5) [facility] HealthAutomated blood eosinophil count as percentage of total mgfsppebmr1093-38-13 04:00:00 Test Item Value Reference Range Interpretation Comments Eosinophils (%) (Auto) (test code = 3 % 0-4 713-8) [facility] HealthAutomated blood basophil count as percentage of total leukocytes 2020-01-07 04:00:00 Test Item Value Reference Range Interpretation Comments Basophils (%) (Auto) (test code = 1 % 0-2 706-2) [facility] HealthAutomated blood nucleated erythrocyte count as percentage of total lqtgzjpqgr0923-40-47 04:00:00 Test Item Value Reference Range Interpretation Comments Nucleated Red Blood Cells % (test code 0 % 0-1 = 30634-8) [facility] HealthAutomated blood neutrophil count (number/volume)2020-01-07 04:00:00 Test Item Value Reference Range Interpretation Comments Neutrophils # (Auto) (test code 2.87 10*3/uL = 751-8) [facility] HealthProthrombin time (PT) in platelet poor afwziq4149-72-32 04:00:00 Test Item Value Reference Range Interpretation Comments Prothrombin Time (test code = 5902-2) 11.8 s 9.4-12.5 [facility] HealthINR in Platelet poor plasma by Coagulation scvvf9340-38-60 04:00:00 Test Item Value Reference Range Interpretation Comments Prothromb Time International 1.1 {ratio} Ratio (test code = 6301-6) [facility] HealthPartial thromboplastin time (PTT) in platelet poor plasma 2020-01-07 04:00:00 Test Item Value Reference Range Interpretation Comments Activated Partial Thromboplast Time 30 s 25-37 (test code = 10052-6) [facility] HealthFibrin D-dimer FEU iusb1729-62-69 04:00:00 Test Item Value Reference Range Interpretation Comments D-Dimer (test code = 43726-7) 423 ng/mL{FEU} 215-500 [facility] HealthSerum or plasma [...] Interpretation Comments Anion Gap (test code = 78767-2) 9.0 mmol/L 3.0-11.0 [facility] HealthSerum or plasma urea nitrogen measurement (mass/volume)2020-01-07 04:00:00 Test Item Value Reference Range Interpretation Comments Blood Urea Nitrogen (test code = 16.0 mg/dL 12-22 3094-0) [facility] HealthSerum or plasma creatinine measurement (mass/volume)2020-01-07 04:00:00 Test Item Value Reference Range Interpretation Comments Creatinine (test code = 2160-0) 0.90 mg/dL 0.60-1.[address] [facility] calculated from serum or plasma creatinine by [id number] 04:00:00 Test Item Value Reference Range Interpretation Comments Estimated Creatinine Clearance (test 93.8 code = 18292-0) [facility] HospitalGlomerular filtration rate (GFR) estimation using MDRD equation 2020-01-07 04:00:00 Test Item Value Reference Range Interpretation Comments Estimat Glomerular Filtration Rate 77.12 >60 (test code = 694840726) [facility] HealthSerum or plasma urea nitrogen/creatinine mass kmfnr8089-59-61 04:00:00 Test Item Value Reference Range Interpretation Comments BUN/Creatinine Ratio (test code = 18 3097-3) [facility] HealthSerum or plasma glucose measurement (mass/volume)2020-01-07 04:00:00 Test Item Value Reference Range Interpretation Comments Glucose Level (test code = 2345-7) 88 mg/dL 74-112 [facility] HealthSerum or plasma calcium measurement (mass/volume)2020-01-07 04:00:00 Test Item Value Reference Range Interpretation Comments Calcium Level (test code = 83617-6) 9.8 mg/dL 9.0-10.2 [facility] HealthSerum or plasma [...] g/dL 4.2-5.4 [facility] globulin measurement by calculation (mass/volume)2020-01-07 04:00:00 Test Item Value Reference Range Interpretation Comments Globulin (test code = 40898-8) 3.0 g/dL [facility] HealthSerum or plasma albumin/globulin mass jevrn0627-21-34 04:00:00 Test Item Value Reference Range Interpretation Comments Albumin/Globulin Ratio (test code 1.6 {ratio} = 1759-0) [facility] HealthSerum or plasma alkaline phosphatase measurement (enzymatic activity/volume)2020-01-07 04:00:00 Test Item Value Reference Range Interpretation Comments Alkaline Phosphatase (test code = 78 U/L 45-100 6768-6) [facility] Hospital[facility]inalysis specimen collection [id number] 22:40:00 Test Item Value Reference Range Interpretation Comments Urine Source (test code = Urine Clean Catch 21511-7) [facility] HealthUrine color lwsgffcvavvve4782-30-17 22:40:00 Test Item Value Reference Range Interpretation Comments Urine Color (test code = 5778-6) Yellow Yel-Lora [facility] HealthUrine appearance qhbyeblyllwxq8342-94-04 22:40:00 Test Item Value Reference Range Interpretation Comments Urine Appearance (test code = 5767-9) Clear Clear [facility] HealthUrine pH measurement by test mydrt2373-03-37 22:40:00 Test Item Value Reference Range Interpretation Comments Urine pH (test code = 5803-2) 6.0 5.0-7.5 [facility] HealthSpecific gravity ur ajvpayce5933-31-49 22:40:00 Test Item Value Reference Range Interpretation Comments Urine Specific [place] (test code = 1.024 1.003-1.029 5811-5) [facility] HealthUrine protein measurement by automated test strip (mass/volume) 2019-09-08 22:40:00 Test Item Value Reference Range Interpretation Comments Urine Protein (test code = Trace mg/dL Neg - Trace 34800-3) [facility] HealthUrine glucose measurement by automated test strip (mass/volume) 2019-09-08 22:40:00 Test Item Value Reference Range Interpretation Comments Urine Glucose (UA) (test code = Negative Negative 48406-2) [facility] HealthUrine ketones detection by automated test [id number] 22:40:00 Test Item Value Reference Range Interpretation Comments Urine Ketones (test code = 39470-8) Trace Negative [facility] HealthUrine erythrocytes count by automated test strip (number/volume) 2019-09-08 22:40:00 Test Item Value Reference Range Interpretation Comments Urine Occult Blood (test code = Negative Negative 02816-8) [facility] HealthUrine nitrite detection by automated test modkt1079-88-49 22:40:00 Test Item Value Reference Range Interpretation Comments Urine Nitrite (test code = 14061-4) Negative Negative [facility] HealthUrine total bilirubin detection by automated test wgvee7704-49-71 22:40:00 Test Item Value Reference Range Interpretation Comments Urine Bilirubin (test code = Negative Negative 46699-0) [facility] HealthUrine urobilinogen measurement by automated test strip (mass/volume)2019-09-08 22:40:00 Test Item Value Reference Range Interpretation Comments Urine Urobilinogen (test code = Normal mg/dL Norm-1.0 48889-9) [facility] HealthUrine leukocyte esterase detection by automated test strip 2019-09-08 22:40:00 Test Item Value Reference Range Interpretation Comments Urine Leukocyte Esterase (test code = Trace Negative 99835-2) [facility] HealthUrine sediment erythrocyte count by microscopy (number/high power field)2019-09-08 22:40:00 Test Item Value Reference Range Interpretation Comments Urine RBC (test 0-2 /[HPF] See_Comment [Automated message] The code = 86631-2) system which generated this result tra nsmitted [...] (test None seen /[LPF] None/Occ code = 70181-7) [facility] HealthUrine sediment bacteria count by microscopy (number/high power field)2019-09-08 22:40:00 Test Item Value Reference Range Interpretation Comments Urine Bacteria (test code = Occasional /[HPF] None 5769-5) [facility] HealthUrine sediment hyaline cast count by microscopy (number/low power field)2019-09-08 22:40:00 Test Item Value Reference Range Interpretation Comments Urine Hyaline Casts (test code = 2-5 /[LPF] 5796-8) [facility] HealthYeast detection in urine sediment by light kbqltyzhpy5936-16-58 22:40:00 Test Item Value Reference Range Interpretation Comments Urine Yeast (test code = None Seen /[HPF] 23332-1) [facility] comment [id number] 22:40:00 Test Item Value Reference Range Interpretation Comments Urine Culture Indicated (test code = Yes 8264-4) [facility] HealthAutomated blood nucleated erythrocyte count as percentage of total miphhsevye1252-92-36 22:15:00 Test Item Value Reference Range Interpretation Comments Nucleated Red Blood Cells % (test code 0 % 0-1 = 10229-2) [facility] HealthAutomated blood neutrophil count (number/volume)2019-09-08 22:15:00 [...] Interpretation Comments Anion Gap (test code = 27785-9) 15.0 mmol/L 3.0-11.0 [facility] HealthSerum or plasma [...] calculated from serum or plasma creatinine by [id number] 22:15:00 Test Item Value Reference Range Interpretation Comments Estimated Creatinine Clearance (test 134.0 code = 52920-3) [facility] HospitalGl[facility] rate (GFR) estimation using MDRD equation 2019-09-08 22:15:00 Test Item Value Reference Range Interpretation Comments Estimat Glomerular Filtration Rate 116.39 >60 (test code = 61268-2) [facility] HealthSerum or plasma urea nitrogen/creatinine mass owsup4977-66-98 22:15:00 Test Item Value Reference Range Interpretation Comments BUN/Creatinine Ratio (test code = 22 3097-3) [facility] HealthSerum or plasma glucose measurement (mass/volume)2019-09-08 22:15:00 Test Item Value Reference Range Interpretation Comments Glucose Level (test code = 2345-7) 82 mg/dL 70-110 [facility] HealthSerum or plasma calcium measurement (mass/volume)2019-09-08 22:15:00 Test Item Value Reference Range Interpretation Comments Calcium Level (test code = 69046-0) 8.9 mg/dL 8.4-10.2 [facility] HealthSerum or plasma [...] Range Interpretation Comments Globulin (test code = 65671-3) 3.2 g/dL [facility] HealthSerum or plasma albumin/globulin mass twwal2210-47-61 22:15:00 Test Item Value Reference Range Interpretation [...] 3040-3) 18 U/L 16-63 [facility] HealthCreatine kinase ser/uanr3039-86-14 22:15:00 Test Item Value Reference Range Interpretation Comments Total Creatine Kinase (test code = 84 U/L 24-170 2157-6) [facility] HealthSerum or plasma creatine kinase MB measurement (mass/volume) 2019-09-08 22:15:00 Test Item Value Reference Range Interpretation Comments Creatine Kinase MB (test code = 1.3 ng/mL 0-5 28667-0) [facility] HealthSerum or plasma cardiac troponin T [...] HealthAutomated erythrocyte mean corpuscular hemoglobin concentration measurement (mass/aul5621-86-44 22:15:00 Test Item Value Reference Range Interpretation Comments Mean Corpuscular Hemoglobin Concent 33.5 g/dL 32.5-35.0 (test code = 786-4) [facility] HealthAutomated erythrocyte distribution width bninq5408-85-09 22:15:00 Test Item Value Reference Range Interpretation Comments Red Cell Distribution Width (test code 14.0 % 11.5-14.5 = 788-0) [facility] HealthAutomated blood platelet count (count/volume)2019-09-08 22:15:00 Test Item Value Reference Range Interpretation Comments Platelet Count (test code = 238 10*3/uL 160-400 777-3) [facility] HealthAutomated blood platelet mean volume lakmjewypts3574-05-28 22:15:00 Test Item Value Reference Range Interpretation Comments Mean Platelet Volume (test code = 11.0 fL 7.5-11.2 67718-3) [facility]Autom[facility] neutrophil count as percentage of total pffvzmvkmg1254-09-23 22:15:00 Test Item Value Reference Range Interpretation Comments Neutrophils (%) (Auto) (test code = 70 % 45-75 770-8) [facility] HospitalAutom[facility] blood immature granulocyte count as percentage of total bnllvvszmd8785-18-71 22:15:00 Test Item Value Reference Range Interpretation Comments Immature Granulocyte % (Auto) (test 0.2 % 0.0-1.5 code = 99378-7) [facility] HospitalAutomated blood lymphocyte count as percentage of total oumeubxarg7674-11-34 22:15:00 Test Item Value Reference Range Interpretation Comments Lymphocytes (%) (Auto) (test code = 21 % 20-48 736-9) [facility] HospitalAutom[facility] monocyte count as percentage of total leukocytes 2019-09-08 22:15:00 Test Item Value Reference Range Interpretation Comments Monocytes (%) (Auto) (test code = 7 % 1-9 5905-5) [facility] HospitalAutom[facility] blood eosinophil count as percentage of total gmjurnntfs3723-57-30 22:15:00 Test Item Value Reference Range Interpretation Comments Eosinophils (%) (Auto) (test code = 1 % 0-4 713-8) [facility] HospitalAutom[facility] blood basophil count as percentage of total leukocytes 2019-09-08 22:15:00 Test Item Value Reference Range Interpretation Comments Basophils (%) (Auto) (test code = 1 % 0-2 706-2) [facility]
[2022-12-21 16:31] LABS: Absolute Lymphocytes (CBC) 1.7 K/uL (0.7-4.9); Hematocrit 36.7 % (36.0-45.0); Lymphocytes % 29.5 % (15.3-44.8); MCV 90.4 fL (80-100); MPV 8.6 fL (7.6-11.3); RBC Red Blood Cell Count 4.07 M/uL (3.86-4.86)
[2022-12-21 16:34] LABS: Protime INR 0.96
[2022-12-21 16:50] LABS: ALT/SGPT 23 U/L (13-56); AST/SGOT 16 U/L (15-37); Albumin 4.2 g/dL (3.4-5.0); Alkaline Phosphatase 85 U/L (45-117); BUN Blood Urea Nitrogen 17 mg/dL (7-18); Bicarbonate 25 mEq/L (21-32); Bilirubin Total 0.3 mg/dL (0.2-1.0); Glomerular Filtration Rate 116 ml/min (=/>90); Glucose Level 89 mg/dL (74-106); Magnesium 2.1 mg/dL (1.6-2.4); NT PRO-BNP 43 pg/mL (<125); Potassium 3.6 mEq/L (3.5-5.1); Protein, Total 8.3 g/dL (6.4-8.2); Sodium Level 137 mEq/L (136-145); Troponin High Sensitivity 3.7 pg/mL (<58.9)
[2022-12-21 17:04] LABS: Bilirubin Direct < 0.1 mg/dL (0-0.2); Bilirubin Indirect, Calculated ND mg/dL (0.2-0.8)
--- NOTE | 2022-12-21 17:21 | ER ---
Nurse's Notes [facility] Name: Salud Almanzar Age: 37 yrs Sex: Female : 1985 Arrival Date: 12/21/2022 Time: 14:49 Bed 10 Private MD: Diagnosis: Dyspnea;Anxiety disorder, unspecified Presentation: 12/21 15:46 Chief complaint: Patient states: Headache, SOB, chest tightness that started today, ph states, " I think it may be my anxiety". Coronavirus screen: Vaccine status: Patient reports being unvaccinated. Ebola Screen: Patient positive for the following Ebola Virus Disease associated symptoms:. Initial Sepsis Screen: Does the patient meet any 2 criteria? No. Patient's initial sepsis screen is negative. Does the patient have a suspected source of infection? No. Patient's initial sepsis screen is negative. Risk Assessment: Do you want to hurt yourself or someone else? Patient reports no desire to harm self or others. Onset of symptoms was December 21, 2022. 15:46 Method Of Arrival: Ambulatory ph 15:46 Acuity: JOSE 3 ph Triage Assessment: 15:49 General: Appears in no apparent distress. Behavior is calm, cooperative. Pain: ph Complains of pain in headache and chest tightness. Respiratory: Reports shortness of breath at rest Airway is patent Respiratory effort is even, unlabored, Respiratory pattern is regular, symmetrical, Denies cough. Historical: - Allergies: 15:46 Ativan; stomach pain; ph - PMHx: 15:46 Anxiety; Gastroesophageal reflux disease; Hypertensive disorder; Migraine; ph - PSHx: 15:46 section; Ligation of fallopian tube; Cholecystectomy; ph - Immunization history:: Adult Immunizations unknown. Screenin:41 [facility] ED Fall Risk Assessment (Adult) History of falling in the last 3 months, ss including since admission No falls in past 3 months (0 pts). Abuse screen: Denies threats or abuse. Denies injuries from another. Nutritional screening: No deficits noted. Tuberculosis screening: Never had TB. Assessment: 16:24 Reassessment: PT states, "I know I don't have COVID. I'm not sick." PT refuses Flu and ss COVID swabs at this time. 17:41 Reassessment: Patient appears in no apparent distress at this time. Patient and/or ss family updated on plan of care and expected duration. Pain level reassessed. Neuro: Level of Consciousness is awake, alert. Respiratory: Airway is patent Respiratory effort is even, unlabored, Respiratory pattern is regular, symmetrical. Derm: Skin is pink, warm \\T\\ dry. normal. Vital Signs: 15:46 BP 150 / 93; Pulse 70; Resp 18; Temp 97.5; Pulse Ox 100% on R/A; Weight 104.33 kg; ph Height 5 ft. 10 in. ; 15:46 Body Mass Index 33.00 (104.33 kg, 177.8 cm) ph ED Course: 14:50 Patient arrived in ED. rg4 15:10 Contreras Salmeron MD is Attending Physician. raul 15:30 XRAY Chest (1 view) In Process Unspecified. EDMS 15:46 Arm band placed on. ph 15:48 Triage completed. ph 16:15 Inserted saline lock: 20 gauge in right antecubital area, using aseptic technique. zm Blood collected. 16:15 Initial lab(s) drawn, by ne, sent to lab. zm 16:15 First set of blood cultures drawn. zm 16:23 Lactate w/ 2H reflex if indic. Sent. zm 16:23 Blood Culture Adult (2) Sent. zm 16:23 Basic Metabolic Panel Sent. zm 16:23 CBC with Diff Sent. zm 16:23 LFT's Sent. zm 16:23 Magnesium Sent. zm 16:23 NT PRO-BNP Sent. zm 16:23 PT-INR Sent. zm 16:23 Troponin HS Sent. zm 16:24 Shari Kenny, RN is Primary Nurse. 16:30 Second set of blood cultures drawn. zm 17:01 EKG done, by ED staff, reviewed by Contreras Salmeron MD. zm 17:21 Maurice Huitron MD is Referral Physician. raul 17:21 Kyle Perdue MD is Referral Physician. raul 17:41 Patient has correct armband on for positive identification. ss 17:41 No provider procedures requiring assistance completed. IV discontinued, intact, ss bleeding controlled, No redness/swelling at site. Pressure dressing applied. Administered Medications: No medications were administered Medication: 17:41 VIS not applicable for this client. ss Outcome: 17:21 Discharge ordered by . raul 17:42 Discharged to home ambulatory. ss 17:42 Condition: good 17:42 Discharge instructions given to patient, Instructed on discharge instructions, follow up and referral plans. medication usage, Demonstrated understanding of instructions, follow-up care, medications, Prescriptions given X 1. 17:44 Patient left the ED. Signatures: Dispatcher [employer] Contreras Veliz MD MD cha Blanchard, Shelby, RN RN Reina Bowen RN RN Sneha Zhou4 Alicia Cardoza
--- NOTE | 2022-12-21 17:21 | EDPHYS ---
Physician Documentation [facility] Name: Salud Almanzar Age: 37 yrs Sex: Female : 1985 Arrival Date: 12/21/2022 Time: 14:49 Bed 10 Private MD: ED Physician Contreras Salmeron HPI: 12/21 16:37 This 37 yrs old Female presents to ER via Ambulatory with complaints of raul Shortness Of Breath. 16:37 The patient has shortness of breath at rest, with light activity. Onset: The raul symptoms/episode began/occurred just prior to arrival. Duration: The symptoms are intermittent, with no pattern. The patient's shortness of breath has no apparent modifying factors. Associated signs and symptoms: Pertinent positives: non-productive cough. Severity of symptoms: At their worst the symptoms were mild in the emergency department the symptoms have improved moderately. The patient has experienced similar episodes in the past, multiple times. Historical: - Allergies: 15:46 Ativan; stomach pain; ph - PMHx: 15:46 Anxiety; Gastroesophageal reflux disease; Hypertensive disorder; Migraine; ph - PSHx: 15:46 section; Ligation of fallopian tube; Cholecystectomy; ph - Immunization history:: Adult Immunizations unknown. ROS: 16:38 Constitutional: Negative for fever, chills, and weight loss, Eyes: Negative for injury, raul pain, redness, and discharge, ENT: Negative for injury, pain, and discharge, Neck: Negative for injury, pain, and swelling, Cardiovascular: Negative for chest pain, palpitations, and edema, Abdomen/GI: Negative for abdominal pain, nausea, vomiting, diarrhea, and constipation, Back: Negative for injury and pain, : Negative for injury, bleeding, discharge, and swelling, MS/Extremity: Negative for injury and deformity, Skin: Negative for injury, rash, and discoloration, Neuro: Negative for headache, weakness, numbness, tingling, and seizure, Psych: Negative for depression, anxiety, suicide ideation, homicidal ideation, and hallucinations, Allergy/Immunology: Negative for hives, rash, and allergies, Endocrine: Negative for neck swelling, polydipsia, polyuria, polyphagia, and marked weight changes, Hematologic/Lymphatic: Negative for swollen nodes, abnormal bleeding, and unusual bruising. 16:38 Respiratory: Positive for shortness of breath, at rest. Exam: 16:38 Constitutional: This is a well developed, well nourished patient who is awake, alert, raul and in no acute distress. Head/Face: Normocephalic, atraumatic. Eyes: Pupils equal round and reactive to light, extra-ocular motions intact. Lids and lashes normal. Conjunctiva and sclera are non-icteric and not injected. Cornea within normal limits. Periorbital areas with no swelling, redness, or edema. ENT: Nares patent. No nasal discharge, no septal abnormalities noted. Tympanic membranes are normal and external auditory canals are clear. Oropharynx with no redness, swelling, or masses, exudates, or evidence of obstruction, uvula midline. Mucous membranes moist. Neck: Trachea midline, no thyromegaly or masses palpated, and no cervical lymphadenopathy. Supple, full range of motion without nuchal rigidity, or vertebral point tenderness. No Meningismus. Chest/axilla: Normal chest wall appearance and motion. Nontender with no deformity. No lesions are appreciated. Cardiovascular: Regular rate and rhythm with a normal S1 and S2. No gallops, murmurs, or rubs. Normal PMI, no JVD. No pulse deficits. Respiratory: Lungs have equal breath sounds bilaterally, clear to auscultation and percussion. No rales, rhonchi or wheezes noted. No increased work of breathing, no retractions or nasal flaring. Abdomen/GI: Soft, non-tender, with normal bowel sounds. No distension or tympany. No guarding or rebound. No evidence of tenderness throughout. Back: No spinal tenderness. No costovertebral tenderness. Full range of motion. Skin: Warm, dry with normal turgor. Normal color with no rashes, no lesions, and no evidence of cellulitis. MS/ Extremity: Pulses equal, no cyanosis. Neurovascular intact. Full, normal range of motion. Neuro: Awake and alert, GCS 15, oriented to person, place, time, and situation. Cranial nerves II-XII grossly intact. Motor strength 5/5 in all extremities. Sensory grossly intact. Cerebellar exam normal. Normal gait. Psych: Awake, alert, with orientation to person, place and time. Behavior, mood, and affect are within normal limits. 16:38 Respiratory: the patient does not display signs of respiratory distress, Respirations: normal, no acute changes, Breath sounds: are clear throughout, no bronchial sounds, no decreased breath sounds, no rales, rhonchi, no stridor, no wheezing, Respiratory rate: 18 16:38 Musculoskeletal/extremity: DVT Exam: No signs of deep vein thrombosis. no pain, no swelling, no tenderness, negative Homans' sign noted on exam, no appreciated bluish discoloration, no erythema, no increased warmth. 16:43 Neuro: Orientation: is normal, appropriate for stated age, no acute changes, Mentation: raul is normal, appropriate for stated age, no acute changes, Memory: is normal, appropriate for stated age, no acute changes, Cranial nerves: grossly normal, is grossly normal based on the patient's age, no acute changes, Cerebellar function: is grossly normal, is grossly normal based on the patient's age, no acute changes, Motor: is normal, is grossly normal based on the patient's age, Sensation: is normal, no obvious gross deficits, appropriate Gait: is steady, Babinski testing is normal, seizure activity, is not displayed by the patient. 16:59 ECG was reviewed by the Attending Physician. [facility] Vital Signs: 15:46 BP 150 / 93; Pulse 70; Resp 18; Temp 97.5; Pulse Ox 100% on R/A; Weight 104.33 kg; ph Height 5 ft. 10 in. ; 15:46 Body Mass Index 33.00 (104.33 kg, 177.8 cm) ph MDM: 15:10 Patient medically screened. raul 16:40 Differential diagnosis: Anemia Anxiety Reaction CHF exacerbation, Chronic Obstructive raul Pulmonary Disease depression, pneumonia, Pneumothorax pulmonary edema, Pulmonary Embolism Sepsis Unstable Angina. Antibiotic administration: Not indicated. Immunization status:. Data reviewed: vital signs, nurses notes, lab test result(s), EKG, radiologic studies, plain films. Consideration of Admission/Observation Escalation of care including admission/observation considered. I considered the following discharge prescriptions or medication management in the emergency department Medications were administered in the Emergency Department. See MAR. Test considered but Not performed: Labs: no d -dimer. CT: no ct chest. Counseling: I had a detailed discussion with the patient and/or guardian regarding: the historical points, exam findings, and any diagnostic results supporting the discharge/admit diagnosis, the presence of at least one elevated blood pressure reading (>120/80) during this emergency department visit, lab results, radiology results, the need for outpatient follow up, for definitive care, a drugless doctor, a family practitioner. 12/21 15:12 Order name: Basic Metabolic Panel; Complete Time: 17:20 [facility] 12/21 15:12 Order name: CBC with Diff; Complete Time: 16:39 [facility] 12/21 15:12 Order name: LFT's; Complete Time: 17:20 [facility] 12/21 15:12 Order name: Magnesium; Complete Time: 17:20 [facility] 12/21 15:12 Order name: NT PRO-BNP; Complete Time: 17:20 [facility] 12/21 15:12 Order name: PT-INR; Complete Time: 16:39 [facility] 12/21 15:12 Order name: Troponin HS; Complete Time: 17:20 [facility] 12/21 15:12 Order name: Blood Culture Adult (2) [facility] 12/21 15:12 Order name: Lactate w/ 2H reflex if indic.; Complete Time: 17:01 [facility] 12/21 15:12 Order name: XRAY Chest (1 view) [facility] 12/21 15:12 Order name: EKG; Complete Time: 15:13 [facility] 12/21 15:12 Order name: Cardiac monitoring; Complete Time: 16:59 [facility] 12/21 15:12 Order name: EKG - Nurse/Tech; Complete Time: 16:59 [facility] 12/21 15:12 Order name: IV Saline Lock; Complete Time: 16:23 [facility] 12/21 15:12 Order name: Labs collected and sent; Complete Time: 16:23 [facility] 12/21 15:12 Order name: O2 Per Protocol; Complete Time: 16:23 [facility] 12/21 15:12 Order name: O2 Sat Monitoring; Complete Time: 16:23 [facility] EC:59 Rate is 60 beats/min. Rhythm is regular. QRS [place] is Normal. [place] interval is normal. QRS raul interval is normal. QT interval is normal. No Q waves. T waves are Normal. No ST changes noted. Clinical impression: Normal ECG and No evidence of ischemia. Interpreted by me. Reviewed by me. Administered Medications: No medications were administered Disposition Summary: 12/21/22 17:21 Discharge Ordered Location: Home raul Problem: new raul Symptoms: have improved raul Condition: Stable raul Diagnosis - Dyspnea raul - Anxiety disorder, unspecified raul Followup: raul - With: Private Physician - When: 2 - 3 days - Reason: Recheck today's complaints, Continuance of care, Re-evaluation by your physician Followup: raul - With: - When: 2 - 3 days - Reason: Recheck today's complaints, Re-evaluation by your physician Followup: raul - With: - When: 2 - 3 days - Reason: Recheck today's complaints, Re-evaluation by your physician Discharge Instructions: - Discharge Summary Sheet raul - Panic Attack raul - Hypertension, Adult raul - Hypertension, Adult, [id number] raul - Panic Attack, [id number] raul - Aspirin and Your Heart raul - Generalized Anxiety Disorder, Adult raul - Supporting Someone With Anxiety raul - Managing Anxiety, Adult raul Forms: - Medication Reconciliation Form raul - Thank You Letter raul - Antibiotic Education raul - Prescription Opioid Use raul - Work release form ss Prescriptions: - Hydroxyzine HCl 25 mg Oral Tablet - take 1 tablet by ORAL route every 6 hours As needed; 30 tablet; Refills: 0, raul Product Selection Permitted Signatures: Dispatcher [employer] Contreras Veliz MD MD cha Hall, Patricia RN RN ph
--- NOTE | 2022-12-21 17:22 | RAD REPORT ---
EXAM DESCRIPTION: RADChest Single View12/21/2022 3:28 pm CLINICAL HISTORY: DYSPNEA COMPARISON: Chest Single View dated 12/18/2022; Chest Single View dated 11/03/2022; Chest Single View d ated 11/01/2022; Chest Single View dated 10/28/2022 TECHNIQUE: Portable AP view of the chest. FINDINGS: The lungs are clear. No pneumothorax or effusion. The cardiomediastinal contours are unre markable. IMPRESSION: No acute cardiopulmonary process.
[2022-12-21 18:01] VITALS: BP 150/93; TEMP 97.5; O2SAT 100
--- NOTE | 2022-12-22 17:42 | EKG ---
Test Date: 2022-12-21 Test Time: 16:57:20 Payroll Accounting Manager: GLORY MEASUREMENT RESULTS: Intervals: Rate: 60 ND: 138 QRSD: 86 QT: 408 QTc: 408 [place]: P: 49 ND: 138 QRS: 59 T: 59 INTERPRETIVE STATEMENTS: Normal sinus rhythm Normal ECG Compared to ECG 12/18/2022 14:26:23 Myocardial infarct finding no longer present Electronically Signed On 12-22-22 17:39:32 CDT by Maurice Huitron
== END 2022-12-21 17:44 | disposition home or self-care (01) ==
LOC: ER 14:49
DX: R06.00 Dyspnea, unspecified (principal); F41.9 Anxiety disorder, unspecified; I10 Essential (primary) hypertension; Z88.8 Allergy status to other drugs, medicaments and biological substances
CPT/HCPCS: 36415; 71045; 80048; 80076; 83605; 83735; 83880; 84484; 85025; 85610; 87040; 93005

== ENCOUNTER 2023-01-12 09:54 | Emergency (ER) | payer OTHER ==
--- OUTSIDE RECORDS SUMMARY | 2023-01-12 09:58 | XMS REPORT | Continuity of Care Document ---
:1985 Author Organization [facility] t Address [address] [place] [address] Care Team Providers Name Role Phone ASHA MCKEE Attending Clinician Unavailable PHYSICIAN, ER Attending Clinician Unavailable Problems Condition Condition Condition Status Onset Resolution Last Treating Co mments Source Name Details Category Date Date Treatment Clinician Date Problem Condition [facility] Allergies, Adverse Reactions, Alerts This patient has no known allergies or adverse reactions. Social History Social Habit Start Date Stop Date Quantity Comments Source Sex Assigned At [birth year] Female [facility] 00:00:00 00:00:00 Smoking Status Start Date Stop Date Source Unknown if ever smoked [employer] Never smoked tobacco (finding) [employer] Medications Ordered Filled Start Stop Current Ordering [...] Source Body Temperature 2020-01-07 10:16:00 97.7 [degF] [employer] Heart Rate 2020-01-07 10:16:00 79 /min [employer] Respiratory rate 2020-01-07 10:16:00 18 /min [employer] BP Systolic 2020-01-07 10:16:00 134 mm[Hg] [facility] Di[facility] 2020-01-07 10:16:00 90 mm[Hg] [facility] Respiratory rate 2019-09-08 21:00:00 18 /min [facility] BP Systolic 2019-09-08 21:00:00 146 mm[Hg] [facility] BP Diastolic 2019-09-08 21:00:00 93 mm[Hg] [facility] Weight 2019-09-08 21:00:00 235 [lb_av] [facility] BMI (Body Mass Index) 2019-09-08 21:00:00 34.7 kg/m2 [facility] Procedures Procedure Date / Time Performed Performing Clinician Formerly [facility] e ECG (electrocardiogram) 2020-01-07 00:00:00 [facility] [employer] X-ray of chest, single 2020-01-07 00:00:00 [facility] [employer] view Computed tomography of 2020-01-07 00:00:00 [facility] [employer] head or brain without contrast Computed tomography of 2020-01-07 00:00:00 [facility] [employer] cervical spine without contrast ECG (electrocardiogram) 2019-09-08 00:00:00 [facility] [employer] X-ray of chest, two views 2019-09-08 00:00:00 [facility] Encounters Start End Encounter Admission Attending Care Care Encounter Source Date/Time Date/Time Type Type Clinicians Facility Department ID 2020-01-09 2020-01-09 Outpatient GLORIA ZAMORA [id number] [facility] 13:44:00 13:44:00 A[facility] S [facility] 2020-01-07 2020-01-07 Departed ER PHYSICIAN, GLORIA CASTRO [id number] [facility] 03:35:00 03:35:00 Emergency ER [facility] [address] [facility] 2019-09-08 2019-09-09 Departed GLORIA CASTRO [id number] [facility] 20:50:00 00:23:00 Emergency [facility] Results Test Description Test Time Test Comments Results Result Comments Source Serum or plasma natriuretic peptide B measurement (mas s/volume) 2020-01-07 08:11:00 Test Item Value Reference Range Interpretation Comme nts B-Type Natriuretic Peptide (test code = 30523-6) 4 pg/mL 0-101 [facility]um or plasma free thyroxine (FT4) measurement (mass/volume) 2020-01-07 07:47:00 Test Item Value Reference Range Interpretation Comments Free Thyroxine (test code = 1.48 ng/dL 1.09-1.53 3024-7) [facility] or plasma thyrotropin measurement with detection limit of 0.005 mIU/L or less (units/volume)2020-01-07 07:47:00 Test Item Value Reference Range Interpretation Comments Thyroid Stimulating Hormone 1.435 u[iU]/mL 0.550-4.780 (TSH) (test code = 67340-8) [facility]um or plasma free triiodothyronine (T3) [...] 3040-3) 29 U/L 31-96 [facility] HealthCreatine kinase ser/yusy6614-41-72 07:27:00 Test Item Value Reference Range Interpretation Comments Total Creatine Kinase (test code = 61 U/L 30-160 2157-6) [facility] HealthSerum or plasma creatine kinase MB measurement (mass/volume) 2020-01-07 07:27:00 Test Item Value Reference Range Interpretation Comments Creatine Kinase MB (test code = < 0.18 ng/mL 0-5 70189-5) [facility] HealthSerum or plasma cardiac troponin I measurement (mass/volume) 2020-01-07 07:27:00 Test Item Value Reference Range Interpretation Comments Troponin I (test code = < 0.006 ng/mL 0.000-0.040 15361-7) [facility] HealthSerum or plasma myoglobin measurement (mass/volume)2020-01-07 07:27:00 Test Item Value Reference Range Interpretation Comments Myoglobin (test code = 2639-3) 20.4 ng/mL <110.0 [facility] HealthUrinalysis specimen collection [id number] 04:03:00 Test Item Value Reference Range Interpretation Comments Urine Source (test code = Urine Clean Catch 87446-4) [facility] HealthUrine color jnrsszcmgewxj8878-05-27 04:03:00 Test Item Value Reference Range Interpretation Comments Urine Color (test code = 5778-6) Colorless Yel-Lora [facility] HealthUrine appearance zgqjijkkceqke9250-68-96 04:03:00 Test Item Value Reference Range Interpretation Comments Urine Appearance (test code = 5767-9) Clear Clear [facility] HealthUrine pH measurement by test [id number] 04:03:00 Test Item Value Reference Range Interpretation Comments Urine pH (test code = 5803-2) 5.0 5.0-7.5 [facility] HealthSpecific gravity ur tsubllwf7935-29-91 04:03:00 Test Item Value Reference Range Interpretation Comments Urine Specific Cohagen (test code = 1.003 1.003-1.029 5811-5) [facility] HealthUrine protein measurement by automated test strip (mass/volume) 2020-01-07 04:03:00 Test Item Value Reference Range Interpretation Comments Urine Protein (test code = Negative mg/dL Neg - Trace 25245-0) [facility] HealthUrine glucose measurement by automated test strip (mass/volume) 2020-01-07 04:03:00 Test Item Value Reference Range Interpretation Comments Urine Glucose (UA) (test code = Negative Negative 01324-4) [facility] HealthUrine ketones detection by automated test mapqb4730-02-50 04:03:00 Test Item Value Reference Range Interpretation Comments Urine Ketones (test code = 37905-8) Negative Negative [facility] HealthUrine erythrocytes count by automated test strip (number/volume) 2020-01-07 04:03:00 Test Item Value Reference Range Interpretation Comments Urine Occult Blood (test code = Negative Negative 39288-3) [facility] HealthUrine nitrite detection by automated test dsudf7046-17-43 04:03:00 Test Item Value Reference Range Interpretation Comments Urine Nitrite (test code = 97138-4) Negative Negative [facility] HealthUrine total bilirubin detection by automated test nlnvs3047-15-54 04:03:00 Test Item Value Reference Range Interpretation Comments Urine Bilirubin (test code = Negative Negative 91390-9) [facility] HealthUrine urobilinogen measurement by automated test strip (mass/volume)2020-01-07 04:03:00 Test Item Value Reference Range Interpretation Comments Urine Urobilinogen (test code = Normal mg/dL Norm-1.0 33770-7) [facility] HealthUrine leukocyte esterase detection by automated test strip 2020-01-07 04:03:00 Test Item Value Reference Range Interpretation Comments Urine Leukocyte Esterase (test code = Trace Negative 96467-0) [facility] HealthUrine sediment erythrocyte count by microscopy (number/high power field)2020-01-07 04:03:00 Test Item Value Reference Range Interpretation Comments Urine RBC (test 0-2 /[HPF] See_Comment [Automated message] The code = 49545-7) system which generated this result tra nsmitted [...] Cells (test code Many /[LPF] None/Occ = 97910-7) [facility] HealthUrine sediment bacteria count by microscopy (number/high power field)2020-01-07 04:03:00 Test Item Value Reference Range Interpretation Comments Urine Bacteria (test code = Occasional /[HPF] None 5769-5) [facility] HealthUrine sediment hyaline cast count by microscopy (number/low power field)2020-01-07 04:03:00 Test Item Value Reference Range Interpretation Comments Urine Hyaline Casts (test code = 2-5 /[LPF] 5796-8) [facility] HealthYeast detection in urine sediment by light kzlbhuuynf0773-77-58 04:03:00 Test Item Value Reference Range Interpretation Comments Urine Yeast (test code = None Seen /[HPF] 33666-6) [facility]Service comment 04:03:00 Test Item Value [...] HealthAutomated erythrocyte mean corpuscular hemoglobin concentration measurement (mass/rpv3022-98-90 04:00:00 Test Item Value Reference Range Interpretation Comments Mean Corpuscular Hemoglobin Concent 32.6 g/dL 32.5-35.0 (test code = 786-4) [facility] HealthAutomated erythrocyte distribution width vsqzk7244-92-66 04:00:00 Test Item Value Reference Range Interpretation Comments Red Cell Distribution Width (test code 13.5 % 11.5-14.5 = 788-0) [facility] HealthAutomated blood platelet count (count/volume)2020-01-07 04:00:00 Test Item Value Reference Range Interpretation Comments Platelet Count (test code = 191 10*3/uL 160-400 777-3) [facility] HealthAutomated blood platelet mean volume fkyennkliah3028-25-80 04:00:00 Test Item Value Reference Range Interpretation Comments Mean Platelet Volume (test code = 12.0 fL 7.5-11.2 03903-5) [facility] HealthAutomated blood neutrophil count as percentage of total kqdiwivznr0174-94-09 04:00:00 Test Item Value Reference Range Interpretation Comments Neutrophils (%) (Auto) (test code = 64 % 45-75 770-8) [facility] HealthAutomated blood immature granulocyte count as percentage of total wcozwdwmwy5139-03-52 04:00:00 Test Item Value Reference Range Interpretation Comments Immature Granulocyte % (Auto) (test 0.2 % 0.0-1.5 code = 57451-2) [facility] HealthAutomated blood lymphocyte count as percentage of total gwvmvqpyrc9855-90-85 04:00:00 Test Item Value Reference Range Interpretation Comments Lymphocytes (%) (Auto) (test code = 26 % 20-48 736-9) [facility] HealthAutomated blood monocyte count as percentage of total leukocytes 2020-01-07 04:00:00 Test Item Value Reference Range Interpretation Comments Monocytes (%) (Auto) (test code = 6 % 1-9 5905-5) [facility] HealthAutomated blood eosinophil count as percentage of total tzxhmkxehg8478-30-43 04:00:00 Test Item Value Reference Range Interpretation Comments Eosinophils (%) (Auto) (test code = 3 % 0-4 713-8) [facility] HealthAutomated blood basophil count as percentage of total leukocytes 2020-01-07 04:00:00 Test Item Value Reference Range Interpretation Comments Basophils (%) (Auto) (test code = 1 % 0-2 706-2) [facility] HealthAutomated blood nucleated erythrocyte count as percentage of total jlofjnqllj9260-59-37 04:00:00 Test Item Value Reference Range Interpretation Comments Nucleated Red Blood Cells % (test code 0 % 0-1 = 05976-2) [facility] HealthAutomated blood neutrophil count (number/volume)2020-01-07 04:00:00 Test Item Value Reference Range Interpretation Comments Neutrophils # (Auto) (test code 2.87 10*3/uL = 751-8) [facility] HealthProthrombin time (PT) in platelet poor jnknmm7039-63-38 04:00:00 Test Item Value Reference Range Interpretation Comments Prothrombin Time (test code = 5902-2) 11.8 s 9.4-12.5 [facility] HealthINR in Platelet poor plasma by Coagulation ifghv0224-31-80 04:00:00 Test Item Value Reference Range Interpretation Comments Prothromb Time International 1.1 {ratio} Ratio (test code = 6301-6) [facility] HealthPartial thromboplastin time (PTT) in platelet poor plasma 2020-01-07 04:00:00 Test Item Value Reference Range Interpretation Comments Activated Partial Thromboplast Time 30 s 25-37 (test code = 96539-9) [facility] HealthFibrin D-dimer FEU vaiq7069-56-69 04:00:00 Test Item Value Reference Range Interpretation Comments D-Dimer (test code = 97030-9) 423 ng/mL{FEU} 215-500 [facility] HealthSerum or plasma [...] Interpretation Comments Anion Gap (test code = 39433-2) 9.0 mmol/L 3.0-11.0 [facility] HealthSerum or plasma urea nitrogen measurement (mass/volume)2020-01-07 04:00:00 Test Item Value Reference Range Interpretation Comments Blood Urea Nitrogen (test code = 16.0 mg/dL 12-22 3094-0) [facility] HealthSerum or plasma creatinine measurement (mass/volume)2020-01-07 04:00:00 Test Item Value Reference Range Interpretation Comments Creatinine (test code = 2160-0) 0.90 mg/dL 0.60-1.02 [facility] creatinine clearance calculated from serum or plasma creatinine by Gs5324-39-18 04:00:00 Test Item Value Reference Range Interpretation Comments Estimated Creatinine Clearance (test 93.8 code = 35963-3) [facility] HealthGlomerular filtration rate (GFR) estimation using MDRD equation 2020-01-07 04:00:00 Test Item Value Reference Range Interpretation Comments Estimat Glomerular Filtration Rate 77.12 >60 (test code = 587744148) [facility] HealthSerum or plasma urea nitrogen/creatinine mass ukqzi7372-58-86 04:00:00 Test Item Value Reference Range Interpretation Comments BUN/Creatinine Ratio (test code = 18 3097-3) [facility] HealthSerum or plasma glucose measurement (mass/volume)2020-01-07 04:00:00 Test Item Value Reference Range Interpretation Comments Glucose Level (test code = 2345-7) 88 mg/dL 74-112 [facility] HealthSerum or plasma calcium measurement (mass/volume)2020-01-07 04:00:00 Test Item Value Reference Range Interpretation Comments Calcium Level (test code = 71293-8) 9.8 mg/dL 9.0-10.2 [facility] HealthSerum or plasma [...] Range Interpretation Comments Globulin (test code = 58303-3) 3.0 g/dL [facility] HealthSerum or plasma albumin/globulin mass [id number] 04:00:00 Test Item Value Reference Range Interpretation Comments Albumin/Globulin Ratio (test code 1.6 {ratio} = 1759-0) [facility] HealthSerum or plasma alkaline phosphatase measurement (enzymatic activity/volume)2020-01-07 04:00:00 Test Item Value Reference Range Interpretation Comments Alkaline Phosphatase (test code = 78 U/L 45-100 6768-6) [facility] HealthUrinalysis specimen collection sqfkey8731-68-74 22:40:00 Test Item Value Reference Range Interpretation Comments Urine Source (test code = Urine Clean Catch 87543-6) [facility] HealthUrine color ehvfdxejnmezw5448-60-68 22:40:00 Test Item Value Reference Range Interpretation Comments Urine Color (test code = 5778-6) Yellow Yel-Lora [facility] HealthUrine appearance tnafqpwzumgeq3716-74-72 22:40:00 Test Item Value Reference Range Interpretation Comments Urine Appearance (test code = 5767-9) Clear Clear [facility] HealthUrine pH measurement by test uvdof6362-04-91 22:40:00 Test Item Value Reference Range Interpretation Comments Urine pH (test code = 5803-2) 6.0 5.0-7.5 [facility] HealthSpecific gravity ur sqfammcy8097-12-89 22:40:00 Test Item Value Reference Range Interpretation Comments Urine Specific Cohagen (test code = 1.024 1.003-1.029 5811-5) [facility] HealthUrine protein measurement by automated test strip (mass/volume) 2019-09-08 22:40:00 Test Item Value Reference Range Interpretation Comments Urine Protein (test code = Trace mg/dL Neg - Trace 55949-0) [facility] HealthUrine glucose measurement by automated test strip (mass/volume) 2019-09-08 22:40:00 Test Item Value Reference Range Interpretation Comments Urine Glucose (UA) (test code = Negative Negative 35149-6) [facility] HealthUrine ketones detection by automated test usimf3022-07-67 22:40:00 Test Item Value Reference Range Interpretation Comments Urine Ketones (test code = 64113-4) Trace Negative [facility] HealthUrine erythrocytes count by automated test strip (number/volume) 2019-09-08 22:40:00 Test Item Value Reference Range Interpretation Comments Urine Occult Blood (test code = Negative Negative 74625-2) [facility] HealthUrine nitrite detection by automated test [id number] 22:40:00 Test Item Value Reference Range Interpretation Comments Urine Nitrite (test code = 44112-4) Negative Negative [facility] HealthUrine total bilirubin detection by automated test wpszh8642-39-08 22:40:00 Test Item Value Reference Range Interpretation Comments Urine Bilirubin (test code = Negative Negative 91320-2) [facility] HealthUrine urobilinogen measurement by automated test strip (mass/volume)2019-09-08 22:40:00 Test Item Value Reference Range Interpretation Comments Urine Urobilinogen (test code = Normal mg/dL Norm-1.0 30534-5) [facility] HealthUrine leukocyte esterase detection by automated test strip 2019-09-08 22:40:00 Test Item Value Reference Range Interpretation Comments Urine Leukocyte Esterase (test code = Trace Negative 69733-6) [facility] HealthUrine sediment erythrocyte count by microscopy (number/high power field)2019-09-08 22:40:00 Test Item Value Reference Range Interpretation Comments Urine RBC (test 0-2 /[HPF] See_Comment [Automated message] The code = 33373-8) system which generated this result tra nsmitted [...] (test None seen /[LPF] None/Occ code = 62446-8) [facility] HealthUrine sediment bacteria count by microscopy (number/high power field)2019-09-08 22:40:00 Test Item Value Reference Range Interpretation Comments Urine Bacteria (test code = Occasional /[HPF] None 5769-5) [facility] HealthUrine sediment hyaline cast count by microscopy (number/low power field)2019-09-08 22:40:00 Test Item Value Reference Range Interpretation Comments Urine Hyaline Casts (test code = 2-5 /[LPF] 5796-8) [facility] HealthYeast detection in urine sediment by light qpmhtakyex5469-58-02 22:40:00 Test Item Value Reference Range Interpretation Comments Urine Yeast (test code = None Seen /[HPF] 22255-8) [facility] comment [id number] 22:40:00 Test Item Value Reference Range Interpretation Comments Urine Culture Indicated (test code = Yes 8264-4) [facility] HealthAutomated blood nucleated erythrocyte count as percentage of total talwztzwab4060-83-91 22:15:00 Test Item Value Reference Range Interpretation Comments Nucleated Red Blood Cells % (test code 0 % 0-1 = 95099-2) [facility] HealthAutomated blood neutrophil count (number/volume)2019-09-08 22:15:00 [...] Interpretation Comments Anion Gap (test code = 38858-6) 15.0 mmol/L 3.0-11.0 [facility] HealthSerum or plasma [...] calculated from serum or plasma creatinine by Pc1773-68-86 22:15:00 Test Item Value Reference Range Interpretation Comments Estimated Creatinine Clearance (test 134.0 code = 60007-2) [facility] HealthGlomerular filtration rate (GFR) estimation using MDRD equation 2019-09-08 22:15:00 Test Item Value Reference Range Interpretation Comments Estimat Glomerular Filtration Rate 116.39 >60 (test code = 79672-7) [facility] HealthSerum or plasma urea nitrogen/creatinine mass sduwi9638-52-57 22:15:00 Test Item Value Reference Range Interpretation Comments BUN/Creatinine Ratio (test code = 22 3097-3) [facility] HealthSerum or plasma glucose measurement (mass/volume)2019-09-08 22:15:00 Test Item Value Reference Range Interpretation Comments Glucose Level (test code = 2345-7) 82 mg/dL 70-110 [facility] HealthSerum or plasma calcium measurement (mass/volume)2019-09-08 22:15:00 Test Item Value Reference Range Interpretation Comments Calcium Level (test code = 63551-1) 8.9 mg/dL 8.4-10.2 [facility] HealthSerum or plasma [...] Range Interpretation Comments Globulin (test code = 79356-8) 3.2 g/dL [facility] HealthSerum or plasma albumin/globulin mass zhmbr1887-72-47 22:15:00 Test Item Value Reference Range Interpretation [...] 3040-3) 18 U/L 16-63 [facility] HealthCreatine kinase ser/asga2150-14-72 22:15:00 Test Item Value Reference Range Interpretation Comments Total Creatine Kinase (test code = 84 U/L 24-170 2157-6) [facility] HealthSerum or plasma creatine kinase MB measurement (mass/volume) 2019-09-08 22:15:00 Test Item Value Reference Range Interpretation Comments Creatine Kinase MB (test code = 1.3 ng/mL 0-5 98041-2) [facility] HealthSerum or plasma cardiac troponin T [...] HealthAutomated erythrocyte mean corpuscular hemoglobin concentration measurement (mass/tud2065-09-20 22:15:00 Test Item Value Reference Range Interpretation Comments Mean Corpuscular Hemoglobin Concent 33.5 g/dL 32.5-35.0 (test code = 786-4) [facility] HealthAutomated erythrocyte distribution width nrmzn7086-97-79 22:15:00 Test Item Value Reference Range Interpretation Comments Red Cell Distribution Width (test code 14.0 % 11.5-14.5 = 788-0) [facility] HealthAutomated blood platelet count (count/volume)2019-09-08 22:15:00 Test Item Value Reference Range Interpretation Comments Platelet Count (test code = 238 10*3/uL 160-400 777-3) [facility] HealthAutomated blood platelet mean volume teqwvodzkiv3844-84-68 22:15:00 Test Item Value Reference Range Interpretation Comments Mean Platelet Volume (test code = 11.0 fL 7.5-11.2 25963-3) [facility] HealthAutomated blood neutrophil count as percentage of total jjtjgxzedu7727-08-79 22:15:00 Test Item Value Reference Range Interpretation Comments Neutrophils (%) (Auto) (test code = 70 % 45-75 770-8) [facility] HealthAutomated blood immature granulocyte count as percentage of total wbouqquwgj5157-65-65 22:15:00 Test Item Value Reference Range Interpretation Comments Immature Granulocyte % (Auto) (test 0.2 % 0.0-1.5 code = 08596-4) [facility] HealthAutomated blood lymphocyte count as percentage of total gkexhxsdcy2187-40-58 22:15:00 Test Item Value Reference Range Interpretation Comments Lymphocytes (%) (Auto) (test code = 21 % 20-48 736-9) [facility] HealthAutomated blood monocyte count as percentage of total leukocytes 2019-09-08 22:15:00 Test Item Value Reference Range Interpretation Comments Monocytes (%) (Auto) (test code = 7 % 1-9 5905-5) [facility] HealthAutomated blood eosinophil count as percentage of total jynbwpvkfs2281-20-89 22:15:00 Test Item Value Reference Range Interpretation Comments Eosinophils (%) (Auto) (test code = 1 % 0-4 713-8) [facility] HealthAutomated blood basophil count as percentage of total leukocytes 2019-09-08 22:15:00 Test Item Value Reference Range Interpretation Comments Basophils (%) (Auto) (test code = 1 % 0-2 706-2) [facility]
[2023-01-12 10:28] LABS: Absolute Lymphocytes (CBC) 0.9 K/uL (0.7-4.9); Hematocrit 35.3 % (36.0-45.0); Lymphocytes % 18.7 % (15.3-44.8); MCV 87.9 fL (80-100); MPV 8.4 fL (7.6-11.3); RBC Red Blood Cell Count 4.01 M/uL (3.86-4.86)
[2023-01-12] MEDS ORDERED: NA CHLORIDE 0.9% 1,000 ML ONE (10:28)
[2023-01-12 10:45] LABS: ALT/SGPT 21 U/L (13-56); AST/SGOT 17 U/L (15-37); Albumin 3.8 g/dL (3.4-5.0); Alkaline Phosphatase 73 U/L (45-117); BUN Blood Urea Nitrogen 16 mg/dL (7-18); Bicarbonate 24 mEq/L (21-32); Bilirubin Total 0.5 mg/dL (0.2-1.0); Glomerular Filtration Rate 102 ml/min (=/>90); Glucose Level 123 mg/dL (74-106); Potassium 3.6 mEq/L (3.5-5.1); Protein, Total 7.8 g/dL (6.4-8.2); Sodium Level 135 mEq/L (136-145)
[2023-01-12 10:53] LABS: Troponin High Sensitivity < 3.0 pg/mL (<58.9)
--- NOTE | 2023-01-12 11:14 | EDPHYS ---
Physician Documentation [facility] Name: Salud Almanzar Age: 37 yrs Sex: Female : 1985 Arrival Date: 01/12/2023 Time: 09:54 Bed 5 Private MD: ED Physician Gigi Gray HPI: 01/12 11:13 This 37 yrs old Female presents to ER via Ambulatory with complaints of Heat Exposure. rt 11:13 Patient presents to the ED with concerns for heat exhaustion, dehydration. Patient rt states that she was working in the heat on Monday, states that she became nauseated, sweating profusely and stop sweating. She has been drinking water since then. She has been nauseated since that time. She denies other acute complaints at this time. Symptoms are moderate in severity, no other aggravating alleviating factors.. 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 - Social history:: Smoking status: Patient denies any tobacco usage or history of. - Family history:: not pertinent. ROS: 11:13 Constitutional: Negative for fever, chills, and weight loss, Cardiovascular: Negative rt for chest pain, palpitations, and edema, Respiratory: Negative for shortness of breath, cough, wheezing, and pleuritic chest pain, Abdomen/GI: Negative for abdominal pain, nausea, vomiting, diarrhea, and constipation, Back: Negative for injury and pain, MS/Extremity: Negative for injury and deformity, Skin: Negative for injury, rash, and discoloration, Psych: Negative for depression, anxiety, suicide ideation, homicidal ideation, and hallucinations. 11:13 Neuro: Positive for near syncope, Negative for syncope. Exam: 11:13 Constitutional: This is a well developed, well nourished patient who is awake, alert, rt and in no acute distress. Head/Face: Normocephalic, atraumatic. ENT: Nares patent. No nasal discharge, no septal abnormalities noted. Tympanic membranes are normal and external auditory canals are clear. Oropharynx with no redness, swelling, or masses, exudates, or evidence of obstruction, uvula midline. Mucous membranes moist. Chest/axilla: Normal chest wall appearance and motion. Nontender with no deformity. No lesions are appreciated. Cardiovascular: Regular rate and rhythm with a normal S1 and S2. No gallops, murmurs, or rubs. Normal PMI, no JVD. No pulse deficits. Respiratory: Lungs have equal breath sounds bilaterally, clear to auscultation and percussion. No rales, rhonchi or wheezes noted. No increased work of breathing, no retractions or nasal flaring. Abdomen/GI: Soft, non-tender, with normal bowel sounds. No distension or tympany. No guarding or rebound. No evidence of tenderness throughout. Skin: Warm, dry with normal turgor. Normal color with no rashes, no lesions, and no evidence of cellulitis. MS/ Extremity: Pulses equal, no cyanosis. Neurovascular intact. Full, normal range of motion. Neuro: Awake and alert, GCS 15, oriented to person, place, time, and situation. Cranial nerves II-XII grossly intact. Motor strength 5/5 in all extremities. Sensory grossly intact. Cerebellar exam normal. Normal gait. Psych: Awake, alert, with orientation to person, place and time. Behavior, mood, and affect are within normal limits. 11:13 ECG was reviewed by the Attending Physician. rt Vital Signs: 10:00 BP 147 / 96; Pulse 73; Resp 16; Pulse Ox 98% on R/A; db 10:08 BP 147 / 96; Pulse 71; Resp 16; Temp 99.2; Pulse Ox 100% ; Weight 106.59 kg; Height 5 ll1 ft. 10 in. ; Pain 0/10; 11:07 BP 141 / 99; Pulse 55; Resp 18; Pulse Ox 100% on R/A; ph 11:30 BP 157 / 87; Pulse 75; Resp 16; Pulse Ox 100% on R/A; db 10:08 Body Mass Index 33.72 (106.59 kg, 177.8 cm) ll1 10:08 Pain Scale: Adult ll1 MDM: 10:02 Patient medically screened. rt 11:16 Differential Diagnosis Electrolyte disturbance, dehydration, acute kidney injury. Data rt reviewed: vital signs, nurses notes, lab test result(s), EKG. I considered the following discharge prescriptions or medication management in the emergency department Medications were administered in the Emergency Department. See MAR. Care significantly affected by the following chronic conditions: Hypertension. Counseling: I had a detailed discussion with the patient and/or guardian regarding: the historical points, exam findings, and any diagnostic results supporting the discharge/admit diagnosis, lab results, radiology results, the need for outpatient follow up, to return to the emergency department if symptoms worsen or persist or if there are any questions or concerns that arise at home. 01/12 10:07 Order name: CBC with Diff; Complete Time: 11: rt 01/12 10:07 Order name: CMP; Complete Time: : rt 01/12 10:07 Order name: Magnesium; Complete Time: : rt 01/12 10:07 Order name: Troponin High Sensitivity; Complete Time: 11: rt 01/12 10:07 Order name: Test, Serum; Complete Time: 11: rt 01/12 10:28 Order name: EKG; Complete Time: 10:29 rt 01/12 10:28 Order name: EKG - Nurse/Tech; Complete Time: 10:37 rt EC: Rate is 66 beats/min. Rhythm is regular, Normal Sinus Rhythm with No ectopy. QRS [place] rt is Normal. MS interval is normal. QRS interval is normal. QT interval is normal. No Q waves. T waves are Normal. No ST changes noted. Interpreted by me. Administered Medications: 10:25 Drug: NS 0.9% IV 1000 ml Route: IV; Rate: 1 bolus; Site: right antecubital; db 11:41 Follow up: Response: No adverse reaction; IV Status: Completed infusion; IV Intake: db 1000ml Disposition Summary: 01/12/23 11:13 Discharge Ordered Location: Home rt Problem: new rt Symptoms: have improved rt Condition: Stable rt Diagnosis - Dehydration rt Followup: rt - With: Private Physician - When: 2 - 3 days - Reason: Discharge Instructions: - Discharge Summary Sheet rt - Dehydration, Adult rt Forms: - Work release form iw - Medication Reconciliation Form rt - Thank You Letter rt - Antibiotic Education rt - Prescription Opioid Use rt - Patient Portal Instructions rt Signatures: Dispatcher [employer] Davon Da Silva RN RN ll1 Jackelyn Bautista RN RN db Gigi Gray MD MD rt
--- NOTE | 2023-01-12 11:14 | ER ---
Nurse's Notes [facility] Name: Salud Almanzar Age: 37 yrs Sex: Female : 1985 Arrival Date: 01/12/2023 Time: 09:54 Bed 5 Private MD: Diagnosis: Dehydration Presentation: 01/12 10:04 Chief complaint: Patient states: Got overheated at work Monday. Near syncope. Then was ll1 sick then next two days. States she is starting to feel better now. Still has nausea. Job wanted her to get checked before returning. Coronavirus screen: Client denies travel out of the [place] in the last 14 days. At this time, the client does not indicate any symptoms associated with coronavirus-19. Ebola Screen: Patient denies travel to an Ebola-affected area in the 21 days before illness onset. Initial Sepsis Screen: Does the patient meet any 2 criteria? No. Patient's initial sepsis screen is negative. Does the patient have a suspected source of infection? No. Patient's initial sepsis screen is negative. Risk Assessment: Do you want to hurt yourself or someone else? Patient reports no desire to harm self or others. Onset of symptoms was January 09, 2023. 10:04 Method Of Arrival: Ambulatory ll1 10:04 Acuity: JOSE 4 ll1 Triage Assessment: 10:05 General: Appears in no apparent distress. Behavior is calm, cooperative, appropriate ll1 for age. Pain: Complains of pain in abdomen Quality of pain is described as crampy. GI: Reports cramping, nausea, vomiting. 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 - Social history:: Smoking status: Patient denies any tobacco usage or history of. - Family history:: not pertinent. Screenin:19 [facility] ED Fall Risk Assessment (Adult) History of falling in the last 3 months, db including since admission No falls in past 3 months (0 pts) Confusion or Disorientation No (0 pts) Intoxicated or Sedated No (0 pts) Impaired Gait No (0 pts) Mobility Assist Device Used No (0 pt) Altered Elimination No (0 pt) Score/Fall Risk Level 0 - 2 = Low Risk Oriented to surroundings, Maintained a safe environment. Abuse screen: Denies threats or abuse. Denies injuries from another. Nutritional screening: No deficits noted. Tuberculosis screening: No symptoms or risk factors identified. Assessment: 10:25 Reassessment: Patient appears in no apparent distress at this time. Patient and/or db family updated on plan of care and expected duration. Pain level reassessed. Patient is alert, oriented x 3, equal unlabored respirations, skin warm/dry/pink. Reassessment: STATES FELT LIKE HAD HEAT EXHAUSTION ON MONDAY. TODAY FEELS TIRED. General: Appears in no apparent distress. comfortable, Behavior is calm, cooperative. Neuro: Level of Consciousness is awake, alert, obeys commands, Oriented to person, place, time, situation. Derm: No deficits noted. No signs and/or symptoms reported regarding the dermatologic system. 11:07 Reassessment: Patient appears in no apparent distress at this time. Patient and/or ph family updated on plan of care and expected duration. Pain level reassessed. Patient is alert, oriented x 3, equal unlabored respirations, skin warm/dry/pink. 11:15 Reassessment: Patient appears in no apparent distress at this time. Patient and/or db family updated on plan of care and expected duration. Pain level reassessed. Patient is alert, oriented x 3, equal unlabored respirations, skin warm/dry/pink. 11:19 Reassessment: DC PENDING IV FLUIDS TO FINISH. IV FLUIDS PLACED ON PRESSURE BAG. db 11:30 Reassessment: Patient appears in no apparent distress at this time. Patient and/or db family updated on plan of care and expected duration. Pain level reassessed. Patient is alert, oriented x 3, equal unlabored respirations, skin warm/dry/pink. Patient states feeling better. Patient states symptoms have improved. Vital Signs: 10:00 BP 147 / 96; Pulse 73; Resp 16; Pulse Ox 98% on R/A; db 10:08 BP 147 / 96; Pulse 71; Resp 16; Temp 99.2; Pulse Ox 100% ; Weight 106.59 kg; Height 5 ll1 ft. 10 in. ; Pain 0/10; 11:07 BP 141 / 99; Pulse 55; Resp 18; Pulse Ox 100% on R/A; ph 11:30 BP 157 / 87; Pulse 75; Resp 16; Pulse Ox 100% on R/A; db 10:08 Body Mass Index 33.72 (106.59 kg, 177.8 cm) ll1 10:08 Pain Scale: Adult ll1 ED Course: 09:56 Patient arrived in ED. im 09:59 Gigi Gray MD is Attending Physician. rt 10:01 Reina Peraza RN is Primary Nurse. ph 10:03 Arm band placed on Patient placed in an exam room, on a stretcher. ll1 10:05 Triage completed. ll1 10:36 EKG done, by ED staff. sm8 10:40 Initial lab(s) drawn, by ED staff, sent to lab. Inserted saline lock: 20 gauge in right ph antecubital area, using aseptic technique. Blood collected. 11:40 Patient has correct armband on for positive identification. Provided Education on: db DISCHARGE. 11:40 No provider procedures requiring assistance completed. IV discontinued, intact, db bleeding controlled, No redness/swelling at site. Administered Medications: 10:25 Drug: NS 0.9% IV 1000 ml Route: IV; Rate: 1 bolus; Site: right antecubital; db 11:41 Follow up: Response: No adverse reaction; IV Status: Completed infusion; IV Intake: db 1000ml Medication: 11:40 VIS not applicable for this client. db Intake: 11:41 IV: 1000ml; Total: 1000ml. db Outcome: 11:13 Discharge ordered by . rt 11:40 Discharged to home ambulatory. db 11:40 Condition: stable 11:40 Discharge instructions given to patient, Instructed on discharge instructions, follow up and referral plans. 11:41 Patient left the ED. db Signatures: Reina Peraza, RN JIGNESH Davon Watts RN RN 1 Jackelyn Bautista RN RN db Gigi Gray MD MD rt Jes Daley Scarlett sm8
[2023-01-12 12:42] VITALS: TEMP 99.2; O2SAT 100
[2023-01-12 12:44] VITALS: BP 157/87
--- NOTE | 2023-01-16 11:56 | EKG ---
Test Date: 2023-01-12 Test Time: 10:28:39 Consumer Relations Specialist: SEVERO MEASUREMENT RESULTS: Intervals: Rate: 66 TN: 136 QRSD: 86 QT: 402 QTc: 421 [place]: P: 55 TN: 136 QRS: 71 T: 59 INTERPRETIVE STATEMENTS: Normal sinus rhythm Cannot rule out Anterior infarct, age undetermined Abnormal ECG Compared to ECG 12/21/2022 16:57:20 Myocardial infarct finding now present Electronically Signed On 01-16-23 11:48:32 CDT by Maurice Huitron
== END 2023-01-12 11:41 | disposition home or self-care (01) ==
LOC: ER 09:54
DX: E86.0 Dehydration (principal); I10 Essential (primary) hypertension; Z88.8 Allergy status to other drugs, medicaments and biological substances
CPT/HCPCS: 93005; 85025; 36415; 83735; 84703; 84484; 80053; 96360; 99284; J7030

== ENCOUNTER 2023-01-16 17:06 | Emergency (ER) | payer OTHER ==
--- OUTSIDE RECORDS SUMMARY | 2023-01-16 17:14 | XMS REPORT | Continuity of Care Document ---
:1985 Author Organization [facility] t Address [address] [place] [address] Care Team Providers Name Role Phone ASHA MCKEE Attending Clinician Unavailable PHYSICIAN, ER Attending Clinician Unavailable Problems Condition Condition Condition Status Onset Resolution Last Treating Co mments Source Name Details Category Date Date Treatment Clinician Date Problem Condition [facility] Allergies, Adverse Reactions, Alerts This patient has no known allergies or adverse reactions. Social History Social Habit Start Date Stop Date Quantity Comments Source Sex Assigned At [address] [facility] 00:00:00 00:00:00 Smoking Status Start Date Stop Date Source Unknown if ever smoked [employer] Never smoked tobacco (finding) [employer] Medications Ordered Filled Start Stop Current Ordering [...] Source Body Temperature 2020-01-07 10:16:00 97.7 [degF] [facility] Heart Rate 2020-01-07 10:16:00 79 /min Right [facility]vance Respiratory rate 2020-01-07 10:16:00 18 /min [facility] BP Systolic 2020-01-07 10:16:00 134 mm[Hg[facility] Diastolic 2020-01-07 10:16:00 90 mm[Hg] [facility] Respiratory rate 2019-09-08 21:00:00 18 /min [facility] [facility] BP Systolic 2019-09-08 21:00:00 146 mm[Hg] [facility] BP Diastolic 2019-09-08 21:00:00 93 mm[Hg] [facility] Weight 2019-09-08 21:00:00 235 [lb_av] [facility] BMI (Body Mass Index) 2019-09-08 21:00:00 34.7 kg/m2 [facility] [employer] Procedures Procedure Date / Time Performed Performing Clinician [facility] e ECG (electrocardiogram) 2020-01-07 00:00:00 [facility] [employer] X-ray of chest, single 2020-01-07 00:00:00 [employer] view Computed tomography of 2020-01-07 00:00:00 [facility] [employer] head or brain without contrast Computed tomography of 2020-01-07 00:00:00 [facility] [employer] cervical spine without contrast ECG (electrocardiogram) 2019-09-08 00:00:00 [facility] [employer] X-ray of chest, two views 2019-09-08 00:00:00 [employer] Encounters Start End Encounter Admission Attending Care Care Encounter Source Date/Time Date/Time Type Type Clinicians Facility Department ID 2020-01-09 2020-01-09 Outpatient GLORIA ZAMORA [id number] [facility] 13:44:00 13:44:00 [facility] 2020-01-07 2020-01-07 Departed ER PHYSICIAN, GLORIA CASTRO [id number] [facility] 03:35:00 03:35:00 Emergency ER [facility] [address] [facility] 2019-09-08 2019-09-09 Departed GLORIA CASTRO [id number] [facility] 20:50:00 00:23:00 Emergency [facility] [address] [facility] Results Test Description Test Time Test Comments Results Result Comments Source Serum or plasma natriuretic peptide B measurement (mas s/volume) 2020-01-07 08:11:00 Test Item Value Reference Range Interpretation Comme nts B-Type Natriuretic Peptide (test code = 81682-3) 4 pg/mL 0-101 [facility]um or plasma [...] 1.435 u[iU]/mL 0.550-4.780 (TSH) (test code = 32139-5) [facility]um or plasma free triiodothyronine (T3) [...] 3040-3) 29 U/L 31-96 [facility] HealthCreatine kinase ser/[id number] 07:27:00 Test Item Value Reference Range Interpretation Comments Total Creatine Kinase (test code = 61 U/L 30-160 2157-6) [facility] HealthSerum or plasma creatine kinase MB measurement (mass/volume) 2020-01-07 07:27:00 Test Item Value Reference Range Interpretation Comments Creatine Kinase MB (test code = < 0.18 ng/mL 0-5 22256-1) [facility]um or plasma cardiac troponin I measurement (mass/volume) 2020-01-07 07:27:00 Test Item Value Reference Range Interpretation Comments Troponin I (test code = < 0.006 ng/mL 0.000-0.040 92623-8) [facility] HealthSerum or plasma myoglobin measurement (mass/volume)2020-01-07 07:27:00 Test Item Value Reference Range Interpretation Comments Myoglobin (test code = 2639-3) 20.4 ng/mL <110.0 [facility] HealthUrinalysis specimen collection [id number] 04:03:00 Test Item Value Reference Range Interpretation Comments Urine Source (test code = Urine Clean Catch 85171-3) [facility] HealthUrine color apywlfkeakcra0597-14-57 04:03:00 Test Item Value Reference Range Interpretation Comments Urine Color (test code = 5778-6) Colorless Yel-Lora [facility] HealthUrine appearance grxangwpriuhv8814-95-17 04:03:00 Test Item Value Reference Range Interpretation Comments Urine Appearance (test code = 5767-9) Clear Clear [facility] HealthUrine pH measurement by test [id number] 04:03:00 Test Item Value Reference Range Interpretation Comments Urine pH (test code = 5803-2) 5.0 5.0-7.5 [facility] HealthSpecific gravity ur oftrtvvf2464-26-71 04:03:00 Test Item Value Reference Range Interpretation Comments Urine Specific [place] (test code = 1.003 1.003-1.029 5811-5) [facility] HealthUrine protein measurement by automated test strip (mass/volume) 2020-01-07 04:03:00 Test Item Value Reference Range Interpretation Comments Urine Protein (test code = Negative mg/dL Neg - Trace 58634-3) [facility] HealthUrine glucose measurement by automated test strip (mass/volume) 2020-01-07 04:03:00 Test Item Value Reference Range Interpretation Comments Urine Glucose (UA) (test code = Negative Negative 04671-1) [facility] HealthUrine ketones detection by automated test xtquv3218-86-09 04:03:00 Test Item Value Reference Range Interpretation Comments Urine Ketones (test code = 93287-4) Negative Negative [facility] HealthUrine erythrocytes count by automated test strip (number/volume) 2020-01-07 04:03:00 Test Item Value Reference Range Interpretation Comments Urine Occult Blood (test code = Negative Negative 46490-5) [facility] HealthUrine nitrite detection by automated test xhrdc2858-12-57 04:03:00 Test Item Value Reference Range Interpretation Comments Urine Nitrite (test code = 56340-9) Negative Negative [facility] HealthUrine total bilirubin detection by automated test dyyki5020-79-12 04:03:00 Test Item Value Reference Range Interpretation Comments Urine Bilirubin (test code = Negative Negative 03707-2) [facility] HealthUrine urobilinogen measurement by automated test strip (mass/volume)2020-01-07 04:03:00 Test Item Value Reference Range Interpretation Comments Urine Urobilinogen (test code = Normal mg/dL Norm-1.0 60114-1) [facility] HealthUrine leukocyte esterase detection by automated test strip 2020-01-07 04:03:00 Test Item Value Reference Range Interpretation Comments Urine Leukocyte Esterase (test code = Trace Negative 00845-8) [facility] HealthUrine sediment erythrocyte count by microscopy (number/high power field)2020-01-07 04:03:00 Test Item Value Reference Range Interpretation Comments Urine RBC (test 0-2 /[HPF] See_Comment [Automated message] The code = 82127-3) system which generated this result tra nsmitted [...] Cells (test code Many /[LPF] None/Occ = 88636-3) [facility] HealthUrine sediment bacteria count by microscopy (number/high power field)2020-01-07 04:03:00 Test Item Value Reference Range Interpretation Comments Urine Bacteria (test code = Occasional /[HPF] None 5769-5) [facility] HealthUrine sediment hyaline cast count by microscopy (number/low power field)2020-01-07 04:03:00 Test Item Value Reference Range Interpretation Comments Urine Hyaline Casts (test code = 2-5 /[LPF] 5796-8) [facility] HealthYeast detection in urine sediment by light ejwetviaht7653-94-12 04:03:00 Test Item Value Reference Range Interpretation Comments Urine Yeast (test code = None Seen /[HPF] 47759-9) [facility]Service comment 04:03:00 Test Item Value [...] HealthAutomated erythrocyte mean corpuscular hemoglobin concentration measurement (mass/jxz1348-30-26 04:00:00 Test Item Value Reference Range Interpretation Comments Mean Corpuscular Hemoglobin Concent 32.6 g/dL 32.5-35.0 (test code = 786-4) [facility] HealthAutomated erythrocyte distribution width ruixo9048-07-41 04:00:00 Test Item Value Reference Range Interpretation Comments Red Cell Distribution Width (test code 13.5 % 11.5-14.5 = 788-0) [facility] HealthAutomated blood platelet count (count/volume)2020-01-07 04:00:00 Test Item Value Reference Range Interpretation Comments Platelet Count (test code = 191 10*3/uL 160-400 777-3) [facility] HealthAutomated blood platelet mean volume mvctgmqthfi9318-12-04 04:00:00 Test Item Value Reference Range Interpretation Comments Mean Platelet Volume (test code = 12.0 fL 7.5-11.2 08265-5) [facility] HealthAutomated blood neutrophil count as percentage of total jqgumxinze9967-47-97 04:00:00 Test Item Value Reference Range Interpretation Comments Neutrophils (%) (Auto) (test code = 64 % 45-75 770-8) [facility] HealthAutomated blood immature granulocyte count as percentage of total bcrhnasmcj8169-60-32 04:00:00 Test Item Value Reference Range Interpretation Comments Immature Granulocyte % (Auto) (test 0.2 % 0.0-1.5 code = 76645-5) [facility] HealthAutomated blood lymphocyte count as percentage of total neoqkgcvzp0969-45-71 04:00:00 Test Item Value Reference Range Interpretation Comments Lymphocytes (%) (Auto) (test code = 26 % 20-48 736-9) [facility] HealthAutomated blood monocyte count as percentage of total leukocytes 2020-01-07 04:00:00 Test Item Value Reference Range Interpretation Comments Monocytes (%) (Auto) (test code = 6 % 1-9 5905-5) [facility] HealthAutomated blood eosinophil count as percentage of total htfwqdgomh4048-14-21 04:00:00 Test Item Value Reference Range Interpretation Comments Eosinophils (%) (Auto) (test code = 3 % 0-4 713-8) [facility] HealthAutomated blood basophil count as percentage of total leukocytes 2020-01-07 04:00:00 Test Item Value Reference Range Interpretation Comments Basophils (%) (Auto) (test code = 1 % 0-2 706-2) [facility] HealthAutomated blood nucleated erythrocyte count as percentage of total uhpglyieyy7343-88-57 04:00:00 Test Item Value Reference Range Interpretation Comments Nucleated Red Blood Cells % (test code 0 % 0-1 = 92229-6) [facility] HealthAutomated blood neutrophil count (number/volume)2020-01-07 04:00:00 Test Item Value Reference Range Interpretation Comments Neutrophils # (Auto) (test code 2.87 10*3/uL = 751-8) [facility] HealthProthrombin time (PT) in platelet poor fnqiin2391-57-81 04:00:00 Test Item Value Reference Range Interpretation Comments Prothrombin Time (test code = 5902-2) 11.8 s 9.4-12.5 [facility] HealthINR in Platelet poor plasma by Coagulation gyekv3394-79-43 04:00:00 Test Item Value Reference Range Interpretation Comments Prothromb Time International 1.1 {ratio} Ratio (test code = 6301-6) [facility] HealthPartial thromboplastin time (PTT) in platelet poor plasma 2020-01-07 04:00:00 Test Item Value Reference Range Interpretation Comments Activated Partial Thromboplast Time 30 s 25-37 (test code = 45252-8) [facility] HealthFibrin D-dimer FEU lbac9559-92-51 04:00:00 Test Item Value Reference Range Interpretation Comments D-Dimer (test code = 17162-1) 423 ng/mL{FEU} 215-500 [facility] HealthSerum or plasma [...] Interpretation Comments Anion Gap (test code = 12155-6) 9.0 mmol/L 3.0-11.0 [facility] HealthSerum or plasma urea nitrogen measurement (mass/volume)2020-01-07 04:00:00 Test Item Value Reference Range Interpretation Comments Blood Urea Nitrogen (test code = 16.0 mg/dL 12-22 3094-0) [facility] HealthSerum or plasma creatinine measurement (mass/volume)2020-01-07 04:00:00 Test Item Value Reference Range Interpretation Comments Creatinine (test code = 2160-0) 0.90 mg/dL 0.60-1.[address] [facility] [facility] calculated from serum or plasma creatinine by [id number] 04:00:00 Test Item Value Reference Range Interpretation Comments Estimated Creatinine Clearance (test 93.8 code = 56969-1) [facility] HospitalGlomerular filtration rate (GFR) estimation using MDRD equation 2020-01-07 04:00:00 Test Item Value Reference Range Interpretation Comments Estimat Glomerular Filtration Rate 77.12 >60 (test code = 151999643) [facility] HealthSerum or plasma urea nitrogen/creatinine mass perhl1511-68-07 04:00:00 Test Item Value Reference Range Interpretation Comments BUN/Creatinine Ratio (test code = 18 3097-3) [facility] HealthSerum or plasma glucose measurement (mass/volume)2020-01-07 04:00:00 Test Item Value Reference Range Interpretation Comments Glucose Level (test code = 2345-7) 88 mg/dL 74-112 [facility] HealthSerum or plasma calcium measurement (mass/volume)2020-01-07 04:00:00 Test Item Value Reference Range Interpretation Comments Calcium Level (test code = 98207-7) 9.8 mg/dL 9.0-10.2 [facility] HealthSerum or plasma [...] (test code = 1751-7) 4.9 g/dL 4.2-5.4 [facility] globulin measurement by calculation (mass/volume)2020-01-07 04:00:00 Test Item Value Reference Range Interpretation Comments Globulin (test code = 23504-4) 3.0 g/dL [facility] HealthSerum or plasma albumin/globulin mass sfwlg3677-87-67 04:00:00 Test Item Value Reference Range Interpretation Comments Albumin/Globulin Ratio (test code 1.6 {ratio} = 1759-0) [facility] HealthSerum or plasma alkaline phosphatase measurement (enzymatic activity/volume)2020-01-07 04:00:00 Test Item Value Reference Range Interpretation Comments Alkaline Phosphatase (test code = 78 U/L 45-100 6768-6) [facility] specimen collection bhgbjy7330-74-30 22:40:00 Test Item Value Reference Range Interpretation Comments Urine Source (test code = Urine Clean Catch 63481-1) [facility] HealthUrine color upqmlshxtofrp4594-38-72 22:40:00 Test Item Value Reference Range Interpretation Comments Urine Color (test code = 5778-6) Yellow Yel-Lora [facility] HealthUrine appearance jjmzhcdzfcaqe9116-08-63 22:40:00 Test Item Value Reference Range Interpretation Comments Urine Appearance (test code = 5767-9) Clear Clear [facility] HealthUrine pH measurement by test pnpnc1686-96-01 22:40:00 Test Item Value Reference Range Interpretation Comments Urine pH (test code = 5803-2) 6.0 5.0-7.5 [facility] HealthSpecific gravity ur vcfbmsqo5756-53-88 22:40:00 Test Item Value Reference Range Interpretation Comments Urine Specific [place] (test code = 1.024 1.003-1.029 5811-5) [facility] HealthUrine protein measurement by automated test strip (mass/volume) 2019-09-08 22:40:00 Test Item Value Reference Range Interpretation Comments Urine Protein (test code = Trace mg/dL Neg - Trace 57071-5) [facility] HealthUrine glucose measurement by automated test strip (mass/volume) 2019-09-08 22:40:00 Test Item Value Reference Range Interpretation Comments Urine Glucose (UA) (test code = Negative Negative 75598-5) [facility] HealthUrine ketones detection by automated test bppsg9739-93-02 22:40:00 Test Item Value Reference Range Interpretation Comments Urine Ketones (test code = 11137-8) Trace Negative [facility] HealthUrine erythrocytes count by automated test strip (number/volume) 2019-09-08 22:40:00 Test Item Value Reference Range Interpretation Comments Urine Occult Blood (test code = Negative Negative 57889-0) [facility] HealthUrine nitrite detection by automated test ctnhm5319-40-12 22:40:00 Test Item Value Reference Range Interpretation Comments Urine Nitrite (test code = 61622-7) Negative Negative [facility] HealthUrine total bilirubin detection by automated test rcbwl0349-20-24 22:40:00 Test Item Value Reference Range Interpretation Comments Urine Bilirubin (test code = Negative Negative 10539-1) [facility] HealthUrine urobilinogen measurement by automated test strip (mass/volume)2019-09-08 22:40:00 Test Item Value Reference Range Interpretation Comments Urine Urobilinogen (test code = Normal mg/dL Norm-1.0 19206-3) [facility] HealthUrine leukocyte esterase detection by automated test strip 2019-09-08 22:40:00 Test Item Value Reference Range Interpretation Comments Urine Leukocyte Esterase (test code = Trace Negative 35688-5) [facility] HealthUrine sediment erythrocyte count by microscopy (number/high power field)2019-09-08 22:40:00 Test Item Value Reference Range Interpretation Comments Urine RBC (test 0-2 /[HPF] See_Comment [Automated message] The code = 96711-2) system which generated this result tra nsmitted [...] (test None seen /[LPF] None/Occ code = 17261-7) [facility] HealthUrine sediment bacteria count by microscopy (number/high power field)2019-09-08 22:40:00 Test Item Value Reference Range Interpretation Comments Urine Bacteria (test code = Occasional /[HPF] None 5769-5) [facility] HealthUrine sediment hyaline cast count by microscopy (number/low power field)2019-09-08 22:40:00 Test Item Value Reference Range Interpretation Comments Urine Hyaline Casts (test code = 2-5 /[LPF] 5796-8) [facility] HealthYeast detection in urine sediment by light wmjqgfsswb6354-81-93 22:40:00 Test Item Value Reference Range Interpretation Comments Urine Yeast (test code = None Seen /[HPF] 66910-1) [facility] comment [id number] 22:40:00 Test Item Value Reference Range Interpretation Comments Urine Culture Indicated (test code = Yes 8264-4) [facility] HealthAutomated blood nucleated erythrocyte count as percentage of total cavynulpvs8088-57-38 22:15:00 Test Item Value Reference Range Interpretation Comments Nucleated Red Blood Cells % (test code 0 % 0-1 = 13753-2) [facility] HealthAutomated blood neutrophil count (number/volume)2019-09-08 22:15:00 [...] Interpretation Comments Anion Gap (test code = 27165-5) 15.0 mmol/L 3.0-11.0 [facility] HealthSerum or plasma [...] calculated from serum or plasma creatinine by Vh9135-12-33 22:15:00 Test Item Value Reference Range Interpretation Comments Estimated Creatinine Clearance (test 134.0 code = 35133-8) [facility] HospitalGl[facility]ular filtration rate (GFR) estimation using MDRD equation 2019-09-08 22:15:00 Test Item Value Reference Range Interpretation Comments Estimat Glomerular Filtration Rate 116.39 >60 (test code = 73443-8) [facility] HealthSerum or plasma urea nitrogen/creatinine mass qyigj2096-56-92 22:15:00 Test Item Value Reference Range Interpretation Comments BUN/Creatinine Ratio (test code = 22 3097-3) [facility] HealthSerum or plasma glucose measurement (mass/volume)2019-09-08 22:15:00 Test Item Value Reference Range Interpretation Comments Glucose Level (test code = 2345-7) 82 mg/dL 70-110 [facility] HealthSerum or plasma calcium measurement (mass/volume)2019-09-08 22:15:00 Test Item Value Reference Range Interpretation Comments Calcium Level (test code = 26594-3) 8.9 mg/dL 8.4-10.2 [facility] HealthSerum or plasma [...] Range Interpretation Comments Globulin (test code = 22191-5) 3.2 g/dL [facility] HealthSerum or plasma albumin/globulin mass upiab0476-19-33 22:15:00 Test Item Value Reference Range Interpretation [...] 3040-3) 18 U/L 16-63 [facility] HealthCreatine kinase ser/bzbz5287-15-20 22:15:00 Test Item Value Reference Range Interpretation Comments Total Creatine Kinase (test code = 84 U/L 24-170 2157-6) [facility] HealthSerum or plasma creatine kinase MB measurement (mass/volume) 2019-09-08 22:15:00 Test Item Value Reference Range Interpretation Comments Creatine Kinase MB (test code = 1.3 ng/mL 0-5 38011-2) [facility] HealthSerum or plasma cardiac troponin T [...] HealthAutomated erythrocyte mean corpuscular hemoglobin concentration measurement (mass/aiy5701-11-69 22:15:00 Test Item Value Reference Range Interpretation Comments Mean Corpuscular Hemoglobin Concent 33.5 g/dL 32.5-35.0 (test code = 786-4) [facility] HealthAutomated erythrocyte distribution width khxea8805-12-79 22:15:00 Test Item Value Reference Range Interpretation Comments Red Cell Distribution Width (test code 14.0 % 11.5-14.5 = 788-0) [facility] HealthAutomated blood platelet count (count/volume)2019-09-08 22:15:00 Test Item Value Reference Range Interpretation Comments Platelet Count (test code = 238 10*3/uL 160-400 777-3) [facility] HealthAutomated blood platelet mean volume cfzynpnjteo1872-15-90 22:15:00 Test Item Value Reference Range Interpretation Comments Mean Platelet Volume (test code = 11.0 fL 7.5-11.2 65770-9) [facility]Autom[facility] neutrophil count as percentage of total ioldrqrwcd5951-08-73 22:15:00 Test Item Value Reference Range Interpretation Comments Neutrophils (%) (Auto) (test code = 70 % 45-75 770-8) [facility]Automated blood immature granulocyte count as percentage of total qrmxmilznj0675-75-23 22:15:00 Test Item Value Reference Range Interpretation Comments Immature Granulocyte % (Auto) (test 0.2 % 0.0-1.5 code = 70224-3) [facility] HospitalAutomated blood lymphocyte count as percentage of total rsyddsrfhz6293-11-53 22:15:00 Test Item Value Reference Range Interpretation Comments Lymphocytes (%) (Auto) (test code = 21 % 20-48 736-9) [facility]Autom[facility] blood monocyte count as percentage of total leukocytes 2019-09-08 22:15:00 Test Item Value Reference Range Interpretation Comments Monocytes (%) (Auto) (test code = 7 % 1-9 5905-5) [facility] HospitalAutomated blood eosinophil count as percentage of total fxhojuowca5014-42-98 22:15:00 Test Item Value Reference Range Interpretation Comments Eosinophils (%) (Auto) (test code = 1 % 0-4 713-8) [facility]Autom[facility] blood basophil count as percentage of total leukocytes 2019-09-08 22:15:00 Test Item Value Reference Range Interpretation Comments Basophils (%) (Auto) (test code = 1 % 0-2 706-2) [facility]
[2023-01-16 17:49] LABS: Absolute Lymphocytes (CBC) 1.4 K/uL (0.7-4.9); Hematocrit 35.1 % (36.0-45.0); Lymphocytes % 18.7 % (15.3-44.8); MCV 86.5 fL (80-100); MPV 8.5 fL (7.6-11.3); RBC Red Blood Cell Count 4.06 M/uL (3.86-4.86)
[2023-01-16 17:54] LABS: Protime INR 1.1
--- NOTE | 2023-01-16 18:16 | RAD REPORT ---
EXAM DESCRIPTION: Finn Single View01/16/2023 5:54 pm CLINICAL HISTORY: Chest pain COMPARISON: December 2022 FINDINGS: The lungs appear clear of acute infiltrate. The heart is normal size IMPRESSION: No acute abnormalities displayed
[2023-01-16] MEDS ORDERED: NA CHLORIDE 0.9% 1,000 ML ONE (18:52)
[2023-01-16 19:05] LABS: Albumin 3.8 g/dL (3.4-5.0); Bilirubin Direct 0.2 mg/dL (0-0.2); Bilirubin Indirect, Calculated 0.4 mg/dL (0.2-0.8); Bilirubin Total 0.6 mg/dL (0.2-1.0); Potassium 3.5 mEq/L (3.5-5.1); Protein, Total 7.8 g/dL (6.4-8.2)
--- NOTE | 2023-01-16 19:16 | EDPHYS ---
Physician Documentation [facility] Name: Salud Almanzar Age: 37 yrs Sex: Female : 1985 Arrival Date: 01/16/2023 Time: 17:06 Bed 11 Private MD: BIBIANA Physician Contreras Salmeron HPI: 01/16 18:15 This 37 yrs old Female presents to ER via Ambulatory with complaints of Chest Pain, kb dehydration. 18:15 The patient has experienced near-syncope. Onset: The symptoms/episode began/occurred at kb 14:00. Duration: This was a single episode. Context: occurred at home. Associated injury: The patient did not suffer any apparent associated injury. Associated signs and symptoms: Pertinent positives: chest pain. Current symptoms: Currently, the patient is not experiencing any symptoms, the patient feels back to baseline, no decreased level of consciousness, no confusion, no dysphasia, no headache, no paralysis, no visual changes. The patient has experienced similar episodes in the past, a few times. The patient has not recently seen a physician. Pt reports she was sitting at home and started having chest pain, lightheadedness and felt like she was going to pass out. States EMS came out and did an EKG reporting normal findings so she didn't request transport. Reports she laid down and her anxiety was bad so she came to make sure everything was ok. Historical: - Allergies: 17:13 Ativan; stomach pain; mb9 - Home Meds: 17:13 Protonix Oral [Active]; mb9 - PMHx: 17:13 Anxiety; Gastroesophageal reflux disease; Hypertensive disorder; Migraine; mb9 - PSHx: 17:13 section; Cholecystectomy; Ligation of fallopian tube; mb9 - Immunization history:: Adult Immunizations up to date. - Social history:: Smoking status: Patient denies any tobacco usage or history of. ROS: 18:13 Constitutional: Negative for fever, chills, and weight loss. kb 18:13 Cardiovascular: Positive for chest pain. 18:13 Neuro: Positive for near syncope. 18:13 All other systems are negative. Exam: 18:06 Constitutional: This is a well developed, well nourished patient who is awake, alert, kb and in no acute distress. Head/Face: Normocephalic, atraumatic. ENT: Moist Mucous membranes Cardiovascular: Regular rate and rhythm with a normal S1 and S2. No gallops, murmurs, or rubs. No pulse deficits. Respiratory: Respirations even and unlabored. No increased work of breathing. Talking in full sentences Abdomen/GI: Soft, non-tender. No distention Skin: Warm, dry with normal turgor. Normal color. MS/ Extremity: Pulses equal, no cyanosis. Neurovascular intact. Full, normal range of motion. Neuro: Awake and alert, GCS 15, oriented to person, place, time, and situation. Moves all extremities. Normal gait. 18:06 ECG was reviewed by the Attending Physician. Vital Signs: 17:11 BP 163 / 97; Pulse 84; Resp 18; Temp 98; Pulse Ox 100% on R/A; Weight 106.59 kg; Height mb9 5 ft. 10 in. ; Pain 5/10; 18:28 BP 147 / 93 Supine; Pulse 67; Resp 18; Pulse Ox 100% on R/A; eh3 18:30 BP 147 / 102 Sitting; Pulse 82; Resp 18; Pulse Ox 100% on R/A; eh3 18:32 BP 156 / 121 Standing; Pulse 92; Resp 18; Pulse Ox 100% on R/A; eh3 17:11 Body Mass Index 33.72 (106.59 kg, 177.8 cm) mb9 17:11 Pain Scale: Adult mb9 MDM: 17:11 Patient medically screened. kb 18:06 Data reviewed: vital signs, nurses notes. kb 18:57 Transition of care: After a detail discussion of the patient's case, care is kb transferred to Contreras Salmeron MD. 01/16 17:16 Order name: Basic Metabolic Panel; Complete Time: 19:15 kb 01/16 17:16 Order name: CBC with Diff; Complete Time: 17:53 kb 01/16 17:16 Order name: Hepatic Function; Complete Time: 19:15 kb 01/16 17:16 Order name: Magnesium; Complete Time: 19:15 kb 01/16 17:16 Order name: Protime (+inr); Complete Time: 18:05 kb 01/16 17:16 Order name: Ptt, Activated; Complete Time: 18:05 kb 01/16 17:16 Order name: Troponin High Sensitivity; Complete Time: 19:15 kb 01/16 17:16 Order name: Chest Single View XRAY; Complete Time: 18:24 kb 01/16 17:16 Order name: EKG; Complete Time: 17:17 kb 01/16 17:16 Order name: Cardiac monitoring; Complete Time: 17:25 kb 01/16 17:16 Order name: EKG - Nurse/Tech; Complete Time: 17:25 kb 01/16 17:16 Order name: IV Saline Lock; Complete Time: 17:25 kb 01/16 17:16 Order name: Labs collected and sent; Complete Time: 17:25 kb 01/16 17:16 Order name: NPO; Complete Time: 17:25 kb 01/16 17:16 Order name: O2 Per Protocol; Complete Time: 17:25 kb 01/16 17:16 Order name: O2 Sat Monitoring; Complete Time: 17:26 kb 01/16 17:16 Order name: Orthostatics; Complete Time: 18:37 kb 01/16 17:48 Order name: Labs - recollect needed: recollect green top; Complete Time: 18:37 bd EC:06 Rate is 79 beats/min. Rhythm is regular. QRS Benld is Normal. NC interval is normal at kb 136 msec. QRS interval is normal at 86 msec. QT interval is normal at 442 msec. Administered Medications: No medications were administered Disposition: 19:00 Co-signature as Attending Physician, Contreras Salmeron MD I agree with the assessment and raul plan of care. Disposition Summary: 01/16/23 19:16 Discharge Ordered Location: Home raul Condition: Stable raul Diagnosis - Chest pain, unspecified raul - Syncope Near raul - Essential (primary) hypertension raul Followup: kb - With: Emergency Department - When: As needed - Reason: Worsening of condition Followup: kb - With: Private Physician - When: 2 - 3 days - Reason: Recheck today's complaints, Continuance of care, Re-evaluation by your physician Discharge Instructions: - Discharge Summary Sheet kb - Near-Syncope, [id number] kb - Nonspecific Chest Pain, Adult, [id number] kb - Hypertension, Adult raul - Weakness raul - Hypertension, Adult, [id number] raul - How to Take Your Blood Pressure, [id number] raul - Managing Your Hypertension raul Forms: - Medication Reconciliation Form raul - Thank You Letter raul - Antibiotic Education raul - Prescription Opioid Use raul - Patient Portal Instructions raul - Work release form eh3 Prescriptions: - Norvasc 5 mg Oral Tablet - take 1 tablet by ORAL route once daily; 20 tablet; Refills: 0, Product raul Selection Permitted Signatures: Dispatcher [employer] Emmanuelle Esquivel, CAMILA ROWE-Anayeli Rubio Corey, MD MD cha Breneman, Rowena Estevez RN RN mb9 Corrections: (The following items were deleted from the chart) 18:57 18:55 [facility]
--- NOTE | 2023-01-16 19:16 | ER ---
Nurse's Notes [facility] Name: Salud Almanzar Age: 37 yrs Sex: Female : 1985 Arrival Date: 01/16/2023 Time: 17:06 Bed 11 Private MD: Diagnosis: Chest pain, unspecified;Syncope Near;Essential (primary) hypertension Presentation: 01/16 17:11 Chief complaint: Patient states: "I was just sitting at my house, then started feeling mb9 really weird all of a sudden with dizziness and felt like I was going to pass out. I felt like I couldn't see straight. My chest started hurting and pouring sweat, felt sick to my stomach. I'm exhausted and probably dehydrated". Coronavirus screen: At this time, the client does not indicate any symptoms associated with coronavirus-19. Ebola Screen: No symptoms or risks identified at this time. Initial Sepsis Screen: Does the patient meet any 2 criteria? No. Patient's initial sepsis screen is negative. Does the patient have a suspected source of infection? No. Patient's initial sepsis screen is negative. Risk Assessment: Do you want to hurt yourself or someone else? Patient reports no desire to harm self or others. Onset of symptoms was January 16, 2023. 17:11 Method Of Arrival: Ambulatory mb9 17:11 Acuity: JOSE 3 mb9 Triage Assessment: 17:14 General: Appears uncomfortable, Behavior is anxious. Pain: Complains of pain in chest mb9 Pain currently is 5 out of 10 on a pain scale. Quality of pain is described as throbbing, Pain began suddenly, Is continuous. Neuro: Rocha Agitation-Sedation Scale (RASS): 0 - Alert and Calm Level of Consciousness is awake, alert, obeys commands, Oriented to person, place, time, situation, Appropriate for age. Cardiovascular: Reports chest pain, lightheadedness, Patient's skin is warm and dry. Respiratory: Airway is patent Respiratory effort is even, unlabored, Respiratory pattern is regular, symmetrical. GI: No signs and/or symptoms were reported involving the gastrointestinal system. : No signs and/or symptoms were reported regarding the genitourinary system. Derm: Skin is pink, warm \\T\\ dry. Musculoskeletal: Range of motion: intact in all extremities. Historical: - Allergies: 17:13 Ativan; stomach pain; mb9 - Home Meds: 17:13 Protonix Oral [Active]; mb9 - PMHx: 17:13 Anxiety; Gastroesophageal reflux disease; Hypertensive disorder; Migraine; mb9 - PSHx: 17:13 section; Cholecystectomy; Ligation of fallopian tube; mb9 - Immunization history:: Adult Immunizations up to date. - Social history:: Smoking status: Patient denies any tobacco usage or history of. Screenin:30 [facility] ED Fall Risk Assessment (Adult) Score/Fall Risk Level 0 - 2 = Low Risk. Abuse eh3 screen: Denies threats or abuse. Denies injuries from another. Nutritional screening: No deficits noted. Tuberculosis screening: No symptoms or risk factors identified. Assessment: 17:30 General: Appears in no apparent distress. uncomfortable, Behavior is cooperative, eh3 appropriate for age, anxious. Pain: Complains of pain in chest Pain does not radiate. Pain: Pain began today. Neuro: Level of Consciousness is awake, alert, obeys commands, Oriented to person, place, time, situation. Cardiovascular: Capillary refill < 3 seconds Patient's skin is warm and dry. Respiratory: Airway is patent Respiratory effort is even, unlabored, Respiratory pattern is regular, symmetrical. GI: Abdomen is round non-distended. Derm: Skin is healthy with good turgor. Musculoskeletal: Circulation, motion, and sensation intact. 18:30 Reassessment: Patient appears in no apparent distress at this time. Patient and/or eh3 family updated on plan of care and expected duration. Pain level reassessed. Patient is alert, oriented x 3, equal unlabored respirations, skin warm/dry/pink. 19:21 Reassessment: Pt room found empty. Called pt phone number and left message. eh3 19:49 Reassessment: Called and spoke with pt, advised to return to hospital due to high blood eh3 pressure. Vital Signs: 17:11 BP 163 / 97; Pulse 84; Resp 18; Temp 98; Pulse Ox 100% on R/A; Weight 106.59 kg; Height mb9 5 ft. 10 in. ; Pain 5/10; 18:28 BP 147 / 93 Supine; Pulse 67; Resp 18; Pulse Ox 100% on R/A; eh3 18:30 BP 147 / 102 Sitting; Pulse 82; Resp 18; Pulse Ox 100% on R/A; eh3 18:32 BP 156 / 121 Standing; Pulse 92; Resp 18; Pulse Ox 100% on R/A; eh3 17:11 Body Mass Index 33.72 (106.59 kg, 177.8 cm) mb9 17:11 Pain Scale: Adult mb9 ED Course: 17:07 Patient arrived in ED. im 17:11 Emmanuelle Marsh [facility]NP-C [facility] kb 17:11 Rafal Nicholas MD is Attending Physician. kb 17:13 Triage completed. mb9 17:14 Arm band placed on. mb9 17:26 Elsa Peraza, RN is Primary Nurse. eh3 17:26 Basic Metabolic Panel Sent. mb9 17:26 CBC with Diff Sent. mb9 17:26 Hepatic Function Sent. mb9 17:26 Magnesium Sent. mb9 17:26 Protime (+inr) Sent. mb9 17:26 Ptt, Activated Sent. mb9 17:27 Troponin High Sensitivity Sent. mb9 17:27 EKG done, by ED staff, reviewed by Emmanuelle JENSEN. Inserted saline lock: 22 mb9 gauge in right antecubital area, using aseptic technique. 17:30 Patient has correct armband on for positive identification. Bed in low position. Call eh3 light in reach. Side rails up X2. Provided Education on: N/A. Pulse ox on. NIBP on. 17:30 Patient maintains SpO2 saturation greater than 95% on room air. eh3 17:56 Chest Single View XRAY In Process Unspecified. EDMS 18:30 IV discontinued, intact, bleeding controlled, Pressure dressing applied, IV eh3 infiltrated, ice pack applied. 18:57 Contreras Salmeron MD is Attending Physician. kb Administered Medications: No medications were administered Medication: 17:15 VIS not applicable for this client. mb9 Outcome: 19:16 Discharge ordered by . [facility] 19:24 Patient left the ED. 3 Signatures: Dispatcher [employer] EDMS Emmanuelle Marsh FNP-C FNP-CkContreras Aguila MD MD cha Hall, Erin, RN RN 3 Eduardo, Rowena Estevez RN RN mb9 Jes Daley im
[2023-01-16 22:59] VITALS: TEMP 98; O2SAT 100
[2023-01-16 23:03] VITALS: BP 156/121
--- NOTE | 2023-01-17 20:40 | EKG ---
Test Date: 2023-01-16 Test Time: 17:26:17 Hand Deicer Element Winder: KATIA MEASUREMENT RESULTS: Intervals: Rate: 79 WI: 136 QRSD: 86 QT: 386 QTc: 442 [place]: P: 63 WI: 136 QRS: 72 T: 60 INTERPRETIVE STATEMENTS: Normal sinus rhythm Cannot rule out Anterior infarct, age undetermined Abnormal ECG Compared to ECG 01/12/2023 10:28:39 No significant changes Electronically Signed On 01-17-23 20:37:48 CDT by Oz Faulkner
== END 2023-01-16 19:24 | disposition home or self-care (01) ==
LOC: ER 17:06
DX: R07.9 Chest pain, unspecified (principal); R55 Syncope and collapse; I10 Essential (primary) hypertension; K21.9 Gastro-esophageal reflux disease without esophagitis; Z90.49 Acquired absence of other specified parts of digestive tract
CPT/HCPCS: 93005; 85025; 80048; 36415; 83735; 85610; 80076; 85730; 84484; 71045; 99284; J7030

== ENCOUNTER 2023-02-28 11:09 | Emergency (ER) | payer OTHER ==
--- OUTSIDE RECORDS SUMMARY | 2023-02-28 11:13 | XMS REPORT | Continuity of Care Document ---
:1985 Author Organization [facility] t Address [address] [place] [id number] Care Team Providers Name Role Phone ASHA MCKEE Attending Clinician Unavailable PHYSICIAN, ER Attending Clinician Unavailable Problems Condition Condition Condition Status Onset Resolution Last Treating Co mments Source Name Details Category Date Date Treatment Clinician Date Problem Condition [facility] Allergies, Adverse Reactions, Alerts This patient has no known allergies or adverse reactions. Social History Social Habit Start Date Stop Date Quantity Comments Source Sex Assigned At [birth year] Female [facility] 00:00:00 00:00:00 Smoking Status Start Date Stop Date Source Unknown if ever smoked [employer] Never smoked tobacco (finding) [employer] Medications Ordered Filled Start Stop Current Ordering [...] Source Body Temperature 2020-01-07 10:16:00 97.7 [degF] [employer] Heart Rate 2020-01-07 10:16:00 79 /min [employer] Respiratory rate 2020-01-07 10:16:00 18 /min [employer] BP Systolic 2020-01-07 10:16:00 134 mm[Hg] [facility] Diastolic 2020-01-07 10:16:00 90 mm[Hg] [facility] Respiratory rate 2019-09-08 21:00:00 18 /min [place] [employer] [facility] BP Systolic 2019-09-08 21:00:00 146 mm[Hg] [facility] BP Diastolic 2019-09-08 21:00:00 93 mm[Hg] [facility] Weight 2019-09-08 21:00:00 235 [lb_av] [facility] BMI (Body Mass Index) 2019-09-08 21:00:00 34.7 kg/m2 [facility] [employer] Procedures Procedure Date / Time Performed Performing Clinician [facility] e ECG (electrocardiogram) 2020-01-07 00:00:00 [facility] [employer] X-ray of chest, single 2020-01-07 00:00:00 [employer] view Computed tomography of 2020-01-07 00:00:00 [facility] [employer] head or brain without contrast Computed tomography of 2020-01-07 00:00:00 [facility] [employer] cervical spine without contrast ECG (electrocardiogram) 2019-09-08 00:00:00 [facility] [employer] X-ray of chest, two views 2019-09-08 00:00:00 [facility] Encounters Start End Encounter Admission Attending Care Care Encounter Source Date/Time Date/Time Type Type Clinicians Facility Department ID 2020-01-09 2020-01-09 Outpatient GLORIA ZAMORA [id number] [facility] 13:44:00 13:44:00 [facility] 2020-01-07 2020-01-07 Departed ER PHYSICIAN, GLORIA CASTRO [id number] [facility] 03:35:00 03:35:00 Emergency ER [facility] [address] [facility] 2019-09-08 2019-09-09 Departed GLORIA CASTRO [id number] [facility] 20:50:00 00:23:00 Emergency [facility] Results Test Description Test Time Test Comments Results Result Comments Source Serum or plasma natriuretic peptide B measurement (mas s/volume) 2020-01-07 08:11:00 Test Item Value Reference Range Interpretation Comme nts B-Type Natriuretic Peptide (test code = 72908-5) 4 pg/mL 0-101 [facility]um or plasma [...] 1.435 u[iU]/mL 0.550-4.780 (TSH) (test code = 64130-6) [facility] or plasma free triiodothyronine (T3) [...] 3040-3) 29 U/L 31-96 [facility] HealthCreatine kinase ser/immv7675-05-91 07:27:00 Test Item Value Reference Range Interpretation Comments Total Creatine Kinase (test code = 61 U/L 30-160 2157-6) [facility] HealthSerum or plasma creatine kinase MB measurement (mass/volume) 2020-01-07 07:27:00 Test Item Value Reference Range Interpretation Comments Creatine Kinase MB (test code = < 0.18 ng/mL 0-5 33453-9) [facility] or plasma cardiac troponin I measurement (mass/volume) 2020-01-07 07:27:00 Test Item Value Reference Range Interpretation Comments Troponin I (test code = < 0.006 ng/mL 0.000-0.040 94868-3) [facility] HealthSerum or plasma myoglobin measurement (mass/volume)2020-01-07 07:27:00 Test Item Value Reference Range Interpretation Comments Myoglobin (test code = 2639-3) 20.4 ng/mL <110.0 [facility] HealthUrinalysis specimen collection [id number] 04:03:00 Test Item Value Reference Range Interpretation Comments Urine Source (test code = Urine Clean Catch 32663-7) [facility] HealthUrine color qohhfriqqnntk3181-70-27 04:03:00 Test Item Value Reference Range Interpretation Comments Urine Color (test code = 5778-6) Colorless Yel-Lora [facility] HealthUrine appearance vnotclgcaesks8676-16-32 04:03:00 Test Item Value Reference Range Interpretation Comments Urine Appearance (test code = 5767-9) Clear Clear [facility] HealthUrine pH measurement by test [id number] 04:03:00 Test Item Value Reference Range Interpretation Comments Urine pH (test code = 5803-2) 5.0 5.0-7.5 [facility] HealthSpecific gravity ur fxtkrbti7112-53-83 04:03:00 Test Item Value Reference Range Interpretation Comments Urine Specific Galien (test code = 1.003 1.003-1.029 5811-5) [facility] HealthUrine protein measurement by automated test strip (mass/volume) 2020-01-07 04:03:00 Test Item Value Reference Range Interpretation Comments Urine Protein (test code = Negative mg/dL Neg - Trace 86209-0) [facility]Urine glucose measurement by automated test strip (mass/volume) 2020-01-07 04:03:00 Test Item Value Reference Range Interpretation Comments Urine Glucose (UA) (test code = Negative Negative 05669-1) [facility] HealthUrine ketones detection by automated test utyao2227-17-05 04:03:00 Test Item Value Reference Range Interpretation Comments Urine Ketones (test code = 78014-8) Negative Negative [facility] HealthUrine erythrocytes count by automated test strip (number/volume) 2020-01-07 04:03:00 Test Item Value Reference Range Interpretation Comments Urine Occult Blood (test code = Negative Negative 68758-2) [facility] HealthUrine nitrite detection by automated test apaht4691-86-08 04:03:00 Test Item Value Reference Range Interpretation Comments Urine Nitrite (test code = 77855-4) Negative Negative [facility] HealthUrine total bilirubin detection by automated test wubfr5109-84-29 04:03:00 Test Item Value Reference Range Interpretation Comments Urine Bilirubin (test code = Negative Negative 79978-9) [facility] HealthUrine urobilinogen measurement by automated test strip (mass/volume)2020-01-07 04:03:00 Test Item Value Reference Range Interpretation Comments Urine Urobilinogen (test code = Normal mg/dL Norm-1.0 84981-5) [facility]Urine leukocyte esterase detection by automated test strip 2020-01-07 04:03:00 Test Item Value Reference Range Interpretation Comments Urine Leukocyte Esterase (test code = Trace Negative 62579-9) [facility] HealthUrine sediment erythrocyte count by microscopy (number/high power field)2020-01-07 04:03:00 Test Item Value Reference Range Interpretation Comments Urine RBC (test 0-2 /[HPF] See_Comment [Automated message] The code = 94863-5) system which generated this result tra nsmitted [...] Cells (test code Many /[LPF] None/Occ = 18524-2) [facility] HealthUrine sediment bacteria count by microscopy (number/high power field)2020-01-07 04:03:00 Test Item Value Reference Range Interpretation Comments Urine Bacteria (test code = Occasional /[HPF] None 5769-5) [facility] HealthUrine sediment hyaline cast count by microscopy (number/low power field)2020-01-07 04:03:00 Test Item Value Reference Range Interpretation Comments Urine Hyaline Casts (test code = 2-5 /[LPF] 5796-8) [facility] HealthYeast detection in urine sediment by light xyudqwocew9150-49-85 04:03:00 Test Item Value Reference Range Interpretation Comments Urine Yeast (test code = None Seen /[HPF] 61501-0) [facility] comment 04:03:00 Test Item Value [...] HealthAutomated erythrocyte mean corpuscular hemoglobin concentration measurement (mass/dht9640-56-44 04:00:00 Test Item Value Reference Range Interpretation Comments Mean Corpuscular Hemoglobin Concent 32.6 g/dL 32.5-35.0 (test code = 786-4) [facility] HealthAutomated erythrocyte distribution width jnteq8833-10-14 04:00:00 Test Item Value Reference Range Interpretation Comments Red Cell Distribution Width (test code 13.5 % 11.5-14.5 = 788-0) [facility] HealthAutomated blood platelet count (count/volume)2020-01-07 04:00:00 Test Item Value Reference Range Interpretation Comments Platelet Count (test code = 191 10*3/uL 160-400 777-3) [facility] HealthAutomated blood platelet mean volume ngkufbnwrrc7751-88-89 04:00:00 Test Item Value Reference Range Interpretation Comments Mean Platelet Volume (test code = 12.0 fL 7.5-11.2 87634-1) [facility] HealthAutomated blood neutrophil count as percentage of total vofzjsfqyz9262-12-76 04:00:00 Test Item Value Reference Range Interpretation Comments Neutrophils (%) (Auto) (test code = 64 % 45-75 770-8) [facility] HealthAutomated blood immature granulocyte count as percentage of total gwuyuxwftu0248-15-78 04:00:00 Test Item Value Reference Range Interpretation Comments Immature Granulocyte % (Auto) (test 0.2 % 0.0-1.5 code = 95242-7) [facility] HealthAutomated blood lymphocyte count as percentage of total ztrgmczqpg1671-48-20 04:00:00 Test Item Value Reference Range Interpretation Comments Lymphocytes (%) (Auto) (test code = 26 % 20-48 736-9) [facility] HealthAutomated blood monocyte count as percentage of total leukocytes 2020-01-07 04:00:00 Test Item Value Reference Range Interpretation Comments Monocytes (%) (Auto) (test code = 6 % 1-9 5905-5) [facility] HealthAutomated blood eosinophil count as percentage of total uspugxunwx4484-42-04 04:00:00 Test Item Value Reference Range Interpretation Comments Eosinophils (%) (Auto) (test code = 3 % 0-4 713-8) [facility] HealthAutomated blood basophil count as percentage of total leukocytes 2020-01-07 04:00:00 Test Item Value Reference Range Interpretation Comments Basophils (%) (Auto) (test code = 1 % 0-2 706-2) [facility] HealthAutomated blood nucleated erythrocyte count as percentage of total ohznngauhl4370-89-48 04:00:00 Test Item Value Reference Range Interpretation Comments Nucleated Red Blood Cells % (test code 0 % 0-1 = 11127-5) [facility] HealthAutomated blood neutrophil count (number/volume)2020-01-07 04:00:00 Test Item Value Reference Range Interpretation Comments Neutrophils # (Auto) (test code 2.87 10*3/uL = 751-8) [facility] HealthProthrombin time (PT) in platelet poor ryqocv8899-47-02 04:00:00 Test Item Value Reference Range Interpretation Comments Prothrombin Time (test code = 5902-2) 11.8 s 9.4-12.5 [facility] HealthINR in Platelet poor plasma by Coagulation ujgan9627-02-18 04:00:00 Test Item Value Reference Range Interpretation Comments Prothromb Time International 1.1 {ratio} Ratio (test code = 6301-6) [facility] HealthPartial thromboplastin time (PTT) in platelet poor plasma 2020-01-07 04:00:00 Test Item Value Reference Range Interpretation Comments Activated Partial Thromboplast Time 30 s 25-37 (test code = 51010-6) [facility] HealthFibrin D-dimer FEU kiib5368-57-41 04:00:00 Test Item Value Reference Range Interpretation Comments D-Dimer (test code = 15395-6) 423 ng/mL{FEU} 215-500 [facility] HealthSerum or plasma [...] Interpretation Comments Anion Gap (test code = 94714-9) 9.0 mmol/L 3.0-11.0 [facility] HealthSerum or plasma urea nitrogen measurement (mass/volume)2020-01-07 04:00:00 Test Item Value Reference Range Interpretation Comments Blood Urea Nitrogen (test code = 16.0 mg/dL 12-22 3094-0) [facility] HealthSerum or plasma creatinine measurement (mass/volume)2020-01-07 04:00:00 Test Item Value Reference Range Interpretation Comments Creatinine (test code = 2160-0) 0.90 mg/dL 0.60-1.02 [facility] calculated from serum or plasma creatinine by Qa7671-73-42 04:00:00 Test Item Value Reference Range Interpretation Comments Estimated Creatinine Clearance (test 93.8 code = 97129-2) [facility] HospitalGlomerular filtration rate (GFR) estimation using MDRD equation 2020-01-07 04:00:00 Test Item Value Reference Range Interpretation Comments Estimat Glomerular Filtration Rate 77.12 >60 (test code = 936910321) [facility] HealthSerum or plasma urea nitrogen/creatinine mass phrss5187-11-24 04:00:00 Test Item Value Reference Range Interpretation Comments BUN/Creatinine Ratio (test code = 18 3097-3) [facility] HealthSerum or plasma glucose measurement (mass/volume)2020-01-07 04:00:00 Test Item Value Reference Range Interpretation Comments Glucose Level (test code = 2345-7) 88 mg/dL 74-112 [facility] HealthSerum or plasma calcium measurement (mass/volume)2020-01-07 04:00:00 Test Item Value Reference Range Interpretation Comments Calcium Level (test code = 02339-9) 9.8 mg/dL 9.0-10.2 [facility] HealthSerum or plasma [...] (test code = 1751-7) 4.9 g/dL 4.2-5.4 [facility]Ser[facility] globulin measurement by calculation (mass/volume)2020-01-07 04:00:00 Test Item Value Reference Range Interpretation Comments Globulin (test code = 02810-3) 3.0 g/dL [facility] HealthSerum or plasma albumin/globulin mass zsxbb7008-06-29 04:00:00 Test Item Value Reference Range Interpretation Comments Albumin/Globulin Ratio (test code 1.6 {ratio} = 1759-0) [facility] HealthSerum or plasma alkaline phosphatase measurement (enzymatic activity/volume)2020-01-07 04:00:00 Test Item Value Reference Range Interpretation Comments Alkaline Phosphatase (test code = 78 U/L 45-100 6768-6) [facility] HospitalUrinalysis specimen collection chbfui9724-10-26 22:40:00 Test Item Value Reference Range Interpretation Comments Urine Source (test code = Urine Clean Catch 18283-2) [facility] HealthUrine color hnbckjyinqexl7789-77-75 22:40:00 Test Item Value Reference Range Interpretation Comments Urine Color (test code = 5778-6) Yellow Yel-Lora [facility] HealthUrine appearance zplaeeismfnsg3553-09-90 22:40:00 Test Item Value Reference Range Interpretation Comments Urine Appearance (test code = 5767-9) Clear Clear [facility] HealthUrine pH measurement by test wgtbb0206-37-54 22:40:00 Test Item Value Reference Range Interpretation Comments Urine pH (test code = 5803-2) 6.0 5.0-7.5 [facility] HealthSpecific gravity ur vpwcrkcc7837-43-41 22:40:00 Test Item Value Reference Range Interpretation Comments Urine Specific Galien (test code = 1.024 1.003-1.029 5811-5) [facility] HealthUrine protein measurement by automated test strip (mass/volume) 2019-09-08 22:40:00 Test Item Value Reference Range Interpretation Comments Urine Protein (test code = Trace mg/dL Neg - Trace 40966-0) [facility] HealthUrine glucose measurement by automated test strip (mass/volume) 2019-09-08 22:40:00 Test Item Value Reference Range Interpretation Comments Urine Glucose (UA) (test code = Negative Negative 52088-2) [facility] HealthUrine ketones detection by automated test gysnz3559-35-21 22:40:00 Test Item Value Reference Range Interpretation Comments Urine Ketones (test code = 90813-5) Trace Negative [facility] HealthUrine erythrocytes count by automated test strip (number/volume) 2019-09-08 22:40:00 Test Item Value Reference Range Interpretation Comments Urine Occult Blood (test code = Negative Negative 49314-3) [facility] HealthUrine nitrite detection by automated test fucnw8110-51-37 22:40:00 Test Item Value Reference Range Interpretation Comments Urine Nitrite (test code = 23943-9) Negative Negative [facility]Urine total bilirubin detection by automated test [id number] 22:40:00 Test Item Value Reference Range Interpretation Comments Urine Bilirubin (test code = Negative Negative 79794-6) [facility] HealthUrine urobilinogen measurement by automated test strip (mass/volume)2019-09-08 22:40:00 Test Item Value Reference Range Interpretation Comments Urine Urobilinogen (test code = Normal mg/dL Norm-1.0 36186-3) [facility]Urine leukocyte esterase detection by automated test strip 2019-09-08 22:40:00 Test Item Value Reference Range Interpretation Comments Urine Leukocyte Esterase (test code = Trace Negative 24981-6) [facility] HealthUrine sediment erythrocyte count by microscopy (number/high power field)2019-09-08 22:40:00 Test Item Value Reference Range Interpretation Comments Urine RBC (test 0-2 /[HPF] See_Comment [Automated message] The code = 96227-2) system which generated this result tra nsmitted [...] (test None seen /[LPF] None/Occ code = 36996-9) [facility] HealthUrine sediment bacteria count by microscopy (number/high power field)2019-09-08 22:40:00 Test Item Value Reference Range Interpretation Comments Urine Bacteria (test code = Occasional /[HPF] None 5769-5) [facility] HealthUrine sediment hyaline cast count by microscopy (number/low power field)2019-09-08 22:40:00 Test Item Value Reference Range Interpretation Comments Urine Hyaline Casts (test code = 2-5 /[LPF] 5796-8) [facility] HealthYeast detection in urine sediment by light pdxzrfcovs6820-69-86 22:40:00 Test Item Value Reference Range Interpretation Comments Urine Yeast (test code = None Seen /[HPF] 93333-1) [facility] comment [id number] 22:40:00 Test Item Value Reference Range Interpretation Comments Urine Culture Indicated (test code = Yes 8264-4) [facility] HealthAutomated blood nucleated erythrocyte count as percentage of total iiyewarrox4056-78-25 22:15:00 Test Item Value Reference Range Interpretation Comments Nucleated Red Blood Cells % (test code 0 % 0-1 = 99186-8) [facility] HealthAutomated blood neutrophil count (number/volume)2019-09-08 22:15:00 [...] Interpretation Comments Anion Gap (test code = 69160-1) 15.0 mmol/L 3.0-11.0 [facility] HealthSerum or plasma [...] calculated from serum or plasma creatinine by If8588-36-15 22:15:00 Test Item Value Reference Range Interpretation Comments Estimated Creatinine Clearance (test 134.0 code = 34051-7) [facility] HospitalGlomerular filtration rate (GFR) estimation using MDRD equation 2019-09-08 22:15:00 Test Item Value Reference Range Interpretation Comments Estimat Glomerular Filtration Rate 116.39 >60 (test code = 24684-8) [facility] HealthSerum or plasma urea nitrogen/creatinine mass mjczn4313-58-15 22:15:00 Test Item Value Reference Range Interpretation Comments BUN/Creatinine Ratio (test code = 22 3097-3) [facility] HealthSerum or plasma glucose measurement (mass/volume)2019-09-08 22:15:00 Test Item Value Reference Range Interpretation Comments Glucose Level (test code = 2345-7) 82 mg/dL 70-110 [facility] HealthSerum or plasma calcium measurement (mass/volume)2019-09-08 22:15:00 Test Item Value Reference Range Interpretation Comments Calcium Level (test code = 85435-6) 8.9 mg/dL 8.4-10.2 [facility] HealthSerum or plasma [...] Range Interpretation Comments Globulin (test code = 60802-4) 3.2 g/dL [facility] HealthSerum or plasma albumin/globulin mass dpbsd7747-53-15 22:15:00 Test Item Value Reference Range Interpretation [...] 3040-3) 18 U/L 16-63 [facility] HealthCreatine kinase ser/[id number] 22:15:00 Test Item Value Reference Range Interpretation Comments Total Creatine Kinase (test code = 84 U/L 24-170 2157-6) [facility] HealthSerum or plasma creatine kinase MB measurement (mass/volume) 2019-09-08 22:15:00 Test Item Value Reference Range Interpretation Comments Creatine Kinase MB (test code = 1.3 ng/mL 0-5 33515-5) [facility] HealthSerum or plasma cardiac troponin T [...] HealthAutomated erythrocyte mean corpuscular hemoglobin concentration measurement (mass/wfb7166-08-68 22:15:00 Test Item Value Reference Range Interpretation Comments Mean Corpuscular Hemoglobin Concent 33.5 g/dL 32.5-35.0 (test code = 786-4) [facility] HealthAutomated erythrocyte distribution width pawup8218-29-00 22:15:00 Test Item Value Reference Range Interpretation Comments Red Cell Distribution Width (test code 14.0 % 11.5-14.5 = 788-0) [facility]Automated blood platelet count (count/volume)2019-09-08 22:15:00 Test Item Value Reference Range Interpretation Comments Platelet Count (test code = 238 10*3/uL 160-400 777-3) [facility] HealthAutomated blood platelet mean volume wucuwnobjoz2732-31-54 22:15:00 Test Item Value Reference Range Interpretation Comments Mean Platelet Volume (test code = 11.0 fL 7.5-11.2 02226-5) [facility] HospitalAutomated blood neutrophil count as percentage of total tthxpxdkwx7136-04-89 22:15:00 Test Item Value Reference Range Interpretation Comments Neutrophils (%) (Auto) (test code = 70 % 45-75 770-8) [facility] HospitalAutomated blood immature granulocyte count as percentage of total mfjhgxeksx8495-31-65 22:15:00 Test Item Value Reference Range Interpretation Comments Immature Granulocyte % (Auto) (test 0.2 % 0.0-1.5 code = 28138-7) [facility] HospitalAutomated blood lymphocyte count as percentage of total wwvgrswtyo6146-10-77 22:15:00 Test Item Value Reference Range Interpretation Comments Lymphocytes (%) (Auto) (test code = 21 % 20-48 736-9) [facility] HospitalAutomated blood monocyte count as percentage of total leukocytes 2019-09-08 22:15:00 Test Item Value Reference Range Interpretation Comments Monocytes (%) (Auto) (test code = 7 % 1-9 5905-5) [facility] HospitalAutomated blood eosinophil count as percentage of total punmyefvfg8221-63-03 22:15:00 Test Item Value Reference Range Interpretation Comments Eosinophils (%) (Auto) (test code = 1 % 0-4 713-8) [facility] HospitalAutomated blood basophil count as percentage of total leukocytes 2019-09-08 22:15:00 Test Item Value Reference Range Interpretation Comments Basophils (%) (Auto) (test code = 1 % 0-2 706-2) [facility]
--- NOTE | 2023-02-28 11:42 | EDPHYS ---
Physician Documentation [facility] Name: Salud Almanzar Age: 37 yrs Sex: Female : 1985 Arrival Date: 02/28/2023 Time: 11:09 Bed 16 Private MD: ED Physician Lolis Vanegas HPI: 02/28 11:38 This 37 yrs old Female presents to ER via Ambulatory with complaints of COVID positive, sp3 and symptoms. 11:38 36-year-old female with a history of anxiety, reflux, hypertension who also tested +2 sp3 days ago for COVID-19 presents to the ED with generalized body aches, sore throat and cough. Patient states that everybody around her is "sick" and and she has had recurring symptoms. She denies any fever, headache, shortness of breath, chest pain, abdominal pain, nausea, vomiting, diarrhea, skin rash, any other signs or symptoms on ROS at this time. She is concerned that she may have a secondary infection.. Historical: - Allergies: 11:22 Ativan; stomach pain; iw - PMHx: 11:22 Anxiety; Gastroesophageal reflux disease; Hypertensive disorder; Migraine; iw - PSHx: 11:22 Cholecystectomy; Ligation of fallopian tube; iw 11:25 section; eh3 - Immunization history:: Adult Immunizations unknown. - Social history:: Smoking status: . ROS: 11:40 Constitutional: Negative for fever, chills, and weight loss, Eyes: Negative for injury, sp3 pain, redness, and discharge, Neck: Negative for injury, pain, and swelling, Cardiovascular: Negative for chest pain, palpitations, and edema, Abdomen/GI: Negative for abdominal pain, nausea, vomiting, diarrhea, and constipation, Back: Negative for injury and pain, MS/Extremity: Negative for injury and deformity, Skin: Negative for injury, rash, and discoloration, Neuro: Negative for headache, weakness, numbness, tingling, and seizure. 11:40 All other systems are negative. Exam: 11:40 Constitutional: This is a well developed, well nourished patient who is awake, alert, sp3 and in no acute distress. Head/Face: Normocephalic, atraumatic. Eyes: Pupils equal round and reactive to light, extra-ocular motions intact. Lids and lashes normal. Conjunctiva and sclera are non-icteric and not injected. Cornea within normal limits. Periorbital areas with no swelling, redness, or edema. ENT: Nares patent. No nasal discharge, no septal abnormalities noted. External auditory canals are clear. Oropharynx with no redness, swelling, or masses, exudates, or evidence of obstruction, uvula midline. Mucous membranes moist. Neck: Trachea midline, no thyromegaly or masses palpated, and no cervical lymphadenopathy. Supple, full range of motion without nuchal rigidity, or vertebral point tenderness. No Meningismus. Chest/axilla: Normal chest wall appearance and motion. Nontender with no deformity. No lesions are appreciated. Cardiovascular: Regular rate and rhythm with a normal S1 and S2. No gallops, murmurs, or rubs. Normal PMI, no JVD. No pulse deficits. Respiratory: Lungs have equal breath sounds bilaterally, clear to auscultation and percussion. No rales, rhonchi or wheezes noted. No increased work of breathing, no retractions or nasal flaring. Abdomen/GI: Soft, non-tender, with normal bowel sounds. No distension or tympany. No guarding or rebound. No evidence of tenderness throughout. Back: No spinal tenderness. No costovertebral tenderness. Full range of motion. Skin: Warm, dry with normal turgor. Normal color with no rashes, no lesions, and no evidence of cellulitis. MS/ Extremity: Pulses equal, no cyanosis. Neurovascular intact. Full, normal range of motion. Neuro: Awake and alert, GCS 15, oriented to person, place, time, and situation. Cranial nerves II-XII grossly intact. Motor strength 5/5 in all extremities. Sensory grossly intact. Cerebellar exam normal. Normal gait. Psych: Awake, alert, with orientation to person, place and time. Behavior, mood, and affect are within normal limits. Vital Signs: 11:21 BP 145 / 116; Pulse 96; Resp 16; Temp 98.2; Pulse Ox 99% on R/A; Weight 104.33 kg; iw Height 5 ft. 10 in. ; Pain 10/10; 11:33 BP 144 / 100; iw 11:21 Body Mass Index 33.00 (104.33 kg, 177.8 cm) iw 11:21 Pain Scale: Adult iw MDM: 11:38 Patient medically screened. sp3 11:40 Data reviewed: vital signs, nurses notes. ED course: 37-year-old female with known sp3 COVID-19 now presents with generalized symptoms. Patient is not acutely sick, septic, or shock, or any other critical findings. Her throat does not appear erythematous and there are no signs of strep throat. At this time I will give her general reassurance, prescribe her an NSAID, and discharge her with PCP follow-up and general infection control measures.. Administered Medications: No medications were administered Disposition Summary: 02/28/23 11:41 Discharge Ordered Location: Home sp3 Condition: Stable sp3 Diagnosis - COVID-19, body aches, generalized weakness sp3 Followup: sp3 - With: Private Physician - When: Upon discharge from the Emergency Department - Reason: Continuance of care Discharge Instructions: - Discharge Summary Sheet sp3 - COVID-19 sp3 Forms: - Medication Reconciliation Form sp3 - Thank You Letter sp3 - Antibiotic Education sp3 - Prescription Opioid Use sp3 - Patient Portal Instructions sp3 - Leadership Thank You Letter sp3 Prescriptions: - Diclofenac Sodium 75 mg Oral Tablet Sustained Release - take 1 tablet by ORAL route 2 times per day; 30 tablet; Refills: 0, Product sp3 Selection Permitted Signatures: Jyoti Benites, RN RN iw Lolis Vanegas MD MD sp3 Elsa Peraza RN RN eh3
--- NOTE | 2023-02-28 11:42 | ER ---
Nurse's Notes [facility] Name: Salud Almanzar Age: 37 yrs Sex: Female : 1985 Arrival Date: 02/28/2023 Time: 11:09 Bed 16 Private MD: Diagnosis: COVID-19, body aches, generalized weakness Presentation: 02/28 11:21 Chief complaint: Patient states: tested positive for COVID two days ago , yesterday i iw got a bad cough and sore throat , sinus pain. Coronavirus screen: Client presents with at least one sign or symptom that may indicate coronavirus-19. Ebola Screen: Patient negative for fever greater than or equal to 101.5 degrees Fahrenheit, and additional compatible Ebola Virus Disease symptoms Patient denies exposure to infectious person. Patient denies travel to an Ebola-affected area in the 21 days before illness onset. No symptoms or risks identified at this time. Initial Sepsis Screen: Does the patient meet any 2 criteria? No. Patient's initial sepsis screen is negative. Does the patient have a suspected source of infection? No. Patient's initial sepsis screen is negative. Risk Assessment: Do you want to hurt yourself or someone else? Patient reports no desire to harm self or others. Onset of symptoms was February 26, 2023. 11:21 Method Of Arrival: Ambulatory iw 11:21 Acuity: JOSE 4 iw Historical: - Allergies: 11:22 Ativan; stomach pain; iw - PMHx: 11:22 Anxiety; Gastroesophageal reflux disease; Hypertensive disorder; Migraine; iw - PSHx: 11:22 Cholecystectomy; Ligation of fallopian tube; iw 11:25 section; eh3 - Immunization history:: Adult Immunizations unknown. - Social history:: Smoking status: . Screenin:25 [facility] ED Fall Risk Assessment (Adult) Score/Fall Risk Level 0 - 2 = Low Risk. Abuse eh3 screen: Denies threats or abuse. Denies injuries from another. Nutritional screening: No deficits noted. Tuberculosis screening: No symptoms or risk factors identified. Assessment: 11:25 General: Appears in no apparent distress. uncomfortable, Behavior is calm, cooperative, eh3 appropriate for age. Pain: Complains of pain in throat. Neuro: Level of Consciousness is awake, alert, obeys commands, Oriented to person, place, time, situation. Cardiovascular: Capillary refill < 3 seconds Patient's skin is warm and dry. Respiratory: Airway is patent Respiratory effort is even, unlabored, Respiratory pattern is regular, symmetrical. GI: Abdomen is round non-distended. Derm: Skin is pink, warm \T\ dry. Musculoskeletal: Circulation, motion, and sensation intact. Range of motion: intact in all extremities. Vital Signs: 11:21 BP 145 / 116; Pulse 96; Resp 16; Temp 98.2; Pulse Ox 99% on R/A; Weight 104.33 kg; iw Height 5 ft. 10 in. ; Pain 04/11; 11:33 BP 144 / 100; iw 11:21 Body Mass Index 33.00 (104.33 kg, 177.8 cm) iw 11:21 Pain Scale: Adult ED Course: 11:10 Patient arrived in ED. im 11:11 Lolis Vanegas MD is Attending Physician. sp3 11:22 Triage completed. iw 11:22 Arm band placed on. iw 11:24 Elsa Peraza, RN is Primary Nurse. eh3 11:25 Patient has correct armband on for positive identification. Bed in low position. Call eh3 light in reach. Side rails up X2. Provided Education on: Use of call phillips. Pulse ox on. NIBP on. 11:55 No provider procedures requiring assistance completed. Patient did not have IV access eh3 during this emergency room visit. Administered Medications: No medications were administered Medication: 11:55 VIS not applicable for this client. eh3 Outcome: 11:41 Discharge ordered by . sp3 11:56 Discharged to home ambulatory. eh3 11:56 Condition: stable 11:56 Discharge instructions given to patient, Instructed on discharge instructions, follow up and referral plans. medication usage, Demonstrated understanding of instructions, follow-up care, medications, Prescriptions given X 1. 12:01 Patient left the ED. eh3 Signatures: Jyoti Benites RN RN Lolis Vanegas MD MD 3 Elsa Peraza RN RN 3 Jes Daley
[2023-02-28 12:05] VITALS: BP 144/100; TEMP 98.2; O2SAT 99
== END 2023-02-28 12:01 | disposition home or self-care (01) ==
LOC: ER 11:09
DX: U07.1 COVID-19 (principal); R52 Pain, unspecified; Z88.8 Allergy status to other drugs, medicaments and biological substances

== ENCOUNTER 2023-03-03 03:12 | Emergency (ER) | payer OTHER ==
--- OUTSIDE RECORDS SUMMARY | 2023-03-03 03:16 | XMS REPORT | Continuity of Care Document ---
:1985 Author Organization [facility] t Address [address] [place] [id number] Care Team Providers Name Role Phone ASHA MCKEE Attending Clinician Unavailable PHYSICIAN, ER Attending Clinician Unavailable Problems Condition Condition Condition Status Onset Resolution Last Treating Co mments Source Name Details Category Date Date Treatment Clinician Date Problem Condition [facility] Allergies, Adverse Reactions, Alerts This patient has no known allergies or adverse reactions. Social History Social Habit Start Date Stop Date Quantity Comments Source Sex Assigned At [birth year] Female [facility] 00:00:00 00:00:00 Smoking Status Start Date Stop Date Source Unknown if ever smoked [employer] Never smoked tobacco (finding) [facility] [employer] Medications Ordered Filled Start Stop Current Ordering [...] Source Body Temperature 2020-01-07 10:16:00 97.7 [degF] [facility] Heart Rate 2020-01-07 10:16:00 79 /min [facility] Respiratory rate 2020-01-07 10:16:00 18 /min [facility] BP Systolic 2020-01-07 10:16:00 134 mm[Hg] [facility] Diastolic 2020-01-07 10:16:00 90 mm[Hg] [facility] Respiratory rate 2019-09-08 21:00:00 18 /min [facility] BP Systolic 2019-09-08 21:00:00 146 mm[Hg] [facility] BP Diastolic 2019-09-08 21:00:00 93 mm[Hg] [facility] Weight 2019-09-08 21:00:00 235 [lb_av] [facility] BMI (Body Mass Index) 2019-09-08 21:00:00 34.7 kg/m2 [facility] [employer] Procedures Procedure Date / Time Performed Performing Clinician [facility] e ECG (electrocardiogram) 2020-01-07 00:00:00 [facility] [employer] X-ray of chest, single 2020-01-07 00:00:00 [employer] view Computed tomography of 2020-01-07 00:00:00 [facility] [employer] [employer] head or brain without contrast Computed tomography of 2020-01-07 00:00:00 [facility] [employer] cervical spine without contrast ECG (electrocardiogram) 2019-09-08 00:00:00 [facility] [employer] X-ray of chest, two views 2019-09-08 00:00:00 [facility] Encounters Start End Encounter Admission Attending Care Care Encounter Source Date/Time Date/Time Type Type Clinicians Facility Department ID 2020-01-09 2020-01-09 Outpatient GLORIA ZAMORA [id number] [facility] 13:44:00 13:44:00 [facility] 2020-01-07 2020-01-07 Departed ER PHYSICIAN, GLORIA CASTRO [id number] [facility] 03:35:00 03:35:00 Emergency ER [facility] [address] [facility] 2019-09-08 2019-09-09 Departed GLORIA CASTRO [id number] [facility] 20:50:00 00:23:00 Emergency [facility] [address] [facility] Results Test Description Test Time Test Comments Results Result Comments Source Serum or plasma natriuretic peptide B measurement (mas s/volume) 2020-01-07 08:11:00 Test Item Value Reference Range Interpretation Comme nts B-Type Natriuretic Peptide (test code = 98748-7) 4 pg/mL 0-101 [facility]um or plasma [...] 1.435 u[iU]/mL 0.550-4.780 (TSH) (test code = 55820-0) [facility] or plasma free triiodothyronine (T3) [...] 3040-3) 29 U/L 31-96 [facility] HealthCreatine kinase ser/wgtp3313-41-43 07:27:00 Test Item Value Reference Range Interpretation Comments Total Creatine Kinase (test code = 61 U/L 30-160 2157-6) [facility] HealthSerum or plasma creatine kinase MB measurement (mass/volume) 2020-01-07 07:27:00 Test Item Value Reference Range Interpretation Comments Creatine Kinase MB (test code = < 0.18 ng/mL 0-5 54919-0) [facility] or plasma cardiac troponin I measurement (mass/volume) 2020-01-07 07:27:00 Test Item Value Reference Range Interpretation Comments Troponin I (test code = < 0.006 ng/mL 0.000-0.040 20221-1) [facility] HealthSerum or plasma myoglobin measurement (mass/volume)2020-01-07 07:27:00 Test Item Value Reference Range Interpretation Comments Myoglobin (test code = 2639-3) 20.4 ng/mL <110.0 [facility] HealthUrinalysis specimen collection [id number] 04:03:00 Test Item Value Reference Range Interpretation Comments Urine Source (test code = Urine Clean Catch 69007-5) [facility] HealthUrine color oqxuhjqipiugh8405-04-93 04:03:00 Test Item Value Reference Range Interpretation Comments Urine Color (test code = 5778-6) Colorless Yel-Lora [facility] HealthUrine appearance rvivkxfbfspju2363-07-39 04:03:00 Test Item Value Reference Range Interpretation Comments Urine Appearance (test code = 5767-9) Clear Clear [facility] HealthUrine pH measurement by test [id number] 04:03:00 Test Item Value Reference Range Interpretation Comments Urine pH (test code = 5803-2) 5.0 5.0-7.5 [facility] HealthSpecific gravity ur jbligxya9599-82-46 04:03:00 Test Item Value Reference Range Interpretation Comments Urine Specific [place] (test code = 1.003 1.003-1.029 5811-5) [facility] HealthUrine protein measurement by automated test strip (mass/volume) 2020-01-07 04:03:00 Test Item Value Reference Range Interpretation Comments Urine Protein (test code = Negative mg/dL Neg - Trace 33047-0) [facility]Urine glucose measurement by automated test strip (mass/volume) 2020-01-07 04:03:00 Test Item Value Reference Range Interpretation Comments Urine Glucose (UA) (test code = Negative Negative 47505-3) [facility] HealthUrine ketones detection by automated test [id number] 04:03:00 Test Item Value Reference Range Interpretation Comments Urine Ketones (test code = 07363-0) Negative Negative [facility] HealthUrine erythrocytes count by automated test strip (number/volume) 2020-01-07 04:03:00 Test Item Value Reference Range Interpretation Comments Urine Occult Blood (test code = Negative Negative 47186-8) [facility] HealthUrine nitrite detection by automated test [id number] 04:03:00 Test Item Value Reference Range Interpretation Comments Urine Nitrite (test code = 21525-0) Negative Negative [facility] HealthUrine total bilirubin detection by automated test raksy6728-25-34 04:03:00 Test Item Value Reference Range Interpretation Comments Urine Bilirubin (test code = Negative Negative 62106-8) [facility] HealthUrine urobilinogen measurement by automated test strip (mass/volume)2020-01-07 04:03:00 Test Item Value Reference Range Interpretation Comments Urine Urobilinogen (test code = Normal mg/dL Norm-1.0 25305-9) [facility] HealthUrine leukocyte esterase detection by automated test strip 2020-01-07 04:03:00 Test Item Value Reference Range Interpretation Comments Urine Leukocyte Esterase (test code = Trace Negative 56898-5) [facility] HealthUrine sediment erythrocyte count by microscopy (number/high power field)2020-01-07 04:03:00 Test Item Value Reference Range Interpretation Comments Urine RBC (test 0-2 /[HPF] See_Comment [Automated message] The code = 89312-2) system which generated this result tra nsmitted [...] Cells (test code Many /[LPF] None/Occ = 67758-5) [facility] HealthUrine sediment bacteria count by microscopy (number/high power field)2020-01-07 04:03:00 Test Item Value Reference Range Interpretation Comments Urine Bacteria (test code = Occasional /[HPF] None 5769-5) [facility] HealthUrine sediment hyaline cast count by microscopy (number/low power field)2020-01-07 04:03:00 Test Item Value Reference Range Interpretation Comments Urine Hyaline Casts (test code = 2-5 /[LPF] 5796-8) [facility] HealthYeast detection in urine sediment by light zrfyqaonuo3326-68-34 04:03:00 Test Item Value Reference Range Interpretation Comments Urine Yeast (test code = None Seen /[HPF] 32157-5) [facility] comment 04:03:00 Test Item Value [...] HealthAutomated erythrocyte mean corpuscular hemoglobin concentration measurement (mass/sdh1922-31-07 04:00:00 Test Item Value Reference Range Interpretation Comments Mean Corpuscular Hemoglobin Concent 32.6 g/dL 32.5-35.0 (test code = 786-4) [facility] HealthAutomated erythrocyte distribution width ohwue6638-77-65 04:00:00 Test Item Value Reference Range Interpretation Comments Red Cell Distribution Width (test code 13.5 % 11.5-14.5 = 788-0) [facility] HealthAutomated blood platelet count (count/volume)2020-01-07 04:00:00 Test Item Value Reference Range Interpretation Comments Platelet Count (test code = 191 10*3/uL 160-400 777-3) [facility] HealthAutomated blood platelet mean volume ofulqcimiys7462-89-59 04:00:00 Test Item Value Reference Range Interpretation Comments Mean Platelet Volume (test code = 12.0 fL 7.5-11.2 14330-7) [facility] HealthAutomated blood neutrophil count as percentage of total hhequfimyt4437-41-81 04:00:00 Test Item Value Reference Range Interpretation Comments Neutrophils (%) (Auto) (test code = 64 % 45-75 770-8) [facility] HealthAutomated blood immature granulocyte count as percentage of total gwzrhzmvgr6168-71-63 04:00:00 Test Item Value Reference Range Interpretation Comments Immature Granulocyte % (Auto) (test 0.2 % 0.0-1.5 code = 60990-3) [facility] HealthAutomated blood lymphocyte count as percentage of total wwjfbjjkzh5972-84-42 04:00:00 Test Item Value Reference Range Interpretation Comments Lymphocytes (%) (Auto) (test code = 26 % 20-48 736-9) [facility] HealthAutomated blood monocyte count as percentage of total leukocytes 2020-01-07 04:00:00 Test Item Value Reference Range Interpretation Comments Monocytes (%) (Auto) (test code = 6 % 1-9 5905-5) [facility] HealthAutomated blood eosinophil count as percentage of total daxsnwzdgo1569-49-64 04:00:00 Test Item Value Reference Range Interpretation Comments Eosinophils (%) (Auto) (test code = 3 % 0-4 713-8) [facility] HealthAutomated blood basophil count as percentage of total leukocytes 2020-01-07 04:00:00 Test Item Value Reference Range Interpretation Comments Basophils (%) (Auto) (test code = 1 % 0-2 706-2) [facility] HealthAutomated blood nucleated erythrocyte count as percentage of total ihakafidtx2225-66-42 04:00:00 Test Item Value Reference Range Interpretation Comments Nucleated Red Blood Cells % (test code 0 % 0-1 = 45577-8) [facility] HealthAutomated blood neutrophil count (number/volume)2020-01-07 04:00:00 Test Item Value Reference Range Interpretation Comments Neutrophils # (Auto) (test code 2.87 10*3/uL = 751-8) [facility] HealthProthrombin time (PT) in platelet poor zretyo5155-17-28 04:00:00 Test Item Value Reference Range Interpretation Comments Prothrombin Time (test code = 5902-2) 11.8 s 9.4-12.5 [facility] HealthINR in Platelet poor plasma by Coagulation rvajx3442-02-94 04:00:00 Test Item Value Reference Range Interpretation Comments Prothromb Time International 1.1 {ratio} Ratio (test code = 6301-6) [facility] HealthPartial thromboplastin time (PTT) in platelet poor plasma 2020-01-07 04:00:00 Test Item Value Reference Range Interpretation Comments Activated Partial Thromboplast Time 30 s 25-37 (test code = 64162-8) [facility] HealthFibrin D-dimer FEU gqhe4155-99-84 04:00:00 Test Item Value Reference Range Interpretation Comments D-Dimer (test code = 21630-9) 423 ng/mL{FEU} 215-500 [facility] HealthSerum or plasma [...] Interpretation Comments Anion Gap (test code = 36853-5) 9.0 mmol/L 3.0-11.0 [facility] HealthSerum or plasma urea nitrogen measurement (mass/volume)2020-01-07 04:00:00 Test Item Value Reference Range Interpretation Comments Blood Urea Nitrogen (test code = 16.0 mg/dL 12-22 3094-0) [facility] HealthSerum or plasma creatinine measurement (mass/volume)2020-01-07 04:00:00 Test Item Value Reference Range Interpretation Comments Creatinine (test code = 2160-0) 0.90 mg/dL 0.60-1.02 [facility] creatinine clearance calculated from serum or plasma creatinine by Kb1893-70-68 04:00:00 Test Item Value Reference Range Interpretation Comments Estimated Creatinine Clearance (test 93.8 code = 02866-3) [facility] HospitalGlomerular filtration rate (GFR) estimation using MDRD equation 2020-01-07 04:00:00 Test Item Value Reference Range Interpretation Comments Estimat Glomerular Filtration Rate 77.12 >60 (test code = 262062953) [facility] HealthSerum or plasma urea nitrogen/creatinine mass pruze6052-11-63 04:00:00 Test Item Value Reference Range Interpretation Comments BUN/Creatinine Ratio (test code = 18 3097-3) [facility] HealthSerum or plasma glucose measurement (mass/volume)2020-01-07 04:00:00 Test Item Value Reference Range Interpretation Comments Glucose Level (test code = 2345-7) 88 mg/dL 74-112 [facility] HealthSerum or plasma calcium measurement (mass/volume)2020-01-07 04:00:00 Test Item Value Reference Range Interpretation Comments Calcium Level (test code = 50342-6) 9.8 mg/dL 9.0-10.2 [facility] HealthSerum or plasma [...] (test code = 1751-7) 4.9 g/dL 4.2-5.4 [facility] globulin measurement by calculation (mass/volume)2020-01-07 04:00:00 Test Item Value Reference Range Interpretation Comments Globulin (test code = 26751-2) 3.0 g/dL [facility] HealthSerum or plasma albumin/globulin mass oisaq2505-89-20 04:00:00 Test Item Value Reference Range Interpretation Comments Albumin/Globulin Ratio (test code 1.6 {ratio} = 1759-0) [facility] HealthSerum or plasma alkaline phosphatase measurement (enzymatic activity/volume)2020-01-07 04:00:00 Test Item Value Reference Range Interpretation Comments Alkaline Phosphatase (test code = 78 U/L 45-100 6768-6) [facility] HospitalUrinalysis specimen collection [id number] 22:40:00 Test Item Value Reference Range Interpretation Comments Urine Source (test code = Urine Clean Catch 24996-8) [facility] HealthUrine color novhaxijvmalg6952-41-10 22:40:00 Test Item Value Reference Range Interpretation Comments Urine Color (test code = 5778-6) Yellow Yel-Lora [facility] HealthUrine appearance dkursqiqqiizq3777-52-30 22:40:00 Test Item Value Reference Range Interpretation Comments Urine Appearance (test code = 5767-9) Clear Clear [facility] HealthUrine pH measurement by test xumtl0082-94-09 22:40:00 Test Item Value Reference Range Interpretation Comments Urine pH (test code = 5803-2) 6.0 5.0-7.5 [facility] HealthSpecific gravity ur jfmrkzby4752-62-24 22:40:00 Test Item Value Reference Range Interpretation Comments Urine Specific [place] (test code = 1.024 1.003-1.029 5811-5) [facility] HealthUrine protein measurement by automated test strip (mass/volume) 2019-09-08 22:40:00 Test Item Value Reference Range Interpretation Comments Urine Protein (test code = Trace mg/dL Neg - Trace 96813-6) [facility] HealthUrine glucose measurement by automated test strip (mass/volume) 2019-09-08 22:40:00 Test Item Value Reference Range Interpretation Comments Urine Glucose (UA) (test code = Negative Negative 12446-6) [facility] HealthUrine ketones detection by automated test [id number] 22:40:00 Test Item Value Reference Range Interpretation Comments Urine Ketones (test code = 45248-5) Trace Negative [facility] HealthUrine erythrocytes count by automated test strip (number/volume) 2019-09-08 22:40:00 Test Item Value Reference Range Interpretation Comments Urine Occult Blood (test code = Negative Negative 24093-0) [facility] HealthUrine nitrite detection by automated test kwwkg9555-71-26 22:40:00 Test Item Value Reference Range Interpretation Comments Urine Nitrite (test code = 87256-5) Negative Negative [facility] HealthUrine total bilirubin detection by automated test lwler3211-86-60 22:40:00 Test Item Value Reference Range Interpretation Comments Urine Bilirubin (test code = Negative Negative 86899-6) [facility] HealthUrine urobilinogen measurement by automated test strip (mass/volume)2019-09-08 22:40:00 Test Item Value Reference Range Interpretation Comments Urine Urobilinogen (test code = Normal mg/dL Norm-1.0 71912-6) [facility] HealthUrine leukocyte esterase detection by automated test strip 2019-09-08 22:40:00 Test Item Value Reference Range Interpretation Comments Urine Leukocyte Esterase (test code = Trace Negative 97796-3) [facility] HealthUrine sediment erythrocyte count by microscopy (number/high power field)2019-09-08 22:40:00 Test Item Value Reference Range Interpretation Comments Urine RBC (test 0-2 /[HPF] See_Comment [Automated message] The code = 25264-0) system which generated this result tra nsmitted [...] (test None seen /[LPF] None/Occ code = 33127-7) [facility] HealthUrine sediment bacteria count by microscopy (number/high power field)2019-09-08 22:40:00 Test Item Value Reference Range Interpretation Comments Urine Bacteria (test code = Occasional /[HPF] None 5769-5) [facility] HealthUrine sediment hyaline cast count by microscopy (number/low power field)2019-09-08 22:40:00 Test Item Value Reference Range Interpretation Comments Urine Hyaline Casts (test code = 2-5 /[LPF] 5796-8) [facility] HealthYeast detection in urine sediment by light qjyqirzoyp3085-26-39 22:40:00 Test Item Value Reference Range Interpretation Comments Urine Yeast (test code = None Seen /[HPF] 50896-7) [facility] comment [id number] 22:40:00 Test Item Value Reference Range Interpretation Comments Urine Culture Indicated (test code = Yes 8264-4) [facility] HealthAutomated blood nucleated erythrocyte count as percentage of total qmgcrdfbcw5383-78-63 22:15:00 Test Item Value Reference Range Interpretation Comments Nucleated Red Blood Cells % (test code 0 % 0-1 = 14527-5) [facility] HealthAutomated blood neutrophil count (number/volume)2019-09-08 22:15:00 [...] Interpretation Comments Anion Gap (test code = 94860-4) 15.0 mmol/L 3.0-11.0 [facility] HealthSerum or plasma [...] calculated from serum or plasma creatinine by La3301-80-30 22:15:00 Test Item Value Reference Range Interpretation Comments Estimated Creatinine Clearance (test 134.0 code = 00806-5) [facility] HospitalGlomerular filtration rate (GFR) estimation using MDRD equation 2019-09-08 22:15:00 Test Item Value Reference Range Interpretation Comments Estimat Glomerular Filtration Rate 116.39 >60 (test code = 78676-3) [facility] HealthSerum or plasma urea nitrogen/creatinine mass oskoj9762-18-61 22:15:00 Test Item Value Reference Range Interpretation Comments BUN/Creatinine Ratio (test code = 22 3097-3) [facility] HealthSerum or plasma glucose measurement (mass/volume)2019-09-08 22:15:00 Test Item Value Reference Range Interpretation Comments Glucose Level (test code = 2345-7) 82 mg/dL 70-110 [facility] HealthSerum or plasma calcium measurement (mass/volume)2019-09-08 22:15:00 Test Item Value Reference Range Interpretation Comments Calcium Level (test code = 39921-6) 8.9 mg/dL 8.4-10.2 [facility] HealthSerum or plasma [...] Range Interpretation Comments Globulin (test code = 07310-8) 3.2 g/dL [facility] HealthSerum or plasma albumin/globulin mass dwhxo5167-89-22 22:15:00 Test Item Value Reference Range Interpretation [...] 3040-3) 18 U/L 16-63 [facility] HealthCreatine kinase ser/xodl7512-38-90 22:15:00 Test Item Value Reference Range Interpretation Comments Total Creatine Kinase (test code = 84 U/L 24-170 2157-6) [facility] HealthSerum or plasma creatine kinase MB measurement (mass/volume) 2019-09-08 22:15:00 Test Item Value Reference Range Interpretation Comments Creatine Kinase MB (test code = 1.3 ng/mL 0-5 01360-3) [facility] HealthSerum or plasma cardiac troponin T [...] HealthAutomated erythrocyte mean corpuscular hemoglobin concentration measurement (mass/dsg1034-97-10 22:15:00 Test Item Value Reference Range Interpretation Comments Mean Corpuscular Hemoglobin Concent 33.5 g/dL 32.5-35.0 (test code = 786-4) [facility] HealthAutomated erythrocyte distribution width yolnq4750-19-74 22:15:00 Test Item Value Reference Range Interpretation Comments Red Cell Distribution Width (test code 14.0 % 11.5-14.5 = 788-0) [facility] HealthAutomated blood platelet count (count/volume)2019-09-08 22:15:00 Test Item Value Reference Range Interpretation Comments Platelet Count (test code = 238 10*3/uL 160-400 777-3) [facility] HealthAutomated blood platelet mean volume tvquaoayvxh9177-79-83 22:15:00 Test Item Value Reference Range Interpretation Comments Mean Platelet Volume (test code = 11.0 fL 7.5-11.2 55974-4) [facility] HospitalAutomated blood neutrophil count as percentage of total xfbequkcyf0623-76-25 22:15:00 Test Item Value Reference Range Interpretation Comments Neutrophils (%) (Auto) (test code = 70 % 45-75 770-8) [facility] HospitalAutomated blood immature granulocyte count as percentage of total vrlxrgjvqw9240-16-21 22:15:00 Test Item Value Reference Range Interpretation Comments Immature Granulocyte % (Auto) (test 0.2 % 0.0-1.5 code = 87842-8) [facility] HospitalAutomated blood lymphocyte count as percentage of total tcteniiuzb2031-23-82 22:15:00 Test Item Value Reference Range Interpretation Comments Lymphocytes (%) (Auto) (test code = 21 % 20-48 736-9) [facility] HospitalAutomated blood monocyte count as percentage of total leukocytes 2019-09-08 22:15:00 Test Item Value Reference Range Interpretation Comments Monocytes (%) (Auto) (test code = 7 % 1-9 5905-5) [facility] HospitalAutomated blood eosinophil count as percentage of total bgjfugkpfv7054-76-05 22:15:00 Test Item Value Reference Range Interpretation Comments Eosinophils (%) (Auto) (test code = 1 % 0-4 713-8) [facility] HospitalAutom[facility] blood basophil count as percentage of total leukocytes 2019-09-08 22:15:00 Test Item Value Reference Range Interpretation Comments Basophils (%) (Auto) (test code = 1 % 0-2 706-2) [facility]
[2023-03-03] MEDS ORDERED: KETOROLAC 30 MG/ML INJ ONE (04:22)
[2023-03-03] MEDS ORDERED: METOCLOPRAMIDE 10 MG/2mL INJ ONE (04:22)
[2023-03-03] MEDS ORDERED: CODEINE 30MG/APAP 300MG TAB ONE (04:22)
[2023-03-03] MEDS ORDERED: DIPHENHYDRAMINE 50 MG/ML VIAL ONE (04:22)
[2023-03-03] MEDS ORDERED: guaiFENesin 100 MG/5 ML UCUP ONE (04:23)
[2023-03-03] MEDS ORDERED: NA CHLORIDE 0.9% 1,000 ML ONE (04:23)
[2023-03-03 04:42] LABS: ALT/SGPT 39 U/L (13-56); AST/SGOT 20 U/L (15-37); Albumin 3.4 g/dL (3.4-5.0); Alkaline Phosphatase 78 U/L (45-117); BUN Blood Urea Nitrogen 15 mg/dL (7-18); Bicarbonate 26 mEq/L (21-32); Bilirubin Total 0.2 mg/dL (0.2-1.0); Glomerular Filtration Rate 116 ml/min (=/>90); Glucose Level 103 mg/dL (74-106); Potassium 3.8 mEq/L (3.5-5.1); Protein, Total 7.8 g/dL (6.4-8.2); Sodium Level 134 mEq/L (136-145)
[2023-03-03 04:43] LABS: Bilirubin Direct < 0.1 mg/dL (0-0.2); Bilirubin Indirect, Calculated ND mg/dL (0.2-0.8)
[2023-03-03 04:46] LABS: Absolute Lymphocytes (CBC) 1.2 K/uL (0.7-4.9); Hematocrit 33.5 % (36.0-45.0); Lymphocytes % 30.2 % (15.3-44.8); MCV 82.9 fL (80-100); MPV 9.1 fL (7.6-11.3); Platelets 196 thou/uL (152-406); RBC Red Blood Cell Count 4.04 M/uL (3.86-4.86)
[2023-03-03 04:59] LABS: SARS-CoV-2 Antigen Rapid Res Positive (Negative)
--- NOTE | 2023-03-03 05:14 | EDPHYS ---
Physician Documentation [facility] Name: Salud Almanzar Age: 37 yrs Sex: Female : 1985 Arrival Date: 03/03/2023 Time: 03:12 Bed 4 Private MD: ED Physician Ye Alejandra HPI: 03/03 03:25 This 37 yrs old Female presents to ER via Unassigned with complaints of Sinus sp4 Congestion, Breathing Difficulty. 03:46 37-year-old female presents with a cute onset of cough, sore throat, headache, body sp4 aches, chills, nausea. All this starting 4 days ago. Patient presented here for the same symptoms on 02/28/2023 and was prescribed diclofenac for body aches. Patient states her boyfriend is COVID-positive at home. Patient has history of bilateral tubal ligation . . Historical: - Allergies: 03:33 Ativan; stomach pain; pf1 - PMHx: 03:33 Anxiety; Gastroesophageal reflux disease; Hypertensive disorder; Migraine; pf1 - PSHx: 03:33 section; Cholecystectomy; Ligation of fallopian tube; pf1 - Immunization history:: Adult Immunizations up to date, Client reports receiving the Varghese \T\ Varghese single-dose vaccine. Last tetanus immunization: < 5 years ago Flu vaccine is not up to date. - Social history:: Smoking status: Patient/guardian denies using tobacco, the patient reports quitting approximately 6 years ago, Patient uses alcohol, occasionally. Patient/guardian denies using street drugs. - Family history:: not pertinent. ROS: 03:46 Constitutional: Negative for fever, and weight loss, positive for fatigue, loss of sp4 energy, generalized weakness, chills, nausea, headache, sore throat, dry cough 03:46 All other systems are negative. Exam: 03:46 Constitutional: This is a well developed, well nourished patient who is awake, alert, sp4 and in no acute distress. Positive for nasal congestion Head/Face: Normocephalic, atraumatic. Eyes: Pupils equal round and reactive to light, extra-ocular motions intact. Lids and lashes normal. Conjunctiva and sclera are not injected. Cornea within normal limits. Periorbital areas with no swelling, redness, or edema. ENT: Nares patent. no septal abnormalities noted. Tympanic membranes are normal and external auditory canals are clear. Oropharynx no swelling, or masses, exudates, or evidence of obstruction, uvula midline. Mucous membranes moist. Positive bilateral tonsillar enlargement, bilateral tonsillar redness. Positive nasal congestion Neck: Trachea midline, no thyromegaly or masses palpated, and no cervical lymphadenopathy. Supple, full range of motion without nuchal rigidity, or vertebral point tenderness. Chest/axilla: Normal chest wall appearance and motion. Nontender with no deformity. No lesions are appreciated. Cardiovascular: Regular rate and rhythm with a normal S1 and S2. No gallops, murmurs, or rubs. Normal PMI, no JVD. No pulse deficits. Respiratory: Lungs have equal breath sounds bilaterally, clear to auscultation and percussion. No rales, rhonchi or wheezes noted. No increased work of breathing, no retractions or nasal flaring. Abdomen/GI: Soft, non-tender, with normal bowel sounds. No distension or tympany. No guarding or rebound. No evidence of tenderness throughout. Back: No spinal tenderness. No costovertebral tenderness. Skin: Warm, dry with normal turgor. Normal color with no rashes, no lesions, and no evidence of cellulitis. MS/ Extremity: Pulses equal, no cyanosis. Neurovascular intact. Full, normal range of motion. Neuro: Awake and alert, GCS 15, oriented to person, place, time, and situation. Cranial nerves II-XII grossly intact. Motor strength 5/5 in all extremities. Sensory grossly intact. Psych: Awake, alert, with orientation to person, place and time. Behavior, mood, and affect are within normal limits Vital Signs: 03:14 BP 136 / 95; Pulse 79; Resp 18; Temp 98.4; Pulse Ox 100% on R/A; Weight 104.33 kg; pf1 Height 5 ft. 10 in. ; Pain 9/10; 04:31 BP 125 / 89; Pulse 70; Resp 17 S; Pulse Ox 98% on R/A; lg3 05:28 BP 118 / 79; Pulse 63; Resp 17 S; Pulse Ox 99% on R/A; lg3 03:14 Body Mass Index 33.00 (104.33 kg, 177.8 cm) pf1 03:14 Pain Scale: Adult pf1 MDM: 03:46 Differential Diagnosis: Bronchitis Influenza Upper Respiratory Infection Sinusitis sp4 Pharyngitis Otitis Media. Data reviewed: vital signs, nurses notes, old medical records, lab test result(s), CBC, electrolytes, Flu: negative radiologic studies, plain films. 03:59 Patient medically screened. sp4 05:05 ED course: X ray chest - Lung volumes diminished. Cardiac silhouette is normal in size. sp4 No pneumothorax. No large pleural effusion. No focal consolidation. Mild bibasilar reticular opacities, likely atelectasis. No acute bony finding. IMPRESSION: 1. No acute cardiopulmonary findings. 2. Mild bibasilar reticular opacities, likely atelectasis. . 05:10 Consideration of Admission/Observation Escalation of care including sp4 admission/observation considered. ED course: Patient is positive for COVID, chest x-ray is clear. Patient is stable for discharge home with cough syrup dextromethorphan, as needed Phenergan for nausea and Robaxin for muscle aches. We will advised to continue high-dose ibuprofen or diclofenac.. 03/03 03:45 Order name: SARS RAPID; Complete Time: 05:01 sp4 03/03 03:45 Order name: Influenza Screen (a \T\ B) sp4 03/03 03:45 Order name: Basic Metabolic Panel; Complete Time: 05:01 sp4 03/03 03:45 Order name: CBC with Diff; Complete Time: 05:01 sp4 03/03 03:45 Order name: LFT's; Complete Time: 05:01 sp4 03/03 03:45 Order name: XRAY Chest (1 view) sp4 03/03 03:45 Order name: IV Saline Lock; Complete Time: 04:30 sp4 03/03 03:45 Order name: Labs collected and sent; Complete Time: 04:30 sp4 03/03 03:45 Order name: O2 Per Protocol; Complete Time: 04:30 sp4 03/03 03:45 Order name: O2 Sat Monitoring; Complete Time: 04:30 sp4 Administered Medications: 04:30 Drug: Ketorolac IVP 30 mg Route: IVP; Site: left antecubital; lg3 05:30 Follow up: Response: No adverse reaction; Marked relief of symptoms lg3 04:30 Drug: diphenhydrAMINE IVP 50 mg Route: IVP; Site: left antecubital; lg3 05:29 Follow up: Response: No adverse reaction; Marked relief of symptoms lg3 04:30 Drug: metoCLOPramide IVP 10 mg Route: IVP; Site: left antecubital; lg3 05:29 Follow up: Response: No adverse reaction lg3 04:30 Drug: guaiFENesin PO Liquid 15 ml Route: PO; lg3 05:29 Follow up: Response: No adverse reaction; Marked relief of symptoms lg3 04:30 Drug: Acetaminophen-Codeine PO (300 mg-30 mg) 2 tabs Route: PO; lg3 05:29 Follow up: Response: No adverse reaction; Marked relief of symptoms lg3 04:30 Drug: NS 0.9% IV 1000 ml Route: IV; Rate: 1 bolus; Site: left antecubital; lg3 05:29 Follow up: IV Status: Completed infusion; IV Intake: 1000ml lg3 Disposition Summary: 03/03/23 05:13 Discharge Ordered Location: Home sp4 Problem: new sp4 Symptoms: have improved sp4 Condition: Stable sp4 Diagnosis - Acute bronchitis, unspecified sp4 - Acute COVID-19, acute systemic viral illness, viral bronchitis, nausea , and sp4 bilateral Viral pharyngitis Followup: sp4 - With: Private Physician - When: 7 - 10 days - Reason: Recheck today's complaints Discharge Instructions: - Discharge Summary Sheet sp4 - COVID-19 sp4 Forms: - Patient Portal Instructions sp4 Prescriptions: - dextromethorphan HBr 10 mg/5 mL Oral liquid - take 10 milliliter by ORAL route every 12 hours PRN cough; 120 milliliter; sp4 Refills: 0, Product Selection Permitted - promethazine 25 mg Oral Tablet - take 1 tablet by ORAL route every 6 hours As needed; 20 tablet; Refills: 0, sp4 Product Selection Permitted - methocarbamol 750 mg Oral Tablet - take 2 tablets by ORAL route 3 times per day PRN muscle aches; 60 tablet; sp4 Refills: 0, Product Selection Permitted Signatures: Dispatcher [employer] Shilpa Angeles RN RN lg3 Zoila Cristina RN RN pf1 Ye Alejandra MD MD sp4
--- NOTE | 2023-03-03 05:14 | ER ---
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 03:14 Coronavirus screen: Vaccine status: Patient reports receiving the 1st dose of the Covid pf1 vaccine. Client denies travel out of the [place] in the last 14 days. Client presents with at least one sign or symptom that may indicate coronavirus-19. Ebola Screen: Patient negative for fever greater than or equal to 101.5 degrees Fahrenheit, and additional compatible Ebola Virus Disease symptoms. Initial Sepsis Screen: Does the patient meet any 2 criteria? No. Patient's initial sepsis screen is negative. Does the patient have a suspected source of infection? No. Patient's initial sepsis screen is negative. Risk Assessment: Do you want to hurt yourself or someone else? Patient reports no desire to harm self or others. 03:14 Method Of Arrival: Ambulatory pf1 03:14 Acuity: JOSE 3 pf1 Triage Assessment: 05:29 Respiratory: Onset: The symptoms/episode began/occurred 1 week, the patient has mild lg3 shortness of breath. Historical: - Allergies: 03:33 Ativan; stomach pain; pf1 - PMHx: 03:33 Anxiety; Gastroesophageal reflux disease; Hypertensive disorder; Migraine; pf1 - PSHx: 03:33 section; Cholecystectomy; Ligation of fallopian tube; pf1 - Immunization history:: Adult Immunizations up to date, Client reports receiving the Varghese \T\ Varghese single-dose vaccine. Last tetanus immunization: < 5 years ago Flu vaccine is not up to date. - Social history:: Smoking status: Patient/guardian denies using tobacco, the patient reports quitting approximately 6 years ago, Patient uses alcohol, occasionally. Patient/guardian denies using street drugs. - Family history:: not pertinent. Screenin:30 [facility] ED Fall Risk Assessment (Adult) History of falling in the last 3 months, lg3 including since admission No falls in past 3 months (0 pts). Abuse screen: Denies threats or abuse. Denies injuries from another. Nutritional screening: No deficits noted. Tuberculosis screening: No symptoms or risk factors identified. Assessment: 03:30 General: Appears in no apparent distress. uncomfortable, Behavior is calm, cooperative. lg3 Pain: Complains of pain in head. Neuro: No deficits noted. Rocha Agitation-Sedation Scale (RASS): 0 - Alert and Calm Level of Consciousness is awake, alert, obeys commands, Oriented to person, place, time, situation, Reports dizziness, headache weakness. Cardiovascular: No deficits noted. Capillary refill < 3 seconds Clubbing of nail beds is absent JVD is absent Patient's skin is warm and dry. Rhythm is sinus rhythm. Respiratory: Reports shortness of breath Airway is patent Trachea midline Respiratory effort is even, unlabored, Respiratory pattern is regular, agonal Breath sounds are clear bilaterally. GI: No deficits noted. No signs and/or symptoms were reported involving the gastrointestinal system. Abdomen is round non-distended. : No deficits noted. No signs and/or symptoms were reported regarding the genitourinary system. EENT: No deficits noted. Reports nasal congestion. Derm: No deficits noted. No signs and/or symptoms reported regarding the dermatologic system. Skin is intact, is healthy with good turgor, Skin is dry, Skin is normal, Skin temperature is warm. Musculoskeletal: No deficits noted. Circulation, motion, and sensation intact. Range of motion: intact in all extremities. 04:31 Reassessment: Patient appears in no apparent distress at this time. No changes from lg3 previously documented assessment. Patient and/or family updated on plan of care and expected duration. Pain level reassessed. Patient is alert, oriented x 3, equal unlabored respirations, skin warm/dry/pink. 05:27 Reassessment: Patient appears in no apparent distress at this time. No changes from lg3 previously documented assessment. Patient and/or family updated on plan of care and expected duration. Pain level reassessed. Patient is alert, oriented x 3, equal unlabored respirations, skin warm/dry/pink. Patient states feeling better. Patient states symptoms have improved. Vital Signs: 03:14 BP 136 / 95; Pulse 79; Resp 18; Temp 98.4; Pulse Ox 100% on R/A; Weight 104.33 kg; pf1 Height 5 ft. 10 in. ; Pain 9/10; 04:31 BP 125 / 89; Pulse 70; Resp 17 S; Pulse Ox 98% on R/A; lg3 05:28 BP 118 / 79; Pulse 63; Resp 17 S; Pulse Ox 99% on R/A; lg3 03:14 Body Mass Index 33.00 (104.33 kg, 177.8 cm) pf1 03:14 Pain Scale: Adult pf1 ED Course: 03:14 Patient arrived in ED. mr 03:25 Ye Alejandra MD is Attending Physician. sp4 03:30 Patient has correct armband on for positive identification. Placed in gown. Bed in low lg3 position. Call light in reach. Side rails up X 1. Client placed on continuous cardiac and pulse oximetry monitoring. NIBP monitoring applied. residential monitor on. Door closed. Noise minimized. Warm blanket given. 03:30 Inserted saline lock: 20 gauge in left antecubital area, using aseptic technique. Blood lg3 collected. Patient maintains SpO2 saturation greater than 95% on room air. 03:33 Triage completed. pf1 04:27 Shilpa Garcia, JIGNESH is Primary Nurse. lg3 04:39 XRAY Chest (1 view) In Process Unspecified. EDMS 05:28 No provider procedures requiring assistance completed. IV discontinued, intact, lg3 bleeding controlled, No redness/swelling at site. Pressure dressing applied. 05:29 Arm band placed on right wrist. lg3 Administered Medications: 04:30 Drug: Ketorolac IVP 30 mg Route: IVP; Site: left antecubital; lg3 05:30 Follow up: Response: No adverse reaction; Marked relief of symptoms lg3 04:30 Drug: diphenhydrAMINE IVP 50 mg Route: IVP; Site: left antecubital; lg3 05:29 Follow up: Response: No adverse reaction; Marked relief of symptoms lg3 04:30 Drug: metoCLOPramide IVP 10 mg Route: IVP; Site: left antecubital; lg3 05:29 Follow up: Response: No adverse reaction lg3 04:30 Drug: guaiFENesin PO Liquid 15 ml Route: PO; lg3 05:29 Follow up: Response: No adverse reaction; Marked relief of symptoms lg3 04:30 Drug: Acetaminophen-Codeine PO (300 mg-30 mg) 2 tabs Route: PO; lg3 05:29 Follow up: Response: No adverse reaction; Marked relief of symptoms lg3 04:30 Drug: NS 0.9% IV 1000 ml Route: IV; Rate: 1 bolus; Site: left antecubital; lg3 05:29 Follow up: IV Status: Completed infusion; IV Intake: 1000ml lg3 Medication: 05:29 VIS not applicable for this client. lg3 Intake: 05:29 IV: 1000ml; Total: 1000ml. lg3 Outcome: 05:13 Discharge ordered by . sp4 05:28 Discharged to home ambulatory. lg3 05:28 Condition: stable 05:28 Discharge instructions given to patient, Instructed on discharge instructions, follow up and referral plans. medication usage, Demonstrated understanding of instructions, follow-up care, medications, Prescriptions given X 3. 05:30 Patient left the ED. lg3 Signatures: Dispatcher [employer] [facility] Rowena Neil GarciaShilpa, RN RN lg3 Zoila Cristina RN RN pf1 Ye Alejandra MD MD sp4
[2023-03-03 05:37] VITALS: TEMP 98.4
[2023-03-03 05:39] VITALS: BP 118/79; O2SAT 99
--- NOTE | 2023-03-03 14:05 | RAD REPORT ---
EXAM DESCRIPTION: RAD - Chest Single View - 03/03/2023 4:38 am CLINICAL HISTORY: 37 years Female CHEST PAIN COMPARISON: Chest x-ray 01/22/2023 FINDINGS: Lung volumes diminished. Cardiac silhouette is normal in size. No pneumothorax. No large pleural effusion. No focal consolidation. Mild bibasilar reticular opacities, likely atelectasis. No acute bony finding. IMPRESSION: 1. No acute cardiopulmonary findings. 2. Mild bibasilar reticular opacities, likely atelectasis. Electronically signed by: Dominique Partida MD 03/03/2023 4:53 AM CDT Due to temporary technical issues with the PACS/Fluency reporting system, reports are being signed by the in house radiologists without review as a courtesy to insure prompt reporting. The interpreting radiologist is fully responsible for the content of the report.
== END 2023-03-03 05:30 | disposition home or self-care (01) ==
LOC: ER 03:12
DX: U07.1 COVID-19 (principal); J20.8 Acute bronchitis due to other specified organisms; J02.9 Acute pharyngitis, unspecified; I10 Essential (primary) hypertension; Z88.8 Allergy status to other drugs, medicaments and biological substances
CPT/HCPCS: 96361; 85025; 80048; 36415; 80076; 87804 ×2; 71045; 96375; 96374; 99285; 87811; J2765; J1200; J7030

== ENCOUNTER 2023-03-15 00:15 | Emergency (ER) | payer OTHER ==
--- OUTSIDE RECORDS SUMMARY | 2023-03-15 00:19 | XMS REPORT | Continuity of Care Document ---
:1985 Author Organization [facility] t Address [address] [place] [address] Care Team Providers Name Role Phone ASHA MCKEE Attending Clinician Unavailable PHYSICIAN, ER Attending Clinician Unavailable Problems Condition Condition Condition Status Onset Resolution Last Treating Co mments Source Name Details Category Date Date Treatment Clinician Date Problem Condition [facility] Allergies, Adverse Reactions, Alerts This patient has no known allergies or adverse reactions. Social History Social Habit Start Date Stop Date Quantity Comments Source Sex Assigned At [birth year] Female [facility]ly [facility] 00:00:00 00:00:00 Smoking Status Start Date Stop Date Source Unknown if ever smoked LessThan3 HomeStay Never smoked tobacco (finding) [facility] Medications Ordered Filled Start Stop Current Ordering [...] Source Body Temperature 2020-01-07 10:16:00 97.7 [degF] [facility] Heart Rate 2020-01-07 10:16:00 79 /min [employer] Respiratory rate 2020-01-07 10:16:00 18 /min [employer] BP Systolic 2020-01-07 10:16:00 134 mm[Hg] [facility] Diastolic 2020-01-07 10:16:00 90 mm[Hg] [facility] Respiratory rate 2019-09-08 21:00:00 18 /min [employer] [facility] BP Systolic 2019-09-08 21:00:00 146 mm[Hg] [facility] BP Diastolic 2019-09-08 21:00:00 93 mm[Hg] [facility] Weight 2019-09-08 21:00:00 235 [lb_av] [facility] BMI (Body Mass Index) 2019-09-08 21:00:00 34.7 kg/m2 [facility] HomeStay Procedures Procedure Date / Time Performed Performing Clinician [facility] e ECG (electrocardiogram) 2020-01-07 00:00:00 [facility] X-ray of chest, single 2020-01-07 00:00:00 [facility] view Computed tomography of 2020-01-07 00:00:00 [facility] HomeStay head or brain without contrast Computed tomography of 2020-01-07 00:00:00 [facility] HomeStay cervical spine without contrast ECG (electrocardiogram) 2019-09-08 00:00:00 [facility] X-ray of chest, two views 2019-09-08 00:00:00 [facility] Encounters Start End Encounter Admission Attending Care Care Encounter Source Date/Time Date/Time Type Type Clinicians Facility Department ID 2020-01-09 2020-01-09 Outpatient GLORIA ZAMORA [id number] [facility] 13:44:00 13:44:00 [facility] 2020-01-07 2020-01-07 Departed ER PHYSICIAN, GLORIA CASTRO [id number] [facility] 03:35:00 03:35:00 Emergency ER [facility] [address] [facility] 2019-09-08 2019-09-09 Departed GLORIA CASTRO [id number] [facility] 20:50:00 00:23:00 Emergency [facility] [address] [facility] Results Test Description Test Time Test Comments Results Result Comments Source Serum or plasma natriuretic peptide B measurement (mas s/volume) 2020-01-07 08:11:00 Test Item Value Reference Range Interpretation Comme nts B-Type Natriuretic Peptide (test code = 98106-7) 4 pg/mL 0-101 [facility]Serum or plasma free thyroxine (FT4) measurement (mass/volume) 2020-01-07 07:47:00 Test Item Value Reference Range Interpretation Comments Free Thyroxine (test code = 1.48 ng/dL 1.09-1.53 3024-7) [facility] or plasma thyrotropin measurement with detection limit of 0.005 mIU/L or less (units/volume)2020-01-07 07:47:00 Test Item Value Reference Range Interpretation Comments Thyroid Stimulating Hormone 1.435 u[iU]/mL 0.550-4.780 (TSH) (test code = 48411-8) [facility]um or plasma free triiodothyronine (T3) [...] 3040-3) 29 U/L 31-96 [facility] HealthCreatine kinase ser/[id number] 07:27:00 Test Item Value Reference Range Interpretation Comments Total Creatine Kinase (test code = 61 U/L 30-160 2157-6) [facility] HealthSerum or plasma creatine kinase MB measurement (mass/volume) 2020-01-07 07:27:00 Test Item Value Reference Range Interpretation Comments Creatine Kinase MB (test code = < 0.18 ng/mL 0-5 16501-0) [facility] HealthSerum or plasma cardiac troponin I measurement (mass/volume) 2020-01-07 07:27:00 Test Item Value Reference Range Interpretation Comments Troponin I (test code = < 0.006 ng/mL 0.000-0.040 49434-6) [facility] HealthSerum or plasma myoglobin measurement (mass/volume)2020-01-07 07:27:00 Test Item Value Reference Range Interpretation Comments Myoglobin (test code = 2639-3) 20.4 ng/mL <110.0 [facility] HealthUrinalysis specimen collection [id number] 04:03:00 Test Item Value Reference Range Interpretation Comments Urine Source (test code = Urine Clean Catch 69467-2) [facility] HealthUrine color rdyahrhmajrux1336-23-10 04:03:00 Test Item Value Reference Range Interpretation Comments Urine Color (test code = 5778-6) Colorless Yel-Lora [facility] HealthUrine appearance mtkvutrwejyds3260-62-93 04:03:00 Test Item Value Reference Range Interpretation Comments Urine Appearance (test code = 5767-9) Clear Clear [facility] HealthUrine pH measurement by test [id number] 04:03:00 Test Item Value Reference Range Interpretation Comments Urine pH (test code = 5803-2) 5.0 5.0-7.5 [facility] HealthSpecific gravity ur mjgmkoso7271-03-09 04:03:00 Test Item Value Reference Range Interpretation Comments Urine Specific [place] (test code = 1.003 1.003-1.029 5811-5) [facility] HealthUrine protein measurement by automated test strip (mass/volume) 2020-01-07 04:03:00 Test Item Value Reference Range Interpretation Comments Urine Protein (test code = Negative mg/dL Neg - Trace 50576-5) [facility] HealthUrine glucose measurement by automated test strip (mass/volume) 2020-01-07 04:03:00 Test Item Value Reference Range Interpretation Comments Urine Glucose (UA) (test code = Negative Negative 46401-1) [facility] HealthUrine ketones detection by automated test [id number] 04:03:00 Test Item Value Reference Range Interpretation Comments Urine Ketones (test code = 40109-5) Negative Negative [facility] HealthUrine erythrocytes count by automated test strip (number/volume) 2020-01-07 04:03:00 Test Item Value Reference Range Interpretation Comments Urine Occult Blood (test code = Negative Negative 44027-2) [facility] HealthUrine nitrite detection by automated test stypk2370-19-75 04:03:00 Test Item Value Reference Range Interpretation Comments Urine Nitrite (test code = 57593-4) Negative Negative [facility] HealthUrine total bilirubin detection by automated test lirbg2223-03-45 04:03:00 Test Item Value Reference Range Interpretation Comments Urine Bilirubin (test code = Negative Negative 78857-7) [facility] HealthUrine urobilinogen measurement by automated test strip (mass/volume)2020-01-07 04:03:00 Test Item Value Reference Range Interpretation Comments Urine Urobilinogen (test code = Normal mg/dL Norm-1.0 45603-1) [facility] HealthUrine leukocyte esterase detection by automated test strip 2020-01-07 04:03:00 Test Item Value Reference Range Interpretation Comments Urine Leukocyte Esterase (test code = Trace Negative 47570-6) [facility] HealthUrine sediment erythrocyte count by microscopy (number/high power field)2020-01-07 04:03:00 Test Item Value Reference Range Interpretation Comments Urine RBC (test 0-2 /[HPF] See_Comment [Automated message] The code = 39271-8) system which generated this result tra nsmitted [...] Cells (test code Many /[LPF] None/Occ = 70007-2) [facility] HealthUrine sediment bacteria count by microscopy (number/high power field)2020-01-07 04:03:00 Test Item Value Reference Range Interpretation Comments Urine Bacteria (test code = Occasional /[HPF] None 5769-5) [facility] HealthUrine sediment hyaline cast count by microscopy (number/low power field)2020-01-07 04:03:00 Test Item Value Reference Range Interpretation Comments Urine Hyaline Casts (test code = 2-5 /[LPF] 5796-8) [facility] HealthYeast detection in urine sediment by light hxbpzidfpe2326-31-25 04:03:00 Test Item Value Reference Range Interpretation Comments Urine Yeast (test code = None Seen /[HPF] 34914-7) [facility]Service comment 04:03:00 Test Item Value [...] HealthAutomated erythrocyte mean corpuscular hemoglobin concentration measurement (mass/lfm5168-90-40 04:00:00 Test Item Value Reference Range Interpretation Comments Mean Corpuscular Hemoglobin Concent 32.6 g/dL 32.5-35.0 (test code = 786-4) [facility] HealthAutomated erythrocyte distribution width aapsb0919-86-77 04:00:00 Test Item Value Reference Range Interpretation Comments Red Cell Distribution Width (test code 13.5 % 11.5-14.5 = 788-0) [facility] HealthAutomated blood platelet count (count/volume)2020-01-07 04:00:00 Test Item Value Reference Range Interpretation Comments Platelet Count (test code = 191 10*3/uL 160-400 777-3) [facility] HealthAutomated blood platelet mean volume yakjtlubsmk2299-68-46 04:00:00 Test Item Value Reference Range Interpretation Comments Mean Platelet Volume (test code = 12.0 fL 7.5-11.2 36094-4) [facility] HealthAutomated blood neutrophil count as percentage of total bxnkhontso8539-63-14 04:00:00 Test Item Value Reference Range Interpretation Comments Neutrophils (%) (Auto) (test code = 64 % 45-75 770-8) [facility] HealthAutomated blood immature granulocyte count as percentage of total shoohuaurq5753-10-04 04:00:00 Test Item Value Reference Range Interpretation Comments Immature Granulocyte % (Auto) (test 0.2 % 0.0-1.5 code = 31732-8) [facility] HealthAutomated blood lymphocyte count as percentage of total ihmpoiztgv5007-90-71 04:00:00 Test Item Value Reference Range Interpretation Comments Lymphocytes (%) (Auto) (test code = 26 % 20-48 736-9) [facility] HealthAutomated blood monocyte count as percentage of total leukocytes 2020-01-07 04:00:00 Test Item Value Reference Range Interpretation Comments Monocytes (%) (Auto) (test code = 6 % 1-9 5905-5) [facility] HealthAutomated blood eosinophil count as percentage of total vekzqbbwnc5214-58-64 04:00:00 Test Item Value Reference Range Interpretation Comments Eosinophils (%) (Auto) (test code = 3 % 0-4 713-8) [facility] HealthAutomated blood basophil count as percentage of total leukocytes 2020-01-07 04:00:00 Test Item Value Reference Range Interpretation Comments Basophils (%) (Auto) (test code = 1 % 0-2 706-2) [facility] HealthAutomated blood nucleated erythrocyte count as percentage of total vhlmcevzno9781-77-93 04:00:00 Test Item Value Reference Range Interpretation Comments Nucleated Red Blood Cells % (test code 0 % 0-1 = 20362-7) [facility] HealthAutomated blood neutrophil count (number/volume)2020-01-07 04:00:00 Test Item Value Reference Range Interpretation Comments Neutrophils # (Auto) (test code 2.87 10*3/uL = 751-8) [facility] HealthProthrombin time (PT) in platelet poor lzvyrd3903-44-91 04:00:00 Test Item Value Reference Range Interpretation Comments Prothrombin Time (test code = 5902-2) 11.8 s 9.4-12.5 [facility] HealthINR in Platelet poor plasma by Coagulation ooodi1582-22-05 04:00:00 Test Item Value Reference Range Interpretation Comments Prothromb Time International 1.1 {ratio} Ratio (test code = 6301-6) [facility] HealthPartial thromboplastin time (PTT) in platelet poor plasma 2020-01-07 04:00:00 Test Item Value Reference Range Interpretation Comments Activated Partial Thromboplast Time 30 s 25-37 (test code = 64553-0) [facility] HealthFibrin D-dimer FEU [id number] 04:00:00 Test Item Value Reference Range Interpretation Comments D-Dimer (test code = 58636-6) 423 ng/mL{FEU} 215-500 [facility] HealthSerum or plasma [...] Interpretation Comments Anion Gap (test code = 30390-8) 9.0 mmol/L 3.0-11.0 [facility] HealthSerum or plasma urea nitrogen measurement (mass/volume)2020-01-07 04:00:00 Test Item Value Reference Range Interpretation Comments Blood Urea Nitrogen (test code = 16.0 mg/dL 12-22 3094-0) [facility] HealthSerum or plasma creatinine measurement (mass/volume)2020-01-07 04:00:00 Test Item Value Reference Range Interpretation Comments Creatinine (test code = 2160-0) 0.90 mg/dL 0.60-1.02 [facility] creatinine clearance calculated from serum or plasma creatinine by [id number] 04:00:00 Test Item Value Reference Range Interpretation Comments Estimated Creatinine Clearance (test 93.8 code = 95705-6) [facility] HospitalGlomerular filtration rate (GFR) estimation using MDRD equation 2020-01-07 04:00:00 Test Item Value Reference Range Interpretation Comments Estimat Glomerular Filtration Rate 77.12 >60 (test code = 466673196) [facility] HealthSerum or plasma urea nitrogen/creatinine mass wkzgy7577-25-87 04:00:00 Test Item Value Reference Range Interpretation Comments BUN/Creatinine Ratio (test code = 18 3097-3) [facility] HealthSerum or plasma glucose measurement (mass/volume)2020-01-07 04:00:00 Test Item Value Reference Range Interpretation Comments Glucose Level (test code = 2345-7) 88 mg/dL 74-112 [facility] HealthSerum or plasma calcium measurement (mass/volume)2020-01-07 04:00:00 Test Item Value Reference Range Interpretation Comments Calcium Level (test code = 77122-7) 9.8 mg/dL 9.0-10.2 [facility] HealthSerum or plasma [...] (test code = 1751-7) 4.9 g/dL 4.2-5.4 [facility] globulin measurement by calculation (mass/volume)2020-01-07 04:00:00 Test Item Value Reference Range Interpretation Comments Globulin (test code = 01648-9) 3.0 g/dL [facility] HealthSerum or plasma albumin/globulin mass kjdco1152-35-85 04:00:00 Test Item Value Reference Range Interpretation Comments Albumin/Globulin Ratio (test code 1.6 {ratio} = 1759-0) [facility] HealthSerum or plasma alkaline phosphatase measurement (enzymatic activity/volume)2020-01-07 04:00:00 Test Item Value Reference Range Interpretation Comments Alkaline Phosphatase (test code = 78 U/L 45-100 6768-6) [facility] HospitalUrinalysis specimen collection [id number] 22:40:00 Test Item Value Reference Range Interpretation Comments Urine Source (test code = Urine Clean Catch 02624-9) [facility] HealthUrine color cnyxcmxjusuer0460-63-33 22:40:00 Test Item Value Reference Range Interpretation Comments Urine Color (test code = 5778-6) Yellow Yel-Lora [facility] HealthUrine appearance mxmkpghnlxewe2776-20-46 22:40:00 Test Item Value Reference Range Interpretation Comments Urine Appearance (test code = 5767-9) Clear Clear [facility] HealthUrine pH measurement by test dnbtl4565-50-14 22:40:00 Test Item Value Reference Range Interpretation Comments Urine pH (test code = 5803-2) 6.0 5.0-7.5 [facility] HealthSpecific gravity ur qygsqkcb5330-77-72 22:40:00 Test Item Value Reference Range Interpretation Comments Urine Specific [place] (test code = 1.024 1.003-1.029 5811-5) [facility] HealthUrine protein measurement by automated test strip (mass/volume) 2019-09-08 22:40:00 Test Item Value Reference Range Interpretation Comments Urine Protein (test code = Trace mg/dL Neg - Trace 33477-0) [facility] HealthUrine glucose measurement by automated test strip (mass/volume) 2019-09-08 22:40:00 Test Item Value Reference Range Interpretation Comments Urine Glucose (UA) (test code = Negative Negative 43958-8) [facility] HealthUrine ketones detection by automated test [id number] 22:40:00 Test Item Value Reference Range Interpretation Comments Urine Ketones (test code = 09697-4) Trace Negative [facility] HealthUrine erythrocytes count by automated test strip (number/volume) 2019-09-08 22:40:00 Test Item Value Reference Range Interpretation Comments Urine Occult Blood (test code = Negative Negative 08001-1) [facility] HealthUrine nitrite detection by automated test [id number] 22:40:00 Test Item Value Reference Range Interpretation Comments Urine Nitrite (test code = 19936-7) Negative Negative [facility] HealthUrine total bilirubin detection by automated test jrfar6669-13-80 22:40:00 Test Item Value Reference Range Interpretation Comments Urine Bilirubin (test code = Negative Negative 48452-8) [facility] HealthUrine urobilinogen measurement by automated test strip (mass/volume)2019-09-08 22:40:00 Test Item Value Reference Range Interpretation Comments Urine Urobilinogen (test code = Normal mg/dL Norm-1.0 64132-4) [facility] HealthUrine leukocyte esterase detection by automated test strip 2019-09-08 22:40:00 Test Item Value Reference Range Interpretation Comments Urine Leukocyte Esterase (test code = Trace Negative 09781-6) [facility] HealthUrine sediment erythrocyte count by microscopy (number/high power field)2019-09-08 22:40:00 Test Item Value Reference Range Interpretation Comments Urine RBC (test 0-2 /[HPF] See_Comment [Automated message] The code = 08402-4) system which generated this result tra nsmitted [...] (test None seen /[LPF] None/Occ code = 41325-9) [facility] HealthUrine sediment bacteria count by microscopy (number/high power field)2019-09-08 22:40:00 Test Item Value Reference Range Interpretation Comments Urine Bacteria (test code = Occasional /[HPF] None 5769-5) [facility] HealthUrine sediment hyaline cast count by microscopy (number/low power field)2019-09-08 22:40:00 Test Item Value Reference Range Interpretation Comments Urine Hyaline Casts (test code = 2-5 /[LPF] 5796-8) [facility] HealthYeast detection in urine sediment by light hyvkncdkca4555-08-56 22:40:00 Test Item Value Reference Range Interpretation Comments Urine Yeast (test code = None Seen /[HPF] 34414-5) [facility] comment [id number] 22:40:00 Test Item Value Reference Range Interpretation Comments Urine Culture Indicated (test code = Yes 8264-4) [facility] HealthAutomated blood nucleated erythrocyte count as percentage of total ivwfukrwwh7475-10-22 22:15:00 Test Item Value Reference Range Interpretation Comments Nucleated Red Blood Cells % (test code 0 % 0-1 = 75008-7) [facility] HealthAutomated blood neutrophil count (number/volume)2019-09-08 22:15:00 [...] Interpretation Comments Anion Gap (test code = 81359-8) 15.0 mmol/L 3.0-11.0 [facility] HealthSerum or plasma [...] calculated from serum or plasma creatinine by [id number] 22:15:00 Test Item Value Reference Range Interpretation Comments Estimated Creatinine Clearance (test 134.0 code = 85600-8) [facility] HospitalGlomerular filtration rate (GFR) estimation using MDRD equation 2019-09-08 22:15:00 Test Item Value Reference Range Interpretation Comments Estimat Glomerular Filtration Rate 116.39 >60 (test code = 59697-9) [facility] HealthSerum or plasma urea nitrogen/creatinine mass [id number] 22:15:00 Test Item Value Reference Range Interpretation Comments BUN/Creatinine Ratio (test code = 22 3097-3) [facility] HealthSerum or plasma glucose measurement (mass/volume)2019-09-08 22:15:00 Test Item Value Reference Range Interpretation Comments Glucose Level (test code = 2345-7) 82 mg/dL 70-110 [facility] HealthSerum or plasma calcium measurement (mass/volume)2019-09-08 22:15:00 Test Item Value Reference Range Interpretation Comments Calcium Level (test code = 37342-5) 8.9 mg/dL 8.4-10.2 [facility] HealthSerum or plasma [...] Range Interpretation Comments Globulin (test code = 97376-8) 3.2 g/dL [facility] HealthSerum or plasma albumin/globulin mass nsbem6407-29-14 22:15:00 Test Item Value Reference Range Interpretation [...] 3040-3) 18 U/L 16-63 [facility] HealthCreatine kinase ser/pjla3306-94-48 22:15:00 Test Item Value Reference Range Interpretation Comments Total Creatine Kinase (test code = 84 U/L 24-170 2157-6) [facility] HealthSerum or plasma creatine kinase MB measurement (mass/volume) 2019-09-08 22:15:00 Test Item Value Reference Range Interpretation Comments Creatine Kinase MB (test code = 1.3 ng/mL 0-5 53166-0) [facility] HealthSerum or plasma cardiac troponin T [...] HealthAutomated erythrocyte mean corpuscular hemoglobin concentration measurement (mass/vcf6546-74-23 22:15:00 Test Item Value Reference Range Interpretation Comments Mean Corpuscular Hemoglobin Concent 33.5 g/dL 32.5-35.0 (test code = 786-4) [facility] HealthAutomated erythrocyte distribution width hltwi9815-98-73 22:15:00 Test Item Value Reference Range Interpretation Comments Red Cell Distribution Width (test code 14.0 % 11.5-14.5 = 788-0) [facility] HealthAutomated blood platelet count (count/volume)2019-09-08 22:15:00 Test Item Value Reference Range Interpretation Comments Platelet Count (test code = 238 10*3/uL 160-400 777-3) [facility] HealthAutomated blood platelet mean volume aevicomeeqv5404-65-05 22:15:00 Test Item Value Reference Range Interpretation Comments Mean Platelet Volume (test code = 11.0 fL 7.5-11.2 26404-5) [facility]Automated blood neutrophil count as percentage of total tbonsksaya2732-43-75 22:15:00 Test Item Value Reference Range Interpretation Comments Neutrophils (%) (Auto) (test code = 70 % 45-75 770-8) [facility] HospitalAutomated blood immature granulocyte count as percentage of total yybibeatxf7993-14-40 22:15:00 Test Item Value Reference Range Interpretation Comments Immature Granulocyte % (Auto) (test 0.2 % 0.0-1.5 code = 10222-3) [facility] HospitalAutomated blood lymphocyte count as percentage of total sosvjelvcb3890-57-29 22:15:00 Test Item Value Reference Range Interpretation Comments Lymphocytes (%) (Auto) (test code = 21 % 20-48 736-9) [facility] HospitalAutomated blood monocyte count as percentage of total leukocytes 2019-09-08 22:15:00 Test Item Value Reference Range Interpretation Comments Monocytes (%) (Auto) (test code = 7 % 1-9 5905-5) [facility] HospitalAutomated blood eosinophil count as percentage of total yyuuvlzohj9010-34-75 22:15:00 Test Item Value Reference Range Interpretation Comments Eosinophils (%) (Auto) (test code = 1 % 0-4 713-8) [facility] HospitalAutom[facility] blood basophil count as percentage of total leukocytes 2019-09-08 22:15:00 Test Item Value Reference Range Interpretation Comments Basophils (%) (Auto) (test code = 1 % 0-2 706-2) [facility]
[2023-03-15 00:58] LABS: Protime INR 1.13
[2023-03-15 01:01] LABS: Absolute Lymphocytes (CBC) 1.1 K/uL (0.7-4.9); Hematocrit 29.5 % (36.0-45.0); Lymphocytes % 22.2 % (15.3-44.8); MCV 82.5 fL (80-100); MPV 8.1 fL (7.6-11.3); Platelets 212 thou/uL (152-406); RBC Red Blood Cell Count 3.58 M/uL (3.86-4.86)
[2023-03-15 01:10] LABS: ALT/SGPT 32 U/L (13-56); AST/SGOT 16 U/L (15-37); Albumin 3.3 g/dL (3.4-5.0); Alkaline Phosphatase 84 U/L (45-117); BUN Blood Urea Nitrogen 7 mg/dL (7-18); Bicarbonate 22 mEq/L (21-32); Bilirubin Total 0.4 mg/dL (0.2-1.0); Glomerular Filtration Rate 108 ml/min (=/>90); Glucose Level 102 mg/dL (74-106); Potassium 3.2 mEq/L (3.5-5.1); Protein, Total 7.1 g/dL (6.4-8.2); Sodium Level 136 mEq/L (136-145)
[2023-03-15 01:11] LABS: Bilirubin Direct < 0.1 mg/dL (0-0.2); Bilirubin Indirect, Calculated ND mg/dL (0.2-0.8)
[2023-03-15] MEDS ORDERED: THIAMINE 200 MG/2 ML INJ ONE (01:14)
[2023-03-15] MEDS ORDERED: NA CHLORIDE 0.9% 1,000 ML ONE (01:15)
[2023-03-15] MEDS ORDERED: ONDANSETRON 4 MG/2 ML VIAL ONE (01:15)
--- NOTE | 2023-03-15 04:14 | ER ---
Nurse's Notes [facility] Name: Salud Almanzar Age: 37 yrs Sex: Female : 1985 Arrival Date: 03/15/2023 Time: 00:15 Bed 7 Private MD: Diagnosis: Alcohol abuse with intoxication Presentation: 03/15 00:16 Chief complaint: EMS states: called out for chest pain, headache, nausea, vomiting. pt as6 did admit to drinking large amount of ETOH. Coronavirus screen: At this time, the client does not indicate any symptoms associated with coronavirus-19. Ebola Screen: No symptoms or risks identified at this time. Initial Sepsis Screen: Does the patient meet any 2 criteria? No. Patient's initial sepsis screen is negative. Does the patient have a suspected source of infection? No. Patient's initial sepsis screen is negative. Risk Assessment: Do you want to hurt yourself or someone else? Patient reports no desire to harm self or others. Onset of symptoms was March 14, 2023. 00:16 Method Of Arrival: EMS: [facility] as6 00:16 Acuity: JOSE 3 as6 Triage Assessment: 00:40 General: Appears comfortable, Behavior is uncooperative, Pt sleeping. . Pain: Unable to cm10 use pain scale. Patient is disoriented. Neuro: No deficits noted. Historical: - Allergies: 00:16 Ativan; stomach pain; as6 - PMHx: 00:16 Anxiety; Gastroesophageal reflux disease; Hypertensive disorder; Migraine; as6 - PSHx: 00:16 section; Cholecystectomy; Ligation of fallopian tube; as6 - Immunization history:: Adult Immunizations up to date. - Social history:: Smoking status: Reported history of juuling and/or vaping. Patient uses alcohol, Patient uses. - Family history:: not pertinent. Screenin:44 [facility] ED Fall Risk Assessment (Adult) History of falling in the last 3 months, cm10 including since admission No falls in past 3 months (0 pts) Confusion or Disorientation Yes (5 pts) Intoxicated or Sedated Yes (3 pts) Impaired Gait Yes (1 pt) Mobility Assist Device Used No (0 pt) Altered Elimination No (0 pt) Score/Fall Risk Level 3 or more points = High Risk Oriented to surroundings, Maintained a safe environment, Hourly rounding (assess needs \T\ fall precautionary measures) done. Abuse screen: Denies threats or abuse. Denies injuries from another. Nutritional screening: No deficits noted. Nutritional screening: No deficits noted. Tuberculosis screening: No symptoms or risk factors identified. Assessment: 00:43 Reassessment: Unable to obtain information from patient. Pt sleeping, awakes when cm10 spoken to, but falls asleep. Respiratory: No deficits noted. Airway is patent Respiratory effort is even, unlabored, Respiratory pattern is regular, symmetrical. 01:12 Reassessment: Unable to obtain EKG. pt laying on left side and won't turn. Pt sleeping, cm10 respirations even and unlabored. Pt remains on monitor. 02:00 Reassessment: Patient and/or family updated on plan of care and expected duration. Pain ha1 level reassessed. Patient is alert, oriented x 3, equal unlabored respirations, skin warm/dry/pink. 03:00 Reassessment: Patient and/or family updated on plan of care and expected duration. Pain ha1 level reassessed. Patient is alert, oriented x 3, equal unlabored respirations, skin warm/dry/pink. 04:21 Reassessment: Patient and/or family updated on plan of care and expected duration. Pain ha1 level reassessed. Patient is alert, oriented x 3, equal unlabored respirations, skin warm/dry/pink. Vital Signs: 00:16 BP 148 / 91; Pulse 89; Resp 16 S; Temp 98.3(TE); Pulse Ox 98% on R/A; Weight 81.65 kg; ha1 Height 5 ft. 10 in. (R); Pain 8/10; 01:30 BP 116 / 71; Pulse 86; Resp 17 S; Pulse Ox 96% on R/A; ha1 02:00 BP 120 / 65; Pulse 80; Resp 17 S; Pulse Ox 97% on R/A; ha1 03:00 BP 118 / 67; Pulse 80; Resp 16 S; Pulse Ox 96% on R/A; ha1 04:00 BP 112 / 87; Pulse 81; Resp 17 S; Pulse Ox 98% on R/A; ha1 00:16 Body Mass Index 25.83 (81.65 kg, 177.8 cm) ha1 00:16 Pain Scale: Adult ha1 ED Course: 00:16 Patient arrived in ED. as6 00:16 Ye Alejandra MD is Attending Physician. sp4 00:16 Arm band placed on. as6 00:20 Triage completed. as6 00:39 Acetaminophen Sent. cm10 00:39 Basic Metabolic Panel Sent. cm10 00:39 CBC with Diff Sent. cm10 00:39 ETOH Level Sent. cm10 00:39 Hepatic Function Sent. cm10 00:39 PT-INR Sent. cm10 00:39 Test, Urine Sent. cm10 00:39 Ptt, Activated Sent. cm10 00:39 Salicylate Sent. cm10 00:44 Patient has correct armband on for positive identification. Bed in low position. Call cm10 light in reach. Side rails up X2. 00:44 No provider procedures requiring assistance completed. Maintain EMS IV. Dressing cm10 intact. Good blood return noted. Site clean \T\ dry. Gauge \T\ site: 20G, LAC. 04:23 IV discontinued, intact, bleeding controlled, No redness/swelling at site. Pressure ha1 dressing applied. Administered Medications: 00:39 Drug: NS 0.9% IV 1000 ml Route: IV; Rate: 1 bolus; Site: left antecubital; cm10 01:10 Follow up: IV Status: Completed infusion cm10 01:10 Follow up: Response: No adverse reaction; IV Intake: 1000ml cm10 01:10 Drug: Ondansetron IVP 4 mg Route: IVP; Site: left antecubital; cm10 02:00 Follow up: Response: No adverse reaction ha1 01:10 Drug: NS 0.9% IV 1000 ml Route: IV; Rate: 125 ml/hr; Site: left antecubital; cm10 01:10 Drug: Thiamine IV 100 mg Route: IV; Rate: bolus; Site: left antecubital; cm10 04:21 Follow up: Response: No adverse reaction; IV Status: Completed infusion ha1 Medication: 00:44 VIS not applicable for this client. cm10 Intake: 01:10 IV: 1000ml; Total: 1000ml. cm10 Outcome: 04:13 Discharge ordered by . sp4 04:23 Discharged to home ambulatory. ha1 04:23 Condition: stable 04:23 Discharge instructions given to patient, Instructed on discharge instructions, follow up and referral plans. Demonstrated understanding of instructions, follow-up care. 04:23 Patient left the ED. ha1 Signatures: Eh Rincon RN RN as6 Yazmin Amaya RN RN ha1 Ye Alejandra MD MD sp4 Mala Cardoza RN RN cm10 Corrections: (The following items were deleted from the chart) 02:41 00:16 BP 148 / 91; Pulse 20bpm; Resp 16bpm; Spontaneous; Pulse Ox 98% RA; Temp 98.3F ha1 Temporal; 81.65 kg; Height 5 ft. 10 in. Reported; BMI: 25.8; Pain 8/10, Adult; as6
--- NOTE | 2023-03-15 04:14 | EDPHYS ---
Physician Documentation [facility] Name: Salud Almanzar Age: 37 yrs Sex: Female : 1985 Arrival Date: 03/15/2023 Time: 00:15 Bed 7 Private MD: ED Physician Ye Alejandra HPI: 03/15 00:18 This 37 yrs old Female presents to ER via Unassigned with complaints of sp4 intoxication . 04:15 The CEA is 37-year-old female who presents with EMS for acute alcohol intoxication also sp4 complaint of chest pain. Patient was in her apartment when she called EMS. Patient managed to come to the door and informed EMS that she is having chest pain and that she consumed a lot of alcohol. On arrival to the emergency room patient is somnolent but is hemodynamically stable.. On arrival patient is not able to provide any medical history.. Historical: - Allergies: 00:16 Ativan; stomach pain; as6 - PMHx: 00:16 Anxiety; Gastroesophageal reflux disease; Hypertensive disorder; Migraine; as6 - PSHx: 00:16 section; Cholecystectomy; Ligation of fallopian tube; as6 - Immunization history:: Adult Immunizations up to date. - Social history:: Smoking status: Reported history of juuling and/or vaping. Patient uses alcohol, Patient uses. - Family history:: not pertinent. ROS: 04:17 Constitutional: Negative for fever, chills, and weight loss, positive alcohol sp4 intoxication positive chest pain 04:17 All other systems are negative. 04:17 Unable to obtain ROS due to Alcohol intoxication. Exam: 04:17 Constitutional: This is a well developed, well nourished patient who is awake, alert, sp4 heavily intoxicated female. Head/Face: Normocephalic, atraumatic. Eyes: Pupils equal round and reactive to light, extra-ocular motions intact. Lids and lashes normal. Conjunctiva and sclera are not injected. Cornea within normal limits. Periorbital areas with no swelling, redness, or edema. ENT: Nares patent. No nasal discharge, no septal abnormalities noted. Tympanic membranes are normal and external auditory canals are clear. Oropharynx with no redness, swelling, or masses, exudates, or evidence of obstruction, uvula midline. Mucous membranes moist. Neck: Trachea midline, no thyromegaly or masses palpated, and no cervical lymphadenopathy. Supple, full range of motion without nuchal rigidity, or vertebral point tenderness. Chest/axilla: Normal chest wall appearance and motion. Nontender with no deformity. No lesions are appreciated. Cardiovascular: Regular rate and rhythm with a normal S1 and S2. No gallops, murmurs, or rubs. Normal PMI, no JVD. No pulse deficits. Respiratory: Lungs have equal breath sounds bilaterally, clear to auscultation and percussion. No rales, rhonchi or wheezes noted. No increased work of breathing, no retractions or nasal flaring. Abdomen/GI: Soft, non-tender, with normal bowel sounds. No distension or tympany. No guarding or rebound. No evidence of tenderness throughout. Back: No spinal tenderness. No costovertebral tenderness. Skin: Warm, dry with normal turgor. Normal color with no rashes, no lesions, and no evidence of cellulitis. MS/ Extremity: Pulses equal, no cyanosis. Neurovascular intact. Full, normal range of motion. Neuro: Heavily intoxicated, oriented to person, exam is limited secondary to intoxication, grossly no lateralizing neurologic deficits. Psych: Exam limited secondary to heavy intoxication, patient is alert to self and location 04:17 ECG was reviewed by the Attending Physician. EKG time 0359, normal sinus rhythm, sp4 normal EKG, no ectopy Vital Signs: 00:16 BP 148 / 91; Pulse 89; Resp 16 S; Temp 98.3(TE); Pulse Ox 98% on R/A; Weight 81.65 kg; ha1 Height 5 ft. 10 in. (R); Pain 8/10; 01:30 BP 116 / 71; Pulse 86; Resp 17 S; Pulse Ox 96% on R/A; ha1 02:00 BP 120 / 65; Pulse 80; Resp 17 S; Pulse Ox 97% on R/A; ha1 03:00 BP 118 / 67; Pulse 80; Resp 16 S; Pulse Ox 96% on R/A; ha1 04:00 BP 112 / 87; Pulse 81; Resp 17 S; Pulse Ox 98% on R/A; ha1 00:16 Body Mass Index 25.83 (81.65 kg, 177.8 cm) ha1 00:16 Pain Scale: Adult ha1 MDM: 00:18 Patient medically screened. snw 04:17 Differential Diagnosis altered mental status, sepsis, flu. Data reviewed: vital signs, sp4 nurses notes, EMS record, old medical records, lab test result(s), EKG. Consideration of Admission/Observation Escalation of care including admission/observation considered. ED course: Patient has sobered up sufficiently and discovered to have normal EKG. Patient risk assessment reveals no risks for coronary artery disease. Patient at this time stable for discharge home. Will advise to abstain from alcohol abuse. 03/15 00:17 Order name: Acetaminophen; Complete Time: 02:55 4 03/15 00:17 Order name: Basic Metabolic Panel; Complete Time: 4 03/15 00:17 Order name: CBC with Diff; Complete Time: 55 4 03/15 00:17 Order name: ETOH Level; Complete Time: 02:55 4 03/15 00:17 Order name: Hepatic Function; Complete Time: 4 03/15 00:17 Order name: PT-INR; Complete Time: sp4 03/15 00:17 Order name: Ptt, Activated; Complete Time: 02:4 03/15 00:17 Order name: Salicylate; Complete Time: 02:55 4 03/15 00:17 Order name: EKG; Complete Time: 00:18 4 03/15 00:17 Order name: EKG - Nurse/Tech; Complete Time: 04:20 4 03/15 00:17 Order name: IV Saline Lock; Complete Time: 00:40 sp4 03/15 00:17 Order name: Labs collected and sent; Complete Time: 00:40 sp4 EC:17 Rate is 73 beats/min. Rhythm is regular, Normal Sinus Rhythm. QRS [place] is Normal. MD sp4 interval is normal. QRS interval is normal. QT interval is normal. No Q waves. T waves are Normal. No ST changes noted. Clinical impression: Normal ECG. Interpreted by me. Reviewed by me. Administered Medications: 00:39 Drug: NS 0.9% IV 1000 ml Route: IV; Rate: 1 bolus; Site: left antecubital; cm10 01:10 Follow up: IV Status: Completed infusion cm10 01:10 Follow up: Response: No adverse reaction; IV Intake: 1000ml cm10 01:10 Drug: Ondansetron IVP 4 mg Route: IVP; Site: left antecubital; cm10 02:00 Follow up: Response: No adverse reaction ha1 01:10 Drug: NS 0.9% IV 1000 ml Route: IV; Rate: 125 ml/hr; Site: left antecubital; cm10 01:10 Drug: Thiamine IV 100 mg Route: IV; Rate: bolus; Site: left antecubital; cm10 04:21 Follow up: Response: No adverse reaction; IV Status: Completed infusion ha1 Disposition Summary: 03/15/23 04:13 Discharge Ordered Location: Home sp4 Problem: new sp4 Symptoms: have improved sp4 Condition: Stable sp4 Diagnosis - Alcohol abuse with intoxication sp4 Followup: sp4 - With: Private Physician - When: 7 - 10 days - Reason: Recheck today's complaints Discharge Instructions: - Discharge Summary Sheet sp4 - Alcohol Intoxication sp4 Forms: - Patient Portal Instructions sp4 Signatures: Dispatcher [employer] EDBriana Muñoz FNP-C [employer]AL[employer] ASS[employer]ANCE [employer] LAB ANALYST-[place] Eh Rincon RN RN as6 Ye Alejandra MD MD sp4 Mala Cardoza RN RN cm10 Yazmin Amaya RN ha1
[2023-03-15 04:30] VITALS: TEMP 98.3
[2023-03-15 05:09] VITALS: BP 112/87; O2SAT 98
--- NOTE | 2023-03-15 14:53 | EKG ---
Test Date: 2023-03-15 Test Time: 03:59:09 [employer]: DARIUS MEASUREMENT RESULTS: Intervals: Rate: 73 ME: 152 QRSD: 86 QT: 406 QTc: 447 [place]: P: 48 ME: 152 QRS: 56 T: 57 INTERPRETIVE STATEMENTS: Normal sinus rhythm Normal ECG Compared to ECG 01/21/2023 23:48:36 No significant changes Electronically Signed On 03-15-23 14:52:58 CDT by Maurice Huitron
== END 2023-03-15 04:23 | disposition home or self-care (01) ==
LOC: ER 00:15
DX: F10.129 Alcohol abuse with intoxication, unspecified (principal); F41.9 Anxiety disorder, unspecified; I10 Essential (primary) hypertension; Z88.8 Allergy status to other drugs, medicaments and biological substances
CPT/HCPCS: 93005; 85025; 80048; 36415; 85610; 80076; 85730; 80143; 80179; 82077; J3411; J2405; J7030; 96361; 96365; 96366; 96375; 99284

== ENCOUNTER 2023-04-10 13:48 | Emergency (ER) | payer OTHER ==
--- OUTSIDE RECORDS SUMMARY | 2023-04-10 13:51 | XMS REPORT | Continuity of Care Document ---
:1985 Author Organization [facility] t Address [address] [place] [id number] Care Team Providers Name Role Phone ASHA [...] Sex Assigned At [birth year] Female [facility] 00:00:00 00:00:00 Smoking Status Start Date Stop Date Source Unknown if ever smoked [employer] Never smoked tobacco (finding) C Rowl Medications Ordered Filled Start Stop Current Ordering [...] Source Body Temperature 2020-01-07 10:16:00 97.7 [degF] [employer] Heart Rate 2020-01-07 10:16:00 79 /min [employer] Respiratory rate 2020-01-07 10:16:00 18 /min [employer] BP Systolic 2020-01-07 10:16:00 134 mm[Hg[facility] Diastolic 2020-01-07 10:16:00 90 mm[Hg] [facility] Respiratory rate 2019-09-08 21:00:00 18 /min [employer] [facility] BP Systolic 2019-09-08 21:00:00 146 mm[Hg] [facility] BP Diastolic 2019-09-08 21:00:00 93 mm[Hg] [facility] Weight 2019-09-08 21:00:00 235 [lb_av] [facility] BMI (Body Mass Index) 2019-09-08 21:00:00 34.7 kg/m2 [facility] [employer] Procedures Procedure Date / Time Performed Performing Clinician [facility] ECG (electrocardiogram) 2020-01-07 00:00:00 [facility] [employer] X-ray of chest, single 2020-01-07 00:00:00 [employer] view Computed tomography of 2020-01-07 00:00:00 [facility] [employer] head or brain without contrast Computed tomography of 2020-01-07 00:00:00 [facility] [employer] cervical spine without contrast ECG (electrocardiogram) 2019-09-08 00:00:00 [facility] [employer] X-ray of chest, two views 2019-09-08 00:00:00 [facility] Encounters Start End Encounter Admission Attending Care Care Encounter Source Date/Time Date/Time Type Type Clinicians Facility Department ID 2020-01-09 2020-01-09 Outpatient GLORIA ZAMORA [id number] [facility] 13:44:00 13:44:00 A[facility] 2020-01-07 2020-01-07 Departed ER PHYSICIAN, GLORIA CASTRO [id number] [facility] 03:35:00 03:35:00 Emergency ER [facility] [address] [facility] 2019-09-08 2019-09-09 Departed GLORIA CASTRO [id number] [facility] 20:50:00 00:23:00 Emergency [facility] [address] [facility] Results Test Description Test Time Test Comments Results Result Comments Source Serum or plasma natriuretic peptide B measurement (mas s/volume) 2020-01-07 08:11:00 Test Item Value Reference Range Interpretation Comme nts B-Type Natriuretic Peptide (test code = 23065-1) 4 pg/mL 0-101 [facility] HealthSerum or plasma [...] 1.435 u[iU]/mL 0.550-4.780 (TSH) (test code = 84623-3) [facility] or plasma free triiodothyronine (T3) [...] 3040-3) 29 U/L 31-96 [facility] HealthCreatine kinase ser/wjdw7422-18-86 07:27:00 Test Item Value Reference Range Interpretation Comments Total Creatine Kinase (test code = 61 U/L 30-160 2157-6) [facility] HealthSerum or plasma creatine kinase MB measurement (mass/volume) 2020-01-07 07:27:00 Test Item Value Reference Range Interpretation Comments Creatine Kinase MB (test code = < 0.18 ng/mL 0-5 80451-4) [facility] or plasma cardiac troponin I measurement (mass/volume) 2020-01-07 07:27:00 Test Item Value Reference Range Interpretation Comments Troponin I (test code = < 0.006 ng/mL 0.000-0.040 53185-0) [facility] HealthSerum or plasma myoglobin measurement (mass/volume)2020-01-07 07:27:00 Test Item Value Reference Range Interpretation Comments Myoglobin (test code = 2639-3) 20.4 ng/mL <110.0 [facility] HealthUrinalysis specimen collection [id number] 04:03:00 Test Item Value Reference Range Interpretation Comments Urine Source (test code = Urine Clean Catch 72744-2) [facility] HealthUrine color rrsmpiwaaazsx9174-12-60 04:03:00 Test Item Value Reference Range Interpretation Comments Urine Color (test code = 5778-6) Colorless Yel-Lora [facility] HealthUrine appearance paqqqwpxpchtz5809-50-28 04:03:00 Test Item Value Reference Range Interpretation Comments Urine Appearance (test code = 5767-9) Clear Clear [facility] HealthUrine pH measurement by test omuhq6903-26-06 04:03:00 Test Item Value Reference Range Interpretation Comments Urine pH (test code = 5803-2) 5.0 5.0-7.5 [facility] HealthSpecific gravity ur znbbpees6267-32-93 04:03:00 Test Item Value Reference Range Interpretation Comments Urine Specific [place] (test code = 1.003 1.003-1.029 5811-5) [facility] HealthUrine protein measurement by automated test strip (mass/volume) 2020-01-07 04:03:00 Test Item Value Reference Range Interpretation Comments Urine Protein (test code = Negative mg/dL Neg - Trace 34098-0) [facility]Urine glucose measurement by automated test strip (mass/volume) 2020-01-07 04:03:00 Test Item Value Reference Range Interpretation Comments Urine Glucose (UA) (test code = Negative Negative 41161-4) [facility] HealthUrine ketones detection by automated test [id number] 04:03:00 Test Item Value Reference Range Interpretation Comments Urine Ketones (test code = 77786-2) Negative Negative [facility] HealthUrine erythrocytes count by automated test strip (number/volume) 2020-01-07 04:03:00 Test Item Value Reference Range Interpretation Comments Urine Occult Blood (test code = Negative Negative 63565-4) [facility] HealthUrine nitrite detection by automated test bcmdu0171-47-57 04:03:00 Test Item Value Reference Range Interpretation Comments Urine Nitrite (test code = 96607-3) Negative Negative [facility] HealthUrine total bilirubin detection by automated test keokk3114-72-49 04:03:00 Test Item Value Reference Range Interpretation Comments Urine Bilirubin (test code = Negative Negative 64554-6) [facility] HealthUrine urobilinogen measurement by automated test strip (mass/volume)2020-01-07 04:03:00 Test Item Value Reference Range Interpretation Comments Urine Urobilinogen (test code = Normal mg/dL Norm-1.0 99940-3) [facility] HealthUrine leukocyte esterase detection by automated test strip 2020-01-07 04:03:00 Test Item Value Reference Range Interpretation Comments Urine Leukocyte Esterase (test code = Trace Negative 90956-7) [facility] HealthUrine sediment erythrocyte count by microscopy (number/high power field)2020-01-07 04:03:00 Test Item Value Reference Range Interpretation Comments Urine RBC (test 0-2 /[HPF] See_Comment [Automated message] The code = 83841-5) system which generated this result tra nsmitted [...] Cells (test code Many /[LPF] None/Occ = 37015-3) [facility] HealthUrine sediment bacteria count by microscopy (number/high power field)2020-01-07 04:03:00 Test Item Value Reference Range Interpretation Comments Urine Bacteria (test code = Occasional /[HPF] None 5769-5) [facility] HealthUrine sediment hyaline cast count by microscopy (number/low power field)2020-01-07 04:03:00 Test Item Value Reference Range Interpretation Comments Urine Hyaline Casts (test code = 2-5 /[LPF] 5796-8) [facility] HealthYeast detection in urine sediment by light ikaeiswqfk8509-89-82 04:03:00 Test Item Value Reference Range Interpretation Comments Urine Yeast (test code = None Seen /[HPF] 75717-5) [facility]Service comment 04:03:00 Test Item Value [...] HealthAutomated erythrocyte mean corpuscular hemoglobin concentration measurement (mass/yxd5331-88-40 04:00:00 Test Item Value Reference Range Interpretation Comments Mean Corpuscular Hemoglobin Concent 32.6 g/dL 32.5-35.0 (test code = 786-4) [facility] HealthAutomated erythrocyte distribution width zdayh4295-04-58 04:00:00 Test Item Value Reference Range Interpretation Comments Red Cell Distribution Width (test code 13.5 % 11.5-14.5 = 788-0) [facility] HealthAutomated blood platelet count (count/volume)2020-01-07 04:00:00 Test Item Value Reference Range Interpretation Comments Platelet Count (test code = 191 10*3/uL 160-400 777-3) [facility] HealthAutomated blood platelet mean volume cdjnjjwukce7538-09-27 04:00:00 Test Item Value Reference Range Interpretation Comments Mean Platelet Volume (test code = 12.0 fL 7.5-11.2 65641-5) [facility] HealthAutomated blood neutrophil count as percentage of total oehduzcbae6644-96-87 04:00:00 Test Item Value Reference Range Interpretation Comments Neutrophils (%) (Auto) (test code = 64 % 45-75 770-8) [facility] HealthAutomated blood immature granulocyte count as percentage of total ozceyqlbza1576-73-76 04:00:00 Test Item Value Reference Range Interpretation Comments Immature Granulocyte % (Auto) (test 0.2 % 0.0-1.5 code = 14502-2) [facility] HealthAutomated blood lymphocyte count as percentage of total zwdvobminz4021-18-13 04:00:00 Test Item Value Reference Range Interpretation Comments Lymphocytes (%) (Auto) (test code = 26 % 20-48 736-9) [facility] HealthAutomated blood monocyte count as percentage of total leukocytes 2020-01-07 04:00:00 Test Item Value Reference Range Interpretation Comments Monocytes (%) (Auto) (test code = 6 % 1-9 5905-5) [facility] HealthAutomated blood eosinophil count as percentage of total fythhvoaah1955-08-14 04:00:00 Test Item Value Reference Range Interpretation Comments Eosinophils (%) (Auto) (test code = 3 % 0-4 713-8) [facility] HealthAutomated blood basophil count as percentage of total leukocytes 2020-01-07 04:00:00 Test Item Value Reference Range Interpretation Comments Basophils (%) (Auto) (test code = 1 % 0-2 706-2) [facility] HealthAutomated blood nucleated erythrocyte count as percentage of total owpgdoronx2923-69-28 04:00:00 Test Item Value Reference Range Interpretation Comments Nucleated Red Blood Cells % (test code 0 % 0-1 = 87705-8) [facility] HealthAutomated blood neutrophil count (number/volume)2020-01-07 04:00:00 Test Item Value Reference Range Interpretation Comments Neutrophils # (Auto) (test code 2.87 10*3/uL = 751-8) [facility] HealthProthrombin time (PT) in platelet poor aosarc8590-87-36 04:00:00 Test Item Value Reference Range Interpretation Comments Prothrombin Time (test code = 5902-2) 11.8 s 9.4-12.5 [facility] HealthINR in Platelet poor plasma by Coagulation gtoaq3011-61-54 04:00:00 Test Item Value Reference Range Interpretation Comments Prothromb Time International 1.1 {ratio} Ratio (test code = 6301-6) [facility] HealthPartial thromboplastin time (PTT) in platelet poor plasma 2020-01-07 04:00:00 Test Item Value Reference Range Interpretation Comments Activated Partial Thromboplast Time 30 s 25-37 (test code = 50375-3) [facility] HealthFibrin D-dimer FEU gnzv8829-57-25 04:00:00 Test Item Value Reference Range Interpretation Comments D-Dimer (test code = 29727-7) 423 ng/mL{FEU} 215-500 [facility] HealthSerum or plasma [...] Interpretation Comments Anion Gap (test code = 84253-8) 9.0 mmol/L 3.0-11.0 [facility] HealthSerum or plasma urea nitrogen measurement (mass/volume)2020-01-07 04:00:00 Test Item Value Reference Range Interpretation Comments Blood Urea Nitrogen (test code = 16.0 mg/dL 12-22 3094-0) [facility] HealthSerum or plasma creatinine measurement (mass/volume)2020-01-07 04:00:00 Test Item Value Reference Range Interpretation Comments Creatinine (test code = 2160-0) 0.90 mg/dL 0.60-1.02 [facility] CenterEstimated renal creatinine clearance calculated from serum or plasma creatinine by Cb4485-23-01 04:00:00 Test Item Value Reference Range Interpretation Comments Estimated Creatinine Clearance (test 93.8 code = 78477-9) [facility] CenterGlomerular filtration rate (GFR) estimation using MDRD equation 2020-01-07 04:00:00 Test Item Value Reference Range Interpretation Comments Estimat Glomerular Filtration Rate 77.12 >60 (test code = 640033713) [facility] HealthSerum or plasma urea nitrogen/creatinine mass ztmnq2976-75-94 04:00:00 Test Item Value Reference Range Interpretation Comments BUN/Creatinine Ratio (test code = 18 3097-3) [facility] HealthSerum or plasma glucose measurement (mass/volume)2020-01-07 04:00:00 Test Item Value Reference Range Interpretation Comments Glucose Level (test code = 2345-7) 88 mg/dL 74-112 [facility] HealthSerum or plasma calcium measurement (mass/volume)2020-01-07 04:00:00 Test Item Value Reference Range Interpretation Comments Calcium Level (test code = 03184-8) 9.8 mg/dL 9.0-10.2 [facility] HealthSerum or plasma [...] (test code = 1751-7) 4.9 g/dL 4.2-5.4 [facility] globulin measurement by calculation (mass/volume)2020-01-07 04:00:00 Test Item Value Reference Range Interpretation Comments Globulin (test code = 40389-2) 3.0 g/dL [facility] HealthSerum or plasma albumin/globulin mass wmxyz5946-28-08 04:00:00 Test Item Value Reference Range Interpretation Comments Albumin/Globulin Ratio (test code 1.6 {ratio} = 1759-0) [facility] HealthSerum or plasma alkaline phosphatase measurement (enzymatic activity/volume)2020-01-07 04:00:00 Test Item Value Reference Range Interpretation Comments Alkaline Phosphatase (test code = 78 U/L 45-100 6768-6) [facility] CenterUrinalysis specimen collection anhvkr1997-48-05 22:40:00 Test Item Value Reference Range Interpretation Comments Urine Source (test code = Urine Clean Catch 23567-6) [facility] HealthUrine color llhqjlgsvljsa8680-44-29 22:40:00 Test Item Value Reference Range Interpretation Comments Urine Color (test code = 5778-6) Yellow Yel-Lora [facility] HealthUrine appearance rliowjyharucd5772-60-40 22:40:00 Test Item Value Reference Range Interpretation Comments Urine Appearance (test code = 5767-9) Clear Clear [facility] HealthUrine pH measurement by test lntpc3699-49-98 22:40:00 Test Item Value Reference Range Interpretation Comments Urine pH (test code = 5803-2) 6.0 5.0-7.5 [facility] HealthSpecific gravity ur vxonjgbd7463-83-89 22:40:00 Test Item Value Reference Range Interpretation Comments Urine Specific [place] (test code = 1.024 1.003-1.029 5811-5) [facility] HealthUrine protein measurement by automated test strip (mass/volume) 2019-09-08 22:40:00 Test Item Value Reference Range Interpretation Comments Urine Protein (test code = Trace mg/dL Neg - Trace 28652-9) [facility] HealthUrine glucose measurement by automated test strip (mass/volume) 2019-09-08 22:40:00 Test Item Value Reference Range Interpretation Comments Urine Glucose (UA) (test code = Negative Negative 12121-4) [facility] HealthUrine ketones detection by automated test vgvlf5689-06-85 22:40:00 Test Item Value Reference Range Interpretation Comments Urine Ketones (test code = 76332-5) Trace Negative [facility] HealthUrine erythrocytes count by automated test strip (number/volume) 2019-09-08 22:40:00 Test Item Value Reference Range Interpretation Comments Urine Occult Blood (test code = Negative Negative 50575-8) [facility] HealthUrine nitrite detection by automated test akeum3642-83-30 22:40:00 Test Item Value Reference Range Interpretation Comments Urine Nitrite (test code = 49606-7) Negative Negative [facility] HealthUrine total bilirubin detection by automated test kcana1148-85-90 22:40:00 Test Item Value Reference Range Interpretation Comments Urine Bilirubin (test code = Negative Negative 28695-2) [facility] HealthUrine urobilinogen measurement by automated test strip (mass/volume)2019-09-08 22:40:00 Test Item Value Reference Range Interpretation Comments Urine Urobilinogen (test code = Normal mg/dL Norm-1.0 59460-8) [facility] HealthUrine leukocyte esterase detection by automated test strip 2019-09-08 22:40:00 Test Item Value Reference Range Interpretation Comments Urine Leukocyte Esterase (test code = Trace Negative 71626-7) [facility] HealthUrine sediment erythrocyte count by microscopy (number/high power field)2019-09-08 22:40:00 Test Item Value Reference Range Interpretation Comments Urine RBC (test 0-2 /[HPF] See_Comment [Automated message] The code = 83602-3) system which generated this result tra nsmitted [...] (test None seen /[LPF] None/Occ code = 52127-2) [facility] HealthUrine sediment bacteria count by microscopy (number/high power field)2019-09-08 22:40:00 Test Item Value Reference Range Interpretation Comments Urine Bacteria (test code = Occasional /[HPF] None 5769-5) [facility] HealthUrine sediment hyaline cast count by microscopy (number/low power field)2019-09-08 22:40:00 Test Item Value Reference Range Interpretation Comments Urine Hyaline Casts (test code = 2-5 /[LPF] 5796-8) [facility] HealthYeast detection in urine sediment by light nsbkvlzozi6736-28-80 22:40:00 Test Item Value Reference Range Interpretation Comments Urine Yeast (test code = None Seen /[HPF] 68832-6) [facility]Service comment [id number] 22:40:00 Test Item Value Reference Range Interpretation Comments Urine Culture Indicated (test code = Yes 8264-4) [facility] HealthAutomated blood nucleated erythrocyte count as percentage of total ezzdwzsoui6302-77-62 22:15:00 Test Item Value Reference Range Interpretation Comments Nucleated Red Blood Cells % (test code 0 % 0-1 = 24439-9) [facility] HealthAutomated blood neutrophil count (number/volume)2019-09-08 22:15:00 [...] Interpretation Comments Anion Gap (test code = 14000-4) 15.0 mmol/L 3.0-11.0 [facility] HealthSerum or plasma [...] calculated from serum or plasma creatinine by Wy0675-00-51 22:15:00 Test Item Value Reference Range Interpretation Comments Estimated Creatinine Clearance (test 134.0 code = 73996-8) [facility] CenterGlomerular filtration rate (GFR) estimation using MDRD equation 2019-09-08 22:15:00 Test Item Value Reference Range Interpretation Comments Estimat Glomerular Filtration Rate 116.39 >60 (test code = 34795-1) [facility] HealthSerum or plasma urea nitrogen/creatinine mass zdqif6659-06-05 22:15:00 Test Item Value Reference Range Interpretation Comments BUN/Creatinine Ratio (test code = 22 3097-3) [facility] HealthSerum or plasma glucose measurement (mass/volume)2019-09-08 22:15:00 Test Item Value Reference Range Interpretation Comments Glucose Level (test code = 2345-7) 82 mg/dL 70-110 [facility] HealthSerum or plasma calcium measurement (mass/volume)2019-09-08 22:15:00 Test Item Value Reference Range Interpretation Comments Calcium Level (test code = 76305-0) 8.9 mg/dL 8.4-10.2 [facility] HealthSerum or plasma [...] Range Interpretation Comments Globulin (test code = 16759-8) 3.2 g/dL [facility] HealthSerum or plasma albumin/globulin mass hzfei8197-14-21 22:15:00 Test Item Value Reference Range Interpretation [...] 3040-3) 18 U/L 16-63 [facility] HealthCreatine kinase ser/sgyn2548-43-04 22:15:00 Test Item Value Reference Range Interpretation Comments Total Creatine Kinase (test code = 84 U/L 24-170 2157-6) [facility] HealthSerum or plasma creatine kinase MB measurement (mass/volume) 2019-09-08 22:15:00 Test Item Value Reference Range Interpretation Comments Creatine Kinase MB (test code = 1.3 ng/mL 0-5 54743-2) [facility] HealthSerum or plasma cardiac troponin T [...] HealthAutomated erythrocyte mean corpuscular hemoglobin concentration measurement (mass/oww1555-12-61 22:15:00 Test Item Value Reference Range Interpretation Comments Mean Corpuscular Hemoglobin Concent 33.5 g/dL 32.5-35.0 (test code = 786-4) [facility] HealthAutomated erythrocyte distribution width nrmav9035-92-08 22:15:00 Test Item Value Reference Range Interpretation Comments Red Cell Distribution Width (test code 14.0 % 11.5-14.5 = 788-0) [facility] HealthAutomated blood platelet count (count/volume)2019-09-08 22:15:00 Test Item Value Reference Range Interpretation Comments Platelet Count (test code = 238 10*3/uL 160-400 777-3) [facility] HealthAutomated blood platelet mean volume qhwbavnvlsg9457-41-22 22:15:00 Test Item Value Reference Range Interpretation Comments Mean Platelet Volume (test code = 11.0 fL 7.5-11.2 46634-9) [facility] CenterAutomated blood neutrophil count as percentage of total jfpfqselcc1200-51-92 22:15:00 Test Item Value Reference Range Interpretation Comments Neutrophils (%) (Auto) (test code = 70 % 45-75 770-8) [facility] CenterAutomated blood immature granulocyte count as percentage of total audxilfxic7635-50-76 22:15:00 Test Item Value Reference Range Interpretation Comments Immature Granulocyte % (Auto) (test 0.2 % 0.0-1.5 code = 54992-8) [facility] CenterAutomated blood lymphocyte count as percentage of total sttxbwxbjd5732-64-87 22:15:00 Test Item Value Reference Range Interpretation Comments Lymphocytes (%) (Auto) (test code = 21 % 20-48 736-9) [facility] CenterAutomated blood monocyte count as percentage of total leukocytes 2019-09-08 22:15:00 Test Item Value Reference Range Interpretation Comments Monocytes (%) (Auto) (test code = 7 % 1-9 5905-5) [facility] CenterAutomated blood eosinophil count as percentage of total qlgxoyrfdu7407-66-10 22:15:00 Test Item Value Reference Range Interpretation Comments Eosinophils (%) (Auto) (test code = 1 % 0-4 713-8) [facility] CenterAutomated blood basophil count as percentage of total leukocytes 2019-09-08 22:15:00 Test Item Value Reference Range Interpretation Comments Basophils (%) (Auto) (test code = 1 % 0-2 706-2) [facility]
[2023-04-10 14:22] LABS: Absolute Lymphocytes (CBC) 1.2 K/uL (0.7-4.9); Hematocrit 29.9 % (36.0-45.0); Lymphocytes % 22.9 % (15.3-44.8); MCV 80.3 fL (80-100); MPV 8.2 fL (7.6-11.3); Platelets 255 thou/uL (152-406); RBC Red Blood Cell Count 3.72 M/uL (3.86-4.86)
[2023-04-10] MEDS ORDERED: METOCLOPRAMIDE 10 MG/2mL INJ ONE (14:30)
[2023-04-10] MEDS ORDERED: NA CHLORIDE 0.9% 1,000 ML ONE (14:31)
[2023-04-10] MEDS ORDERED: MORPHINE 4 MG/ML SYR ONE (14:31)
[2023-04-10] MEDS ORDERED: ONDANSETRON 4 MG/2 ML VIAL ONE (14:31)
[2023-04-10 14:34] LABS: Protime INR 0.96
[2023-04-10 14:43] LABS: Potassium 3.8 mEq/L (3.5-5.1)
--- NOTE | 2023-04-10 15:43 | RAD REPORT ---
EXAM DESCRIPTION: CT - Head Brain Wo Cont - 04/10/2023 2:27 pm CLINICAL HISTORY: HEADACHE COMPARISON: Head angio dated 04/10/2023 TECHNIQUE: Noncontrast head CT images were obtained without IV contrast. Multiplanar reformats were generated and reviewed. All CT scans are performed using dose optimization technique as appropriate and may include automated exposure control or mA/KV adjustment according to patient size. FINDINGS: No intracranial hemorrhage, mass, or edema. Midline structures are unremarkable. Normal ventricular caliber for age. Youssef-white matter differentiation is preserved, without evidence of acute infarct. No abnormal extra- axial fluid collections. Mastoid air cells and visualized portions of the paranasal sinuses are clear. No acute bony findings. IMPRESSION: No evidence of an acute intracranial process.
--- NOTE | 2023-04-10 15:52 | RAD REPORT ---
EXAM DESCRIPTION: CT - Head angio - 04/10/2023 2:27 pm CLINICAL HISTORY: HEADACHE COMPARISON: No comparisons TECHNIQUE: Axial CT angiography images of the head was performed with multiplanar and maximum intens ity projection reconstructions. Images performed following intravenous administration of 100mL Isovue 370. All CT scans are performed using dose optimization technique as appropriate and may include automated exposure control or mA/KV adjustment according to patient size. FINDINGS: No evidence of large vessel occlusion. No evidence of aneurysm or dissection flap is detec caren. No flow-limiting stenosis or vascular malformation identified. Antegrade flow is seen in the vertebral arteries. The vertebral arteries are codominant. The visualized dural venous sinuses are grossly patent. IMPRESSION: No evidence of large vessel occlusion or flow-limiting stenosis.
--- NOTE | 2023-04-10 15:54 | RAD REPORT ---
EXAM DESCRIPTION: CT - Neck Angio - 04/10/2023 2:27 pm CLINICAL HISTORY: HEADACHE COMPARISON: Head C Spine Mpr Wo Con dated 10/15/2022 TECHNIQUE: Axial CT angiography images of the head was performed with multiplanar and maximum intens ity projection reconstructions. Images performed following intravenous administration of 100mL Isovue 370. All CT scans are performed using dose optimization technique as appropriate and may include automated exposure control or mA/KV adjustment according to patient size. Quantification of carotid stenosis, if any, is performed according to NASCET criteria. FINDINGS: A left aortic arch is identified with normal three vessel configuration of the great vesse ls. No significant flow abnormality is seen of the common carotid bilaterally. No significant stenosis is identified involving the cervical segments of both internal carotid arteri es. Normal flow is seen within both vertebral arteries. IMPRESSION: No significant flow abnormality of the neck vessels is identified. CAROTID STENOSIS REFERENCE USING NASCET CRITERIA: % ICA stenosis = (1 - narrowest ICA diameter/diameter of distal cervical ICA) x 100. Mild - <50% stenosis. Moderate - 50-69% stenosis. Severe - 70-94% stenosis. Near occlusion - 95-99% stenosis. Occluded - 100% stenosis.
--- NOTE | 2023-04-10 15:56 | ER ---
Nurse's Notes [facility] Name: Salud Almanzar Age: 37 yrs Sex: Female : 1985 Arrival Date: 04/10/2023 Time: 13:48 Bed 16 Private MD: Diagnosis: Headache Presentation: 04/10 14:00 Chief complaint: Patient states: "I've had this headache for 4 days now. It feels like mb9 a COVID headache. I started feeling dullness in my chest, SOB, N/V today.". Coronavirus screen: Vaccine status: Patient reports receiving the 2nd dose of the covid vaccine. Ebola Screen: No symptoms or risks identified at this time. Initial Sepsis Screen: Does the patient meet any 2 criteria? No. Patient's initial sepsis screen is negative. Does the patient have a suspected source of infection? No. Patient's initial sepsis screen is negative. Risk Assessment: Do you want to hurt yourself or someone else? Patient reports no desire to harm self or others. Onset of symptoms was 2022. 14:00 Method Of Arrival: Wheelchair mb9 14:00 Acuity: JOSE 3 mb9 Triage Assessment: 14:02 General: Appears uncomfortable, Behavior is calm, cooperative. Pain: Complains of pain mb9 in head Pain does not radiate. Pain currently is 10 out of 10 on a pain scale. Quality of pain is described as dull, Pain began suddenly, Is continuous. EENT: No signs and/or symptoms were reported regarding the EENT system. Neuro: Rocha Agitation-Sedation Scale (RASS): 0 - Alert and Calm Level of Consciousness is awake, alert, obeys commands, Oriented to person, place, time, situation, Appropriate for age. Cardiovascular: Patient's skin is warm and dry. Respiratory: Airway is patent. GI: Reports diarrhea, nausea, vomiting. : No signs and/or symptoms were reported regarding the genitourinary system. Musculoskeletal: Range of motion: intact in all extremities. 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 - Social history:: Smoking status: Patient denies any tobacco usage or history of. - Family history:: not pertinent. - Hospitalizations: : No recent hospitalization is reported. Screenin:05 [facility] ED Fall Risk Assessment (Adult) History of falling in the last 3 months, rs5 including since admission No falls in past 3 months (0 pts) Confusion or Disorientation No (0 pts) Intoxicated or Sedated No (0 pts) Impaired Gait No (0 pts) Mobility Assist Device Used No (0 pt) Altered Elimination No (0 pt) Score/Fall Risk Level 0 - 2 = Low Risk. 14:05 Abuse screen: Denies threats or abuse. Nutritional screening: No deficits noted. rs5 Tuberculosis screening: No symptoms or risk factors identified. Assessment: 14:05 General: Appears in no apparent distress. uncomfortable, Behavior is calm, cooperative. rs5 14:05 Pain: Complains of pain in head Pain does not radiate. Pain currently is 10 out of 10 rs5 on a pain scale. Quality of pain is described as aching, Pain began 2-3 days ago. Is continuous. Neuro: Level of Consciousness is awake, alert, obeys commands, Oriented to person, place, time, situation. Cardiovascular: Rhythm is regular. Respiratory: Airway is patent Respiratory effort is even, unlabored, Respiratory pattern is regular, symmetrical. GI: Abdomen is round non-distended, Abd is soft and non tender X 4 quads. : No signs and/or symptoms were reported regarding the genitourinary system. EENT: No signs and/or symptoms were reported regarding the EENT system. Derm: Skin is pink, warm \\T\\ dry. Musculoskeletal: Range of motion: intact in all extremities. 14:27 Reassessment: Pt left for CT scan. rs5 14:38 Reassessment: Patient and/or family updated on plan of care and expected duration. Pain rs5 level reassessed. Patient is alert, oriented x 3, equal unlabored respirations, skin warm/dry/pink. Pt back from CT scan. 15:01 Reassessment: Patient states feeling better. Patient states symptoms have improved. rs5 15:01 Pain: Complains of pain in head Pain does not radiate. Pain currently is 7 out of 10 on rs5 a pain scale. Quality of pain is described as aching, Is continuous. GI: Patient currently denies nausea, vomiting. Vital Signs: 14:00 BP 153 / 95; Pulse 83; Resp 16; Temp 97.7(O); Pulse Ox 100% on R/A; Weight 99.79 kg; mb9 Height 5 ft. 10 in. ; Pain 10/10; 15:10 BP 144 / 90; Pulse 80; Resp 16; Pulse Ox 99% on R/A; rs5 16:20 BP 146 / 92; Pulse 78; Resp 17; Pulse Ox 98% on R/A; rs5 14:00 Body Mass Index 31.57 (99.79 kg, 177.8 cm) mb9 14:00 Pain Scale: Adult mb9 Mary Coma Score: 15:55 Eye Response: spontaneous(4). Motor Response: obeys commands(6). Verbal Response: rn oriented(5). Total: 15. ED Course: 13:51 Patient arrived in ED. mg5 13:52 Rafal Nicholas MD is Attending Physician. rn 14:00 Arm band placed on. mb9 14:02 Triage completed. mb9 14:03 Placed in gown. Bed in low position. Call light in reach. Side rails up X 1. Client mb9 placed on continuous cardiac and pulse oximetry monitoring. NIBP monitoring applied. monitoring and evaluation advisor on. 14:05 Patient maintains SpO2 saturation greater than 95% on room air. rs5 14:10 Inserted saline lock: 22 gauge in left antecubital area, using aseptic technique. Blood rs5 collected. 14:17 William Dewey, RN is Primary Nurse. rs5 14:29 CT Head Brain wo Cont In Process Unspecified. EDMS 14:[address] In Process Unspecified. EDMS 14:[address] In Process Unspecified. EDMS 14:43 Flu Sent. rs5 14:43 SARS-COV-2 RT PCR Sent. rs5 16:40 No provider procedures requiring assistance completed. rs5 16:40 IV discontinued, intact, bleeding controlled, No redness/swelling at site. Pressure rs5 dressing applied. Administered Medications: 14:42 Drug: NS 0.9% IV 1000 ml IV at 1000 ml once Route: IV; Rate: 1000 ml; Site: left rs5 antecubital; 15:01 Follow up: Response: No adverse reaction rs5 14:42 Drug: morphine IVP or IV 4 mg IVP once over 4 mins Route: IVP; Infused Over: 4 mins; rs5 Site: left antecubital; 15:01 Follow up: Response: No adverse reaction; Pain is decreased rs5 14:42 Drug: Ondansetron IVP 4 mg IVP once; over 2 minutes Route: IVP; Site: left antecubital; rs5 15:01 Follow up: Response: No adverse reaction; Nausea is decreased rs5 14:42 Drug: metoCLOPramide IVP 10 mg IVP once; over 1 to 2 minutes Route: IVP; Site: left rs5 antecubital; 15:01 Follow up: Response: No adverse reaction rs5 16:34 Drug: Ketorolac IVP 15 mg IVP once Route: IVP; Site: left antecubital; rs5 Medication: 16:40 VIS not applicable for this client. rs5 Outcome: 15:56 Discharge ordered by . rn 16:40 Discharged to home ambulatory, rs5 16:40 Condition: stable 16:40 Discharge instructions given to patient, Instructed on discharge instructions, follow up and referral plans. medication usage, Demonstrated understanding of medications, Prescriptions given X 1, 16:47 Patient left the ED. iw Signatures: Dispatcher [employer] EDMS Jyoti Benites RN RN iw Nieto, Roman, MD MD rn Breneman, Mary Beth, RN RN mb9 William Dewey RN RN rs5 Tere Marsh mg5 Corrections: (The following items were deleted from the chart) 14:02 14:00 BP 153 / 95; Pulse 83bpm; Resp 16bpm; Pulse Ox 100% RA; Temp 97.7F Oral; Height mb9 856 ft. 8 in.; Pain 10/10, Adult; mb9
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
[2023-04-10] MEDS ORDERED: KETOROLAC 30 MG/ML INJ ONE (16:48)
[2023-04-10 17:21] VITALS: BP 153/95; TEMP 97.7; O2SAT 100
== END 2023-04-10 16:47 | disposition home or self-care (01) ==
LOC: ER 13:48
DX: R51.9 Headache, unspecified (principal); R07.9 Chest pain, unspecified; I10 Essential (primary) hypertension; F41.9 Anxiety disorder, unspecified; Z88.6 Allergy status to analgesic agent; Z20.822 Contact with and (suspected) exposure to COVID-19
CPT/HCPCS: 85025; 80048; 36415; 85610; 85730; 87635; 87804 ×2; 70450; 70496; 70498; 96375; 96374; 99285; Q9967; J2765; J2405; J7030

== ENCOUNTER 2023-04-17 07:08 | Emergency (ER) | payer OTHER ==
--- OUTSIDE RECORDS SUMMARY | 2023-04-17 07:17 | XMS REPORT | Continuity of Care Document ---
:1985 Author Organization [facility] t Address [address] [place] [id number] Care Team Providers Name Role Phone ASHA MCKEE Attending Clinician Unavailable PHYSICIAN, ER Attending Clinician Unavailable Problems Condition Condition Condition Status Onset Resolution Last Treating Co mments Source Name Details Category Date Date Treatment Clinician Date Problem Condition [facility] Allergies, Adverse Reactions, Alerts This patient has no known allergies or adverse reactions. Social History Social Habit Start Date Stop Date Quantity Comments Source Sex Assigned At [birth year] Female [facility] 00:00:00 00:00:00 Smoking Status Start Date Stop Date Source Unknown if ever smoked [email or web address] Never smoked tobacco (finding) C dot429 Medications Ordered Filled Start Stop Current Ordering [...] Source Body Temperature 2020-01-07 10:16:00 97.7 [degF] [facility] Heart Rate 2020-01-07 10:16:00 79 /min [employer] Respiratory rate 2020-01-07 10:16:00 18 /min [facility] BP Systolic 2020-01-07 10:16:00 134 mm[Hg] [facility] BP Diastolic 2020-01-07 10:16:00 90 mm[Hg] [facility] Respiratory rate 2019-09-08 21:00:00 18 /min [employer] [facility] BP Systolic 2019-09-08 21:00:00 146 mm[Hg] [facility] BP Diastolic 2019-09-08 21:00:00 93 mm[Hg] [facility] Weight 2019-09-08 21:00:00 235 [lb_av] [facility] BMI (Body Mass Index) 2019-09-08 21:00:00 34.7 kg/m2 [facility] [email or web address] Procedures Procedure Date / Time Performed Performing Clinician [facility] e ECG (electrocardiogram) 2020-01-07 00:00:00 [facility] Digital Message [email or web address] X-ray of chest, single 2020-01-07 00:00:00 [email or web address] view Computed tomography of 2020-01-07 00:00:00 [facility] [email or web address] head or brain without contrast Computed tomography of 2020-01-07 00:00:00 [facility] [email or web address] cervical spine without contrast ECG (electrocardiogram) 2019-09-08 00:00:00 [facility] Digital Message [email or web address] X-ray of chest, two views 2019-09-08 00:00:00 [facility] Encounters Start End Encounter Admission Attending Care Care Encounter Source Date/Time Date/Time Type Type Clinicians Facility Department ID 2020-01-09 2020-01-09 Outpatient GLORIA ZAMORA [id number] [facility] 13:44:00 13:44:00 [facility] 2020-01-07 2020-01-07 Departed ER PHYSICIAN, GLORIA CASTRO [id number] [facility] 03:35:00 03:35:00 Emergency ER [facility] [address] [facility] 2019-09-08 2019-09-09 Departed GLORIA CASTRO [id number] [facility] 20:50:00 00:23:00 Emergency [facility] [address] [facility] Results Test Description Test Time Test Comments Results Result Comments Source Serum or plasma natriuretic peptide B measurement (mas s/volume) 2020-01-07 08:11:00 Test Item Value Reference Range Interpretation Comme nts B-Type Natriuretic Peptide (test code = 12853-0) 4 pg/mL 0-101 [facility]Serum or plasma [...] 1.435 u[iU]/mL 0.550-4.780 (TSH) (test code = 79058-4) [facility]Serum or plasma free triiodothyronine (T3) [...] 3040-3) 29 U/L 31-96 [facility] HealthCreatine kinase ser/[id number] 07:27:00 Test Item Value Reference Range Interpretation Comments Total Creatine Kinase (test code = 61 U/L 30-160 2157-6) [facility] HealthSerum or plasma creatine kinase MB measurement (mass/volume) 2020-01-07 07:27:00 Test Item Value Reference Range Interpretation Comments Creatine Kinase MB (test code = < 0.18 ng/mL 0-5 98202-5) [facility] HealthSerum or plasma cardiac troponin I measurement (mass/volume) 2020-01-07 07:27:00 Test Item Value Reference Range Interpretation Comments Troponin I (test code = < 0.006 ng/mL 0.000-0.040 37178-4) [facility] HealthSerum or plasma myoglobin measurement (mass/volume)2020-01-07 07:27:00 Test Item Value Reference Range Interpretation Comments Myoglobin (test code = 2639-3) 20.4 ng/mL <110.0 [facility] HealthUrinalysis specimen collection [id number] 04:03:00 Test Item Value Reference Range Interpretation Comments Urine Source (test code = Urine Clean Catch 77587-4) [facility] HealthUrine color vhhcdlkbwjvmk3962-69-63 04:03:00 Test Item Value Reference Range Interpretation Comments Urine Color (test code = 5778-6) Colorless Yel-Lora [facility] HealthUrine appearance vnebzeqgosdnr0845-50-37 04:03:00 Test Item Value Reference Range Interpretation Comments Urine Appearance (test code = 5767-9) Clear Clear [facility] HealthUrine pH measurement by test pdmrv2713-26-31 04:03:00 Test Item Value Reference Range Interpretation Comments Urine pH (test code = 5803-2) 5.0 5.0-7.5 [facility] HealthSpecific gravity ur cxmjuugp4830-20-93 04:03:00 Test Item Value Reference Range Interpretation Comments Urine Specific Alpine (test code = 1.003 1.003-1.029 5811-5) [facility] HealthUrine protein measurement by automated test strip (mass/volume) 2020-01-07 04:03:00 Test Item Value Reference Range Interpretation Comments Urine Protein (test code = Negative mg/dL Neg - Trace 87908-6) [facility]Urine glucose measurement by automated test strip (mass/volume) 2020-01-07 04:03:00 Test Item Value Reference Range Interpretation Comments Urine Glucose (UA) (test code = Negative Negative 12070-9) [facility] HealthUrine ketones detection by automated test [id number] 04:03:00 Test Item Value Reference Range Interpretation Comments Urine Ketones (test code = 65591-0) Negative Negative [facility] HealthUrine erythrocytes count by automated test strip (number/volume) 2020-01-07 04:03:00 Test Item Value Reference Range Interpretation Comments Urine Occult Blood (test code = Negative Negative 59010-4) [facility] HealthUrine nitrite detection by automated test qsjnh9173-30-42 04:03:00 Test Item Value Reference Range Interpretation Comments Urine Nitrite (test code = 92263-7) Negative Negative [facility] HealthUrine total bilirubin detection by automated test heobw5701-75-23 04:03:00 Test Item Value Reference Range Interpretation Comments Urine Bilirubin (test code = Negative Negative 28904-3) [facility] HealthUrine urobilinogen measurement by automated test strip (mass/volume)2020-01-07 04:03:00 Test Item Value Reference Range Interpretation Comments Urine Urobilinogen (test code = Normal mg/dL Norm-1.0 82925-7) [facility] HealthUrine leukocyte esterase detection by automated test strip 2020-01-07 04:03:00 Test Item Value Reference Range Interpretation Comments Urine Leukocyte Esterase (test code = Trace Negative 09386-9) [facility] HealthUrine sediment erythrocyte count by microscopy (number/high power field)2020-01-07 04:03:00 Test Item Value Reference Range Interpretation Comments Urine RBC (test 0-2 /[HPF] See_Comment [Automated message] The code = 30546-8) system which generated this result tra nsmitted [...] Cells (test code Many /[LPF] None/Occ = 10509-7) [facility] HealthUrine sediment bacteria count by microscopy (number/high power field)2020-01-07 04:03:00 Test Item Value Reference Range Interpretation Comments Urine Bacteria (test code = Occasional /[HPF] None 5769-5) [facility] HealthUrine sediment hyaline cast count by microscopy (number/low power field)2020-01-07 04:03:00 Test Item Value Reference Range Interpretation Comments Urine Hyaline Casts (test code = 2-5 /[LPF] 5796-8) [facility] HealthYeast detection in urine sediment by light zcdpuhvwfr8318-78-90 04:03:00 Test Item Value Reference Range Interpretation Comments Urine Yeast (test code = None Seen /[HPF] 70155-1) [facility]Service comment 04:03:00 Test Item Value [...] HealthAutomated erythrocyte mean corpuscular hemoglobin concentration measurement (mass/crh0764-61-15 04:00:00 Test Item Value Reference Range Interpretation Comments Mean Corpuscular Hemoglobin Concent 32.6 g/dL 32.5-35.0 (test code = 786-4) [facility] HealthAutomated erythrocyte distribution width [id number] 04:00:00 Test Item Value Reference Range Interpretation Comments Red Cell Distribution Width (test code 13.5 % 11.5-14.5 = 788-0) [facility] HealthAutomated blood platelet count (count/volume)2020-01-07 04:00:00 Test Item Value Reference Range Interpretation Comments Platelet Count (test code = 191 10*3/uL 160-400 777-3) [facility] HealthAutomated blood platelet mean volume ltvwiubhdhb8029-11-18 04:00:00 Test Item Value Reference Range Interpretation Comments Mean Platelet Volume (test code = 12.0 fL 7.5-11.2 46396-8) [facility] HealthAutomated blood neutrophil count as percentage of total sncvletbhs8186-71-05 04:00:00 Test Item Value Reference Range Interpretation Comments Neutrophils (%) (Auto) (test code = 64 % 45-75 770-8) [facility] HealthAutomated blood immature granulocyte count as percentage of total hpxgkdicdj9029-63-72 04:00:00 Test Item Value Reference Range Interpretation Comments Immature Granulocyte % (Auto) (test 0.2 % 0.0-1.5 code = 52128-6) [facility] HealthAutomated blood lymphocyte count as percentage of total yxxzyrpbor5257-60-71 04:00:00 Test Item Value Reference Range Interpretation Comments Lymphocytes (%) (Auto) (test code = 26 % 20-48 736-9) [facility] HealthAutomated blood monocyte count as percentage of total leukocytes 2020-01-07 04:00:00 Test Item Value Reference Range Interpretation Comments Monocytes (%) (Auto) (test code = 6 % 1-9 5905-5) [facility] HealthAutomated blood eosinophil count as percentage of total avkogsswyy9979-27-20 04:00:00 Test Item Value Reference Range Interpretation Comments Eosinophils (%) (Auto) (test code = 3 % 0-4 713-8) [facility] HealthAutomated blood basophil count as percentage of total leukocytes 2020-01-07 04:00:00 Test Item Value Reference Range Interpretation Comments Basophils (%) (Auto) (test code = 1 % 0-2 706-2) [facility] HealthAutomated blood nucleated erythrocyte count as percentage of total tsbuicebcz6741-04-74 04:00:00 Test Item Value Reference Range Interpretation Comments Nucleated Red Blood Cells % (test code 0 % 0-1 = 47924-8) [facility] HealthAutomated blood neutrophil count (number/volume)2020-01-07 04:00:00 Test Item Value Reference Range Interpretation Comments Neutrophils # (Auto) (test code 2.87 10*3/uL = 751-8) [facility] HealthProthrombin time (PT) in platelet poor ndrlln7931-94-16 04:00:00 Test Item Value Reference Range Interpretation Comments Prothrombin Time (test code = 5902-2) 11.8 s 9.4-12.5 [facility] HealthINR in Platelet poor plasma by Coagulation bjfxr9356-97-37 04:00:00 Test Item Value Reference Range Interpretation Comments Prothromb Time International 1.1 {ratio} Ratio (test code = 6301-6) [facility] HealthPartial thromboplastin time (PTT) in platelet poor plasma 2020-01-07 04:00:00 Test Item Value Reference Range Interpretation Comments Activated Partial Thromboplast Time 30 s 25-37 (test code = 24699-6) [facility] HealthFibrin D-dimer FEU ryut9727-84-90 04:00:00 Test Item Value Reference Range Interpretation Comments D-Dimer (test code = 47032-4) 423 ng/mL{FEU} 215-500 [facility] HealthSerum or plasma [...] Interpretation Comments Anion Gap (test code = 26617-4) 9.0 mmol/L 3.0-11.0 [facility] HealthSerum or plasma urea nitrogen measurement (mass/volume)2020-01-07 04:00:00 Test Item Value Reference Range Interpretation Comments Blood Urea Nitrogen (test code = 16.0 mg/dL 12-22 3094-0) [facility] HealthSerum or plasma creatinine measurement (mass/volume)2020-01-07 04:00:00 Test Item Value Reference Range Interpretation Comments Creatinine (test code = 2160-0) 0.90 mg/dL 0.60-1.02 [facility]Estim[facility] creatinine clearance calculated from serum or plasma creatinine by [id number] 04:00:00 Test Item Value Reference Range Interpretation Comments Estimated Creatinine Clearance (test 93.8 code = 90834-9) [facility] HospitalGlomerular filtration rate (GFR) estimation using MDRD equation 2020-01-07 04:00:00 Test Item Value Reference Range Interpretation Comments Estimat Glomerular Filtration Rate 77.12 >60 (test code = 351598677) [facility] HealthSerum or plasma urea nitrogen/creatinine mass dffif6319-30-28 04:00:00 Test Item Value Reference Range Interpretation Comments BUN/Creatinine Ratio (test code = 18 3097-3) [facility] HealthSerum or plasma glucose measurement (mass/volume)2020-01-07 04:00:00 Test Item Value Reference Range Interpretation Comments Glucose Level (test code = 2345-7) 88 mg/dL 74-112 [facility] HealthSerum or plasma calcium measurement (mass/volume)2020-01-07 04:00:00 Test Item Value Reference Range Interpretation Comments Calcium Level (test code = 87041-3) 9.8 mg/dL 9.0-10.2 [facility] HealthSerum or plasma [...] code = 1751-7) 4.9 g/dL 4.2-5.4 [facility] globulin measurement by calculation (mass/volume)2020-01-07 04:00:00 Test Item Value Reference Range Interpretation Comments Globulin (test code = 35232-7) 3.0 g/dL [facility] HealthSerum or plasma albumin/globulin mass [id number] 04:00:00 Test Item Value Reference Range Interpretation Comments Albumin/Globulin Ratio (test code 1.6 {ratio} = 1759-0) [facility] HealthSerum or plasma alkaline phosphatase measurement (enzymatic activity/volume)2020-01-07 04:00:00 Test Item Value Reference Range Interpretation Comments Alkaline Phosphatase (test code = 78 U/L 45-100 6768-6) [facility] HospitalUrinalysis specimen collection [id number] 22:40:00 Test Item Value Reference Range Interpretation Comments Urine Source (test code = Urine Clean Catch 64381-8) [facility] HealthUrine color afivzgcsfugwn3491-39-29 22:40:00 Test Item Value Reference Range Interpretation Comments Urine Color (test code = 5778-6) Yellow Yel-Lora [facility] HealthUrine appearance boudifcrqvtnj6500-91-10 22:40:00 Test Item Value Reference Range Interpretation Comments Urine Appearance (test code = 5767-9) Clear Clear [facility] HealthUrine pH measurement by test siaiq2905-95-73 22:40:00 Test Item Value Reference Range Interpretation Comments Urine pH (test code = 5803-2) 6.0 5.0-7.5 [facility] HealthSpecific gravity ur egzlhwuq1227-72-04 22:40:00 Test Item Value Reference Range Interpretation Comments Urine Specific Alpine (test code = 1.024 1.003-1.029 5811-5) [facility] HealthUrine protein measurement by automated test strip (mass/volume) 2019-09-08 22:40:00 Test Item Value Reference Range Interpretation Comments Urine Protein (test code = Trace mg/dL Neg - Trace 86371-7) [facility] HealthUrine glucose measurement by automated test strip (mass/volume) 2019-09-08 22:40:00 Test Item Value Reference Range Interpretation Comments Urine Glucose (UA) (test code = Negative Negative 14438-6) [facility] HealthUrine ketones detection by automated test rxbkv4584-73-84 22:40:00 Test Item Value Reference Range Interpretation Comments Urine Ketones (test code = 56400-2) Trace Negative [facility] HealthUrine erythrocytes count by automated test strip (number/volume) 2019-09-08 22:40:00 Test Item Value Reference Range Interpretation Comments Urine Occult Blood (test code = Negative Negative 53776-6) [facility] HealthUrine nitrite detection by automated test dtghk7813-68-62 22:40:00 Test Item Value Reference Range Interpretation Comments Urine Nitrite (test code = 13604-2) Negative Negative [facility] HealthUrine total bilirubin detection by automated test [id number] 22:40:00 Test Item Value Reference Range Interpretation Comments Urine Bilirubin (test code = Negative Negative 95895-6) [facility] HealthUrine urobilinogen measurement by automated test strip (mass/volume)2019-09-08 22:40:00 Test Item Value Reference Range Interpretation Comments Urine Urobilinogen (test code = Normal mg/dL Norm-1.0 99824-6) [facility] HealthUrine leukocyte esterase detection by automated test strip 2019-09-08 22:40:00 Test Item Value Reference Range Interpretation Comments Urine Leukocyte Esterase (test code = Trace Negative 82486-4) [facility] HealthUrine sediment erythrocyte count by microscopy (number/high power field)2019-09-08 22:40:00 Test Item Value Reference Range Interpretation Comments Urine RBC (test 0-2 /[HPF] See_Comment [Automated message] The code = 88320-9) system which generated this result tra nsmitted [...] (test None seen /[LPF] None/Occ code = 12181-3) [facility] HealthUrine sediment bacteria count by microscopy (number/high power field)2019-09-08 22:40:00 Test Item Value Reference Range Interpretation Comments Urine Bacteria (test code = Occasional /[HPF] None 5769-5) [facility] HealthUrine sediment hyaline cast count by microscopy (number/low power field)2019-09-08 22:40:00 Test Item Value Reference Range Interpretation Comments Urine Hyaline Casts (test code = 2-5 /[LPF] 5796-8) [facility] HealthYeast detection in urine sediment by light navdvgddvd1744-20-79 22:40:00 Test Item Value Reference Range Interpretation Comments Urine Yeast (test code = None Seen /[HPF] 58242-8) [facility]Service comment [id number] 22:40:00 Test Item Value Reference Range Interpretation Comments Urine Culture Indicated (test code = Yes 8264-4) [facility] HealthAutomated blood nucleated erythrocyte count as percentage of total wuklfifhge2545-98-11 22:15:00 Test Item Value Reference Range Interpretation Comments Nucleated Red Blood Cells % (test code 0 % 0-1 = 30430-5) [facility] HealthAutomated blood neutrophil count (number/volume)2019-09-08 22:15:00 [...] Interpretation Comments Anion Gap (test code = 60220-1) 15.0 mmol/L 3.0-11.0 [facility] HealthSerum or plasma [...] calculated from serum or plasma creatinine by [id number] 22:15:00 Test Item Value Reference Range Interpretation Comments Estimated Creatinine Clearance (test 134.0 code = 98176-9) [facility] HospitalGlomerular filtration rate (GFR) estimation using MDRD equation 2019-09-08 22:15:00 Test Item Value Reference Range Interpretation Comments Estimat Glomerular Filtration Rate 116.39 >60 (test code = 48507-4) [facility] HealthSerum or plasma urea nitrogen/creatinine mass gdulb5506-69-21 22:15:00 Test Item Value Reference Range Interpretation Comments BUN/Creatinine Ratio (test code = 22 3097-3) [facility] HealthSerum or plasma glucose measurement (mass/volume)2019-09-08 22:15:00 Test Item Value Reference Range Interpretation Comments Glucose Level (test code = 2345-7) 82 mg/dL 70-110 [facility] HealthSerum or plasma calcium measurement (mass/volume)2019-09-08 22:15:00 Test Item Value Reference Range Interpretation Comments Calcium Level (test code = 07788-5) 8.9 mg/dL 8.4-10.2 [facility] HealthSerum or plasma [...] Range Interpretation Comments Globulin (test code = 59817-1) 3.2 g/dL [facility] HealthSerum or plasma albumin/globulin mass qanrg7370-06-07 22:15:00 Test Item Value Reference Range Interpretation [...] 3040-3) 18 U/L 16-63 [facility] HealthCreatine kinase ser/kwbk9467-96-65 22:15:00 Test Item Value Reference Range Interpretation Comments Total Creatine Kinase (test code = 84 U/L 24-170 2157-6) [facility] HealthSerum or plasma creatine kinase MB measurement (mass/volume) 2019-09-08 22:15:00 Test Item Value Reference Range Interpretation Comments Creatine Kinase MB (test code = 1.3 ng/mL 0-5 95294-4) [facility] HealthSerum or plasma cardiac troponin T [...] HealthAutomated erythrocyte mean corpuscular hemoglobin concentration measurement (mass/poz7873-01-87 22:15:00 Test Item Value Reference Range Interpretation Comments Mean Corpuscular Hemoglobin Concent 33.5 g/dL 32.5-35.0 (test code = 786-4) [facility] HealthAutomated erythrocyte distribution width [id number] 22:15:00 Test Item Value Reference Range Interpretation Comments Red Cell Distribution Width (test code 14.0 % 11.5-14.5 = 788-0) [facility] HealthAutomated blood platelet count (count/volume)2019-09-08 22:15:00 Test Item Value Reference Range Interpretation Comments Platelet Count (test code = 238 10*3/uL 160-400 777-3) [facility] HealthAutomated blood platelet mean volume vyliqgozvnw3087-86-94 22:15:00 Test Item Value Reference Range Interpretation Comments Mean Platelet Volume (test code = 11.0 fL 7.5-11.2 07644-5) [facility] HospitalAutomated blood neutrophil count as percentage of total sqnpilbcid5238-78-26 22:15:00 Test Item Value Reference Range Interpretation Comments Neutrophils (%) (Auto) (test code = 70 % 45-75 770-8) [facility] HospitalAutomated blood immature granulocyte count as percentage of total lpeyywucgd6179-39-70 22:15:00 Test Item Value Reference Range Interpretation Comments Immature Granulocyte % (Auto) (test 0.2 % 0.0-1.5 code = 68108-7) [facility] HospitalAutomated blood lymphocyte count as percentage of total rvhwozfvsz4638-29-78 22:15:00 Test Item Value Reference Range Interpretation Comments Lymphocytes (%) (Auto) (test code = 21 % 20-48 736-9) [facility] HospitalAutomated blood monocyte count as percentage of total leukocytes 2019-09-08 22:15:00 Test Item Value Reference Range Interpretation Comments Monocytes (%) (Auto) (test code = 7 % 1-9 5905-5) [facility] HospitalAutomated blood eosinophil count as percentage of total kjonbkwbsa8992-36-27 22:15:00 Test Item Value Reference Range Interpretation Comments Eosinophils (%) (Auto) (test code = 1 % 0-4 713-8) [facility] HospitalAutomated blood basophil count as percentage of total leukocytes 2019-09-08 22:15:00 Test Item Value Reference Range Interpretation Comments Basophils (%) (Auto) (test code = 1 % 0-2 706-2) [facility]
--- NOTE | 2023-04-17 08:09 | EDPHYS ---
Physician Documentation [facility] Name: Salud Almanzar Age: 37 yrs Sex: Female : 1985 Arrival Date: 04/17/2023 Time: 07:08 Bed 16 Private MD: ED Physician Lolis Vanegas HPI: 04/17 08:06 This 37 yrs old Female presents to ER via Ambulatory with complaints of Congestion, kb SWELLING/PAIN IN GUMS, Chest Pain. 08:06 The patient or guardian reports cough, that is intermittent, described as mild. Onset: kb The symptoms/episode began/occurred this morning. Severity of symptoms: At their worst the symptoms were moderate, in the emergency department the symptoms are unchanged. Modifying factors: The symptoms are alleviated by nothing, the symptoms are aggravated by nothing. Associated signs and symptoms: Pertinent positives: rhinorrhea, Pertinent negatives: chest pain, diarrhea, ear ache, fever, nausea, sore throat, vomiting. The patient has not experienced similar symptoms in the past. The patient has not recently seen a physician. Pt reports she woke up with cough, congestion and fatigue. States she smoked last night and doesn't normally so that could be the cause. Also reports dental pain with swelling that started yesterday. Historical: - Allergies: 07:34 Ativan; stomach pain; bp - PMHx: 07:34 Anxiety; Gastroesophageal reflux disease; Hypertensive disorder; Migraine; bp - PSHx: 07:34 section; Cholecystectomy; Ligation of fallopian tube; bp - Immunization history:: Client reports receiving the 1st dose of the Covid vaccine. - Social history:: Smoking status: Patient reports the use of cigarette tobacco products, denies chronic smoking, but will smoke occasionally. ROS: 08:04 Constitutional: Negative for fever, chills, and weight loss, kb 08:04 ENT: Positive for dental pain, rhinorrhea, sinus congestion, 08:04 Respiratory: Positive for cough, 08:04 All other systems are negative, 08:07 Constitutional: Positive for fatigue, kb Exam: 08:05 Constitutional: This is a well developed, well nourished patient who is awake, alert, kb and in no acute distress. Head/Face: Normocephalic, atraumatic. Cardiovascular: Regular rate Respiratory: Respirations even and unlabored. No increased work of breathing. Talking in full sentences Abdomen/GI: Soft, non-tender. No distention Skin: Warm, dry with normal turgor. Normal color. MS/ Extremity: Pulses equal, no cyanosis. Neurovascular intact. Full, normal range of motion. Neuro: Awake and alert, GCS 15, oriented to person, place, time, and situation. Moves all extremities. Normal gait. 08:05 ENT: Dental exam: gum swelling, that is mild, specifically in the lower left lateral incisor (#23), pain, that is moderate, specifically in the lower left lateral incisor (#23), Vital Signs: 07:35 BP 153 / 108; Pulse 78; Resp 17; Temp 98.2; Pulse Ox 100% ; Weight 104.33 kg; Height 5 bp ft. 9 in. ; Pain 7/10; 07:35 Body Mass Index 33.96 (104.33 kg, 175.26 cm) bp 07:35 Pain Scale: Adult bp MDM: 07:55 Patient medically screened. kb 08:06 Data reviewed: vital signs, nurses notes. kb 08:07 Differential Diagnosis: Other flu, covid, uri, allergic rhinitis, sinusitis, dental kb abscess. Test considered but Not performed: Labs: covid and flu tests considered but result would not change course of treatment. X-ray: chest x-ray considered, but lungs clear bilaterally, resp even and unlabored. Counseling: I had a detailed discussion with the patient and/or guardian regarding the historical points, exam findings, and any diagnostic results supporting the discharge/admit diagnosis, the need for outpatient follow up, a dentist, a family practitioner, to return to the emergency department if symptoms worsen or persist or if there are any questions or concerns that arise at home. Administered Medications: 08:16 Drug: Dexamethasone IM 10 mg IM once Route: IM; Site: right deltoid; 6 08:21 Follow up: Response: No adverse reaction [facility] 08:16 Drug: Amoxicillin-Clavulanate PO 875 mg PO once Route: PO; kc6 08:21 Follow up: Response: No adverse reaction 6 Disposition Summary: 04/17/23 08:09 Discharge Ordered Notes: Location: Home kb Condition: Stable kb Diagnosis - Acute sinusitis, unspecified kb - Periapical abscess without sinus kb Followup: kb - With: Emergency Department - When: As needed - Reason: Worsening of condition Followup: kb - With: Private Physician - When: 2 - 3 days - Reason: Recheck today's complaints, Continuance of care, Re-evaluation by your physician Discharge Instructions: - Sinusitis, Adult, [id number] kb - Dental Pain, [id number] kb - Dental Abscess, [id number] kb - Discharge Summary Sheet ll1 Forms: - Medication Reconciliation Form kb - Thank You Letter kb - Antibiotic Education kb - Patient Portal Instructions kb - Leadership Thank You Letter kb - Work release form ll1 Prescriptions: - Augmentin 875-125 mg Oral Tablet - take 1 tablet ORAL route every 12 hours for 10 days; 20 tablet; Refills: 0, kb Product Selection Permitted Signatures: Emmanuelle Marsh, Leland Gay, RN RN bp Yancy Adair RN RN kc6
--- NOTE | 2023-04-17 08:09 | ER ---
Nurse's Notes [facility] Name: Salud Almanzar Age: 37 yrs Sex: Female : 1985 Arrival Date: 04/17/2023 Time: 07:08 Bed 16 Private MD: Diagnosis: Acute sinusitis, unspecified;Periapical abscess without sinus Presentation: 04/17 07:35 Chief complaint: Patient states: SOB, chest tight, dry cough, nasal congestion, bp fatigue. Swelling to lower jaw inner gums for 3-4 days. Coronavirus screen: Vaccine status: Patient reports receiving the 2nd dose of the covid vaccine. Client denies travel out of the [place] in the last 14 days. fatigue, Client presents with at least one sign or symptom that may indicate coronavirus-19. Standard/surgical mask placed on the client. Ebola Screen: Patient denies travel to an Ebola-affected area in the 21 days before illness onset. Resp Distress? No respiratory distress is noted at this time. Initial Sepsis Screen: Does the patient meet any 2 criteria? No. Patient's initial sepsis screen is negative. Does the patient have a suspected source of infection? Yes: Productive cough/pneumonia. Risk Assessment: Do you want to hurt yourself or someone else? Patient reports no desire to harm self or others. Onset of symptoms was April 14, 2023. 07:35 Method Of Arrival: Ambulatory bp 07:35 Acuity: JOSE 4 bp Triage Assessment: 07:42 General: Appears in no apparent distress. Behavior is calm, cooperative, appropriate ll1 for age. Pain: Complains of pain in mouth Quality of pain is described as aching, Pain began 2-3 days ago. EENT: Reports nasal discharge. Cardiovascular: Reports chest pain, fatigue. Respiratory: Reports cough that is pain with cough. Historical: - Allergies: 07:34 Ativan; stomach pain; bp - PMHx: 07:34 Anxiety; Gastroesophageal reflux disease; Hypertensive disorder; Migraine; bp - PSHx: 07:34 section; Cholecystectomy; Ligation of fallopian tube; bp - Immunization history:: Client reports receiving the 1st dose of the Covid vaccine. - Social history:: Smoking status: Patient reports the use of cigarette tobacco products, denies chronic smoking, but will smoke occasionally. Screenin:45 [facility] ED Fall Risk Assessment (Adult) History of falling in the last 3 months, kc6 including since admission No falls in past 3 months (0 pts) Confusion or Disorientation No (0 pts) Intoxicated or Sedated No (0 pts) Impaired Gait No (0 pts) Mobility Assist Device Used No (0 pt) Altered Elimination No (0 pt) Score/Fall Risk Level 0 - 2 = Low Risk. Abuse screen: Denies threats or abuse. Denies injuries from another. Nutritional screening: No deficits noted. Tuberculosis screening: No symptoms or risk factors identified. Assessment: 07:45 General: Appears in no apparent distress. comfortable, ill, Behavior is calm, kc6 cooperative, appropriate for age. Pain: Complains of pain in chest and lower left lateral incisor (#23). Neuro: Level of Consciousness is awake, alert, obeys commands, Oriented to person, place, time, situation, Appropriate for age. Cardiovascular: Reports chest pain, Heart tones S1 S2 present Capillary refill < 3 seconds. Respiratory: Reports shortness of breath Airway is patent Trachea midline Respiratory effort is even, unlabored, Respiratory pattern is regular, symmetrical, Breath sounds are clear bilaterally. GI: No signs and/or symptoms were reported involving the gastrointestinal system. : No signs and/or symptoms were reported regarding the genitourinary system. EENT: Reports nasal congestion. Derm: No signs and/or symptoms reported regarding the dermatologic system. Skin is intact, is healthy with good turgor, Skin is pink, warm \T\ dry. Musculoskeletal: No signs and/or symptoms reported regarding the musculoskeletal system. Circulation, motion, and sensation intact. Capillary refill < 3 seconds, Range of motion: intact in all extremities. Vital Signs: 07:35 BP 153 / 108; Pulse 78; Resp 17; Temp 98.2; Pulse Ox 100% ; Weight 104.33 kg; Height 5 bp ft. 9 in. ; Pain 7/10; 07:35 Body Mass Index 33.96 (104.33 kg, 175.26 cm) bp 07:35 Pain Scale: Adult bp ED Course: 07:10 Patient arrived in ED. jj6 07:39 Triage completed. bp 07:42 Arm band placed on Patient placed in an exam room, on a stretcher. ll1 07:45 Patient has correct armband on for positive identification. Bed in low position. Call kc6 light in reach. Side rails up X2. Client placed on continuous cardiac and pulse oximetry monitoring. NIBP monitoring applied. 07:47 Yancy Adair, RN is Primary Nurse. kc6 07:55 Emmanuelle Marsh [facility]-C [facility]. kb 07:55 Lolis Vanegas MD is Attending Physician. kb 08:20 No provider procedures requiring assistance completed. Patient did not have IV access kc6 during this emergency room visit. Administered Medications: 08:16 Drug: Dexamethasone IM 10 mg IM once Route: IM; Site: right deltoid; kc6 08:21 Follow up: Response: No adverse reaction kc6 08:16 Drug: Amoxicillin-Clavulanate PO 875 mg PO once Route: PO; kc6 08:21 Follow up: Response: No adverse reaction kc6 Medication: 08:21 VIS not applicable for this client. kc6 Outcome: 08:09 Discharge ordered by . kb 08:20 Discharged to home ambulatory, kc6 08:20 Condition: stable 08:20 Discharge instructions given to patient, Instructed on discharge instructions, follow up and referral plans. medication usage, Demonstrated understanding of instructions, follow-up care, medications, Prescriptions given X 1, 08:24 Patient left the ED. kc6 Signatures: Emmanuelle Marsh FNP-C FNP-Leland Dean, RN RN Davon Smith, RN RN ll1 Ashley Tejeda jj6 Yancy Adair, RN RN kc6
[2023-04-17] MEDS ORDERED: dexAMETHasone 10 MG/ML VIAL ONE (08:25)
[2023-04-17] MEDS ORDERED: AMOX/K CLAV 875 MG TAB ONE (08:25)
[2023-04-17 08:38] VITALS: BP 153/108; TEMP 98.2; O2SAT 100
== END 2023-04-17 08:24 | disposition home or self-care (01) ==
LOC: ER 07:08
DX: J01.90 Acute sinusitis, unspecified (principal); K04.7 Periapical abscess without sinus; F17.210 Nicotine dependence, cigarettes, uncomplicated; Z88.8 Allergy status to other drugs, medicaments and biological substances
CPT/HCPCS: 96372; 99284; J1100

== ENCOUNTER 2023-04-19 14:04 | Emergency (ER) | payer OTHER ==
--- OUTSIDE RECORDS SUMMARY | 2023-04-19 14:12 | XMS REPORT | Continuity of Care Document ---
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 [facility] Never smoked tobacco (finding) [facility] Medications Ordered Filled Start Stop Current Ordering [...] Source Body Temperature 2020-01-07 10:16:00 97.7 [degF] [employer] Heart Rate 2020-01-07 10:16:00 79 /min [facility] Respiratory rate 2020-01-07 10:16:00 18 /min [employer] BP Systolic 2020-01-07 10:16:00 134 mm[Hg[facility] Diastolic 2020-01-07 10:16:00 90 mm[Hg] [facility] Respiratory rate 2019-09-08 21:00:00 18 /min [facility] BP Systolic 2019-09-08 21:00:00 146 mm[Hg] [facility] BP Diastolic 2019-09-08 21:00:00 93 mm[Hg] [facility] Weight 2019-09-08 21:00:00 235 [lb_av] [facility] BMI (Body Mass Index) 2019-09-08 21:00:00 34.7 kg/m2 [facility] Procedures Procedure Date / Time Performed Performing Clinician [facility] e ECG (electrocardiogram) 2020-01-07 00:00:00 [facility] [employer] [facility] X-ray of chest, single 2020-01-07 00:00:00 [employer] [facility] view Computed tomography of 2020-01-07 00:00:00 [facility] head or brain without contrast Computed tomography of 2020-01-07 00:00:00 [facility] cervical spine without contrast ECG (electrocardiogram) 2019-09-08 00:00:00 [facility] [employer] [facility] X-ray of chest, two views 2019-09-08 00:00:00 [facility] Encounters Start End Encounter Admission Attending Care Care Encounter Source Date/Time Date/Time Type Type Clinicians Facility Department ID 2020-01-09 2020-01-09 Outpatient GLORIA ZAMORA [id number] [facility] 13:44:00 13:44:00 [facility] 2020-01-07 2020-01-07 Departed ER PHYSICIAN, GLORIA CASTRO [id number] [facility] 03:35:00 03:35:00 Emergency ER [facility] [address] [facility] 2019-09-08 2019-09-09 Departed GLORIA CASTRO [id number] [facility] 20:50:00 00:23:00 Emergency [facility] Results Test Description Test Time Test Comments Results Result Comments Source Serum or plasma natriuretic peptide B measurement (mas s/volume) 2020-01-07 08:11:00 Test Item Value Reference Range Interpretation Comme nts B-Type Natriuretic Peptide (test code = 05626-9) 4 pg/mL 0-101 [facility]um or plasma free thyroxine (FT4) measurement (mass/volume) 2020-01-07 07:47:00 Test Item Value Reference Range Interpretation Comments Free Thyroxine (test code = 1.48 ng/dL 1.09-1.53 3024-7) [facility] or plasma thyrotropin measurement with detection limit of 0.005 mIU/L or less (units/volume)2020-01-07 07:47:00 Test Item Value Reference Range Interpretation Comments Thyroid Stimulating Hormone 1.435 u[iU]/mL 0.550-4.780 (TSH) (test code = 89085-3) [facility]um or plasma free triiodothyronine (T3) [...] 3040-3) 29 U/L 31-96 [facility] HealthCreatine kinase ser/wiof2910-84-16 07:27:00 Test Item Value Reference Range Interpretation Comments Total Creatine Kinase (test code = 61 U/L 30-160 2157-6) [facility] HealthSerum or plasma creatine kinase MB measurement (mass/volume) 2020-01-07 07:27:00 Test Item Value Reference Range Interpretation Comments Creatine Kinase MB (test code = < 0.18 ng/mL 0-5 89608-2) [facility] HealthSerum or plasma cardiac troponin I measurement (mass/volume) 2020-01-07 07:27:00 Test Item Value Reference Range Interpretation Comments Troponin I (test code = < 0.006 ng/mL 0.000-0.040 95208-1) [facility] HealthSerum or plasma myoglobin measurement (mass/volume)2020-01-07 07:27:00 Test Item Value Reference Range Interpretation Comments Myoglobin (test code = 2639-3) 20.4 ng/mL <110.0 [facility] HealthUrinalysis specimen collection [id number] 04:03:00 Test Item Value Reference Range Interpretation Comments Urine Source (test code = Urine Clean Catch 73237-1) [facility] HealthUrine color zfrhyaikdgwra7394-03-91 04:03:00 Test Item Value Reference Range Interpretation Comments Urine Color (test code = 5778-6) Colorless Yel-Lora [facility] HealthUrine appearance egtstuomytwxu9597-63-85 04:03:00 Test Item Value Reference Range Interpretation Comments Urine Appearance (test code = 5767-9) Clear Clear [facility] HealthUrine pH measurement by test jzgev4887-57-48 04:03:00 Test Item Value Reference Range Interpretation Comments Urine pH (test code = 5803-2) 5.0 5.0-7.5 [facility] HealthSpecific gravity ur xexqabvc0180-04-30 04:03:00 Test Item Value Reference Range Interpretation Comments Urine Specific [place] (test code = 1.003 1.003-1.029 5811-5) [facility] HealthUrine protein measurement by automated test strip (mass/volume) 2020-01-07 04:03:00 Test Item Value Reference Range Interpretation Comments Urine Protein (test code = Negative mg/dL Neg - Trace 97093-1) [facility]Urine glucose measurement by automated test strip (mass/volume) 2020-01-07 04:03:00 Test Item Value Reference Range Interpretation Comments Urine Glucose (UA) (test code = Negative Negative 54223-1) [facility] HealthUrine ketones detection by automated test [id number] 04:03:00 Test Item Value Reference Range Interpretation Comments Urine Ketones (test code = 00815-0) Negative Negative [facility] HealthUrine erythrocytes count by automated test strip (number/volume) 2020-01-07 04:03:00 Test Item Value Reference Range Interpretation Comments Urine Occult Blood (test code = Negative Negative 11818-8) [facility] HealthUrine nitrite detection by automated test ehhsf9568-54-99 04:03:00 Test Item Value Reference Range Interpretation Comments Urine Nitrite (test code = 40943-6) Negative Negative [facility] HealthUrine total bilirubin detection by automated test akauz6173-07-74 04:03:00 Test Item Value Reference Range Interpretation Comments Urine Bilirubin (test code = Negative Negative 15498-4) [facility] HealthUrine urobilinogen measurement by automated test strip (mass/volume)2020-01-07 04:03:00 Test Item Value Reference Range Interpretation Comments Urine Urobilinogen (test code = Normal mg/dL Norm-1.0 46853-8) [facility] HealthUrine leukocyte esterase detection by automated test strip 2020-01-07 04:03:00 Test Item Value Reference Range Interpretation Comments Urine Leukocyte Esterase (test code = Trace Negative 13945-7) [facility] HealthUrine sediment erythrocyte count by microscopy (number/high power field)2020-01-07 04:03:00 Test Item Value Reference Range Interpretation Comments Urine RBC (test 0-2 /[HPF] See_Comment [Automated message] The code = 57523-4) system which generated this result tra nsmitted [...] Cells (test code Many /[LPF] None/Occ = 34977-3) [facility] HealthUrine sediment bacteria count by microscopy (number/high power field)2020-01-07 04:03:00 Test Item Value Reference Range Interpretation Comments Urine Bacteria (test code = Occasional /[HPF] None 5769-5) [facility] HealthUrine sediment hyaline cast count by microscopy (number/low power field)2020-01-07 04:03:00 Test Item Value Reference Range Interpretation Comments Urine Hyaline Casts (test code = 2-5 /[LPF] 5796-8) [facility] HealthYeast detection in urine sediment by light crqsgpxdrn8884-56-80 04:03:00 Test Item Value Reference Range Interpretation Comments Urine Yeast (test code = None Seen /[HPF] 83709-0) [facility]Service comment 04:03:00 Test Item Value [...] HealthAutomated erythrocyte mean corpuscular hemoglobin concentration measurement (mass/uig4513-93-50 04:00:00 Test Item Value Reference Range Interpretation Comments Mean Corpuscular Hemoglobin Concent 32.6 g/dL 32.5-35.0 (test code = 786-4) [facility] HealthAutomated erythrocyte distribution width trelt6818-75-69 04:00:00 Test Item Value Reference Range Interpretation Comments Red Cell Distribution Width (test code 13.5 % 11.5-14.5 = 788-0) [facility] HealthAutomated blood platelet count (count/volume)2020-01-07 04:00:00 Test Item Value Reference Range Interpretation Comments Platelet Count (test code = 191 10*3/uL 160-400 777-3) [facility] HealthAutomated blood platelet mean volume cgdtpilpvhr8682-30-60 04:00:00 Test Item Value Reference Range Interpretation Comments Mean Platelet Volume (test code = 12.0 fL 7.5-11.2 69364-7) [facility] HealthAutomated blood neutrophil count as percentage of total cyeegzlxlh2625-87-81 04:00:00 Test Item Value Reference Range Interpretation Comments Neutrophils (%) (Auto) (test code = 64 % 45-75 770-8) [facility] HealthAutomated blood immature granulocyte count as percentage of total diokzqgrng3253-73-74 04:00:00 Test Item Value Reference Range Interpretation Comments Immature Granulocyte % (Auto) (test 0.2 % 0.0-1.5 code = 26235-9) [facility] HealthAutomated blood lymphocyte count as percentage of total sijpfyosxj6289-08-16 04:00:00 Test Item Value Reference Range Interpretation Comments Lymphocytes (%) (Auto) (test code = 26 % 20-48 736-9) [facility] HealthAutomated blood monocyte count as percentage of total leukocytes 2020-01-07 04:00:00 Test Item Value Reference Range Interpretation Comments Monocytes (%) (Auto) (test code = 6 % 1-9 5905-5) [facility] HealthAutomated blood eosinophil count as percentage of total ddgbzurnmn1579-97-38 04:00:00 Test Item Value Reference Range Interpretation Comments Eosinophils (%) (Auto) (test code = 3 % 0-4 713-8) [facility] HealthAutomated blood basophil count as percentage of total leukocytes 2020-01-07 04:00:00 Test Item Value Reference Range Interpretation Comments Basophils (%) (Auto) (test code = 1 % 0-2 706-2) [facility] HealthAutomated blood nucleated erythrocyte count as percentage of total gnnjijgoov9682-08-95 04:00:00 Test Item Value Reference Range Interpretation Comments Nucleated Red Blood Cells % (test code 0 % 0-1 = 83043-4) [facility] HealthAutomated blood neutrophil count (number/volume)2020-01-07 04:00:00 Test Item Value Reference Range Interpretation Comments Neutrophils # (Auto) (test code 2.87 10*3/uL = 751-8) [facility] HealthProthrombin time (PT) in platelet poor cxhxtw2097-49-68 04:00:00 Test Item Value Reference Range Interpretation Comments Prothrombin Time (test code = 5902-2) 11.8 s 9.4-12.5 [facility] HealthINR in Platelet poor plasma by Coagulation qqwrm1160-31-05 04:00:00 Test Item Value Reference Range Interpretation Comments Prothromb Time International 1.1 {ratio} Ratio (test code = 6301-6) [facility] HealthPartial thromboplastin time (PTT) in platelet poor plasma 2020-01-07 04:00:00 Test Item Value Reference Range Interpretation Comments Activated Partial Thromboplast Time 30 s 25-37 (test code = 10888-7) [facility] HealthFibrin D-dimer FEU uyos5008-36-25 04:00:00 Test Item Value Reference Range Interpretation Comments D-Dimer (test code = 63597-6) 423 ng/mL{FEU} 215-500 [facility] HealthSerum or plasma [...] Interpretation Comments Anion Gap (test code = 00270-1) 9.0 mmol/L 3.0-11.0 [facility] HealthSerum or plasma urea nitrogen measurement (mass/volume)2020-01-07 04:00:00 Test Item Value Reference Range Interpretation Comments Blood Urea Nitrogen (test code = 16.0 mg/dL 12-22 3094-0) [facility] HealthSerum or plasma creatinine measurement (mass/volume)2020-01-07 04:00:00 Test Item Value Reference Range Interpretation Comments Creatinine (test code = 2160-0) 0.90 mg/dL 0.60-1.02 [facility] clearance calculated from serum or plasma creatinine by Vr8413-27-74 04:00:00 Test Item Value Reference Range Interpretation Comments Estimated Creatinine Clearance (test 93.8 code = 89428-4) [facility] CenterGlomerular filtration rate (GFR) estimation using MDRD equation 2020-01-07 04:00:00 Test Item Value Reference Range Interpretation Comments Estimat Glomerular Filtration Rate 77.12 >60 (test code = 263349223) [facility] HealthSerum or plasma urea nitrogen/creatinine mass ilgqy9722-72-84 04:00:00 Test Item Value Reference Range Interpretation Comments BUN/Creatinine Ratio (test code = 18 3097-3) [facility] HealthSerum or plasma glucose measurement (mass/volume)2020-01-07 04:00:00 Test Item Value Reference Range Interpretation Comments Glucose Level (test code = 2345-7) 88 mg/dL 74-112 [facility] HealthSerum or plasma calcium measurement (mass/volume)2020-01-07 04:00:00 Test Item Value Reference Range Interpretation Comments Calcium Level (test code = 61321-0) 9.8 mg/dL 9.0-10.2 [facility] HealthSerum or plasma [...] (test code = 1751-7) 4.9 g/dL 4.2-5.4 [facility] HealthSerum globulin measurement by calculation (mass/volume)2020-01-07 04:00:00 Test Item Value Reference Range Interpretation Comments Globulin (test code = 24546-8) 3.0 g/dL [facility] HealthSerum or plasma albumin/globulin mass kccqt9569-81-00 04:00:00 Test Item Value Reference Range Interpretation Comments Albumin/Globulin Ratio (test code 1.6 {ratio} = 1759-0) [facility] HealthSerum or plasma alkaline phosphatase measurement (enzymatic activity/volume)2020-01-07 04:00:00 Test Item Value Reference Range Interpretation Comments Alkaline Phosphatase (test code = 78 U/L 45-100 6768-6) [facility] CenterUrinalysis specimen collection [id number] 22:40:00 Test Item Value Reference Range Interpretation Comments Urine Source (test code = Urine Clean Catch 86592-1) [facility] HealthUrine color znyvvmawzxavd1384-62-80 22:40:00 Test Item Value Reference Range Interpretation Comments Urine Color (test code = 5778-6) Yellow Yel-Lora [facility] HealthUrine appearance ungczzfxscspf5327-48-34 22:40:00 Test Item Value Reference Range Interpretation Comments Urine Appearance (test code = 5767-9) Clear Clear [facility] HealthUrine pH measurement by test cafte9941-65-72 22:40:00 Test Item Value Reference Range Interpretation Comments Urine pH (test code = 5803-2) 6.0 5.0-7.5 [facility] HealthSpecific gravity ur ceuxudee8479-55-92 22:40:00 Test Item Value Reference Range Interpretation Comments Urine Specific [place] (test code = 1.024 1.003-1.029 5811-5) [facility] HealthUrine protein measurement by automated test strip (mass/volume) 2019-09-08 22:40:00 Test Item Value Reference Range Interpretation Comments Urine Protein (test code = Trace mg/dL Neg - Trace 58375-1) [facility] HealthUrine glucose measurement by automated test strip (mass/volume) 2019-09-08 22:40:00 Test Item Value Reference Range Interpretation Comments Urine Glucose (UA) (test code = Negative Negative 97234-2) [facility] HealthUrine ketones detection by automated test [id number] 22:40:00 Test Item Value Reference Range Interpretation Comments Urine Ketones (test code = 09649-8) Trace Negative [facility] HealthUrine erythrocytes count by automated test strip (number/volume) 2019-09-08 22:40:00 Test Item Value Reference Range Interpretation Comments Urine Occult Blood (test code = Negative Negative 84330-3) [facility] HealthUrine nitrite detection by automated test [id number] 22:40:00 Test Item Value Reference Range Interpretation Comments Urine Nitrite (test code = 21175-0) Negative Negative [facility] HealthUrine total bilirubin detection by automated test [id number] 22:40:00 Test Item Value Reference Range Interpretation Comments Urine Bilirubin (test code = Negative Negative 84148-5) [facility] HealthUrine urobilinogen measurement by automated test strip (mass/volume)2019-09-08 22:40:00 Test Item Value Reference Range Interpretation Comments Urine Urobilinogen (test code = Normal mg/dL Norm-1.0 28709-2) [facility] HealthUrine leukocyte esterase detection by automated test strip 2019-09-08 22:40:00 Test Item Value Reference Range Interpretation Comments Urine Leukocyte Esterase (test code = Trace Negative 51495-8) [facility] HealthUrine sediment erythrocyte count by microscopy (number/high power field)2019-09-08 22:40:00 Test Item Value Reference Range Interpretation Comments Urine RBC (test 0-2 /[HPF] See_Comment [Automated message] The code = 90389-0) system which generated this result tra nsmitted [...] (test None seen /[LPF] None/Occ code = 46651-6) [facility] HealthUrine sediment bacteria count by microscopy (number/high power field)2019-09-08 22:40:00 Test Item Value Reference Range Interpretation Comments Urine Bacteria (test code = Occasional /[HPF] None 5769-5) [facility] HealthUrine sediment hyaline cast count by microscopy (number/low power field)2019-09-08 22:40:00 Test Item Value Reference Range Interpretation Comments Urine Hyaline Casts (test code = 2-5 /[LPF] 5796-8) [facility] HealthYeast detection in urine sediment by light vpxxgxuctx7790-43-38 22:40:00 Test Item Value Reference Range Interpretation Comments Urine Yeast (test code = None Seen /[HPF] 67456-5) [facility] comment [id number] 22:40:00 Test Item Value Reference Range Interpretation Comments Urine Culture Indicated (test code = Yes 8264-4) [facility] HealthAutomated blood nucleated erythrocyte count as percentage of total ibwhokcgcd9945-27-09 22:15:00 Test Item Value Reference Range Interpretation Comments Nucleated Red Blood Cells % (test code 0 % 0-1 = 50417-0) [facility] HealthAutomated blood neutrophil count (number/volume)2019-09-08 22:15:00 [...] Interpretation Comments Anion Gap (test code = 39761-9) 15.0 mmol/L 3.0-11.0 [facility] HealthSerum or plasma [...] calculated from serum or plasma creatinine by St6115-67-85 22:15:00 Test Item Value Reference Range Interpretation Comments Estimated Creatinine Clearance (test 134.0 code = 04857-9) [facility] CenterGlomerular filtration rate (GFR) estimation using MDRD equation 2019-09-08 22:15:00 Test Item Value Reference Range Interpretation Comments Estimat Glomerular Filtration Rate 116.39 >60 (test code = 80549-9) [facility] HealthSerum or plasma urea nitrogen/creatinine mass cbmwo2017-62-37 22:15:00 Test Item Value Reference Range Interpretation Comments BUN/Creatinine Ratio (test code = 22 3097-3) [facility] HealthSerum or plasma glucose measurement (mass/volume)2019-09-08 22:15:00 Test Item Value Reference Range Interpretation Comments Glucose Level (test code = 2345-7) 82 mg/dL 70-110 [facility] HealthSerum or plasma calcium measurement (mass/volume)2019-09-08 22:15:00 Test Item Value Reference Range Interpretation Comments Calcium Level (test code = 40875-8) 8.9 mg/dL 8.4-10.2 [facility] HealthSerum or plasma [...] Range Interpretation Comments Globulin (test code = 12486-5) 3.2 g/dL [facility] HealthSerum or plasma albumin/globulin mass rzdif0587-76-72 22:15:00 Test Item Value Reference Range Interpretation [...] 3040-3) 18 U/L 16-63 [facility] HealthCreatine kinase ser/gdzj1770-39-53 22:15:00 Test Item Value Reference Range Interpretation Comments Total Creatine Kinase (test code = 84 U/L 24-170 2157-6) [facility] HealthSerum or plasma creatine kinase MB measurement (mass/volume) 2019-09-08 22:15:00 Test Item Value Reference Range Interpretation Comments Creatine Kinase MB (test code = 1.3 ng/mL 0-5 01021-1) [facility] HealthSerum or plasma cardiac troponin T [...] HealthAutomated erythrocyte mean corpuscular hemoglobin concentration measurement (mass/oyh3959-05-12 22:15:00 Test Item Value Reference Range Interpretation Comments Mean Corpuscular Hemoglobin Concent 33.5 g/dL 32.5-35.0 (test code = 786-4) [facility] HealthAutomated erythrocyte distribution width yqcrd9539-95-10 22:15:00 Test Item Value Reference Range Interpretation Comments Red Cell Distribution Width (test code 14.0 % 11.5-14.5 = 788-0) [facility] HealthAutomated blood platelet count (count/volume)2019-09-08 22:15:00 Test Item Value Reference Range Interpretation Comments Platelet Count (test code = 238 10*3/uL 160-400 777-3) [facility] HealthAutomated blood platelet mean volume oiyogtkzojs7133-28-17 22:15:00 Test Item Value Reference Range Interpretation Comments Mean Platelet Volume (test code = 11.0 fL 7.5-11.2 66892-6) [facility] CenterAutomated blood neutrophil count as percentage of total uothmxwjqf7286-95-09 22:15:00 Test Item Value Reference Range Interpretation Comments Neutrophils (%) (Auto) (test code = 70 % 45-75 770-8) [facility] CenterAutomated blood immature granulocyte count as percentage of total xnaeppxsrg8421-60-41 22:15:00 Test Item Value Reference Range Interpretation Comments Immature Granulocyte % (Auto) (test 0.2 % 0.0-1.5 code = 75951-2) [facility] CenterAutomated blood lymphocyte count as percentage of total kolabvbzqk8178-81-66 22:15:00 Test Item Value Reference Range Interpretation Comments Lymphocytes (%) (Auto) (test code = 21 % 20-48 736-9) [facility] CenterAutomated blood monocyte count as percentage of total leukocytes 2019-09-08 22:15:00 Test Item Value Reference Range Interpretation Comments Monocytes (%) (Auto) (test code = 7 % 1-9 5905-5) [facility] CenterAutomated blood eosinophil count as percentage of total rbcyxkrbjb4746-34-73 22:15:00 Test Item Value Reference Range Interpretation Comments Eosinophils (%) (Auto) (test code = 1 % 0-4 713-8) [facility] CenterAutomated blood basophil count as percentage of total leukocytes 2019-09-08 22:15:00 Test Item Value Reference Range Interpretation Comments Basophils (%) (Auto) (test code = 1 % 0-2 706-2) [facility]
[2023-04-19 15:20] LABS: SARS-CoV-2 Antigen Rapid Res Negative (Negative)
--- NOTE | 2023-04-19 15:30 | ER ---
Nurse's Notes [facility] Name: Salud Almanzar Age: 37 yrs Sex: Female : 1985 Arrival Date: 04/19/2023 Time: 14:04 Bed IW1 Private MD: Diagnosis: Acute sinusitis, unspecified Presentation: 04/19 14:28 Chief complaint: Patient states: "Ever since Monday, I've been congested, coughing, mb9 having diarrhea, lack of appetite, and fatigued.". Coronavirus screen: Vaccine status: Patient reports receiving the 2nd dose of the covid vaccine. Ebola Screen: No symptoms or risks identified at this time. Initial Sepsis Screen: Does the patient meet any 2 criteria? No. Patient's initial sepsis screen is negative. Does the patient have a suspected source of infection? No. Patient's initial sepsis screen is negative. Risk Assessment: Do you want to hurt yourself or someone else? Patient reports no desire to harm self or others. Onset of symptoms was April 19, 2023. 14:28 Method Of Arrival: Ambulatory 9 14:28 Acuity: JOSE 4 mb9 Triage Assessment: 14:31 General: Appears uncomfortable, Behavior is calm, cooperative. Pain: Denies pain. EENT: mb9 No signs and/or symptoms were reported regarding the EENT system. Neuro: Rocha Agitation-Sedation Scale (RASS): 0 - Alert and Calm Level of Consciousness is awake, alert, obeys commands, Oriented to person, place, time, situation, Appropriate for age. Cardiovascular: Patient's skin is warm and dry. Respiratory: Airway is patent Respiratory effort is even, unlabored, Respiratory pattern is regular, symmetrical. Respiratory: Reports cough that is. GI: Patient currently denies diarrhea. : No signs and/or symptoms were reported regarding the genitourinary system. Derm: Skin is pink, warm \\T\\ dry. Musculoskeletal: Range of motion: intact in all extremities. 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 - Social history:: Smoking status: Patient reports the use of cigarette tobacco products, denies chronic smoking, but will smoke occasionally. Screenin:32 [facility] ED Fall Risk Assessment (Adult) History of falling in the last 3 months, mb9 including since admission No falls in past 3 months (0 pts) Confusion or Disorientation No (0 pts) Intoxicated or Sedated No (0 pts) Impaired Gait No (0 pts) Mobility Assist Device Used No (0 pt) Altered Elimination No (0 pt) Score/Fall Risk Level 0 - 2 = Low Risk Oriented to surroundings, Maintained a safe environment, Educated pt \\T\\ family on fall prevention, incl call for assistance when getting out of bed. Abuse screen: Denies threats or abuse. Nutritional screening: No deficits noted. Tuberculosis screening: No symptoms or risk factors identified. Assessment: 14:32 Reassessment: see triage assessment. mb9 15:52 Reassessment: No changes from previously documented assessment. Patient and/or family mb9 updated on plan of care and expected duration. Pain level reassessed. Patient is alert, oriented x 3, equal unlabored respirations, skin warm/dry/pink. 16:03 Reassessment: Patient appears in no apparent distress at this time. iw Vital Signs: 14:28 BP 150 / 96; Pulse 88; Resp 18; Temp 98.2(O); Pulse Ox 100% ; Weight 104.33 kg; Height mb9 5 ft. 10 in. ; Pain 0/10; 14:28 Body Mass Index 33.00 (104.33 kg, 177.8 cm) mb9 14:28 Pain Scale: Adult mb9 ED Course: 14:07 Patient arrived in ED. mg5 14:22 [facility] kb 14:22 Lolis Vanegas MD is Attending Physician. kb 14:30 Triage completed. mb9 14:30 Arm band placed on. mb9 14:32 Patient has correct armband on for positive identification. mb9 14:32 No provider procedures requiring assistance completed. mb9 14:35 SARS RAPID Sent. mb9 14:35 Flu Sent. mb9 14:55 Patient did not have IV access during this emergency room visit. mb9 16:03 Jyoti Benites, RN is Primary Nurse. iw 16:03 Provided Education on: . iw Administered Medications: No medications were administered Medication: 14:55 VIS not applicable for this client. mb9 Outcome: 15:30 Discharge ordered by . albina 16:03 Discharged to home ambulatory, iw 16:03 Condition: good 16:03 Discharge instructions given to patient, Instructed on discharge instructions, follow up and referral plans. Demonstrated understanding of instructions, follow-up care, medications, Prescriptions given X 1, 16:04 Patient left the ED. iw Signatures: Emmanuelle Marsh, FORMING MILL OPERATOR-C FORMING MILL OPERATOR-CkJyoti Ram, RN RN Rowena Howell RN RN mb9 Tere Marsh mg5
--- NOTE | 2023-04-19 15:30 | EDPHYS ---
Physician Documentation [facility] Name: Salud Almanzar Age: 37 yrs Sex: Female : 1985 Arrival Date: 04/19/2023 Time: 14:04 Bed IW1 Private MD: ED Physician Lolis Vanegas HPI: 04/19 15:08 This 37 yrs old Female presents to ER via Ambulatory with complaints of Flu Symptoms. kb 15:08 The patient or guardian reports cough, that is intermittent, described as mild, flu kb symptoms, low-grade fever, myalgias. Onset: The symptoms/episode began/occurred 3 day(s) ago. Severity of symptoms: At their worst the symptoms were moderate, in the emergency department the symptoms are unchanged. Modifying factors: The symptoms are alleviated by nothing, the symptoms are aggravated by nothing. Associated signs and symptoms: Pertinent positives: rhinorrhea. The patient has not experienced similar symptoms in the past. The patient has been recently seen at the [facility] Emergency Department, this week, for similar complaints was given a prescription for antibiotics. Pt reports cough, congestion, fatigue and decreased appetite for 3 days. . 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 - Social history:: Smoking status: Patient reports the use of cigarette tobacco products, denies chronic smoking, but will smoke occasionally. ROS: 15:08 Abdomen/GI: Negative for abdominal pain, nausea, vomiting, diarrhea, and constipation, kb 15:08 Constitutional: Positive for fatigue, malaise, 15:08 ENT: Positive for rhinorrhea, sinus congestion, 15:08 Respiratory: Positive for cough, 15:08 All other systems are negative, Exam: 15:08 Constitutional: This is a well developed, well nourished patient who is awake, alert, kb and in no acute distress. Head/Face: Normocephalic, atraumatic. ENT: Moist Mucous membranes Cardiovascular: Regular rate Respiratory: Respirations even and unlabored. No increased work of breathing. Talking in full sentences Abdomen/GI: Soft, non-tender. No distention Skin: Warm, dry with normal turgor. Normal color. MS/ Extremity: Pulses equal, no cyanosis. Neurovascular intact. Full, normal range of motion. Neuro: Awake and alert, GCS 15, oriented to person, place, time, and situation. Moves all extremities. Normal gait. Vital Signs: 14:28 BP 150 / 96; Pulse 88; Resp 18; Temp 98.2(O); Pulse Ox 100% ; Weight 104.33 kg; Height mb9 5 ft. 10 in. ; Pain 0/10; 14:28 Body Mass Index 33.00 (104.33 kg, 177.8 cm) mb9 14:28 Pain Scale: Adult mb9 MDM: 14:23 Patient medically screened. kb 15:08 Data reviewed: vital signs, nurses notes. kb 15:29 Differential Diagnosis: Other flu, covid, strep, uri, viral illness. Counseling: I had kb a detailed discussion with the patient and/or guardian regarding the historical points, exam findings, and any diagnostic results supporting the discharge/admit diagnosis, lab results, the need for outpatient follow up, a family practitioner, to return to the emergency department if symptoms worsen or persist or if there are any questions or concerns that arise at home. 04/19 14:33 Order name: Flu; Complete Time: 15:29 mb9 04/19 14:33 Order name: SARS RAPID; Complete Time: 15:26 mb9 Administered Medications: No medications were administered Disposition Summary: 04/19/23 15:30 Discharge Ordered Notes: Location: Home kb Condition: Stable kb Diagnosis - Acute sinusitis, unspecified kb Followup: kb - With: Emergency Department - When: As needed - Reason: Worsening of condition Followup: kb - With: Private Physician - When: 2 - 3 days - Reason: Recheck today's complaints, Continuance of care, Re-evaluation by your physician Discharge Instructions: - Discharge Summary Sheet kb - Sinusitis, Adult, [id number] kb Forms: - Medication Reconciliation Form kb - Thank You Letter kb - Antibiotic Education kb - Prescription Opioid Use kb - Patient Portal Instructions kb - Leadership Thank You Letter kb Prescriptions: - Tessalon Perles 100 mg Oral Capsule - take 1 capsule ORAL route every 8 hours As needed; 15 capsule; Refills: 0, kb Product Selection Permitted Signatures: Dispatcher [employer] Emmanuelle Esquivel, COOLER MAN-C COOLER MAN-Rowena Dooley RN RN mb9 Corrections: (The following items were deleted from the chart) 15:10 15:08 The patient has not recently seen a physician, kb kb
[2023-04-19 17:36] VITALS: BP 150/96; TEMP 98.2; O2SAT 100
== END 2023-04-19 16:04 | disposition home or self-care (01) ==
LOC: ER 14:04
DX: J01.90 Acute sinusitis, unspecified (principal); Z20.822 Contact with and (suspected) exposure to COVID-19; F17.210 Nicotine dependence, cigarettes, uncomplicated; I10 Essential (primary) hypertension; Z88.8 Allergy status to other drugs, medicaments and biological substances
CPT/HCPCS: 36415; 87804; 87811

== ENCOUNTER 2023-05-13 15:00 | Emergency (ER) | payer OTHER ==
--- OUTSIDE RECORDS SUMMARY | 2023-05-13 15:09 | XMS REPORT | Continuity of Care Document ---
:1985 Author Organization [facility] t Address [address] [place] [id number] Care Team Providers Name Role Phone ASHA MCKEE Attending Clinician Unavailable PHYSICIAN, ER Attending Clinician Unavailable Problems Condition Condition Condition Status Onset Resolution Last Treating Co mments Source Name Details Category Date Date Treatment Clinician Date Problem Condition [facility] Allergies, Adverse Reactions, Alerts This patient has no known allergies or adverse reactions. Social History Social Habit Start Date Stop Date Quantity Comments Source Sex Assigned At [birth year] Female [facility] 00:00:00 00:00:00 Smoking Status Start Date Stop Date Source Unknown if ever smoked [employer] Never smoked tobacco (finding) C [employer] Medications Ordered Filled Start Stop Current Ordering [...] Source Body Temperature 2020-01-07 10:16:00 97.7 [degF] [employer] Heart Rate 2020-01-07 10:16:00 79 /min [employer] Respiratory rate 2020-01-07 10:16:00 18 /min [employer] BP Systolic 2020-01-07 10:16:00 134 mm[Hg[facility] 2020-01-07 10:16:00 90 mm[Hg] [facility] Respiratory rate 2019-09-08 21:00:00 18 /min [facility] BP Systolic 2019-09-08 21:00:00 146 mm[Hg] [facility] BP Diastolic 2019-09-08 21:00:00 93 mm[Hg] [facility] Weight 2019-09-08 21:00:00 235 [lb_av] [facility] BMI (Body Mass Index) 2019-09-08 21:00:00 34.7 kg/m2 [facility] [employer] Procedures Procedure Date / Time Performed Performing Clinician [facility] e ECG (electrocardiogram) 2020-01-07 00:00:00 [facility] [employer] X-ray of chest, single 2020-01-07 00:00:00 [facility] [employer] view Computed tomography of 2020-01-07 00:00:00 [facility] [employer] head or brain without contrast Computed tomography of 2020-01-07 00:00:00 [facility] [employer] cervical spine without contrast ECG (electrocardiogram) 2019-09-08 00:00:00 [facility] [employer] X-ray of chest, two views 2019-09-08 00:00:00 [facility] Encounters Start End Encounter Admission Attending Care Care Encounter Source Date/Time Date/Time Type Type Clinicians Facility Department ID 2020-01-09 2020-01-09 Outpatient GLORIA ZAMORA [id number] [facility] 13:44:00 13:44:00 [facility] 2020-01-07 2020-01-07 Departed ER PHYSICIAN, GLORIA CASTRO [id number] [facility] 03:35:00 03:35:00 Emergency ER [facility] [address] [facility] 2019-09-08 2019-09-09 Departed GLORIA CASTRO [id number] [facility] 20:50:00 00:23:00 Emergency [facility] Results Test Description Test Time Test Comments Results Result Comments Source Serum or plasma natriuretic peptide B measurement (mas s/volume) 2020-01-07 08:11:00 Test Item Value Reference Range Interpretation Comme nts B-Type Natriuretic Peptide (test code = 05679-4) 4 pg/mL 0-101 [facility] or plasma free thyroxine (FT4) measurement (mass/volume) 2020-01-07 07:47:00 Test Item Value Reference Range Interpretation Comments Free Thyroxine (test code = 1.48 ng/dL 1.09-1.53 3024-7) [facility] or plasma thyrotropin measurement with detection limit of 0.005 mIU/L or less (units/volume)2020-01-07 07:47:00 Test Item Value Reference Range Interpretation Comments Thyroid Stimulating Hormone 1.435 u[iU]/mL 0.550-4.780 (TSH) (test code = 99295-8) [facility] or plasma free triiodothyronine (T3) [...] 3040-3) 29 U/L 31-96 [facility] HealthCreatine kinase ser/ruma6895-77-12 07:27:00 Test Item Value Reference Range Interpretation Comments Total Creatine Kinase (test code = 61 U/L 30-160 2157-6) [facility]um or plasma creatine kinase MB measurement (mass/volume) 2020-01-07 07:27:00 Test Item Value Reference Range Interpretation Comments Creatine Kinase MB (test code = < 0.18 ng/mL 0-5 30879-1) [facility] or plasma cardiac troponin I measurement (mass/volume) 2020-01-07 07:27:00 Test Item Value Reference Range Interpretation Comments Troponin I (test code = < 0.006 ng/mL 0.000-0.040 36536-6) [facility] or plasma myoglobin measurement (mass/volume)2020-01-07 07:27:00 Test Item Value Reference Range Interpretation Comments Myoglobin (test code = 2639-3) 20.4 ng/mL <110.0 [facility] HealthUrinalysis specimen collection [id number] 04:03:00 Test Item Value Reference Range Interpretation Comments Urine Source (test code = Urine Clean Catch 11155-4) [facility] HealthUrine color qkbludbhajyvt4689-50-99 04:03:00 Test Item Value Reference Range Interpretation Comments Urine Color (test code = 5778-6) Colorless Yel[employer]Lora [facility] HealthUrine appearance makklfmvagorq2231-63-70 04:03:00 Test Item Value Reference Range Interpretation Comments Urine Appearance (test code = 5767-9) Clear Clear [facility]Urine pH measurement by test agxjc0367-37-69 04:03:00 Test Item Value Reference Range Interpretation Comments Urine pH (test code = 5803-2) 5.0 5.0-7.5 [facility] HealthSpecific gravity ur lfyjjrac6694-49-10 04:03:00 Test Item Value Reference Range Interpretation Comments Urine Specific [place] (test code = 1.003 1.003-1.029 5811-5) [facility]Urine protein measurement by automated test strip (mass/volume) 2020-01-07 04:03:00 Test Item Value Reference Range Interpretation Comments Urine Protein (test code = Negative mg/dL Neg - Trace 75007-8) [facility]rine glucose measurement by automated test strip (mass/volume) 2020-01-07 04:03:00 Test Item Value Reference Range Interpretation Comments Urine Glucose (UA) (test code = Negative Negative 74765-9) [facility] HealthUrine ketones detection by automated test hukpu5748-31-72 04:03:00 Test Item Value Reference Range Interpretation Comments Urine Ketones (test code = 86846-0) Negative Negative [facility]Urine erythrocytes count by automated test strip (number/volume) 2020-01-07 04:03:00 Test Item Value Reference Range Interpretation Comments Urine Occult Blood (test code = Negative Negative 43206-1) [facility] HealthUrine nitrite detection by automated test fqmys6480-57-94 04:03:00 Test Item Value Reference Range Interpretation Comments Urine Nitrite (test code = 58427-6) Negative Negative [facility]rine total bilirubin detection by automated test tucrc1221-88-04 04:03:00 Test Item Value Reference Range Interpretation Comments Urine Bilirubin (test code = Negative Negative 62865-2) [facility]Urine urobilinogen measurement by automated test strip (mass/volume)2020-01-07 04:03:00 Test Item Value Reference Range Interpretation Comments Urine Urobilinogen (test code = Normal mg/dL Norm-1.0 94742-6) [facility] leukocyte esterase detection by automated test strip 2020-01-07 04:03:00 Test Item Value Reference Range Interpretation Comments Urine Leukocyte Esterase (test code = Trace Negative 98519-7) [facility]Urine sediment erythrocyte count by microscopy (number/high power field)2020-01-07 04:03:00 Test Item Value Reference Range Interpretation Comments Urine RBC (test 0-2 /[HPF] See_Comment [Automated message] The code = 19392-0) system which generated this result tra nsmitted [...] Cells (test code Many /[LPF] None/Occ = 94109-5) [facility]Urine sediment bacteria count by microscopy (number/high power field)2020-01-07 04:03:00 Test Item Value Reference Range Interpretation Comments Urine Bacteria (test code = Occasional /[HPF] None 5769-5) [facility] HealthUrine sediment hyaline cast count by microscopy (number/low power field)2020-01-07 04:03:00 Test Item Value Reference Range Interpretation Comments Urine Hyaline Casts (test code = 2-5 /[LPF] 5796-8) [facility] HealthYeast detection in urine sediment by light qntwtjdfcz6638-73-65 04:03:00 Test Item Value Reference Range Interpretation Comments Urine Yeast (test code = None Seen /[HPF] 99868-0) [facility] comment 04:03:00 Test Item Value [...] HealthAutomated erythrocyte mean corpuscular hemoglobin concentration measurement (mass/zxo1064-98-72 04:00:00 Test Item Value Reference Range Interpretation Comments Mean Corpuscular Hemoglobin Concent 32.6 g/dL 32.5-35.0 (test code = 786-4) [facility] HealthAutomated erythrocyte distribution width nkvyk0935-80-79 04:00:00 Test Item Value Reference Range Interpretation Comments Red Cell Distribution Width (test code 13.5 % 11.5-14.5 = 788-0) [facility] HealthAutomated blood platelet count (count/volume)2020-01-07 04:00:00 Test Item Value Reference Range Interpretation Comments Platelet Count (test code = 191 10*3/uL 160-400 777-3) [facility] HealthAutomated blood platelet mean volume skvbpmnyxnv4477-51-60 04:00:00 Test Item Value Reference Range Interpretation Comments Mean Platelet Volume (test code = 12.0 fL 7.5-11.2 04111-9) [facility] HealthAutomated blood neutrophil count as percentage of total emztwotmar0027-76-91 04:00:00 Test Item Value Reference Range Interpretation Comments Neutrophils (%) (Auto) (test code = 64 % 45-75 770-8) [facility] HealthAutomated blood immature granulocyte count as percentage of total hvuoxleybh2936-51-03 04:00:00 Test Item Value Reference Range Interpretation Comments Immature Granulocyte % (Auto) (test 0.2 % 0.0-1.5 code = 69355-2) [facility] HealthAutomated blood lymphocyte count as percentage of total baotzavyhr6454-72-29 04:00:00 Test Item Value Reference Range Interpretation Comments Lymphocytes (%) (Auto) (test code = 26 % 20-48 736-9) [facility]Automated blood monocyte count as percentage of total leukocytes 2020-01-07 04:00:00 Test Item Value Reference Range Interpretation Comments Monocytes (%) (Auto) (test code = 6 % 1-9 5905-5) [facility]Automated blood eosinophil count as percentage of total cmhjcjzcfm8164-04-21 04:00:00 Test Item Value Reference Range Interpretation Comments Eosinophils (%) (Auto) (test code = 3 % 0-4 713-8) [facility]Automated blood basophil count as percentage of total leukocytes 2020-01-07 04:00:00 Test Item Value Reference Range Interpretation Comments Basophils (%) (Auto) (test code = 1 % 0-2 706-2) [facility]Automated blood nucleated erythrocyte count as percentage of total rkuuurjumf4504-65-39 04:00:00 Test Item Value Reference Range Interpretation Comments Nucleated Red Blood Cells % (test code 0 % 0-1 = 81987-3) [facility] HealthAutomated blood neutrophil count (number/volume)2020-01-07 04:00:00 Test Item Value Reference Range Interpretation Comments Neutrophils # (Auto) (test code 2.87 10*3/uL = 751-8) [facility] HealthProthrombin time (PT) in platelet poor qaudwh0851-78-44 04:00:00 Test Item Value Reference Range Interpretation Comments Prothrombin Time (test code = 5902-2) 11.8 s 9.4-12.5 [facility] HealthINR in Platelet poor plasma by Coagulation gfhzv7023-54-89 04:00:00 Test Item Value Reference Range Interpretation Comments Prothromb Time International 1.1 {ratio} Ratio (test code = 6301-6) [facility] HealthPartial thromboplastin time (PTT) in platelet poor plasma 2020-01-07 04:00:00 Test Item Value Reference Range Interpretation Comments Activated Partial Thromboplast Time 30 s 25-37 (test code = 53302-9) [facility] HealthFibrin D-dimer FEU [id number] 04:00:00 Test Item Value Reference Range Interpretation Comments D-Dimer (test code = 21939-4) 423 ng/mL{FEU} 215-500 [facility] HealthSerum or plasma [...] Interpretation Comments Anion Gap (test code = 81494-1) 9.0 mmol/L 3.0-11.0 [facility] HealthSerum or plasma urea nitrogen measurement (mass/volume)2020-01-07 04:00:00 Test Item Value Reference Range Interpretation Comments Blood Urea Nitrogen (test code = 16.0 mg/dL 12-22 3094-0) [facility] HealthSerum or plasma creatinine measurement (mass/volume)2020-01-07 04:00:00 Test Item Value Reference Range Interpretation Comments Creatinine (test code = 2160-0) 0.90 mg/dL 0.60-1.02 [facility] calculated from serum or plasma creatinine by [id number] 04:00:00 Test Item Value Reference Range Interpretation Comments Estimated Creatinine Clearance (test 93.8 code = 89845-5) [facility]Glomerular filtration rate (GFR) estimation using MDRD equation 2020-01-07 04:00:00 Test Item Value Reference Range Interpretation Comments Estimat Glomerular Filtration Rate 77.12 >60 (test code = 350371339) [facility] HealthSerum or plasma urea nitrogen/creatinine mass niqwp8114-61-52 04:00:00 Test Item Value Reference Range Interpretation Comments BUN/Creatinine Ratio (test code = 18 3097-3) [facility] HealthSerum or plasma glucose measurement (mass/volume)2020-01-07 04:00:00 Test Item Value Reference Range Interpretation Comments Glucose Level (test code = 2345-7) 88 mg/dL 74-112 [facility] HealthSerum or plasma calcium measurement (mass/volume)2020-01-07 04:00:00 Test Item Value Reference Range Interpretation Comments Calcium Level (test code = 51423-0) 9.8 mg/dL 9.0-10.2 [facility] HealthSerum or plasma [...] (test code = 1751-7) 4.9 g/dL 4.2-5.4 [facility]ulin [facility] by calculation (mass/volume)2020-01-07 04:00:00 Test Item Value Reference Range Interpretation Comments Globulin (test code = 65393-6) 3.0 g/dL [facility] HealthSerum or plasma albumin/globulin mass nyzxl2311-17-81 04:00:00 Test Item Value Reference Range Interpretation Comments Albumin/Globulin Ratio (test code 1.6 {ratio} = 1759-0) [facility] HealthSerum or plasma alkaline phosphatase measurement (enzymatic activity/volume)2020-01-07 04:00:00 Test Item Value Reference Range Interpretation Comments Alkaline Phosphatase (test code = 78 U/L 45-100 6768-6) [facility] specimen [facility] [id number] 22:40:00 Test Item Value Reference Range Interpretation Comments Urine Source (test code = Urine Clean Catch 46320-2) [facility] HealthUrine color ojpipwukjdpzp6755-04-40 22:40:00 Test Item Value Reference Range Interpretation Comments Urine Color (test code = 5778-6) Yellow Yel-Lora [facility] HealthUrine appearance rlhahwuosxeux1029-80-41 22:40:00 Test Item Value Reference Range Interpretation Comments Urine Appearance (test code = 5767-9) Clear Clear [facility] HealthUrine pH measurement by test jerqw1720-66-21 22:40:00 Test Item Value Reference Range Interpretation Comments Urine pH (test code = 5803-2) 6.0 5.0-7.5 [facility] HealthSpecific gravity ur halzoiqu9579-29-96 22:40:00 Test Item Value Reference Range Interpretation Comments Urine Specific [place] (test code = 1.024 1.003-1.029 5811-5) [facility] HealthUrine protein measurement by automated test strip (mass/volume) 2019-09-08 22:40:00 Test Item Value Reference Range Interpretation Comments Urine Protein (test code = Trace mg/dL Neg - Trace 34405-2) [facility]Urine glucose measurement by automated test strip (mass/volume) 2019-09-08 22:40:00 Test Item Value Reference Range Interpretation Comments Urine Glucose (UA) (test code = Negative Negative 86064-4) [facility] HealthUrine ketones detection by automated test vbahe2099-35-65 22:40:00 Test Item Value Reference Range Interpretation Comments Urine Ketones (test code = 57061-1) Trace Negative [facility]Urine erythrocytes count by automated test strip (number/volume) 2019-09-08 22:40:00 Test Item Value Reference Range Interpretation Comments Urine Occult Blood (test code = Negative Negative 56636-9) [facility] HealthUrine nitrite detection by automated test iwjiv1035-12-90 22:40:00 Test Item Value Reference Range Interpretation Comments Urine Nitrite (test code = 80559-9) Negative Negative [facility]Urine total bilirubin detection by automated test lmbgy1826-43-78 22:40:00 Test Item Value Reference Range Interpretation Comments Urine Bilirubin (test code = Negative Negative 48122-9) [facility] HealthUrine urobilinogen measurement by automated test strip (mass/volume)2019-09-08 22:40:00 Test Item Value Reference Range Interpretation Comments Urine Urobilinogen (test code = Normal mg/dL Norm-1.0 17517-6) [facility]Urine leukocyte esterase detection by automated test strip 2019-09-08 22:40:00 Test Item Value Reference Range Interpretation Comments Urine Leukocyte Esterase (test code = Trace Negative 18192-2) [facility] HealthUrine sediment erythrocyte count by microscopy (number/high power field)2019-09-08 22:40:00 Test Item Value Reference Range Interpretation Comments Urine RBC (test 0-2 /[HPF] See_Comment [Automated message] The code = 37346-6) system which generated this result tra nsmitted [...] (test None seen /[LPF] None/Occ code = 90049-6) [facility] HealthUrine sediment bacteria count by microscopy (number/high power field)2019-09-08 22:40:00 Test Item Value Reference Range Interpretation Comments Urine Bacteria (test code = Occasional /[HPF] None 5769-5) [facility] HealthUrine sediment hyaline cast count by microscopy (number/low power field)2019-09-08 22:40:00 Test Item Value Reference Range Interpretation Comments Urine Hyaline Casts (test code = 2-5 /[LPF] 5796-8) [facility] HealthYeast detection in urine sediment by light wftgworojh2599-46-59 22:40:00 Test Item Value Reference Range Interpretation Comments Urine Yeast (test code = None Seen /[HPF] 66291-1) [facility] comment [id number] 22:40:00 Test Item Value Reference Range Interpretation Comments Urine Culture Indicated (test code = Yes 8264-4) [facility] HealthAutomated blood nucleated erythrocyte count as percentage of total xmpevcvnze5992-67-61 22:15:00 Test Item Value Reference Range Interpretation Comments Nucleated Red Blood Cells % (test code 0 % 0-1 = 20290-3) [facility] HealthAutomated blood neutrophil count (number/volume)2019-09-08 22:15:00 [...] Interpretation Comments Anion Gap (test code = 77049-8) 15.0 mmol/L 3.0-11.0 [facility] HealthSerum or plasma [...] calculated from serum or plasma creatinine by [id number] 22:15:00 Test Item Value Reference Range Interpretation Comments Estimated Creatinine Clearance (test 134.0 code = 90735-3) [facility]Glomerular filtration rate (GFR) estimation using MDRD equation 2019-09-08 22:15:00 Test Item Value Reference Range Interpretation Comments Estimat Glomerular Filtration Rate 116.39 >60 (test code = 44394-4) [facility] HealthSerum or plasma urea nitrogen/creatinine mass zjbru3416-87-91 22:15:00 Test Item Value Reference Range Interpretation Comments BUN/Creatinine Ratio (test code = 22 3097-3) [facility] HealthSerum or plasma glucose measurement (mass/volume)2019-09-08 22:15:00 Test Item Value Reference Range Interpretation Comments Glucose Level (test code = 2345-7) 82 mg/dL 70-110 [facility] HealthSerum or plasma calcium measurement (mass/volume)2019-09-08 22:15:00 Test Item Value Reference Range Interpretation Comments Calcium Level (test code = 83563-3) 8.9 mg/dL 8.4-10.2 [facility]Serum or plasma [...] Range Interpretation Comments Globulin (test code = 15390-0) 3.2 g/dL [facility] HealthSerum or plasma albumin/globulin mass khkvt5835-14-48 22:15:00 Test Item Value Reference Range Interpretation [...] 3040-3) 18 U/L 16-63 [facility] HealthCreatine kinase ser/pavo9138-55-09 22:15:00 Test Item Value Reference Range Interpretation Comments Total Creatine Kinase (test code = 84 U/L 24-170 2157-6) [facility] HealthSerum or plasma creatine kinase MB measurement (mass/volume) 2019-09-08 22:15:00 Test Item Value Reference Range Interpretation Comments Creatine Kinase MB (test code = 1.3 ng/mL 0-5 23703-5) [facility] HealthSerum or plasma cardiac troponin T [...] HealthAutomated erythrocyte mean corpuscular hemoglobin concentration measurement (mass/ljq6286-88-19 22:15:00 Test Item Value Reference Range Interpretation Comments Mean Corpuscular Hemoglobin Concent 33.5 g/dL 32.5-35.0 (test code = 786-4) [facility] HealthAutomated erythrocyte distribution width wclgf6431-28-05 22:15:00 Test Item Value Reference Range Interpretation Comments Red Cell Distribution Width (test code 14.0 % 11.5-14.5 = 788-0) [facility] HealthAutomated blood platelet count (count/volume)2019-09-08 22:15:00 Test Item Value Reference Range Interpretation Comments Platelet Count (test code = 238 10*3/uL 160-400 777-3) [facility] HealthAutomated blood platelet mean volume liifpgvpiqs9742-60-30 22:15:00 Test Item Value Reference Range Interpretation Comments Mean Platelet Volume (test code = 11.0 fL 7.5-11.2 33420-3) [facility] neutrophil count as percentage of total gbraurgvhm1934-78-30 22:15:00 Test Item Value Reference Range Interpretation Comments Neutrophils (%) (Auto) (test code = 70 % 45-75 770-8) [facility] MonroeAutomated blood immature granulocyte count as percentage of total rlnhwqbxtl0517-35-28 22:15:00 Test Item Value Reference Range Interpretation Comments Immature Granulocyte % (Auto) (test 0.2 % 0.0-1.5 code = 64043-9) [facility] blood lymphocyte count as percentage of total cdccjkwfnm4753-64-41 22:15:00 Test Item Value Reference Range Interpretation Comments Lymphocytes (%) (Auto) (test code = 21 % 20-48 736-9) [facility] blood monocyte count as percentage of total leukocytes 2019-09-08 22:15:00 Test Item Value Reference Range Interpretation Comments Monocytes (%) (Auto) (test code = 7 % 1-9 5905-5) [facility] blood eosinophil count as percentage of total xesfottgfp4190-08-12 22:15:00 Test Item Value Reference Range Interpretation Comments Eosinophils (%) (Auto) (test code = 1 % 0-4 713-8) [facility] blood basophil count as percentage of total leukocytes 2019-09-08 22:15:00 Test Item Value Reference Range Interpretation Comments Basophils (%) (Auto) (test code = 1 % 0-2 706-2) [facility]
[2023-05-13] MEDS ORDERED: PANTOPRAZOLE 40 MG INJ ONE (15:34)
[2023-05-13] MEDS ORDERED: NA CHLORIDE 0.9% 1,000 ML ONE (15:34)
[2023-05-13] MEDS ORDERED: AMLODIPINE 5 MG TAB ONE (15:34)
[2023-05-13 15:35] LABS: Absolute Lymphocytes (CBC) 1.2 K/uL (0.7-4.9); Hematocrit 35.2 % (36.0-45.0); Lymphocytes % 19.7 % (15.3-44.8); MCV 79.7 fL (80-100); Platelets 226 thou/uL (152-406); RBC Red Blood Cell Count 4.42 M/uL (3.86-4.86)
[2023-05-13 15:52] LABS: Albumin 4.1 g/dL (3.4-5.0); Bilirubin Total 0.5 mg/dL (0.2-1.0); Potassium 4.1 mEq/L (3.5-5.1); Protein, Total 8.5 g/dL (6.4-8.2)
--- NOTE | 2023-05-13 16:53 | EDPHYS ---
[facility] Name: Salud Almanzar Age: 37 yrs Sex: Female : 1985 Arrival Date: 05/13/2023 Time: 15:00 Bed 15 Private MD: ED Physician Subhash Quijano HPI: 05/13 15:21 This 37 yrs old Female presents to ER via Ambulatory with complaints of Body aches, snw Shortness Of Breath, Headache, Dizziness. 15:21 Onset: The symptoms/episode began/occurred suddenly. It is unknown whether or not the snw patient has had similar symptoms in the past. Smoking and drinking yesterday. Historical: - Allergies: 15:10 Ativan; stomach pain; ll1 - PMHx: 15:10 Anxiety; Gastroesophageal reflux disease; Hypertensive disorder; Migraine; ll1 - PSHx: 15:10 section; Cholecystectomy; Ligation of fallopian tube; ll1 - Immunization history:: Adult Immunizations up to date. - Social history:: Smoking status: Patient reports the use of cigarette tobacco products, denies chronic smoking, but will smoke occasionally. ROS: 15:20 Eyes: Negative for injury, pain, redness, and discharge, ENT: Negative for injury, snw pain, and discharge, Neck: Negative for injury, pain, and swelling, 15:20 Respiratory: Negative for shortness of breath, cough, wheezing, and pleuritic chest pain, 15:20 Back: Negative for injury and pain, : Negative for injury, bleeding, discharge, and swelling, MS/Extremity: Negative for injury and deformity, Skin: Negative for injury, rash, and discoloration, Psych: Negative for depression, anxiety, suicide ideation, homicidal ideation, and hallucinations, 15:20 Constitutional: Positive for body aches, fatigue, malaise, poor PO intake, 15:20 Cardiovascular: Positive for burning from smoking, 15:20 Abdomen/GI: Positive for nausea, abdominal cramps, 15:20 Neuro: Positive for headache, Exam: 15:17 Head/Face: Normocephalic, atraumatic. Eyes: Pupils equal round and reactive to light, snw extra-ocular motions intact. Lids and lashes normal. Conjunctiva and sclera are non-icteric and not injected. Cornea within normal limits. Periorbital areas with no swelling, redness, or edema. 15:17 Neck: Trachea midline, no thyromegaly or masses palpated, and no cervical lymphadenopathy. Supple, full range of motion without nuchal rigidity, or vertebral point tenderness. No Meningismus. Chest/axilla: Normal chest wall appearance and motion. Nontender with no deformity. No lesions are appreciated. Cardiovascular: Regular rate and rhythm with a normal S1 and S2. No gallops, murmurs, or rubs. Normal PMI, no JVD. No pulse deficits. Respiratory: Lungs have equal breath sounds bilaterally, clear to auscultation and percussion. No rales, rhonchi or wheezes noted. No increased work of breathing, no retractions or nasal flaring. Abdomen/GI: Soft, non-tender, with normal bowel sounds. No distension or tympany. No guarding or rebound. No evidence of tenderness throughout. Back: No spinal tenderness. No costovertebral tenderness. Full range of motion. Skin: Warm, dry with normal turgor. Normal color with no rashes, no lesions, and no evidence of cellulitis. MS/ Extremity: Pulses equal, no cyanosis. Neurovascular intact. Full, normal range of motion. Neuro: Awake and alert, GCS 15, oriented to person, place, time, and situation. Cranial nerves II-XII grossly intact. Motor strength 5/5 in all extremities. Sensory grossly intact. Cerebellar exam normal. Normal gait. 15:17 Constitutional: The patient appears alert, awake, anxious, uncomfortable, 15:17 ENT: TM's: are normal, Posterior pharynx: erythema, that is mild, that is moderate, Voice: is normal, 15:17 Psych: Behavior/mood is pleasant, anxious, Affect is calm, Vital Signs: 15:11 BP 169 / 108; Pulse 94; Resp 18; Temp 98.1; Pulse Ox 100% ; Weight 104.33 kg; Height 5 ll1 ft. 10 in. ; Pain 4/10; 15:43 BP 155 / 80; Pulse 90; Resp 18; Pulse Ox 100% on R/A; mb9 16:21 BP 147 / 87; Pulse 83; Resp 18; Pulse Ox 98% on R/A; mb9 15:11 Body Mass Index 33.00 (104.33 kg, 177.8 cm) ll1 15:11 Pain Scale: Adult ll1 MDM: 15:08 Patient medically screened. snw 15:17 Differential diagnosis: electrolyte derangement, side effects of ETOH, smoking, snw fatigue. Data reviewed: vital signs, nurses notes. I considered the following discharge prescriptions or medication management in the emergency department Medications were administered in the Emergency Department. See MAR. ED course: Pt states she took her Nebivolol this am. Feels cramping in ext. + Etoh and smoking last pm. Hx of GERD. 05/13 15:17 Order name: CBC with Diff; Complete Time: 15:48 snw 05/13 15:17 Order name: CMP; Complete Time: 15:54 snw 05/13 15:17 Order name: Lipase; Complete Time: 15:54 snw 05/13 15:17 Order name: Urinalysis w/ reflexes; Complete Time: 17:01 snw 05/13 15:17 Order name: IV Saline Lock; Complete Time: 15:30 snw 05/13 15:17 Order name: Labs collected and sent; Complete Time: 15:30 snw 05/13 16:08 Order name: EKG - Nurse/Tech; Complete Time: 16:08 mb9 EC:11 Rate is 75 beats/min. Rhythm is regular. QRS [place] is Normal. NM interval is normal. QRS snw interval is normal. T waves are Flattened in lead III. Clinical impression: NSR w/ Non-specific ST/T Changes. Administered Medications: 15:30 Drug: NS 0.9% IV 1000 ml IV at 1 bolus Per protocol; 1000 mL bolus Route: IV; Rate: 1 mb9 bolus; Site: left antecubital; 17:06 Follow up: Response: No adverse reaction; IV Status: Completed infusion mb9 15:30 Drug: Pantoprazole IVP 40 mg IVP once Route: IVP; Site: left antecubital; mb9 16:09 Follow up: Response: No adverse reaction mb9 15:30 Drug: Norvasc PO 5 mg PO once Route: PO; mb9 16:08 Follow up: Response: No adverse reaction mb9 16:50 Drug: Lidocaine Infiltration (1 %) 3 ml 5 ml Infiltration once; mix 3ml in 3m NS and mb9 nebulize at 8L/min x 1 Volume: 5 ml; Route: Infiltration; 17:06 Follow up: Response: No adverse reaction mb9 Disposition Summary: 05/13/23 16:53 Discharge Ordered Notes: Location: Home snw Condition: Stable snw Diagnosis - Other malaise and fatigue snw - Volume depletion, unspecified snw - Epigastric pain snw Followup: snw - With: Emergency Department - When: As needed - Reason: Worsening of condition Followup: snw - With: Private Physician - When: 2 - 3 days - Reason: Recheck today's complaints, Continuance of care, Re-evaluation by your physician Discharge Instructions: - Discharge Summary Sheet snw - Dehydration, Adult snw - Food Choices for Gastroesophageal Reflux Disease, Adult snw - Gastritis, Adult snw - Fatigue snw - Rehydration, Adult snw Forms: - Work release form snw - Medication Reconciliation Form snw - Thank You Letter snw - Antibiotic Education snw - Prescription Opioid Use snw - Patient Portal Instructions snw - Leadership Thank You Letter snw Prescriptions: - Carafate 1 gram Oral Tablet - take 1 tablet ORAL route 4 times per day take on an empty stomach, beginning on snw waking and last dose at bedtime; 100 tablet; Refills: 0, Product Selection Permitted - Protonix 40 mg Oral Tablet - take 1 tablet ORAL route once daily; 30 tablet; Refills: 0, Product Selection snw Permitted - promethazine 25 mg Oral tablet - take 1 tablet ORAL route every 6 hours As needed; 12 tablet; Refills: 0, snw Product Selection Permitted Addendum: 05/14/2023 18:07 I was immediately available for consultation during this patient's visit. I did not e c2 personally see the patient or guide the patient's care. . Signatures: Dispatcher [employer] Briana Bennett, STAFF RADIATION THERAPIST-C STAFF RADIATION THERAPIST-Csnw Davon Watts RN RN ll1 Rowena Clark RN RN mb9 Subhash Quijano MD MD ec2
--- NOTE | 2023-05-13 16:53 | ER ---
Nurse's Notes [facility] Name: Salud Almanzar Age: 37 yrs Sex: Female : 1985 Arrival Date: 05/13/2023 Time: 15:00 Bed 15 Private MD: Diagnosis: Other malaise and fatigue;Volume depletion, unspecified;Epigastric pain Presentation: 05/13 15:11 Chief complaint: Patient states: Body cramps, SOB, dizzy, AQUINO for 1 day. Went on a ll1 drinking pinedo the past two days. Coronavirus screen: Client denies travel out of the [place] in the last 14 days. At this time, the client does not indicate any symptoms associated with coronavirus-19. Ebola Screen: Patient denies travel to an Ebola-affected area in the 21 days before illness onset. Initial Sepsis Screen: Does the patient meet any 2 criteria? No. Patient's initial sepsis screen is negative. Does the patient have a suspected source of infection? No. Patient's initial sepsis screen is negative. Risk Assessment: Do you want to hurt yourself or someone else? Patient reports no desire to harm self or others. Onset of symptoms was May 13, 2023. 15:11 Method Of Arrival: Ambulatory 1 15:11 Acuity: JOSE 3 ll1 Triage Assessment: 15:11 General: Appears uncomfortable, Behavior is calm, cooperative, appropriate for age. ll1 General: Reports fatigue for. Pain: Complains of pain in head Quality of pain is described as aching. Neuro: Reports headache weakness. Respiratory: Onset: The symptoms/episode began/occurred today, the patient has mild shortness of breath. GI: Reports nausea. Musculoskeletal: Reports muscle cramps. Historical: - Allergies: 15:10 Ativan; stomach pain; ll1 - PMHx: 15:10 Anxiety; Gastroesophageal reflux disease; Hypertensive disorder; Migraine; ll1 - PSHx: 15:10 section; Cholecystectomy; Ligation of fallopian tube; ll1 - Immunization history:: Adult Immunizations up to date. - Social history:: Smoking status: Patient reports the use of cigarette tobacco products, denies chronic smoking, but will smoke occasionally. Screenin:14 [facility] Fall Risk Assessment (Adult) History of falling in the last 3 months, mb9 including since admission No falls in past 3 months (0 pts) Confusion or Disorientation No (0 pts) Intoxicated or Sedated No (0 pts) Impaired Gait No (0 pts) Mobility Assist Device Used No (0 pt) Altered Elimination No (0 pt) Score/Fall Risk Level 0 - 2 = Low Risk Oriented to surroundings, Maintained a safe environment, Educated pt \\T\\ family on fall prevention, incl call for assistance when getting out of bed. Abuse screen: Denies threats or abuse. Nutritional screening: No deficits noted. Tuberculosis screening: No symptoms or risk factors identified. Assessment: 15:31 General: Appears in no apparent distress. Behavior is calm, cooperative. Pain: mb9 Complains of pain in head Quality of pain is described as throbbing. Neuro: Rocha Agitation-Sedation Scale (RASS): 0 - Alert and Calm Level of Consciousness is awake, alert, obeys commands, Oriented to person, place, time, situation, Appropriate for age Reports dizziness, headache. Cardiovascular: Reports chest pressure Heart tones S1 S2 present Patient's skin is warm and dry. Rhythm is regular. Respiratory: Airway is patent Respiratory effort is even, unlabored, Respiratory pattern is regular, symmetrical, Breath sounds are clear bilaterally. GI: Abdomen is round non-distended, Bowel sounds present X 4 quads. Abd is soft and non tender X 4 quads. : No signs and/or symptoms were reported regarding the genitourinary system. EENT: No signs and/or symptoms were reported regarding the EENT system. Derm: Skin is pink, warm \\T\\ dry. Musculoskeletal: Range of motion: intact in all extremities. 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 New orders at this time. 17:16 Reassessment: Patient and/or family updated on plan of care and expected duration. Pain mb9 level reassessed. Patient is alert, oriented x 3, equal unlabored respirations, skin warm/dry/pink. Patient states feeling better. Patient states symptoms have improved. Vital Signs: 15:11 BP 169 / 108; Pulse 94; Resp 18; Temp 98.1; Pulse Ox 100% ; Weight 104.33 kg; Height 5 ll1 ft. 10 in. ; Pain 4/10; 15:43 BP 155 / 80; Pulse 90; Resp 18; Pulse Ox 100% on R/A; mb9 16:21 BP 147 / 87; Pulse 83; Resp 18; Pulse Ox 98% on R/A; mb9 15:11 Body Mass Index 33.00 (104.33 kg, 177.8 cm) ll1 15:11 Pain Scale: Adult [facility] ED Course: 15:02 Patient arrived in ED. im 15:03 Briana Brooks FNP-C is PHCP. snw 15:03 Subhash Quijano MD is Attending Physician. snw 15:12 Triage completed. ll1 15:12 Arm band placed on. ll1 15:14 Rowena Clark RN is Primary Nurse. mb9 15:14 Placed in gown. Bed in low position. Call light in reach. Side rails up X 1. Client mb9 placed on continuous cardiac and pulse oximetry monitoring. NIBP monitoring applied. 15:27 Initial lab(s) drawn, by me, sent to lab. Inserted saline lock: 20 gauge in left aa5 antecubital area, using aseptic technique. Blood collected. 15:30 CBC with Diff Sent. mb9 15:30 CMP Sent. mb9 15:30 Lipase Sent. mb9 15:31 No provider procedures requiring assistance completed. mb9 16:55 Urinalysis w/ reflexes Sent. mb9 17:06 IV discontinued, intact, bleeding controlled, No redness/swelling at site. Pressure mb9 dressing applied. Administered Medications: 15:30 Drug: NS 0.9% IV 1000 ml IV at 1 bolus Per protocol; 1000 mL bolus Route: IV; Rate: 1 mb9 bolus; Site: left antecubital; 17:06 Follow up: Response: No adverse reaction; IV Status: Completed infusion mb9 15:30 Drug: Pantoprazole IVP 40 mg IVP once Route: IVP; Site: left antecubital; mb9 16:09 Follow up: Response: No adverse reaction mb9 15:30 Drug: Norvasc PO 5 mg PO once Route: PO; mb9 16:08 Follow up: Response: No adverse reaction mb9 16:50 Drug: Lidocaine Infiltration (1 %) 3 ml 5 ml Infiltration once; mix 3ml in 3m NS and mb9 nebulize at 8L/min x 1 Volume: 5 ml; Route: Infiltration; 17:06 Follow up: Response: No adverse reaction mb9 Medication: 15:15 VIS not applicable for this client. mb9 Outcome: 16:53 Discharge ordered by MD. stark 17:17 Discharged to home ambulatory, mb9 17:17 Condition: stable 17:17 Discharge instructions given to patient, Instructed on discharge instructions, follow up and referral plans. Demonstrated understanding of instructions, follow-up care, medications, Prescriptions given X 3, 17:17 Patient left the ED. mb9 Signatures: Briana Brooks, JAMESONC BOTTOM SPRAYER-Samara Bolanos, RN RN aa5 Davon Watts RN RN ll1 Rowena Clark RN RN mb9 Jes Daley Corrections: (The following items were deleted from the chart) 15:43 15:31 Cardiovascular: Patient's skin is warm and dry. Rhythm is regular mb9 mb9
[2023-05-13] MEDS ORDERED: LIDOCAINE 1% MPF 5 ML VIAL ONE (16:54)
[2023-05-13 16:57] LABS: Urine Bacteria None Seen /HPF (<20); Urine Bilirubin NEGATIVE (Negative); Urine Blood 2+ (Negative); Urine Clarity Clear (Clear); Urine Color Light-Yellow (Yellow); Urine Glucose NEGATIVE (Negative); Urine Protein NEGATIVE (Negative); Urine RBC <5 /HPF (None Seen); Urine Urobilinogen Normal (Normal)
[2023-05-13 17:27] VITALS: TEMP 98.1
[2023-05-13 17:38] VITALS: BP 147/87; O2SAT 98
--- NOTE | 2023-05-17 17:36 | EKG ---
Test Date: 2023-05-13 Test Time: 16:11:54 Director Presales: SEVERO MEASUREMENT RESULTS: Intervals: Rate: 75 CA: 134 QRSD: 76 QT: 400 QTc: 446 [place]: P: 52 CA: 134 QRS: 53 T: 54 INTERPRETIVE STATEMENTS: Normal sinus rhythm Cannot rule out Anterior infarct, age undetermined Abnormal ECG Compared to ECG 03/15/2023 03:59:09 Myocardial infarct finding now present Electronically Signed On 05-17-23 17:26:07 ENVIRONMENTAL HEALTH SAFETY ENGINEER by Maurice Huitron
== END 2023-05-13 17:17 | disposition home or self-care (01) ==
LOC: ER 15:00
DX: R53.81 Other malaise (principal); E86.9 Volume depletion, unspecified; R53.83 Other fatigue; R10.13 Epigastric pain; F17.210 Nicotine dependence, cigarettes, uncomplicated; Z88.8 Allergy status to other drugs, medicaments and biological substances
CPT/HCPCS: 96361; 93005; 85025; 81001; 36415; 83690; 80053; 96374; 99284; J2001; C9113; J7030